=== PATIENT | female | born 1930 | race Caucasian/White ===

== ENCOUNTER 2017-04-27 08:14 | Emergency (ER) | payer MEDICARE, BC ==
[2017-04-27] MEDS ORDERED: Ondansetron INJ* 2 MG/ML VIAL IV ONE (08:36)
[2017-04-27] MEDS ORDERED: Morphine INJ* 2 MG/ML 1 ML SYRINGE IV ONE (08:36)
[2017-04-27 09:07] LABS: Hematocrit 37 % (35-47); Hemoglobin 12.3 g/dl (12.0-16.0); Mean Corpuscular HGB Conc 34 g/dl (31-36); Mean Corpuscular Hemoglobin 33 pg (27-31); Mean Corpuscular Volume 99 fL (80-97); Mean Platelet Volume 9 um3 (7.4-10.4); Red Blood Count 3.71 10^6/ul (4.0-5.4); Red Cell Distribution Width 13 % (10.5-15); White Blood Count 9.1 10^3/ul (3.5-10.8)
[2017-04-27 09:19] LABS: Albumin 3.9 g/dL (3.2-5.2); C Reactive Protein 30.64 mg/L (< 5.00); Calcium 8.6 mg/dL (8.6-10.3); EGFR African American 99.2 (>60); EGFR Non-African American 77.2 (>60); Globulin 2.6 g/dL (2-4); Total Bilirubin 0.9 mg/dL (0.2-1.0); Total Protein 6.5 g/dL (6.4-8.9)
[2017-04-27 14:45] LABS: Urine Bacteria Absent (Absent); Urine Bilirubin Negative (Negative); Urine Glucose Negative (Negative); Urine Nitrite Negative (Negative)
[2017-04-27 15:09] VITALS: BP 157/58
--- NOTE | 2017-04-27 17:19 | ED ---
Brandon Dickson Alfonso, scribed for Merry Lombardo MD on 04/27/17 at 0825 . Back Pain - HPI Summary HPI Summary: This patient is an 86 year old F BIBA to [facility] accompanied by daughter and son- in-law with a chief complaint of low back pain since 4 days ago. The CC is described as at the spinal stenosis area and my usual back pain. The patient rates the pain 10/10 in severity. Symptoms aggravated by standing and movement. Symptoms alleviated by nothing. Pain not alleviated by tramadol and ibuprofen while on an empty stomach at 0700. Patient reports nausea. Patient denies CP, SOB, abdominal pain, vomiting, fall, and urinary symptoms. She lives alone. PMHx includes HTN and osteoporosis. PSHx of bilateral knee replacement, hysterectomy, bladder repair, and appendectomy. - History of Current Complaint Stated Complaint: BACK PAIN Hx Obtained From: Patient Onset/Duration: Sudden Onset, Lasting Days - 4, Still Present Timing: Constant Back Pain Location: Is Discrete @ - low back Severity Initially: Severe Severity Currently: Severe Pain Intensity: 10 Pain Scale Used: 0-10 Numeric Aggravating Symptom(s): Movement - Standing Alleviating Symptom(s): Nothing Associated Signs And Symptoms: Positive: Other - nausea. Patient denies CP, SOB , abdominal pain, vomiting, fall, and urinary symptoms - Allergies/Home Medications Allergies/Adverse Reactions: Allergies Allergy/AdvReac Type Severity Reaction Status Date / Time Aspirin Allergy Bleeding Verified 08/19/16 08:12 Nitrofurantoin Allergy Rash Verified 08/19/16 08:13 [From Macrobid] Sulfa Antibiotics Allergy Rash Verified 08/19/16 08:12 PMH/Surg Hx/FS Hx/Imm Hx Cardiovascular History: Reports: Hx Hypertension Musculoskeletal History: Reports: Hx Osteoporosis Neurological History: Reports: Other Neuro Impairments/Disorders - OSTEOPOROSIS - Cancer History Hx Chemotherapy: No Hx Radiation Therapy: No - Surgical History Surgery Procedure, Year, and Place: BILATERAL KNEE REPLACEMENTS; HYSTERECTOMY; BLADDER REPAIR; APPENDECTOMY - Family History Known Family History: Positive: Hypertension, Other - Breast cancer. Family History: FHx of Breast CA and HTN - Social History Lives: Alone Alcohol Use: None Hx Substance Use: No Substance Use Type: Reports: None Hx Tobacco Use: No Smoking Status (MU): Never Smoked Tobacco Review of Systems Negative: Chest Pain Negative: Shortness Of Breath Positive: Nausea. Negative: Abdominal Pain, Vomiting Positive: no symptoms reported Positive: Other - low back pain; negative fall. All Other Systems Reviewed And Are Negative: Yes Physical Exam Triage Information Reviewed: Yes Vital Signs On Initial Exam: Initial Vitals Temp Pulse Resp BP Pulse Ox 98.0 F 67 20 192/68 97 04/27/17 08:15 04/27/17 08:15 04/27/17 08:15 04/27/17 08:15 04/27/17 08:15 Vital Signs Reviewed: Yes Appearance: Positive: Well-Appearing, Well-Nourished, Pain Distress Skin: Positive: Warm, Skin Color Reflects Adequate Perfusion Head/Face: Positive: Normal Head/Face Inspection Eyes: Positive: Conjunctiva Clear ENT: Positive: Normal ENT inspection Neck: Positive: Supple Respiratory/Lung Sounds: Positive: Clear to Auscultation, Breath Sounds Present , Other - no respiratory distress Cardiovascular: Positive: RRR, Pulses are Symmetrical in both Upper and Lower Extremities, Other - brisk capillary refill. Negative: Murmur Abdomen Description: Positive: Nontender, Soft Bowel Sounds: Positive: Present Musculoskeletal: Positive: Strength/ROM Intact, Other - Minimal spinal tenderness on palpation. Trace edema. No deformities. Neurological: Positive: Sensory/Motor Intact, Alert, Oriented to Person Place, Time, CN Intact II-III, Other - Sensations intact Psychiatric: Positive: Normal Diagnostics - Vital Signs Vital Signs Temp Pulse Resp BP Pulse Ox 04/27/17 15:08 98 F 67 17 157/58 04/27/17 14:30 65 175/70 95 04/27/17 14:00 64 166/58 04/27/17 13:30 60 163/60 04/27/17 13:00 66 173/60 97 04/27/17 12:30 63 159/63 04/27/17 12:03 81 82 04/27/17 12:02 172/63 04/27/17 11:50 69 04/27/17 11:30 64 165/64 04/27/17 11:00 62 157/57 97 04/27/17 10:30 61 150/61 96 04/27/17 10:00 60 154/59 96 04/27/17 09:30 60 151/58 04/27/17 09:13 63 18 143/58 04/27/17 09:04 62 143/58 97 04/27/17 09:00 59 96 04/27/17 08:59 18 04/27/17 08:30 59 177/50 97 04/27/17 08:26 62 96 04/27/17 08:25 178/57 04/27/17 08:18 98.0 F 67 20 180/79 97 04/27/17 08:15 98.0 F 67 20 192/68 97 - Laboratory Lab Results: Lab Results 04/27/17 04/27/17 04/27/17 Range/Units 08:50 08:50 08:50 WBC 9.1 (3.5-10.8) 10^3/ul RBC 3.71 L (4.0-5.4) 10^6/ul Hgb 12.3 (12.0-16.0) g/dl Hct 37 (35-47) % MCV 99 H (80-97) fL MCH 33 H (27-31) pg MCHC 34 (31-36) g/dl RDW 13 (10.5-15) % Plt Count 173 (150-450) 10^3/ul MPV 9 (7.4-10.4) um3 Neut % (Auto) 83.4 H (38-83) % Lymph % (Auto) 8.0 L (25-47) % Lipscomb % (Auto) 6.9 (1-9) % Eos % (Auto) 1.0 (0-6) % Baso % (Auto) 0.7 (0-2) % Absolute Neuts (auto) 7.6 (1.5-7.7) 10^3/ul Absolute Lymphs (auto) 0.7 L (1.0-4.8) 10^3/ul Absolute Monos (auto) 0.6 (0-0.8) 10^3/ul Absolute Eos (auto) 0.1 (0-0.6) 10^3/ul Absolute Basos (auto) 0.1 (0-0.2) 10^3/ul Absolute Nucleated RBC 0 10^3/ul Nucleated RBC % 0 INR (Anticoag Therapy) 0.92 (0.89-1.11) Sodium 136 (133-145) mmol/L Potassium 4.0 (3.5-5.0) mmol/L Chloride 103 (101-111) mmol/L Carbon Dioxide 24 (22-32) mmol/L Anion Gap 9 (2-11) mmol/L BUN 18 (6-24) mg/dL Creatinine 0.72 (0.51-0.95) mg/dL Est GFR ( Amer) 99.2 (>60) Est GFR (Non-Af Amer) 77.2 (>60) BUN/Creatinine Ratio 25.0 H (8-20) Glucose 120 H (70-100) mg/dL Lactic Acid (0.5-2.0) mmol/L Calcium 8.6 (8.6-10.3) mg/dL Total Bilirubin 0.90 (0.2-1.0) mg/dL AST 15 (13-39) U/L ALT 10 (7-52) U/L Alkaline Phosphatase 48 (34-104) U/L C-Reactive Protein 30.64 H (< 5.00) mg/L Total Protein 6.5 (6.4-8.9) g/dL Albumin 3.9 (3.2-5.2) g/dL Globulin 2.6 (2-4) g/dL Albumin/Globulin Ratio 1.5 (1-3) Urine Color Urine Appearance Urine pH (5-9) Ur Specific [place] (1.010-1.030) Urine Protein (Negative) Urine Ketones (Negative) Urine Blood (Negative) Urine Nitrate (Negative) Urine Bilirubin (Negative) Urine Urobilinogen (Negative) Ur Leukocyte Esterase (Negative) Urine WBC (Auto) (Absent) Urine RBC (Auto) (Absent) Ur Squamous Epith Cells (Absent) Urine Bacteria (Absent) Urine Glucose (Negative) 04/27/17 04/27/17 Range/Units 08:50 12:03 WBC (3.5-10.8) 10^3/ul RBC (4.0-5.4) 10^6/ul Hgb (12.0-16.0) g/dl Hct (35-47) % MCV (80-97) fL MCH (27-31) pg MCHC (31-36) g/dl RDW (10.5-15) % Plt Count (150-450) 10^3/ul MPV (7.4-10.4) um3 Neut % (Auto) (38-83) % Lymph % (Auto) (25-47) % Lipscomb % (Auto) (1-9) % Eos % (Auto) (0-6) % Baso % (Auto) (0-2) % Absolute Neuts (auto) (1.5-7.7) 10^3/ul Absolute Lymphs (auto) (1.0-4.8) 10^3/ul Absolute Monos (auto) (0-0.8) 10^3/ul Absolute Eos (auto) (0-0.6) 10^3/ul Absolute Basos (auto) (0-0.2) 10^3/ul Absolute Nucleated RBC 10^3/ul Nucleated RBC % INR (Anticoag Therapy) (0.89-1.11) Sodium (133-145) mmol/L Potassium (3.5-5.0) mmol/L Chloride (101-111) mmol/L Carbon Dioxide (22-32) mmol/L Anion Gap (2-11) mmol/L BUN (6-24) mg/dL Creatinine (0.51-0.95) mg/dL Est GFR ( Amer) (>60) Est GFR (Non-Af Amer) (>60) BUN/Creatinine Ratio (8-20) Glucose (70-100) mg/dL Lactic Acid 1.0 (0.5-2.0) mmol/L Calcium (8.6-10.3) mg/dL Total Bilirubin (0.2-1.0) mg/dL AST (13-39) U/L ALT (7-52) U/L Alkaline Phosphatase (34-104) U/L C-Reactive Protein (< 5.00) mg/L Total Protein (6.4-8.9) g/dL Albumin (3.2-5.2) g/dL Globulin (2-4) g/dL Albumin/Globulin Ratio (1-3) Urine Color Yellow Urine Appearance Clear Urine pH 6.0 (5-9) Ur Specific [place] 1.020 (1.010-1.030) Urine Protein 1+(30 mg/dl) H (Negative) Urine Ketones 2+ H (Negative) Urine Blood Negative (Negative) Urine Nitrate Negative (Negative) Urine Bilirubin Negative (Negative) Urine Urobilinogen Negative (Negative) Ur Leukocyte Esterase Negative (Negative) Urine WBC (Auto) Trace(0-5/hpf) (Absent) Urine RBC (Auto) 1+(3-5/hpf) H (Absent) Ur Squamous Epith Cells Present H (Absent) Urine Bacteria Absent (Absent) Urine Glucose Negative (Negative) Result Diagrams: 04/27/17 08:50 04/27/17 08:50 Lab Statement: Any lab studies that have been ordered have been reviewed, and results considered in the medical decision making process. - EKG 0907 Cardiac Rate: NL - BPM 61 EKG Rhythm: Sinus Rhythm EKG Interpretation: LBBB. Prolonged QTc 515. Increased IV CT. Negative axis -2. EKG Comparison: Other - No prior to compare Re-Evaluation - Re-Evaluation First Eval Re-Evaluation Time: 14:30 Change: Improved Comment: Pt states she has no pain, N/V. She is able to ambulate, but it does bring her pain up to a 5/10. She reports having taken hydrocodone before and that it controls her pain. She also agrees to follow up with a touch up painter hand. Back Pain Course/Dx - Course Assessment/Plan: This patient is an 86 year old F BIBA to [facility] accompanied by daughter and son-in-law with a chief complaint of low back pain since 4 days ago. The CC is described as at the spinal stenosis area and my usual back pain. The patient rates the pain 10/10 in severity. Symptoms aggravated by standing and movement. Symptoms alleviated by nothing. Pain not alleviated by tramadol and ibuprofen while on an empty stomach at 0700. Patient reports nausea. Patient denies CP, SOB, abdominal pain, vomiting, fall, and urinary symptoms. She lives alone. PMHx includes HTN and osteoporosis. PSHx of bilateral knee replacement, hysterectomy, bladder repair, and appendectomy. An EKG reveals NSR, LBBB. Prolonged QTc 515. Increased IV CT. Negative axis -2. No prior to compare. Patient will be discharged with follow up from PCP and Dr. Saldana (pain clinic). The patient is agreeable with this plan. Discharge - Discharge Plan Condition: Stable Disposition: HOME Prescriptions: HYDROcodone/ACETAMIN 5-325 MG* [Hensley 5-325 TAB*] 1 tab PO Q6H PRN #12 tab MDD 4 PRN Reason: Pain Patient Education Materials: Acute Low Back Pain (ED) Referrals: Ken Saldana MD [Primary Care Provider] - 2 Days Additional Instructions: Dr. Lombardo gave one dose of morphine 2mg IV with zofran 4mg IV and your pain decreased. Dr. Lombardo recommends that you get established with the pain clinic like Dr. Saldana recommended. Return to the ER if you have any new or worsening symptoms. The documentation as recorded by the Brandon kong Alfonso accurately reflects the service I personally performed and the decisions made by , Merry Lombardo MD.
== END 2017-04-27 15:10 | disposition home or self-care (01) ==
LOC: ED 08:14
DX: R11.0 Nausea (principal); M54.5 Low back pain
CPT/HCPCS: 36415; 80053; 81003; 81015; 83605; 85025; 85610; 86140; 93005; 99282; J2270; J2405

== ENCOUNTER 2017-05-27 09:05 | Emergency (ER) | payer MEDICARE, BC ==
[2017-05-27 09:17] VITALS: BP 116/54
--- NOTE | 2017-05-27 09:18 | UC ---
Abdominal Pain Female HPI - HPI Summary HPI Summary: 86 year old female presents with complains of nausea , coffee ground emesis, and abdominal pain. I will send her to the ER. - History of Current Complaint Chief Complaint: UCGI Stated Complaint: NAUSEA Time Seen by Provider: 05/27/17 09:18 Hx Obtained From: Patient Onset/Duration: Sudden Onset Severity Initially: Moderate Severity Currently: Moderate Location: Diffuse Radiates: Yes Character: Dull Allergies/Adverse Reactions: Allergies Allergy/AdvReac Type Severity Reaction Status Date / Time Aspirin Allergy Bleeding Verified 05/27/17 09:09 Nitrofurantoin Allergy Rash Verified 05/27/17 09:09 [From Macrobid] Sulfa Antibiotics Allergy Rash Verified 05/27/17 09:09 Home Medications: Home Medications Ondansetron ODT TAB* [Zofran 4 MG Odt TAB*] 05/27/17 [History] traMADol TAB* [Ultram*] 05/27/17 [History] PMH/Surg Hx/FS Hx/Imm Hx - Surgical History Surgical History: Yes Surgery Procedure, Year, and Place: BILATERAL KNEE REPLACEMENTS; HYSTERECTOMY; BLADDER REPAIR; APPENDECTOMY - Family History Known Family History: Positive: Hypertension, Other - Breast cancer. Family History: FHx of Breast CA and HTN - Social History Alcohol Use: None Substance Use Type: None Smoking Status (MU): Never Smoked Tobacco Review of Systems Constitutional: Negative Skin: Negative Eyes: Negative ENT: Negative Respiratory: Negative Cardiovascular: Negative Gastrointestinal: Abdominal Pain, Vomiting, Nausea Genitourinary: Negative Motor: Negative Neurovascular: Negative Musculoskeletal: Negative Neurological: Negative Psychological: Negative All Other Systems Reviewed And Are Negative: Yes Physical Exam Triage Information Reviewed: Yes Appearance: Ill-Appearing Vital Signs: Initial Vital Signs Temp 36.6 C 05/27/17 09:12 Pulse 97 05/27/17 09:12 Resp 16 05/27/17 09:12 BP 116/54 05/27/17 09:12 Pulse Ox 97 05/27/17 09:12 Vital Signs Reviewed: Yes Eye Exam: Normal ENT Exam: Normal Dental Exam: Normal Neck exam: Normal Neck: Positive: 1 Respiratory Exam: Normal Cardiovascular Exam: Normal Abdomen Description: Positive: Distended Musculoskeletal Exam: Normal Neurological Exam: Normal Psychological Exam: Normal Skin Exam: Normal Abd Pain Female Course/Dx - Differential Dx/Diagnosis Provider Diagnoses: abdominal pain. nausea. vomitting Discharge - Discharge Plan Condition: Guarded Disposition: AGAINST MEDICAL ADVICE Patient Education Materials: Acute Nausea and Vomiting (ED), Abdominal Pain (ED ) Referrals: Ken Saldana MD [Primary Care Provider] -
== END 2017-05-27 09:56 | disposition left against medical advice (07) ==
LOC: UCEAST 09:05
DX: R10.9 Unspecified abdominal pain (principal); R11.2 Nausea with vomiting, unspecified
CPT/HCPCS: 99213; G0463

== ENCOUNTER 2017-05-27 10:09 | Inpatient (IN) | payer MEDICARE, BC ==
[2017-05-27 12:31] LABS: Hematocrit 37 % (35-47); Hemoglobin 12.6 g/dl (12.0-16.0); Mean Corpuscular HGB Conc 34 g/dl (31-36); Mean Corpuscular Hemoglobin 33 pg (27-31); Mean Corpuscular Volume 96 fL (80-97); Mean Platelet Volume 9 um3 (7.4-10.4); Red Blood Count 3.81 10^6/ul (4.0-5.4); Red Cell Distribution Width 13 % (10.5-15)
[2017-05-27 12:52] LABS: Albumin 3.9 g/dL (3.2-5.2); BUN/Creatinine Ratio 14.6 (8-20); C Reactive Protein 1.71 mg/L (< 5.00); EGFR African American 27.5 (>60); EGFR Non-African American 21.4 (>60); Globulin 2.5 g/dL (2-4); Potassium 4.1 mmol/L (3.5-5.0); Total Bilirubin 0.5 mg/dL (0.2-1.0); Total Protein 6.4 g/dL (6.4-8.9)
[2017-05-27 13:09] LABS: Urine Bilirubin Negative (Negative); Urine Glucose Negative (Negative); Urine Nitrite Negative (Negative)
[2017-05-27] MEDS ORDERED: NS 0.9% 1000 ML* 1,000 ML IV ONE (13:17)
[2017-05-27 14:24] LABS: Troponin I 0.02 ng/mL (<0.04)
--- NOTE | 2017-05-27 15:58 | RAD ---
CLINICAL HISTORY: Recurrent vomiting COMPARISON: May 05, 2017 TECHNIQUE: Multiple contiguous axial CT scans were obtained of the abdomen and pelvis, without intravenous contrast enhancement. Coronal and sagittal multiplanar reformations are submitted for review. Oral contrast was administered. FINDINGS: The study is limited by the lack of intravenous contrast. This limits evaluation of the solid organs and vasculature. LUNG BASES: The lung bases are clear. LIVER: The liver is normal in shape, size, contour, and attenuation. BILE DUCTS: There is no intrahepatic or extrahepatic biliary dilatation. GALLBLADDER: The gallbladder is normal, without pericholecystic inflammatory change. PANCREAS: The pancreas is normal, without mass or ductal dilatation. SPLEEN: Normal in size and appearance. UPPER GI TRACT: Evaluation of the gastrointestinal tract is limited by incomplete gastric distention. There is a small sliding hiatal hernia. SMALL BOWEL AND MESENTERY: The small bowel is normal in contour, course, and caliber. There is no obstruction or dilatation. COLON: There are multiple diverticula of the sigmoid colon. There is no pericolonic inflammatory change. ADRENALS: Normal bilaterally. KIDNEYS: The kidneys are normal in shape, size, contour, and axis. There is no hydronephrosis or nephrolithiasis. BLADDER: The bladder is smooth in contour. PELVIC ORGANS: The pelvic organs are not visualized. AORTA: There is calcific atherosclerotic disease of the abdominal aorta and its branches, without aneurysmal dilatation IVC: Unremarkable LYMPH NODES: There is no lymphadenopathy by size criteria. ABDOMINAL WALL: There is no evidence for abdominal wall hernia. BONES AND SOFT TISSUES: There are persistent compression deformities of L1 and L2 and L4. These are similar to the May 05, 2017 examination. Degenerative changes are noted of the spine. OTHER: None IMPRESSION: 1. NO OBSTRUCTION. 2. DIVERTICULOSIS. 3. SMALL SLIDING HIATAL HERNIA
[2017-05-27 17:10] LABS: TSH (Thyroid Stimulating Horm) 1.45 mcIU/mL (0.34-5.60)
[2017-05-27] MEDS: NS 0.9% 1000 ML* 1,000 ML IV SCH (18:24)
[2017-05-27 19:00] LABS: Hematocrit 34 % (35-47); Hemoglobin 11.5 g/dl (12.0-16.0)
[2017-05-27] MEDS: traMADol TAB* 50 MG PO PRN (21:15)
--- NOTE | 2017-05-27 22:26 | HP ---
CC: Dr. Saldana * ADMISSION HISTORY AND PHYSICAL: DATE OF ADMISSION: PRIMARY CARE PROVIDER: Dr. Saldana. HEALTHCARE PROXY: Her daughter, Carrie. CODE STATUS: DNR. SOURCE OF INFORMATION: History obtained from interview with the patient, review of past medical records. RELIABILITY: Good. CHIEF COMPLAINT: Nausea and vomiting. HISTORY OF PRESENT ILLNESS: This is an 86-year-old female, who underwent a CAT scan on , illustrated multilevel osteoporotic compression fractures of her lumbar spine. She reports at that time, she has been on 25 mcg of fentanyl patch ; however, has experienced decreasing appetite concomitant with the administration of the fentanyl. She notes that she has been drinking water, but eating very little food. She denies any abdominal pain or pain otherwise except for that in her back. Approximately 3 or 4 days prior, she discontinued her fentanyl patch and after that started to experience nausea and vomiting. The vomiting peaked approximately 2 nights prior to presentation when she was vomiting every 2 hours. The night prior to presentation, she only vomited one time. However, this morning, the patient's daughter who was not present at the time of our interview, per the patient noted to be "not looking good." While the patient denies any blood or appearance of coffee- ground texture in her emesis, the patient's daughter had reported to the patient and the ED staff that she did think that the emesis had a coffee-ground appearance. She had no pain with vomiting. No diarrhea, no sick contacts. The day prior to presentation, she did take Motrin 3 times every 6 hours. This is the first time she is taking Motrin or any other NSAID in the last 3 weeks per her report. On the time of my evaluation, the patient had had an episode of nausea , but no emesis in the emergency room. She had no pain or other complaints. PAST MEDICAL HISTORY: Includes hypertension, arthritis, osteoporosis, hypothyroidism, multilevel osteoporotic fractures of the lumbar spine, macular degeneration, hysterectomy in 1977, bilateral knee replacement in 2000, bladder repair in , bilateral cataract removal. MEDICATIONS: From list the patient provided: 1. Levothyroxine 100 mcg daily. 2. Ibuprofen 600 mg every 6 hours as needed for pain. 3. Zofran ODT 4 mg every 6 hours as needed for nausea. 4. Tramadol 50 mg every 6 hours as needed. 5. Multivitamin 2 caps at bedtime. 6. Calcium carbonate 1000 mg twice daily. 7. Cholecalciferol 2000 units daily. 8. Docusate 100 mg twice daily. 9. Amlodipine 5 mg daily. 10. Lisinopril 40 mg daily. 11. Lasix 40 mg daily. ALLERGIES: To ASPIRIN, SULFA, ANTIBIOTICS, as well as NITROFURANTOIN. FAMILY HISTORY: Breast cancer and hypertension. SOCIAL HISTORY: No history of tobacco or alcohol. She has 3 daughters in the region. REVIEW OF SYSTEMS: As per HPI, otherwise all other systems negative. PHYSICAL EXAMINATION GENERAL: Elderly woman sitting up in bed, interactive, pleasant, in no apparent distress. VITAL SIGNS: In the emergency room, 125/65, heart rate 82, respiratory rate 14 , sat 97% on room air, T-max 97.7. HEENT: Oropharynx is clear. She has dry mucous membranes. Sclerae anicteric. NECK: She has non-elevated JVD. No cervical or supraclavicular lymphadenopathy. LUNGS: Clear to auscultation, except for scant rales half way up from her left lung base. HEART: She has regular rate and rhythm. No murmurs, rubs, or gallops. ABDOMEN: Soft, nontender, and nondistended. She has positive bowel sounds. EXTREMITIES: Warm and well perfused. She has 2+ lower extremity from her feet to above her knees. NEURO: She is alert and oriented x3. Cranial nerves intact. She has no apparent anxiety, agitation, or depression. DIAGNOSTIC STUDIES/LAB DATA: Laboratory data reviewed: White blood count is 8.0, hemoglobin 12.6 similar to April 2017, platelets 203. BUN 32, creatinine 2.19, glucose 114, lactic acid 1.2. LFTs are within normal limits. Troponin I is 0.02. CRP 1.7. BNP 17. Lipase 52. Urine: Trace ketones and ascorbic acid, otherwise unremarkable. EKG: Left bundle branch block is not new compared to old. ASSESSMENT AND PLAN: This is an 86-year-old female presenting with several days of uncontrolled nausea and vomiting with potentially some blood involved in the context of coffee-ground emesis, although the patient refused this. 1. Nausea and vomiting. The patient has been on 25 mcg of fentanyl for several weeks, discontinued this fentanyl and then developed nausea and vomiting. I think, the patient was withdrawing from the narcotics from the sudden discontinuation. Additional possibilities are the patient had been developing underlying renal failure from her decreased p.o. appetite with continued Lasix administration and developed medication side effects given her sudden decline in GFR. At this point, I am holding additional narcotics in the form of fentanyl. We will give it p.r.n. as needed. She received 1 L of normal saline and we will give her 150 cc/hour for next 12 hours to total to more additional liters prior to tomorrow's repeat BMP. Zofran IV as needed for nausea and vomiting. Repeat H and H this evening, to monitor for any acute blood loss, otherwise I suspect there was some irritation potentially Emma- Sykes, although nonpainful in the setting of numerous vomiting episodes. I doubt esophageal varices. We will treat with IV Protonix as well. 2. Acute kidney failure in the setting of dehydration with decreased appetite and then nausea and vomiting. Additional one day of Motrin may have been contributing. Hold lisinopril, hold Lasix. Fluid repletion as above. For pain , continue with tramadol. 3. Hypertension. Hold lisinopril, continue amlodipine. 4. Hypothyroidism. Continue home dose levothyroxine. Add TSH level to ED labs understanding that to treat in the setting of acute illness may not be of much value. 5. DVT prophylaxis. SCDs in the setting of potentially coffee-ground emesis. [id number]/[facility] #: [id number] [facility]
[2017-05-28] MEDS ORDERED: Ondansetron INJ* 2 MG/ML VIAL IV PRN (01:15)
[2017-05-28] MEDS ORDERED: oxyCODONE TAB* 5 MG TAB PO PRN ×2 (01:15→14:33)
[2017-05-28] MEDS: NS 0.9% 1000 ML* 1,000 ML IV SCH (01:42)
[2017-05-28] MEDS: Levothyroxine TAB* 100 MCG TAB PO SCH (05:57)
[2017-05-28] MEDS: traMADol TAB* 50 MG PO PRN (05:57)
[2017-05-28 06:20] LABS: Hematocrit 30 % (35-47); Hemoglobin 10.2 g/dl (12.0-16.0); Mean Corpuscular HGB Conc 35 g/dl (31-36); Mean Corpuscular Hemoglobin 33 pg (27-31); Mean Corpuscular Volume 97 fL (80-97); Mean Platelet Volume 9 um3 (7.4-10.4); Red Blood Count 3.05 10^6/ul (4.0-5.4); Red Cell Distribution Width 13 % (10.5-15)
[2017-05-28 06:29] LABS: BUN/Creatinine Ratio 21.5 (8-20); Calcium 8.1 mg/dL (8.6-10.3); EGFR African American 62.8 (>60); EGFR Non-African American 48.9 (>60); Potassium 3.5 mmol/L (3.5-5.0)
[2017-05-28] MEDS: amLODIPine TAB* 5 MG PO SCH (09:30)
[2017-05-28] MEDS: Docusate CAP* 100 MG PO SCH ×2 (09:30→21:39)
[2017-05-28] MEDS: Cholecalciferol TAB* 1000 UNITS PO SCH (09:30)
--- NOTE | 2017-05-28 14:40 | PN ---
Subjective Date of Service: 05/28/17 Interval History: Episode of nausea this AM and vomiting with attempting to eat broth Again had nausea and vomiting twice with attempting to eat soup at lunch She has not noted any blood or "coffee ground" appearance in her emesis No black tarry stools or blood She denies any abdominal pain, CP, SOB, LH She feels much improved since admission Objective Active Medications: Amlodipine Besylate (Norvasc Tab*) 5 mg PO DAILY [facility] Last Admin: 05/28/17 09:30 Dose: 5 mg Cholecalciferol (Vitamin D Tab*) 2,000 units PO DAILY [facility] Last Admin: 05/28/17 09:30 Dose: 2,000 units Docusate Sodium (Colace Cap*) 200 mg PO BID [facility] Last Admin: 05/28/17 09:30 Dose: 200 mg Sodium Chloride (Ns 0.9% 1000 Ml*) 1,000 mls @ 150 mls/hr IV PER RATE [facility] Stop: 05/28/17 22:54 Last Admin: 05/28/17 01:42 Dose: 150 mls/hr Levothyroxine Sodium (Synthroid Tab*) 100 mcg PO 0600 [facility] Last Admin: 05/28/17 05:57 Dose: 100 mcg Ondansetron HCl (Zofran Inj*) 4 mg IV Q6H PRN PRN Reason: NAUSEA Last Admin: 05/28/17 09:52 Dose: 4 mg Oxycodone HCl (Roxycodone Tab*) 5 mg PO Q4H PRN PRN Reason: PAIN Tramadol HCl (Ultram*) 50 mg PO Q6H PRN PRN Reason: PAIN Last Admin: 05/28/17 05:57 Dose: 50 mg Vital Signs 05/27/17 05/27/17 05/27/17 16:30 17:00 17:06 Temperature Pulse Rate 88 83 86 Respiratory 15 14 Rate Blood Pressure 91/57 (mmHg) O2 Sat by Pulse 96 93 95 Oximetry 05/27/17 05/27/17 05/27/17 17:12 17:30 19:28 Temperature 97.9 F 98.5 F Pulse Rate 94 84 Respiratory 16 18 Rate Blood Pressure 147/67 49/30 114/52 (mmHg) O2 Sat by Pulse 96 95 Oximetry 05/27/17 05/27/17 05/27/17 21:15 21:18 23:15 Temperature Pulse Rate Respiratory 18 18 18 Rate Blood Pressure (mmHg) O2 Sat by Pulse Oximetry 05/27/17 05/28/17 05/28/17 23:23 03:48 05:39 Temperature 98.1 F 97.3 F 97.3 F Pulse Rate 84 78 78 Respiratory 12 12 12 Rate Blood Pressure 107/43 102/33 102/33 (mmHg) O2 Sat by Pulse 94 94 94 Oximetry 05/28/17 05/28/17 05/28/17 05:57 07:57 08:00 Temperature Pulse Rate Respiratory 16 16 15 Rate Blood Pressure (mmHg) O2 Sat by Pulse Oximetry 05/28/17 05/28/17 05/28/17 08:17 09:29 11:29 Temperature 97.9 F Pulse Rate 75 Respiratory 20 15 16 Rate Blood Pressure 101/34 (mmHg) O2 Sat by Pulse 93 Oximetry Oxygen Devices in Use Now: None Appearance: sitting up in bed, interactive, NAD Eyes: No Scleral Icterus, PERRLA Ears/Nose/Mouth/Throat: Clear Oropharnyx, Mucous Membranes Moist Neck: NL Appearance and Movements; NL JVP, Trachea Midline Respiratory: Symmetrical Chest Expansion and Respiratory Effort, Clear to Auscultation Cardiovascular: RRR Abdominal: NL Sounds; No Tenderness; No Distention, No Hepatosplenomegaly Lymphatic: No Cervical Adenopathy Extremities: No Edema Neurological: Alert and Oriented x 3 Result Diagrams: 05/28/17 05:49 05/28/17 05:49 Additional Lab and Data: Lab Results 05/27/17 05/27/17 Range/Units 12:14 12:14 WBC 8.0 (3.5-10.8) 10^3/ul RBC 3.81 L (4.0-5.4) 10^6/ul Hgb 12.6 (12.0-16.0) g/dl Hct 37 (35-47) % MCV 96 (80-97) fL MCH 33 H (27-31) pg MCHC 34 (31-36) g/dl RDW 13 (10.5-15) % Plt Count 203 (150-450) 10^3/ul MPV 9 (7.4-10.4) um3 Neut % (Auto) 72.4 (38-83) % Lymph % (Auto) 18.8 L (25-47) % [place] % (Auto) 6.9 (1-9) % Eos % (Auto) 1.0 (0-6) % Baso % (Auto) 0.9 (0-2) % Absolute Neuts (auto) 5.8 (1.5-7.7) 10^3/ul Absolute Lymphs (auto) 1.5 (1.0-4.8) 10^3/ul Absolute Monos (auto) 0.6 (0-0.8) 10^3/ul Absolute Eos (auto) 0.1 (0-0.6) 10^3/ul Absolute Basos (auto) 0.1 (0-0.2) 10^3/ul Absolute Nucleated RBC 0 10^3/ul Nucleated RBC % 0 Blood Type O Positive Antibody Screen Pending Assess/Plan/Problems-Billing Assessment: 86 yo F h/o multilevel lumbar fractures, HTN, hypothyroidism p/w intractable nausea vomiting - Patient Problems (1) Nausea & vomiting Comment: Improved since onset but still unable to tolerate anything orally Needs continued inpatient management for intractable nausea/vomiting Suspect etiology is withdrawal from fentanyl patch as symptoms started after removal of continuous narcatics CT A/P wnl without etiology (2) Acute kidney failure Comment: pre renal resolved with IV fluids (3) Anemia Comment: Check stool for occult blood in setting of reported coffee ground emesis repeat H/H now and in viktor future with timing based on this afternoon's value (4) Hypothyroid Comment: synthroid (5) Hypertension Comment: amlodipine holding lisinopril AND lasix (6) DVT prophylaxis Comment: SCDs in setting of potential GIB
[2017-05-28 14:42] LABS: Hematocrit 29 % (35-47); Hemoglobin 9.8 g/dl (12.0-16.0)
[2017-05-29 06:53] LABS: Hematocrit 30 % (35-47); Hemoglobin 10.4 g/dl (12.0-16.0); Mean Corpuscular HGB Conc 34 g/dl (31-36); Mean Corpuscular Hemoglobin 33 pg (27-31); Mean Corpuscular Volume 96 fL (80-97); Mean Platelet Volume 9 um3 (7.4-10.4); Red Blood Count 3.16 10^6/ul (4.0-5.4); Red Cell Distribution Width 13 % (10.5-15); White Blood Count 6.6 10^3/ul (3.5-10.8)
[2017-05-29 06:57] LABS: BUN/Creatinine Ratio 21.6 (8-20); Calcium 7.9 mg/dL (8.6-10.3); EGFR African American 96.2 (>60); EGFR Non-African American 74.8 (>60); Potassium 3.4 mmol/L (3.5-5.0)
[2017-05-29] MEDS: Docusate CAP* 100 MG PO SCH (09:33)
[2017-05-29] MEDS: Levothyroxine TAB* 100 MCG TAB PO SCH (09:33)
[2017-05-29] MEDS: Cholecalciferol TAB* 1000 UNITS PO SCH (09:33)
[2017-05-29] MEDS: amLODIPine TAB* 5 MG PO SCH (09:33)
[2017-05-29 13:06] VITALS: BP 132/50
--- NOTE | 2017-05-30 05:19 | DS ---
CC: Dr. Saldana; Dr. Bill * DISCHARGE SUMMARY: DATE OF ADMISSION: 05/27/17 DATE OF DISCHARGE: 05/29/17 PRIMARY CARE PROVIDER: Dr. Saldana. NEUROSURGEON: Dr. Bill. DISCHARGING PROVIDER: CARLOS Hollis SUPERVISING PHYSICIAN: Dr. Berta Wong * (DICTATED BY CARLOS HOLLIS) PRIMARY DISCHARGE DIAGNOSES: 1. Nausea and vomiting likely secondary to opiate withdrawal. 2. Acute kidney injury secondary to hypovolemia - resolved. 3. Normocytic anemia with negative stool for heme. 4. Stage 1 decubitus ulcer over the right buttock present at admission. SECONDARY DISCHARGE DIAGNOSES: 1. Recent multilevel compression fractures of the lumbar spine - followed by Dr. Bill. 2. Hypothyroidism. 3. Hypertension. DISCHARGE MEDICATIONS: 1. Lisinopril 20 mg p.o. daily. 2. Calcium carbonate 1000 mg p.o. twice daily. 3. Vitamin D 2000 units p.o. daily. 4. Docusate 100 mg p.o. twice daily. 5. Lasix 40 mg p.o. daily. 6. Levothyroxine 100 mcg p.o. daily. 7. Lidocaine ointment apply topically to the back every 4 to 6 hours as needed for pain. 8. Multivitamin 2 tablets p.o. at bedtime. 9. Zofran 4 mg q.6 hours as needed for nausea. 10. Amlodipine 5 mg p.o. daily. 11. Tramadol 50 mg p.o. q.6 hours as needed for pain. Medication changes: 1. Oxycodone and fentanyl discontinued. 2. Start lidocaine ointment for additional pain control. 3. Decrease lisinopril. HOSPITAL IMAGING: CT of the abdomen and pelvis shows a small hiatal hernia, but otherwise no acute process. HOSPITAL COURSE: This is an 86-year-old female, who was recently diagnosed with multiple lumbar compression fractures, who had been treated at home with fentanyl patch and as needed oxycodone for pain relief. The patient reports that pain medications were making her nauseated, so she took the fentanyl patch off, did not take any additional doses of oxycodone approximately 3 to 4 days prior to her hospital admission. She subsequently became ill with frequent episodes of nausea and vomiting. No evidence of acute bleeding. She presented to the emergency room with these complaints. CTA of the abdomen and pelvis was completed, which was unremarkable. Initial labs demonstrated acute kidney injury with a BUN of 32 and a creatinine of 2.19 whereas her baseline creatinine is less than 1. No significant leukocytosis or other acute abnormalities. The patient was subsequently rehydrated with improvement and eventual resolution of her acute kidney injury. She received supportive care measures for what was likely opiate withdrawal inducing her nausea and vomiting given her recent abrupt discontinuation of her home opiate medications. On the day of discharge, the patient was able to tolerate a regular breakfast without nausea or vomiting. She reported that her pain in her back was controllable with as-needed tramadol. The patient did not wish to utilize any further opiate medications. She had developed a decubitus ulcer on her right buttocks that her daughter noticed. Her mobility since her recent lumbar fracture has been significantly limited and she has spent nearly her entire day in a recliner, positioned in an upright position. Upon exam, there were no open areas, but nonblanchable erythematous region overlying what looked like a recent deflated bulla. No evidence of associated infection. During her hospital stay, the patient's Lasix and lisinopril were held due to her acute kidney injury. Her Lasix will be resumed at her usual dose and lisinopril at half her usual doses. Recommendations for a repeat basic metabolic panel in approximately 1 week to ensure her renal function remains normal. DISPOSITION AND FOLLOWUP PLAN: The patient is being discharged to home where she lives alone, but her daughter is nearby. Referrals are made to [facility]. Due to the patient's limited mobility related to her recent vertebral fractures and development of stage 1 ulcer over her right buttock requiring frequent repositioning, the patient would benefit from the use of a hospital bed, which has been ordered at the time of discharge. As noted above, opiates have been discontinued and the patient feels like her pain is well controlled without additional medications. Recommend p.r.n. use of lidocaine ointment for additional pain relief as necessary. Recommend repeating basic metabolic panel in approximately 1 week after resuming Lasix and lisinopril. The patient requires close followup with her primary care provider as well as her neurosurgeon, Dr. Bill, following this hospital admission. CARLOS HOLLIS [id number]/[facility] #: [id number] [facility] HOSPITALThuy
== END 2017-05-29 13:00 | disposition home health service (06) | DRG 683 ==
LOC: ED 10:09 → MED 16:19 → OBSVTOIN 05-28 14:59
PROVIDERS: ADMIT Internal Medicine; ATTEND Internal Medicine
DX: N17.9 Acute kidney failure, unspecified (principal); F11.23 Opioid dependence with withdrawal; L89.311 Pressure ulcer of right buttock, stage 1; E86.0 Dehydration; M80.88XA Other osteoporosis with current pathological fracture, vertebra(e), initial encounter for fracture; D64.9 Anemia, unspecified; E86.1 Hypovolemia; I44.7 Left bundle-branch block, unspecified; I10 Essential (primary) hypertension; E03.9 Hypothyroidism, unspecified; Z96.653 Presence of artificial knee joint, bilateral; H35.30 Unspecified macular degeneration; R11.2 Nausea with vomiting, unspecified; M19.90 Unspecified osteoarthritis, unspecified site; K44.9 Diaphragmatic hernia without obstruction or gangrene; Z88.6 Allergy status to analgesic agent; Z88.1 Allergy status to other antibiotic agents; Z88.2 Allergy status to sulfonamides; Z88.8 Allergy status to other drugs, medicaments and biological substances; Z82.49 Family history of ischemic heart disease and other diseases of the circulatory system; Z90.710 Acquired absence of both cervix and uterus; Z98.42 Cataract extraction status, left eye; Z98.41 Cataract extraction status, right eye; Z80.3 Family history of malignant neoplasm of breast; Y92.009 Unspecified place in unspecified non-institutional (private) residence as the place of occurrence of the external cause
CPT/HCPCS: 36415; 74176; 80048; 80053; 81003; 82272; 83605; 83690; 83880; 84443; 84484; 85014; 85018; 85025; 86140; 86850; 86900; 86901; 93005; 99213; A9270-GY; G0378; G0463; J2405

== ENCOUNTER 2017-06-01 09:22 | Inpatient (IN) | payer MEDICARE, BC ==
[2017-06-01] MEDS ORDERED: NS 0.9% 1000 ML* 1,000 ML IV ONE (09:49)
[2017-06-01] MEDS ORDERED: Ondansetron INJ* 2 MG/ML VIAL IV ONE (09:49)
[2017-06-01 10:20] LABS: Hematocrit 36 % (35-47); Hemoglobin 12.3 g/dl (12.0-16.0); Mean Corpuscular HGB Conc 34 g/dl (31-36); Mean Corpuscular Hemoglobin 33 pg (27-31); Mean Corpuscular Volume 97 fL (80-97); Mean Platelet Volume 8 um3 (7.4-10.4); Red Blood Count 3.77 10^6/ul (4.0-5.4); Red Cell Distribution Width 13 % (10.5-15); White Blood Count 8.4 10^3/ul (3.5-10.8)
[2017-06-01 10:36] LABS: ALT 9 U/L (7-52); AST 14 U/L (13-39); Albumin 3.8 g/dL (3.2-5.2); Alkaline Phosphatase 63 U/L (34-104); Amylase 25 U/L (29-103); Anion Gap 10 mmol/L (2-11); BUN/Creatinine Ratio 9.3 (8-20); Blood Urea Nitrogen 7 mg/dL (6-24); C Reactive Protein 9.51 mg/L (< 5.00); CO2 Carbon Dioxide 26 mmol/L (22-32); Chloride 100 mmol/L (101-111); EGFR African American 94.7 (>60); EGFR Non-African American 73.6 (>60); Globulin 2.5 g/dL (2-4); Glucose 122 mg/dL (70-100); Lipase < 10 U/L (11.0-82.0); Magnesium 1.5 mg/dL (1.9-2.7); Potassium 3.4 mmol/L (3.5-5.0); Sodium 136 mmol/L (133-145); Total Protein 6.3 g/dL (6.4-8.9)
--- NOTE | 2017-06-01 10:43 | RAD ---
HISTORY: Nausea and vomiting COMPARISONS: CT dated May 27, 2017 VIEWS: Frontal supine and upright views of the abdomen. FINDINGS: BOWEL: There is a nonspecific bowel gas pattern, with nondilated small bowel gas noted. There is a moderate amount of stool within the colon. CALCULI: There are no abnormal calculi. BONES AND SOFT TISSUES: Degenerative changes are noted OTHER FINDINGS: The lung bases are clear. There is no subphrenic gas. IMPRESSION: NONSPECIFIC BOWEL GAS PATTERN. NO SUBPHRENIC GAS.
[2017-06-01 10:53] LABS: Troponin I 0.06 ng/mL (<0.04)
[2017-06-01] MEDS ORDERED: KCL 10 MEQ/50 ML IVPREMIX* 10 MEQ/50 ML BAG IV ONE (11:18)
[2017-06-01] MEDS ORDERED: Ondansetron INJ* 2 MG/ML VIAL IV PRN (13:13)
[2017-06-01] MEDS ORDERED: Acetaminophen TAB* 325 MG PO PRN (13:13)
[2017-06-01] MEDS ORDERED: NS 0.9% 1000 ML* 1,000 ML IV SCH (13:15)
[2017-06-01] MEDS ORDERED: Magnesium Sulfate 2 GM IV* 2 GM/50 ML BAG IVPB ONE (13:19)
[2017-06-01] MEDS ORDERED: Heparin VIAL(*) 5000 UNITS/ML VIAL (FIVE THOUSAND) SUBCUT SCH (14:00)
--- NOTE | 2017-06-01 14:36 | HP ---
HISTORY AND PHYSICAL: ADDENDUM: Ms. Rebollar is an 86-year-old female with history of recent evaluation for nausea and vomiting several days ago at [facility], which was thought at this point to be due to fentanyl withdrawal, who presented today with continuation of the problems with nausea and vomiting despite not being on fentanyl anymore for several days. The patient also has hypomagnesemia and hypokalemia. Her troponin is mildly positive likely due to demand ischemia due to vomiting. She is going to be admitted to the hospital and Gastroenterology will see the patient in consultation. For further details of the patient's presentation and plan, please see history and physical dictated by Kermit Batres NP, on 06/01/17, with which I agree. [id number]/[facility] #: [id number] MTDThuy
[2017-06-01] MEDS ORDERED: Perflutren Lipid Microsphere* 3 ML VIAL ONE (14:40)
--- NOTE | 2017-06-01 15:52 | ECHO ---
Patient: SONNY DIAMOND [facility] Rec#: [id number] : 1930 Date: 06/01/2017 Age: 86y Height: 152.4 cm / 60.0 in Weight: 72.6 kg / 160.0 lbs Sex: F BSA: 1.7 Room#: [facility] Admit Date#: 06/01/2017 Type: Inpatient Referring: Kermit Batres NP Reading: Becka Hand MD Message Broker Developer: Suyapa Whitfield RN RDCS CC: Ken Saldana MD Transthoracic Echocardiogram Indication: LBBB, elevated troponin levels BP: 134/71 HR: 92 Rhythm: NSR Findings History: HTN, hypothyroidism, multiple lumbar fractures, recent nausea and vomiting. Technical Comments: The study quality is fair. The study is technically limited due to patient body habitus. Left Ventricle: The left ventricular chamber size is normal. Septal wall hypertrophy is observed. There is increased basal septal hypertrophy noted without evidence of an increased gradient across the left ventricular outflow tract. There are multiple regional wall motion abnormalities. There is moderately decreased left ventricular systolic function. The estimated ejection fraction is 30-35%. There is anterior/septal/ apical severe hypokinesis. There is a left ventricular septal wall motion abnormality observed, possibly due to the presence of a left bundle branch block. There is an E to A reversal in the mitral valve flow pattern suggestive of diastolic dysfunction. Left Atrium: The left atrial chamber size is normal. Right Ventricle: The right ventricular chamber size and systolic function are within normal limits. Right Atrium: The right atrial cavity size is normal. Aortic Valve: The aortic valve is trileaflet. The aortic valve leaflets are mildly thickened. There is no evidence of aortic regurgitation. There is no evidence of aortic stenosis. Mitral Valve: The mitral valve leaflets are mildly thickened. There is mild to moderate mitral regurgitation. There is no evidence of mitral stenosis. Tricuspid Valve: The tricuspid valve leaflets are normal. There is mild tricuspid regurgitation. There is evidence of mild to moderate pulmonary hypertension. There is no tricuspid stenosis. Pulmonic Valve: The pulmonic valve structure is not well visualized. There is no evidence of pulmonic regurgitation. There is no pulmonic stenosis. Pericardium: There is no significant pericardial effusion. A pericardial fat pad is visualized. Aorta: The ascending aorta is not well visualized. There is no dilatation of the aortic arch. There is no dilation of the aortic root. Pulmonary Artery: The main pulmonary artery is not well visualized. Venous: The venous system is not well visualized. The inferior vena cava is not visualized. Contrast: Definity was used to optimize study. A total of 3 ml of diluted Definity was given IV. Summary: There was not any prior study for comparison. Conclusions The left ventricular chamber size is normal. There is increased basal septal hypertrophy noted without evidence of an increased gradient across the left ventricular outflow tract. There are multiple regional wall motion abnormalities. The estimated ejection fraction is 30-35%. There is anterior/septal/ apical severe hypokinesis. There is a left ventricular septal wall motion abnormality observed, possibly due to the presence of a left bundle branch block. There is an E to A reversal in the mitral valve flow pattern suggestive of diastolic dysfunction. There is mild to moderate mitral regurgitation. There is mild tricuspid regurgitation. There is evidence of mild to moderate pulmonary hypertension. Measurements Name Value Normal Range RVDdMajor (2D) 3.1 cm (2.2 - 4.4) RAd ISD 4CH 4.5 cm (3.4 - 4.9) RA (A4C)W 4 cm (2.9 - 4.6) IVSd (2D) 1.1 cm (0.6 - 1) LVPWd (2D) 0.9 cm (0.6 - 1) LVIDd (2D) 3.9 cm (3.6 - 5.4) LVIDs (2D) 3.1 cm - LV FS (2D) 20 % (25 - 45) Aortic Annulus 1.7 cm (1.4 - 2.6) Ao root diameter (2D) 2.8 cm (2.1 - 3.5) Aortic arch 2.9 cm (1.8 - 3.4) LA dimension (AP) 2D 2.9 cm (2.3 - 3.8) LAd ISD 4CH 4.8 cm (2.9 - 5.3) LA ISD 4CH W 4 cm (2.5 - 4.5) Name Value Normal Range LA ESV SP 4CH (A/L) 42.5 ml - LA ESV SP 2CH (A/L) 50 ml - LA ESV BP (A/L) 50 ml - LA ESV BP (A/L) index 29.4 ml/m2 - LA ESV SP 4CH (MOD) 40.2 ml - LA ESV SP 2CH (MOD) 49 ml - Name Value Normal Range MV E-wave Vmax 0.71 m/sec - MV deceleration time 155 msec - MV A-wave Vmax 1.2 m/sec - MV E:A ratio 0.57 ratio - LV septal e' Vmax 0.04 m/sec - LV lateral e' Vmax 0.14 m/sec - LV E:e' septal ratio 17.8 ratio - LV E:e' lateral ratio 5.1 ratio - Name Value Normal Range AV Vmax 1.3 m/sec - AV VTI 25.2 cm - AV peak gradient 7 mmHg - AV mean gradient 4.4 mmHg - LVOT Vmax 1.1 m/sec - LVOT VTI 19.8 cm - LVOT peak gradient 4.7 mmHg - LVOT mean gradient 2.7 mmHg - CORONA Vmax 0.43 m/sec - Name Value Normal Range MV Vmax 1.7 m/sec - MV VTI 25.4 cm - MV peak gradient 11 mmHg - MV mean gradient 4.3 mmHg - MV PHT 49.3 msec - MVA (PHT) 4.5 cm2 - Name Value Normal Range TR Vmax 3 m/sec - TR peak gradient 36 mmHg - RAP 8 mmHg - RVSP 44 mmHg - Name Value Normal Range PV Vmax 0.7 m/sec -
[2017-06-01] MEDS: Aspirin EC Low Dose* 81 MG TAB.EC PO SCH (16:18)
[2017-06-01] MEDS: Metoprolol Tartrate TAB* 25 MG PO SCH ×2 (16:18→21:21)
--- NOTE | 2017-06-01 16:32 | HP ---
ATTENDING PHYSICIAN ADDENDUM NOW INCLUDED ON THIS REPORT CC: Dr. Saldana; Dr. Peguero * HISTORY AND PHYSICAL: DATE OF ADMISSION: 06/01/17 PRIMARY CARE PROVIDER: Dr. Saldana. CONSULTING HUB BANDER: Dr. Peguero. ATTENDING PHYSICIAN WHILE IN THE HOSPITAL: Dr. Berta Wong * (report dictated by Kermit Batres NP). CHIEF COMPLAINT: 1. Nausea 2. Vomiting. HISTORY OF PRESENT ILLNESS: Ms. Rebollar is an 86-year-old female patient. She has a history of hypertension, arthritis, osteoporosis, hypothyroidism, macular degeneration, compression fractures of the lumbar spine, spinal stenosis , history of ischemic colitis and diverticulitis, who comes into the ER today stating that yesterday after eating about an hour thereafter, she started having some nausea and vomiting. She said she has been having intermittent episodes of nausea and vomiting since April. The daughter does state that really ever since that the patient had a lumbar fracture, she has been having progressive worsening downhill, she has been declining just generally. There have been no reports of fever, no abdominal pain. No chest pain or shortness of breath. She was concerned today because she vomited 3 times. She has also been having trouble with her bowel movements. Sometimes, they are loose; other times, she is constipated. Back and forth, they have been trying different bowel regimen with no avail. She states her last bowel movement was yesterday. There have been no reports of coffee-ground emesis. No reports of tarry stools or black stools or kristy blood in the stool. She denies again having any abdominal discomfort or any reports of fevers or chills. The patient was concerned because again she was having vomiting. The patient's daughter and the patient decided come into the ER today to be further evaluated. There has been again no dyspnea on exertion, there has been no orthopnea, and there has been no chest discomfort. There has been no lower extremity edema or weight changes that were reported. She recently was here just a couple of days ago with nausea and vomiting; it was thought secondary to be related to opioid withdrawal, but the family says that she started opioids after having the episodes of nausea and vomiting. I refer you to that H and P and discharge for details. Because of the recurrence, she came in, was evaluated in the ED and it was found that she had an elevated troponin and we were asked to evaluate for admission. PAST MEDICAL HISTORY: Significant for: 1. Hypertension. 2. Arthritis. 3. Osteoporosis. 4. Hypothyroidism. 5. Macular degeneration. 6. Compression fracture of the lumbar spine. She is following with Dr. Bill for this. 7. Spinal stenosis. 8. Ischemic colitis. 9. Diverticulitis. PAST SURGICAL HISTORY: The patient has had: 1. Hysterectomy. 2. Bilateral total knee replacement. 3. Cataract extraction. 4. Bladder repair. MEDICATIONS: Home meds according to the list that she provided include: 1. Tramadol 50 mg every 6 hours as needed. 2. Norvasc 5 mg a day. 3. Zofran ODT 4 mg every 6 hours as needed. 4. Multivitamin 2 tablets daily. 5. Lisinopril 20 mg daily. 6. Synthroid 100 mcg p.o. daily. 7. Lasix 40 mg daily. 8. Colace 100 mg p.o. b.i.d. 9. Vitamin D 2000 units p.o. daily. 10. Calcium 1000 mg p.o. b.i.d. 11. Tylenol 500 mg every 4 hours as needed. ALLERGIES TO MEDICATIONS: Include ASPIRIN, MACROBID, and also SULFA DRUGS. FAMILY HISTORY: Mother had a history of hypertension. Father had a history of diabetes. SOCIAL HISTORY: She does not smoke. She does not drink alcohol. She lives alone. Surrogate decision maker is her daughter. REVIEW OF SYSTEMS: There is no documented fever. She denied any weight change. She denied having any double vision. No ear discharge. No rhinorrhea. No sore throat. No thyroid enlargement. She denies having any chest pain. There was no orthopnea. There was no nocturnal dyspnea. There was no abdominal pain. There was nausea and vomiting. No dysuria, no frequency. No seizure. There has been no loss of consciousness. No pruritus and no skin ulcerations. Review of 14 systems completed, all others negative. PHYSICAL EXAMINATION GENERAL: At this time, Ms. Rebollar is an 86-year-old female patient. She is sitting in the ER stretcher, she does not appear to be in any acute distress. VITAL SIGNS: Reveal blood pressure 134/71, pulse 81, respirations 18, O2 sat 95 %, temperature 98.7. HEENT: Head is atraumatic. Eyes, EOMs intact. Sclerae anicteric and not pale. Throat, oral mucosa appears to be dry. No oropharyngeal erythema. NECK: Supple. LUNGS: Clear to auscultation bilaterally. No wheezes, rales, or rhonchi. HEART: Sounds S1, S2. Regular rate and rhythm. No murmurs, rubs, or gallops. ABDOMEN: Soft, flat, nontender. Bowel sounds were present. EXTREMITIES: Pulses were 2+ throughout. No peripheral edema. She had 5/5 strength. NEUROLOGICAL: The patient is awake, alert, and oriented x3. Mothers Helper were equal. No gross focal deficits. SKIN: Grossly intact. She does have stage I pressure ulcer to the sacrum. DIAGNOSTIC STUDIES/LAB DATA: Today revealed WBC of 8.4, RBC of 3.77, hemoglobin 12.3, hematocrit of 36, platelet count of 258. Sodium was 136, potassium 3.4, chloride 100, bicarb 26, BUN 7, creatinine 0.75, glucose 122, calcium 9, mag 1.5. Total bili 0.5, AST 14, ALT 9, alk phos 63. Troponin was 0.06. Albumin was 3.8. Lipase negative, amylase negative. She had an abdominal x-ray obtained today, showed nonspecific bowel gas patten. No subphrenic gas. She had a CT abdomen and pelvis done 5 days ago, which revealed no obstruction, diverticulosis, small sliding hiatal hernia. There was an EKG today, which showed a left bundle branch block, rate of 85, what she was noted to have previously on her EKGs. Old medical records were reviewed. ASSESSMENT AND PLAN: Ms. Rebollar is an 86-year-old female patient, who comes into the ER today with complaints of nausea and vomiting that has been going on intermittently since April. She said she had some vomiting after a meal yesterday and then throughout the night she vomited 3 times. We were asked to evaluate in admission. She will be admitted under observation status for: 1. Nausea and vomiting. Etiology is unclear. Thought initially according to the last notes to be secondary to opioid withdrawal that she had been on fentanyl for the lumbar fractures and then withdrew these medications abruptly. Unfortunately though, she says that prior to being on fentanyl, she had nausea and vomiting and now after she still having nausea and vomiting with no clear source. She denies any abdominal pain to me. She did not report any weight changes. My plan at this point again is to put her on clear liquids. I am going to touch base with GI to see if she needs any further workup. She just had a CAT scan 5 days ago, which was essentially benign. So, I do not think we need to repeat that per se and we will continue to follow, continue with supportive care. I will replace her electrolytes as her mag and potassium are low. I do have a call placed out to Dr. Peguero. He has not returned it yet, but again I will officially consult him. 2. Elevated troponin. Etiology is unclear. She is not having any chest pain, no abdominal pain, or epigastric pain. I am going to trend these and check an echo and we will follow. 3. Hypertension. Continue meds as prescribed. 4. History of osteoporosis with lumbar compression fractures. She could be out of bed with her brace, which the family is bringing in. The patient will be seen by PT as she may benefit from subacute rehab stay and we will continue to follow. 5. Hypothyroidism. Continue her Synthroid. 6. Macular degeneration. Continue meds as prescribed. 7. DVT prophylaxis. She is high risk. She will be placed on heparin subcu. 8. Code status. She is a DNR. There is a MOLST in the system. 9. Fluids, electrolytes, and nutrition. Clear liquid diet. TIME SPENT: On the admission 60 minutes, greater than half the time spent face- to- face with the patient obtaining my history and physical, other half time spent going over the plan of care with the patient and implementing plan of care. I did discuss plan of care with my attending, Dr. Wong; she is in agreement. KERMIT BATRES NP ADDENDUM: Ms. Rebollar is an 86-year-old female with history of recent evaluation for nausea and vomiting several days ago at [facility], which was thought at this point to be due to fentanyl withdrawal, who presented today with continuation of the problems with nausea and vomiting despite not being on fentanyl anymore for several days. The patient also has hypomagnesemia and hypokalemia. Her troponin is mildly positive likely due to demand ischemia due to vomiting. She is going to be admitted to the hospital and Gastroenterology will see the patient in consultation. For further details of the patient's presentation and plan, please see history and physical dictated by Kermit Batres NP, on 06/01/17 with which I agree. BERTA WONG MD [id number] #: [id number]/CPS #: [id number] STEVEN
[2017-06-01] MEDS: Heparin DRIP 25,000 UNITS(*) 25,000 UNITS/500 ML BAG IVPB SCH (16:42)
[2017-06-01] MEDS: Cholecalciferol TAB* 1000 UNITS PO SCH (17:03)
[2017-06-01] MEDS: Heparin VIAL(*) 5000 UNITS/ML VIAL (FIVE THOUSAND) IV SCH (17:06)
[2017-06-01 17:37] LABS: EGFR African American 115.8 (>60)
[2017-06-01 17:41] LABS: Troponin I 3.67 ng/mL (<0.04)
[2017-06-01 18:15] LABS: Urine Bacteria Absent (Absent); Urine Bilirubin Negative (Negative); Urine Glucose Negative (Negative); Urine Nitrite Negative (Negative)
--- NOTE | 2017-06-01 20:49 | CONS ---
CC: Dr. Saldana; Kermit Batres, PRODUCTION COOK, hospitalist service; Dr. Hand * CARDIOLOGY CONSULT: DATE OF CONSULT: 06/01/17 HISTORY OF PRESENT ILLNESS: I was asked by Kermit Batres from hospitalist services to see this 86-year-old female patient, who had multiple presentations to the hospital for nausea and vomiting. She was here several days ago and now she is back with the same symptoms. Today she was hospitalized. Troponin initially was ordered, that was 0.06 and did go up to 3.3 at about 2 o'clock today. Cardiology consult was further requested. The patient had no history of myocardial infarction or coronary artery disease in the past. She had no history of congestive heart failure or cardiomyopathy. She had history of hypertension, which she had been on medical treatment with amlodipine and lisinopril. She gives no history of diabetes mellitus, no hyperlipidemia, no alcoholism, no tobacco consumption, no history of endocarditis. She gives no symptoms of chest pain, no shortness of breath. She lives by herself. She is DNR as per her status. She had no swelling in the lower extremities, no hematochezia. No fever, no chills is appreciated. She does have a history of chronic left bundle-branch block. She is currently without any chest pain. PAST MEDICAL HISTORY: Includes history of systemic arterial hypertension, history of total abdominal hysterectomy and bladder surgery in the past. CURRENT MEDICATIONS: Include: 1. Vitamin D 2000 units daily. 2. Colace 100 mg twice a day. 3. Heparin adjusted to her PTT. 4. Synthroid 100 mcg daily. 5. Lisinopril 20 mg daily. 6. Lopressor 25 mg twice a day. 7. Tramadol 50 mg q.6 hours. ALLERGIES: There is allergy to NITROFURANTOIN, SULFA, and possible ASPIRIN giving her nasal bleed. FAMILY HISTORY: No family history of premature coronary artery disease. SOCIAL HISTORY: She gives no history of smoking, no drinking, no illicit drug use and she lives by herself. REVIEW OF SYSTEMS: Review of all other systems essentially is negative. PHYSICAL EXAM: She is awake, alert, and oriented. She is not in acute distress. Vitals: Blood pressure 120/70, pulse 70, she is sinus rhythm. Head and Neck Exam: Normocephalic, atraumatic head. Ears, Nose, and Throat: Essentially benign. Neck: Supple. JVP is not elevated. No carotid bruits. No masses in the neck are appreciated. Chest: Clear to auscultation. No rales , no wheeze, no added sounds are appreciated. Heart: Normal. S1 and S2. No added sounds, no gallops, no rubs. Abdomen: Benign. Positive bowel sounds. Extremities: No edema, no cyanosis, no clubbing. Skin exam is normal. Psych: Normal affect and mood. SCRIPT READER: No focal deficits are appreciated. DIAGNOSTIC STUDIES/LAB DATA: EKG: Normal sinus rhythm, heart rate 87 beats per minute. A left bundle-branch block is appreciated. Her labs showed the following: Sodium 136, potassium 3.4, chloride 100, total CO2 26, BUN 70, creatinine 0.75. Troponin 0.06 initially, second one 3.33. CRP 9.51. White blood cell 8.4, hemoglobin 12.3, hematocrit 36, and platelets 258,000. IMPRESSION: The patient is an 86-year-old patient with: 1. Presentation with recurrent nausea, vomiting; now she ruled in for myocardial infarction by positive troponin. 2. Chronic left bundle-branch block. 3. The patient is chest pain free. 4. Cardiomyopathy by an echo done today, EF 30% to 35%. 5. Moderate mitral insufficiency. 6. Systemic arterial hypertension. 7. Hypokalemia. 8. The patient is DNR. PLAN: I had a lengthy discussion with the patient and her daughter, who was available today at the bedside. The patient and the daughter wishes for continuing maximizing medical treatment without any further invasive or interventional treatment. I respect their wishes. I have discussed her subsequently with Kermit Batres from the hospitalist service. I agree with baby aspirin, heparin, beta kt treatment, BLANE inhibitor, statin, and followup troponins and accordingly any further recommendations would be pending her clinical outcome. This was discussed at length. Thank you very much for asking us to participate in the care of this patient. TIME SPENT: More than half of at least 60 plus minutes was in the education and counseling mode [id number], explaining all of the above management and decision making. [id number]/CPS #: [id number] MTDD
[2017-06-01] MEDS: Calcium Carbonate CHEW TAB* 500 MG (TUMS) PO SCH (21:21)
[2017-06-01] MEDS: Atorvastatin* 40 MG TAB PO SCH (21:21)
[2017-06-01] MEDS: Docusate CAP* 100 MG PO SCH (21:22)
[2017-06-02] MEDS: Levothyroxine TAB* 100 MCG TAB PO SCH (05:28)
[2017-06-02 06:01] LABS: Hematocrit 32 % (35-47); Hemoglobin 11.1 g/dl (12.0-16.0); Mean Corpuscular HGB Conc 35 g/dl (31-36); Mean Corpuscular Hemoglobin 34 pg (27-31); Mean Corpuscular Volume 98 fL (80-97); Mean Platelet Volume 10 um3 (7.4-10.4); Red Cell Distribution Width 13 % (10.5-15); White Blood Count 8.7 10^3/ul (3.5-10.8)
[2017-06-02 06:19] LABS: BUN/Creatinine Ratio 13.6 (8-20); Calcium 8.1 mg/dL (8.6-10.3); EGFR African American 109.7 (>60); EGFR Non-African American 85.3 (>60); HDL Cholesterol 44.8 mg/dL; Potassium 3.4 mmol/L (3.5-5.0)
[2017-06-02 07:54] LABS: Troponin I 2.24 ng/mL (<0.04)
[2017-06-02] MEDS: Docusate CAP* 100 MG PO SCH ×2 (08:03→21:17)
[2017-06-02] MEDS: Aspirin EC Low Dose* 81 MG TAB.EC PO SCH (08:03)
[2017-06-02] MEDS: Lisinopril TAB* 10 MG PO SCH (08:03)
[2017-06-02] MEDS: Metoprolol Tartrate TAB* 25 MG PO SCH ×2 (08:03→21:17)
[2017-06-02] MEDS: Potassium Chlor TAB* 20 MEQ TAB.ER PO SCH ×2 (08:03→21:18)
[2017-06-02] MEDS: Calcium Carbonate CHEW TAB* 500 MG (TUMS) PO SCH ×2 (08:03→21:18)
[2017-06-02] MEDS: traMADol TAB* 50 MG PO PRN (08:03)
--- NOTE | 2017-06-02 08:14 | ED ---
Brandon Dickson Alfonso, scribed for Fredo Laboy MD on 06/01/17 at 1038 . Complex/Multi-Sys Presentation - HPI Summary HPI Summary: This patient is an 86 year old F BIBA to [facility] accompanied by daughter with a chief complaint of nausea since 6 days ago, worse since this morning. Daughter reports the patient vomited what looks like feces this morning. The patient rates the pain 5/10 in severity. Symptoms alleviated by nothing. She is currently taking tramadol and Tylenol for the pain. Daughter reports loss of appetite, and loose stool. - History Of Current Complaint Chief Complaint: EDNauseaVomitDiarrh Time Seen by Provider: 06/01/17 09:41 Hx Obtained From: Patient Onset/Duration: Gradual Onset, Lasting Days - 6, Worse Since - morning Timing: Constant Severity Currently: Moderate Alleviating Factor(s): nothing Associated Signs And Symptoms: Positive: Other - loss of appetite, and loose stool. - Allergies/Home Medications Allergies/Adverse Reactions: Allergies Allergy/AdvReac Type Severity Reaction Status Date / Time Aspirin Allergy Bleeding Verified 05/27/17 09:09 Nitrofurantoin Allergy Rash Verified 05/27/17 09:09 [From Macrobid] Sulfa Antibiotics Allergy Rash Verified 05/27/17 09:09 Home Medications: Home Medications Acetaminophen TAB* [Tylenol TAB*] 500 mg PO Q4H PRN 06/01/17 [History Confirmed 06/01/17] Lisinopril TAB* [Prinivil TAB*] 20 mg PO QAM 06/01/17 [History Confirmed ] PMH/Surg Hx/FS Hx/Imm Hx Endocrine/Hematology History: Reports: Hx Thyroid Disease - Hypothyroidism Cardiovascular History: Reports: Hx Hypertension GI History: Reports: Hx Diverticulosis, Other GI Disorders - Ischemic colitis Musculoskeletal History: Reports: Hx Arthritis, Hx Back Problems - Spinal stenosis, Hx Osteoporosis Sensory History: Reports: Hx Macular Degeneration, Hx Hearing Problem - Hard of hearing Denies: Hx Contacts or Glasses, Hx Hearing Aid Opthamlomology History: Reports: Hx Macular Degeneration Denies: Hx Contacts or Glasses Neurological History: Reports: Other Neuro Impairments/Disorders - OSTEOPOROSIS - Cancer History Hx Chemotherapy: No Hx Radiation Therapy: No - Surgical History Surgery Procedure, Year, and Place: BILATERAL KNEE REPLACEMENTS; HYSTERECTOMY; BLADDER REPAIR; APPENDECTOMY Infectious Disease History: No Infectious Disease History: Denies: History Other Infectious Disease, Traveled Outside the [place] in Last 30 Days - Family History Known Family History: Positive: Hypertension, Other - Breast cancer. Family History: FHx of Breast CA and HTN - Social History Alcohol Use: None Hx Substance Use: No Substance Use Type: Reports: None Hx Tobacco Use: No Smoking Status (MU): Never Smoked Tobacco Review of Systems Negative: Fever Positive: Vomiting, Nausea, Other - loss of appetite, and loose stool All Other Systems Reviewed And Are Negative: Yes Physical Exam - Summary Physical Exam Summary: VITAL SIGNS: Reviewed. GENERAL: Patient is an elderly and nourished female who is lying comfortable in the stretcher. Patient is not in any acute respiratory distress. She is holding a bag for vomit and appears nauseous. HEAD AND FACE: No signs of trauma. No ecchymosis, hematomas or skull depressions. No sinus tenderness. EYES: PERRLA, EOMI x 2, No injected conjunctiva, no nystagmus. EARS: Hearing grossly intact. Ear canals and tympanic membranes are within normal limits. MOUTH: Oropharynx within normal limits. NECK: Supple, trachea is midline, no adenopathy, no JVD, no carotid bruit, no c- spine tenderness, neck with full ROM. CHEST: Symmetric, no tenderness at palpation LUNGS: Clear to auscultation bilaterally. No wheezing or crackles. CVS: Regular rate and rhythm, S1 and S2 present, no murmurs or gallops appreciated. ABDOMEN: Soft, non-tender. No signs of distention. No rebound no guarding, and no masses palpated. Bowel sounds are normal. EXTREMITIES: FROM in all major joints, no edema, no cyanosis or clubbing. NEURO: Alert and oriented x 3. No acute neurological deficits. Speech is normal and follows commands. SKIN: Dry and warm Triage Information Reviewed: Yes Vital Signs On Initial Exam: Initial Vitals Temp Pulse Resp BP Pulse Ox 98.7 F 82 16 148/71 98 06/01/17 09:55 06/01/17 09:55 06/01/17 09:55 06/01/17 09:55 06/01/17 09:55 Vital Signs Reviewed: Yes Diagnostics - Vital Signs Vital Signs Temp Pulse Resp BP Pulse Ox 06/01/17 09:55 98.7 F 82 16 148/71 98 - Laboratory Lab Results: Lab Results 06/01/17 06/01/17 Range/Units 10:11 10:11 WBC 8.4 (3.5-10.8) 10^3/ul RBC 3.77 L (4.0-5.4) 10^6/ul Hgb 12.3 (12.0-16.0) g/dl Hct 36 (35-47) % MCV 97 (80-97) fL MCH 33 H (27-31) pg MCHC 34 (31-36) g/dl RDW 13 (10.5-15) % Plt Count 258 (150-450) 10^3/ul MPV 8 (7.4-10.4) um3 Neut % (Auto) 71.1 (38-83) % Lymph % (Auto) 18.6 L (25-47) % Bowman % (Auto) 7.1 (1-9) % Eos % (Auto) 2.7 (0-6) % Baso % (Auto) 0.5 (0-2) % Absolute Neuts (auto) 6.0 (1.5-7.7) 10^3/ul Absolute Lymphs (auto) 1.6 (1.0-4.8) 10^3/ul Absolute Monos (auto) 0.6 (0-0.8) 10^3/ul Absolute Eos (auto) 0.2 (0-0.6) 10^3/ul Absolute Basos (auto) 0 (0-0.2) 10^3/ul Absolute Nucleated RBC 0.01 10^3/ul Nucleated RBC % 0.1 Sodium 136 (133-145) mmol/L Potassium 3.4 L (3.5-5.0) mmol/L Chloride 100 L (101-111) mmol/L Carbon Dioxide 26 (22-32) mmol/L Anion Gap 10 (2-11) mmol/L BUN 7 (6-24) mg/dL Creatinine 0.75 (0.51-0.95) mg/dL Est GFR ( Amer) 94.7 (>60) Est GFR (Non-Af Amer) 73.6 (>60) BUN/Creatinine Ratio 9.3 (8-20) Glucose 122 H (70-100) mg/dL Calcium 9.0 (8.6-10.3) mg/dL Magnesium 1.5 L (1.9-2.7) mg/dL Total Bilirubin 0.50 (0.2-1.0) mg/dL AST 14 (13-39) U/L ALT 9 (7-52) U/L Alkaline Phosphatase 63 (34-104) U/L Troponin I Pending C-Reactive Protein 9.51 H (< 5.00) mg/L Total Protein 6.3 L (6.4-8.9) g/dL Albumin 3.8 (3.2-5.2) g/dL Globulin 2.5 (2-4) g/dL Albumin/Globulin Ratio 1.5 (1-3) Amylase 25 L (29-103) U/L Lipase < 10 L (11.0-82.0) U/L Result Diagrams: 06/02/17 05:24 06/02/17 05:25 Lab Statement: Any lab studies that have been ordered have been reviewed, and results considered in the medical decision making process. - Radiology Abdomen X-Ray Radiology Interpretation Completed By: Radiologist - NONSPECIFIC BOWEL GAS PATTERN. NO SUBPHRENIC GAS. ED physician has reviewed this radiology report and agrees. - EKG 0957 Cardiac Rate: NL - BPM 85 EKG Rhythm: Sinus Rhythm EKG Interpretation: LBBB Complex Multi-Symp Course/Dx Assessment/Plan: This patient is an 86 year old F BIBA to [facility] accompanied by daughter with a chief complaint of nausea since 6 days ago, worse since this morning. Daughter reports the patient vomited what looks like feces this morning. The patient rates the pain 5/10 in severity. Symptoms alleviated by nothing. She is currently taking tramadol and Tylenol for the pain. Daughter reports loss of appetite, and loose stool. Test results with no significant abnormalities except for potassium of 3.4, glucose 122, troponin of 0.06. An EKG reveals NSR and LBBB. Abdomen X-Ray reveals NONSPECIFIC BOWEL GAS PATTERN. NO SUBPHRENIC GAS. ED physician has reviewed this radiology report and agrees. In the ED course the patient was given IV fluids and Zofran for the nausea and vomiting and IV potassium. Because of the epigastric pain and elevated troponin I consulted Dr. Wong (hospitalist) at 1140 who agrees to admit. The patient is agreeable with this plan. The patient is hemodynamically stable and alert and oriented x3. - Diagnoses Differential Diagnoses/HQI/PQRI: Urinary Tract Infection, Other - Nausea, vomiting, epigastric pain, ACS, constipation Provider Diagnoses: Nausea and vomiting, Epigastric pain, r/o ACS - Physician Notifications Discussed Care Of Patient With: Berta Wong Time Discussed With Above Provider: 11:40 Instructed by Provider To: Other - Consulted Dr. Wong (hospitalist) at 1140 who agrees to admit. Discharge - Discharge Plan Condition: Stable Disposition: ADMITTED TO [facility] documentation as recorded by the Brandon kong Alfonso accurately reflects the service I personally performed and the decisions made by , Fredo Laboy MD.
[2017-06-02] MEDS ORDERED: Influenza VAC *QUAD* 2017-18* 0.5 ML SYRINGE IM ONE (09:00)
[2017-06-02] MEDS ORDERED: amLODIPine TAB* 5 MG PO SCH (09:00)
--- NOTE | 2017-06-02 11:55 | PN ---
Subjective Date of Service: 06/02/17 Interval History: This is an 86 yo female without prior known h/o of CAD who presented with c/o n/ v. She was admitted last week with similar symptoms thought to be due to opiate withdrawal. She had a significant elevation of her troponin and has been treated for a NSTEMI and currently on a heparin drip. Patient had no CP prior to admission. This am, patient reports no episodes of CP or SOB. Her n/v have resolved. Her appetite is improving. Objective Active Medications: Acetaminophen (Tylenol Tab*) 650 mg PO Q4H PRN PRN Reason: FEVER/PAIN Amlodipine Besylate (Norvasc Tab*) 5 mg PO QAM [facility] Last Admin: 06/02/17 08:03 Dose: 5 mg Aspirin (Aspirin Ec Low Dose*) 81 mg PO DAILY [facility] Last Admin: 06/02/17 08:03 Dose: 81 mg Atorvastatin Calcium (Lipitor*) 40 mg PO 2100 [facility] Last Admin: 06/01/17 21:21 Dose: 40 mg Calcium Carbonate (Tums*) 1,000 mg PO BID [facility] Last Admin: 06/02/17 08:03 Dose: 1,000 mg Cholecalciferol (Vitamin D Tab*) 2,000 units PO QPM [facility] Last Admin: 06/01/17 17:03 Dose: 2,000 units Clopidogrel Bisulfate (Plavix Tab*) 75 mg PO DAILY [facility] Docusate Sodium (Colace Cap*) 100 mg PO BID [facility] Last Admin: 06/02/17 08:03 Dose: 100 mg Heparin Sodium (Porcine) (Heparin Vial(*)) 0 units IV .PER PROTOCOL [facility] PRN Reason: Protocol Last Admin: 06/01/17 17:06 Dose: 4,200 units Sodium Chloride (Ns 0.9% 1000 Ml*) 1,000 mls @ 100 mls/hr IV PER RATE [facility] Last Admin: 06/01/17 15:09 Dose: 100 mls/hr Heparin Sodium/Dextrose (Heparin Drip 25,000 Units(*)) 25,000 units in 500 mls @ 0 mls/hr IVPB .PER RATE [facility]; Per Protocol PRN Reason: Protocol Last Admin: 06/01/17 16:42 Dose: 18 mls/hr Levothyroxine Sodium (Synthroid Tab*) 100 mcg PO QAM@0600 [facility] Last Admin: 06/02/17 05:28 Dose: 100 mcg Lisinopril (Prinivil Tab*) 20 mg PO QAM [facility] Last Admin: 06/02/17 08:03 Dose: 20 mg Metoprolol Succinate (Toprol Xl Tab*) 50 mg PO DAILY [facility] Metoprolol Tartrate (Lopressor Tab*) 25 mg PO BID [facility] Stop: 06/02/17 22:00 Last Admin: 06/02/17 08:03 Dose: 25 mg Ondansetron HCl (Zofran Inj*) 4 mg IV Q6H PRN PRN Reason: NAUSEA Potassium Chloride (Klor Con Er Tab*) 20 meq PO BID [facility] Stop: 06/02/17 21:01 Last Admin: 06/02/17 08:03 Dose: 20 meq Tramadol HCl (Ultram*) 50 mg PO Q6H PRN PRN Reason: PAIN Last Admin: 06/02/17 08:03 Dose: 50 mg Vital Signs: Temp Pulse Resp BP Pulse Ox 97.2 F 76 16 115/53 96 06/02/17 07:28 06/02/17 07:28 06/02/17 10:03 06/02/17 07:28 06/02/17 07:28 Appearance: Well appearing elderly female accompanied by her daughters Respiratory: Symmetrical Chest Expansion and Respiratory Effort, Clear to Auscultation Cardiovascular: NL Sounds; No Murmurs; No JVD, RRR Extremities: No Edema Skin: No Rash or Ulcers Neurological: Alert and Oriented x 3 Result Diagrams: 06/02/17 05:24 06/02/17 05:25 Additional Lab and Data: Laboratory Tests 06/01/17 06/01/17 06/01/17 10:11 14:00 16:45 Troponin I 0.06 H* 3.33 H* 3.67 H* 06/01/17 06/02/17 20:31 05:25 Troponin I 3.16 H* 2.24 H* Diagnostic Imaging: Echo - EF 30-35% with multiple regional wall abnormalities, no sig valvular abnl Assess/Plan/Problems-Billing Assessment: This is an 86 yo female with HTN, hypothyroidism, and relatively recent lumbar compression fractures who presented with c/o n/v found to have elevated troponin and admitted with NSTEMI. - Patient Problems (1) NSTEMI (non-ST elevated myocardial infarction) Comment: No c/o CP, n/v has resolved Trop peaked EF 30-35% Appreciate cardiology input, no intervention planned, will cont to manage medically Cont heparin drip for total of 48 hrs Cont ASA, Plavix, BB, BLANE-I, statin (2) Hypothyroid Comment: synthroid (3) Hypertension Comment: Normotensive Amlodipine stopped Cont lisinopril Start metoprolol succ (4) DNR (do not resuscitate) (5) DVT prophylaxis Comment: Heparin drip Status and Disposition: Inpatient. Likely dc tomorrow to home if she remains asx.
[2017-06-02] MEDS: Heparin DRIP 25,000 UNITS(*) 25,000 UNITS/500 ML BAG IVPB SCH (17:33)
[2017-06-02] MEDS: Cholecalciferol TAB* 1000 UNITS PO SCH (17:33)
[2017-06-02] MEDS: Atorvastatin* 40 MG TAB PO SCH (21:17)
[2017-06-03] MEDS ORDERED: Furosemide IV* 10 MG/ML 2 ML VIAL (20 MG) IV ONE (05:03)
[2017-06-03 05:49] LABS: Hematocrit 35 % (35-47); Mean Corpuscular HGB Conc 34 g/dl (31-36); Mean Corpuscular Hemoglobin 34 pg (27-31); Mean Corpuscular Volume 97 fL (80-97); Mean Platelet Volume 10 um3 (7.4-10.4); Red Blood Count 3.59 10^6/ul (4.0-5.4); Red Cell Distribution Width 13 % (10.5-15); White Blood Count 10.7 10^3/ul (3.5-10.8)
[2017-06-03 06:04] LABS: BUN/Creatinine Ratio 13.7 (8-20); Blood Urea Nitrogen 10 mg/dL (6-24); CO2 Carbon Dioxide 25 mmol/L (22-32); Calcium 8.5 mg/dL (8.6-10.3); Chloride 102 mmol/L (101-111); EGFR African American 97.7 (>60); Glucose 133 mg/dL (70-100); Sodium 133 mmol/L (133-145)
[2017-06-03] MEDS: Levothyroxine TAB* 100 MCG TAB PO SCH (06:45)
[2017-06-03 07:00] LABS: Anion Gap 6 mmol/L (2-11)
[2017-06-03] MEDS: traMADol TAB* 50 MG PO PRN (09:43)
[2017-06-03] MEDS: Aspirin EC Low Dose* 81 MG TAB.EC PO SCH (09:43)
[2017-06-03] MEDS: Clopidogrel TAB* 75 MG PO SCH (09:44)
[2017-06-03] MEDS: Lisinopril TAB* 10 MG PO SCH (09:44)
[2017-06-03] MEDS: Metoprolol Succinate XL TAB* 50 MG PO SCH (09:44)
[2017-06-03] MEDS: Docusate CAP* 100 MG PO SCH ×2 (09:44→20:37)
[2017-06-03] MEDS: Calcium Carbonate CHEW TAB* 500 MG (TUMS) PO SCH ×2 (09:44→20:33)
[2017-06-03] MEDS: Furosemide TAB* 40 MG PO SCH (10:58)
--- NOTE | 2017-06-03 11:41 | PN ---
Subjective Date of Service: 06/03/17 Interval History: Patient seen and examined at bedside. Patient states that she had two episodes overnight of shortness of breath followed by hyperventilation. One was after returning from the bathroom. She received 10mg IV Lasix. Currently she denies any shortness of breath. She states her legs are not more swollen than normal. Denies N/V. Family History: Unchanged from Admission Social History: Unchanged from Admission Past Medical History: Unchanged from Admission Objective Active Medications: Acetaminophen (Tylenol Tab*) 650 mg PO Q4H PRN Aspirin (Aspirin Ec Low Dose*) 81 mg PO DAILY [facility] Atorvastatin Calcium (Lipitor*) 40 mg PO 2100 [facility] Calcium Carbonate (Tums*) 1,000 mg PO BID [facility] Cholecalciferol (Vitamin D Tab*) 2,000 units PO QPM [facility] Clopidogrel Bisulfate (Plavix Tab*) 75 mg PO DAILY [facility] Docusate Sodium (Colace Cap*) 100 mg PO BID [facility] Furosemide (Lasix Tab*) 40 mg PO QAM [facility] Heparin Sodium (Porcine) (Heparin Vial(*)) 0 units IV .PER PROTOCOL [facility] Heparin Sodium/Dextrose (Heparin Drip 25,000 Units(*)) 25,000 units in 500 mls @ 0 mls/hr IVPB .PER RATE [facility]; Per Protocol Levothyroxine Sodium (Synthroid Tab*) 100 mcg PO QAM@0600 [facility] Lisinopril (Prinivil Tab*) 20 mg PO QAM [facility] Metoprolol Succinate (Toprol Xl Tab*) 50 mg PO DAILY [facility] Ondansetron HCl (Zofran Inj*) 4 mg IV Q6H PRN Tramadol HCl (Ultram*) 50 mg PO Q6H PRN 06/03/17 06/03/17 06/03/17 03:31 07:22 08:00 Temperature 97.7 F 97.4 F Pulse Rate 78 84 Respiratory 20 20 20 Rate Blood Pressure 121/65 120/70 (mmHg) O2 Sat by Pulse 94 95 Oximetry Oxygen Devices in Use Now: None Appearance: sitting up in chair, NAD Eyes: No Scleral Icterus, PERRLA Ears/Nose/Mouth/Throat: NL Teeth, Lips, Gums Neck: NL Appearance and Movements; NL JVP Respiratory: Symmetrical Chest Expansion and Respiratory Effort, Clear to Auscultation Cardiovascular: NL Sounds; No Murmurs; No JVD, RRR Abdominal: NL Sounds; No Tenderness; No Distention Extremities: - - 2+ edema Neurological: Alert and Oriented x 3, NL Muscle Strength and Tone Lines/Tubes/Other Access: Clean, Dry and Intact Peripheral IV Nutrition: Taking PO's Result Diagrams: 06/03/17 05:03 06/03/17 07:02 Diagnostic Imaging: Echo - EF 30-35% with multiple regional wall abnormalities, no sig valvular abnl Assess/Plan/Problems-Billing Assessment: This is an 86 yo female with HTN, hypothyroidism, and relatively recent lumbar compression fractures who presented with c/o n/v found to have elevated troponin and admitted with NSTEMI. - Patient Problems (1) NSTEMI (non-ST elevated myocardial infarction) Comment: Appreciate cardiology input, no intervention planned, will cont to manage medically. EF 30-35% on echocardiogram. Plan to cont heparin drip for total of 48 hrs (stop this afternoon). Cont ASA, Plavix, BB, BLANE-I, statin (2) Chronic systolic CHF (congestive heart failure) Comment: EF 30-35% with no prior echo to compare. The could be new from this current cardiac event but it is impossible to know. Restart home Lasix. CXR pending to assess for worsening pulm edema. Will consider additional IV Lasix. Continue BLANE-I, statin, beta-kt, ASA, and Plavix. (3) Hypertension Comment: Continue Lisinopril and Toprol. (4) Hypothyroid Comment: Continue Synthroid (5) DVT prophylaxis Comment: Heparin drip (6) DNR (do not resuscitate) Status and Disposition: Inpatient. May need diuresis prior to discharge..
--- NOTE | 2017-06-03 12:08 | RAD ---
INDICATION: Dyspnea. COMPARISON: There are no prior studies available for comparison. TECHNIQUE: A portable view of the chest was obtained. FINDINGS: The heart appears mildly enlarged. The lungs are underinflated and clear. There appear to be loose bodies within both glenohumeral joints of the shoulders. IMPRESSION: NO EVIDENCE FOR ACUTE DISEASE.
[2017-06-03] MEDS: Heparin VIAL(*) 5000 UNITS/ML VIAL (FIVE THOUSAND) IV SCH (12:11)
[2017-06-03] MEDS: Cholecalciferol TAB* 1000 UNITS PO SCH ×2 (18:36→20:32)
[2017-06-03] MEDS: Atorvastatin* 40 MG TAB PO SCH (20:32)
[2017-06-04 05:01] LABS: Hematocrit 32 % (35-47); Hemoglobin 11.1 g/dl (12.0-16.0); Mean Corpuscular HGB Conc 34 g/dl (31-36); Mean Corpuscular Hemoglobin 33 pg (27-31); Mean Corpuscular Volume 97 fL (80-97); Mean Platelet Volume 9 um3 (7.4-10.4); Red Blood Count 3.35 10^6/ul (4.0-5.4); Red Cell Distribution Width 13 % (10.5-15); White Blood Count 9.2 10^3/ul (3.5-10.8)
[2017-06-04] MEDS: Levothyroxine TAB* 100 MCG TAB PO SCH (05:30)
[2017-06-04 08:35] VITALS: BP 122/72
[2017-06-04] MEDS: Furosemide TAB* 40 MG PO SCH (08:44)
[2017-06-04] MEDS: Clopidogrel TAB* 75 MG PO SCH (08:44)
[2017-06-04] MEDS: Metoprolol Succinate XL TAB* 50 MG PO SCH (08:44)
[2017-06-04] MEDS: Lisinopril TAB* 10 MG PO SCH (08:44)
[2017-06-04] MEDS: Docusate CAP* 100 MG PO SCH (08:44)
[2017-06-04] MEDS: Aspirin EC Low Dose* 81 MG TAB.EC PO SCH (08:44)
[2017-06-04] MEDS: Calcium Carbonate CHEW TAB* 500 MG (TUMS) PO SCH (08:44)
--- NOTE | 2017-06-04 10:38 | PN ---
Subjective Date of Service: 06/04/17 Interval History: Patient seen and examined at bedside. Patient had no episodes of dyspnea overnightl. She had some nausea with dinner last night. Ambulating without difficulty. Feels ready for discharge. Family History: Unchanged from Admission Social History: Unchanged from Admission Past Medical History: Unchanged from Admission Objective Active Medications: Acetaminophen (Tylenol Tab*) 650 mg PO Q4H PRN Aspirin (Aspirin Ec Low Dose*) 81 mg PO DAILY [facility] Atorvastatin Calcium (Lipitor*) 40 mg PO 2100 [facility] Calcium Carbonate (Tums*) 1,000 mg PO BID [facility] Cholecalciferol (Vitamin D Tab*) 2,000 units PO QPM [facility] Clopidogrel Bisulfate (Plavix Tab*) 75 mg PO DAILY [facility] Docusate Sodium (Colace Cap*) 100 mg PO BID [facility] Furosemide (Lasix Tab*) 40 mg PO QAM [facility] Levothyroxine Sodium (Synthroid Tab*) 100 mcg PO QAM@0600 [facility] Lisinopril (Prinivil Tab*) 20 mg PO QAM [facility] Metoprolol Succinate (Toprol Xl Tab*) 50 mg PO DAILY [facility] Ondansetron HCl (Zofran Inj*) 4 mg IV Q6H PRN Tramadol HCl (Ultram*) 50 mg PO Q6H PRN Vital Signs 06/03/17 06/03/17 06/03/17 11:34 11:43 15:35 Temperature 97.7 F 97.3 F Pulse Rate 77 70 Respiratory 24 18 16 Rate Blood Pressure 106/59 120/61 (mmHg) O2 Sat by Pulse 97 96 Oximetry 06/03/17 06/03/17 06/03/17 16:00 19:10 20:00 Temperature 97.5 F Pulse Rate 75 Respiratory 16 20 Rate Blood Pressure 112/62 (mmHg) O2 Sat by Pulse 95 98 Oximetry 06/04/17 06/04/17 06/04/17 00:01 03:23 07:09 Temperature 97.3 F 97.1 F 97.6 F Pulse Rate 79 77 78 Respiratory 20 22 16 Rate Blood Pressure 118/63 129/68 122/72 (mmHg) O2 Sat by Pulse 99 98 97 Oximetry 06/04/17 08:00 Temperature Pulse Rate Respiratory 24 Rate Blood Pressure (mmHg) O2 Sat by Pulse Oximetry Oxygen Devices in Use Now: None Appearance: sitting up in chair, NAD Eyes: No Scleral Icterus, PERRLA Ears/Nose/Mouth/Throat: NL Teeth, Lips, Gums Neck: NL Appearance and Movements; NL JVP Respiratory: Symmetrical Chest Expansion and Respiratory Effort, Clear to Auscultation Cardiovascular: NL Sounds; No Murmurs; No JVD, RRR Abdominal: NL Sounds; No Tenderness; No Distention Extremities: - - 2+ edema LE Neurological: Alert and Oriented x 3, NL Muscle Strength and Tone Lines/Tubes/Other Access: Clean, Dry and Intact Peripheral IV Result Diagrams: 06/04/17 04:50 06/03/17 07:02 Diagnostic Imaging: Echo - EF 30-35% with multiple regional wall abnormalities, no sig valvular abnl Assess/Plan/Problems-Billing Assessment: This is an 86 yo female with HTN, hypothyroidism, and relatively recent lumbar compression fractures who presented with c/o n/v found to have elevated troponin and admitted with NSTEMI. - Patient Problems (1) NSTEMI (non-ST elevated myocardial infarction) (2) Chronic systolic CHF (congestive heart failure) (3) Hypertension (4) Hypothyroid (5) DVT prophylaxis (6) DNR (do not resuscitate) Status and Disposition: Inpatient. Patient stable to be discharged home.
[2017-06-04] MEDS ORDERED: Ondansetron ODT TAB* 4 MG PO ONE (12:34)
--- NOTE | 2017-06-04 23:33 | DS ---
CC: Dr. Hand; Dr. Saldana * DISCHARGE SUMMARY: DATE OF ADMISSION: 06/01/17 DATE OF DISCHARGE: 06/04/17 PRIMARY CARE PROVIDER: Dr. Saldana. CONSULTATIONS WHILE IN THE HOSPITAL: Dr. Hand. ATTENDING PHYSICIAN: Deven Encarnacion MD * (report dictated by Anna Gordillo NP) . PRIMARY DIAGNOSES: 1. Non-ST elevation myocardial infarction. 2. New diagnosed chronic systolic heart failure, ejection fraction 30% to 35%. 3. Nausea with vomiting. SECONDARY DIAGNOSES: 1. Hypertension. 2. Hypothyroidism. 3. Osteoporosis. 4. Compression fracture of the lumbar spine. STUDIES WHILE IN THE HOSPITAL: 1. Abdomen x-ray, 06/01/17, nonspecific bowel gas pattern. No subphrenic gas. 2. Transthoracic echocardiogram, 06/01/17, the left ventricular chamber size is normal. There was increased septal hypertrophy noticed without evidence of an increased gradient across the left ventricular outflow tract. There are multiple regional wall motions abnormalities. The estimated ejection fraction is 30% to 35% . There was anterior septal apical severe hypokinesis. There was left ventricular septal wall motion abnormality observed possibly due to left bundle branch block. There was E to A reversal on the mitral valve flow pattern suggestive of diastolic dysfunction. There is [id number] mitral regurgitation. There is mild tricuspid regurgitation. There is evidence of mild- to-moderate pulmonary hypertension. 3. Chest x-ray portable, 06/03/17, no evidence for acute disease. MEDICATIONS AT THE TIME OF DISCHARGE: New medications: 1. Aspirin 81 mg oral daily. 2. Lipitor 40 mg oral at bedtime. 3. Plavix 75 mg oral daily. 4. Toprol XL 50 mg oral daily. The following medications are all medications the patient came in on: 1. Vitamin D 2000 units oral in the evening. 2. Multivitamin 2 capsules oral at bedtime. 3. Synthroid 100 mcg oral in the morning. 4. Lasix 40 mg oral daily. 5. Ultram 50 mg every 6 hours as needed. 6. Zofran 4 mg ODT every 6 hours as needed. 7. Colace 100 mg oral twice daily. 8. Calcium 1000 mg oral twice daily. 9. Tylenol 500 mg oral every 4 hours as needed. 10. Lisinopril 20 mg oral in the morning. The patient has been instructed to discontinue Norvasc. HISTORY OF PRESENT ILLNESS AND HOSPITAL COURSE: Ms. Rebollar is an 86-year-old female with a history of hypertension, arthritis, osteoporosis, hypothyroidism, who presented to the emergency room on 06/01/17 with a complaint of nausea and vomiting. She had been having intermittent episodes of nausea and vomiting since April and had been hospitalized at our institution from 05/27/17 to . Please refer to details of discharge summary from that hospitalization for full detail. It was felt during that hospitalization her nausea and vomiting was secondary to withdrawal from narcotics. In addition during that hospitalization, she had a creatinine up to 2.1. This improved with rehydration from the nausea and vomiting. Upon this presentation, a troponin was checked, which was found to be elevated. The initial troponin was elevated at 0.06 and 4 hours later, was up to 3. At this point, Cardiology consult was obtained. The patient was admitted to the telemetry floor and placed on IV heparin. She was also given aspirin and started on Plavix, statin and a beta- kt. She was seen in consultation by Dr. Hand, please refer to his consultation for details. The patient and the daughter wished for maximizing medical treatment without further invasive or interventional treatment. For this reason, the patient was continued on aspirin, heparin, beta-kt, BLANE inhibitor and statin. Troponins were monitored and peaked at 3.6. Subsequently , they began to trend down. Heparin drip was continued for 48 hours. The patient had an echocardiogram, which showed an ejection fraction from 30% to 35% . The patient did not have a prior echo to compare. Additionally, the patient took 40 of Lasix at home. She had an isolated episode of shortness of breath early in the morning on 06/03/17. During that episode, she was given a dose of 10 of IV Lasix and has not had any further episodes of dyspnea. She was restarted on her home Lasix of 40 mg. Her home Norvasc was discontinued. With all of these medications, the patient's blood pressure remained controlled around 122/70 and heart rate in the 70s. As the family did not wish for any further intervention, the plan was for the patient to continue on medical therapy and follow up early next week with her police justice. The patient's nausea and vomiting was self-limiting and it is possible that this may have been a symptom of her non-ST elevation OK. This resolved on its own. She did have 2 intermittent episodes of nausea, which were relieved by oral Zofran. She was continued on Percocet for her back pain. Synthroid was continued for hypothyroidism. PHYSICAL EXAMINATION: On 06/04/17, vitals were stable and she was able to ambulate without significant shortness of breath. Weight at discharge was 168 pounds. Vitals were as follows: Temperature 97.6, heart rate 70, respiratory rate 16, blood pressure 122/72, oxygen saturation 95% on room air. At this point, she was stable for discharge. DISCHARGE PLANNING: The patient is being discharged on a heart healthy, no sodium diet. The patient can ambulate independently. The patient has been instructed to take her weight daily. The patient should notify her physician if she has a fluctuation of greater than 3 pounds in her daily weight. The patient is instructed to check her blood pressure daily. The patient should return to the hospital if she experiences any worsening shortness of breath, significant weight gain or leg swelling. I reviewed all these instructions with the patient and her daughter and they are agreeable with the discharge today. The patient should follow up with her primary care provider with Dr. Saldana within 4 to 7 days. In addition, the patient should follow up with Dr. Cortes or Dr. Hand early next week. They have been provided with the phone number to call the police justice office to notify the patient with her appointment time. This is a summarized report of the complex medical history and physical stay. For more details, please see the entire medical record. TIME SPENT: Time for this discharge was 60 minutes and over 35 minutes were spent with the patient and her daughter discussing medications at discharge and followup instructions. CONDITION ON DISCHARGE: Stable. ANNA GORDILLO NP [id number]/[facility] #: [id number] STEVEN
== END 2017-06-04 14:15 | disposition home or self-care (01) | DRG 281 ==
LOC: ED 09:22 → MEDTELE 11:49 → OBSVTOIN 06-02 07:37
PROVIDERS: ADMIT Internal Medicine; ATTEND Internal Medicine
DX: I21.4 Non-ST elevation (NSTEMI) myocardial infarction (principal); K55.9 Vascular disorder of intestine, unspecified; I42.9 Cardiomyopathy, unspecified; I50.22 Chronic systolic (congestive) heart failure; I11.0 Hypertensive heart disease with heart failure; E83.42 Hypomagnesemia; I44.7 Left bundle-branch block, unspecified; E03.9 Hypothyroidism, unspecified; H35.30 Unspecified macular degeneration; M80.88XD Other osteoporosis with current pathological fracture, vertebra(e), subsequent encounter for fracture with routine healing; M48.00 Spinal stenosis, site unspecified; K57.90 Diverticulosis of intestine, part unspecified, without perforation or abscess without bleeding; E87.6 Hypokalemia; Z96.653 Presence of artificial knee joint, bilateral; I34.0 Nonrheumatic mitral (valve) insufficiency; Z79.1 Long term (current) use of non-steroidal anti-inflammatories (NSAID); Z87.310 Personal history of (healed) osteoporosis fracture; Z79.899 Other long term (current) drug therapy; Z88.6 Allergy status to analgesic agent; Z88.2 Allergy status to sulfonamides; Z88.8 Allergy status to other drugs, medicaments and biological substances; Z82.49 Family history of ischemic heart disease and other diseases of the circulatory system; Z83.3 Family history of diabetes mellitus; Z66 Do not resuscitate
CPT/HCPCS: 36415; 71010; 74020; 80048; 80053; 80061; 81003; 81015; 82150; 82565; 83690; 83735; 84484; 84520; 85025; 85610; 85730; 86140; 87077; 87086; 87186; 90686; 93005; 93306; A9270-GY; C8929; G0378; J1644; J1940; J2405; J3475; J3480

== ENCOUNTER 2019-01-13 10:34 | Emergency (ER) | payer MEDICARE, BC ==
[2019-01-13 11:18] VITALS: BP 151/69
[2019-01-13] MEDS ORDERED: Lidocaine 2% PF * 5 ML VIAL INJ ONE (12:48)
--- NOTE | 2019-01-13 13:00 | UC ---
Skin Complaint HPI - HPI Summary HPI Summary: 88 yo female presents accompanied by her daughter. Pt tells me that this morning she noticed a swollen draining area to her left neck. She has had a long time calcified cyst or lymph node in this area, but this is the first time she has ever had any drainage from the site. Mild pain if she touches it. States a few days ago she scratched the area. Denies fever or chills - History of Current Complaint Chief Complaint: UCSkin Stated Complaint: LT CHIN CYST Hx Obtained From: Patient Onset/Duration: Sudden Onset Onset Severity: Mild Current Severity: Mild Pain Intensity: 2 Pain Scale Used: 0-10 Numeric - Allergy/Home Medications Allergies/Adverse Reactions: Allergies Allergy/AdvReac Type Severity Reaction Status Date / Time aspirin Allergy Bleeding Verified 01/13/19 11:18 nitrofurantoin Allergy Rash Verified 01/13/19 11:18 [From Macrobid] spironolactone Allergy kidney Verified 01/13/19 11:19 [From Aldactone] failure Sulfa (Sulfonamide Allergy Rash Verified 01/13/19 11:18 Antibiotics) PMH/Surg Hx/FS Hx/Imm Hx Endocrine History: Hypothyroidism, Dyslipidemia Cardiovascular History: Hypertension, Congestive Heart Failure - Surgical History Surgical History: Yes Surgery Procedure, Year, and Place: BILATERAL KNEE REPLACEMENTS; HYSTERECTOMY; BLADDER REPAIR; APPENDECTOMY - Family History Known Family History: Positive: Hypertension, Other - Breast cancer. Family History: FHx of Breast CA and HTN - Social History Occupation: Retired Lives: With Family Alcohol Use: None Substance Use Type: None Smoking Status (MU): Never Smoked Tobacco - Immunization History Most Recent Influenza Vaccination: 2016 Most Recent Pneumonia Vaccination: 2016 Review of Systems All Other Systems Reviewed And Are Negative: Yes Constitutional: Positive: Negative Skin: Positive: Other - Left neck abscess Respiratory: Positive: Negative Cardiovascular: Positive: Negative Neurological: Positive: Negative Psychological: Positive: Negative Physical Exam - Summary Physical Exam Summary: GENERAL: NAD. WDWN. No pain distress. SKIN: LEFT NECK: 1.0cm firm nodule that pt states is chronic. At the inferior aspect of this there is a 5mm erythematous area of fluctuance and scant yellow crusting. Mild TTP. CHEST: No accessory muscle use. Breathing comfortably and in no distress. CV: Pulses intact. Cap refill <2seconds NEURO: Alert. PSYCH: Age appropriate behavior. Triage Information Reviewed: Yes Vital Signs: Initial Vital Signs Temp 97.7 F 01/13/19 11:15 Pulse 58 01/13/19 11:15 Resp 18 01/13/19 11:15 BP 151/69 01/13/19 11:15 Pulse Ox 97 01/13/19 11:15 Vital Signs Reviewed: Yes Procedures - Incision and Drainage Left Neck Anesthesia: Local, Lidocaine Instrument(s): Scalpel - #11 Packing: Other - None Course/Dx - Course Course Of Treatment: The procedure was explained to the pt and all questions were answered. A time out was performed, witnessed, and signed. The area was cleansed with an alcohol pad. 0.5mL of 2% lidocaine without epi was administered and good anesthetization was achieved. A #11 blade was used to mary the abcess and moderate purulent yellow material was able to be expressed. Hemostasis was achieved and pt tolerated well. Wound bandaged with a band-aid. Will place her on keflex for abscess. - Diagnoses Provider Diagnosis: Abscess of skin Discharge - Sign-Out/Discharge Documenting (check all that apply): Patient Departure All imaging exams completed and their final reports reviewed: No Studies - Discharge Plan Condition: Stable Disposition: HOME Prescriptions: Cephalexin CAP* [Keflex CAP*] 500 mg PO BID #10 cap Patient Education Materials: Abscess (ED) Referrals: Ken Saldana MD [Primary Care Provider] - Additional Instructions: If you develop a fever, shortness of breath, chest pain, new or worsening symptoms - please call your PCP or go to the ED immediately. Change the band-aid daily until well healed (likely 2-3 days) - Billing Disposition and Condition Condition: STABLE Disposition: Home - Attestation Statements Provider Attestation: I was available for consult. This patient was seen by the GABRIEL. The patient was not presented to, seen by, or examined by me. -Mauricio
== END 2019-01-13 13:04 | disposition home or self-care (01) ==
LOC: UCEAST 10:34
DX: L02.11 Cutaneous abscess of neck (principal); I11.0 Hypertensive heart disease with heart failure; I50.9 Heart failure, unspecified; Z88.8 Allergy status to other drugs, medicaments and biological substances; Z88.1 Allergy status to other antibiotic agents; Z88.2 Allergy status to sulfonamides
CPT/HCPCS: 10060; 99212; G0463

== ENCOUNTER 2019-09-25 16:02 | Emergency (ER) | payer MEDICARE, BC ==
[2019-09-25] MEDS ORDERED: traMADol TAB* 50 MG PO ONE (16:11)
[2019-09-25 17:05] LABS: ABS Eosinophils 0.1 10^3/ul (0-0.6); ABS Lymphocytes 1.3 10^3/ul (1.0-4.8); ABS Monocytes 0.6 10^3/ul (0-0.8); ABS Neutrophils 7.9 10^3/ul (1.5-7.7); Eosinophil % 0.9 %; Hematocrit 33 % (35-47); Hemoglobin 11.8 g/dL (12.0-16.0); Lymphocyte % 12.7 %; Mean Corpuscular HGB Conc 36 g/dL (31-36); Mean Corpuscular Hemoglobin 35 pg (27-31); Mean Corpuscular Volume 99 fL (80-97); Mean Platelet Volume 8.7 fL (7.4-10.4); Platelet Count 221 10^3/uL (150-450); Red Blood Count 3.36 10^6 /uL (3.70-4.87); Red Cell Distribution Width 13 % (10-15); White Blood Count 9.9 10^3/uL (3.5-10.8)
[2019-09-25] MEDS ORDERED: Morphine 4 MG/ML VIAL (1 ml) 4 MG/ML VIAL IV ONE ×2 (17:05→19:16)
[2019-09-25 17:12] LABS: INR 1.03 (0.82-1.09)
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
[2019-09-25 17:28] LABS: Albumin/Globulin Ratio 1.8 (1-3); BUN/Creatinine Ratio 25.7 (8-20); Calcium 9.1 mg/dL (8.6-10.3); EGFR African American 44.5 (>60); EGFR Non-African American 36.8 (>60); Globulin 2.2 g/dL (2-4); Potassium 4.1 mmol/L (3.5-5.0); Total Bilirubin 0.5 mg/dL (0.2-1.0); Total Protein 6.2 g/dL (6.4-8.9)
[2019-09-25 19:27] VITALS: BP 140/62
== END 2019-09-25 19:33 | disposition short-term general hospital (02) ==
LOC: ED 16:02
DX: M97.12XA Periprosthetic fracture around internal prosthetic left knee joint, initial encounter (principal); W01.0XXA Fall on same level from slipping, tripping and stumbling without subsequent striking against object, initial encounter; Y92.828 Other wilderness area as the place of occurrence of the external cause; I25.2 Old myocardial infarction; E03.9 Hypothyroidism, unspecified; I10 Essential (primary) hypertension; Z96.653 Presence of artificial knee joint, bilateral; Z90.710 Acquired absence of both cervix and uterus; Z90.89 Acquired absence of other organs; Z79.890 Hormone replacement therapy; Z79.899 Other long term (current) drug therapy; Z88.1 Allergy status to other antibiotic agents; Z88.2 Allergy status to sulfonamides; Z88.8 Allergy status to other drugs, medicaments and biological substances
CPT/HCPCS: 36415; 80053; 85025; 85610; 93005; 96374; 96376; 99285; A9270-GY; J2270

== ENCOUNTER 2019-10-18 19:16 | Inpatient (IN) | payer MEDICARE, BC ==
--- OUTSIDE RECORDS SUMMARY | 2019-10-18 19:24 | XMS REPORT | Summary of Care ---
:1930 Author Organization [facility] Address [address] [place] [address] Care Team Providers Name Role Phone Ken Saldana MD Primary Care Provider Reason for Referral Home Health Care (Routine) Status Reason Specialty Diagnoses / Referred By Referred To Procedures Contact Contact Open Specialty Home Health Diagnoses Impaired mobility Periprosthetic fracture of shaft of femur [facility] Services Marion Beal DO Required [address] [place] [address] Email: [email or web address] Home Health Care (Routine) Status Reason Specialty Diagnoses / Referred By Referred To Procedures Contact Contact Open Specialty Home Health Diagnoses Impaired mobility Periprosthetic fracture of shaft of femur [facility] Marion A, DO Required [address] [place] [address] Email: [email or web address] Reason for Visit Auth/Cert Status Reason Specialty Diagnoses / Procedures Referred By Contact Referred To Contact Diagnoses orthopedic condition Periprosthetic fracture of shaft of femur Encounter Details Date Type Department Care Team Description 10/02/2019 - [facility] Madhuri-David, Impaired mobility (Primary Dx); 10/17/2019 Encounter [id number] Juan A Daley MD Periprosthetic fracture of shaft of femur [place], [place] [address] [facility] [id number] [address]nd [place] [address] [phone] Allergies Active Allergy Reactions Severity Noted Date Comments Aspirin 09/25/2019 Nosebleed with high doses of aspirin Nitrofurantoin Macrocrystal Rash Low 09/25/2019 Spironolactone 09/26/2019 Kidney failure Sulfa Antibiotics Rash Low 09/25/2019 documented as of this encounter (statuses as of 10/17/2019) Medications Medication Sig Dispensed Refills Start End Date Status Date Aspirin 81 MG Chew 81 mg by 0 Active Oral Tablet Mouth daily Chewable Levothyroxine Take 100 mcg by 0 Active Sodium 100 MCG mouth Daily Oral Tablet (SYNTHROID, LEVOTHROID) Vitamin D 50 MCG Take 2,000 Units 0 Active (2000 UT) Oral by mouth daily Tablet Furosemide 40 MG Take 40 mg by 0 Active Oral Tablet mouth daily (LASIX) Calcium Carbonate Take 1,000 mg by 0 Active 600 MG Oral mouth Two times Tablet (OS-TOÑA) daily with meals Atorvastatin Take 40 mg by 0 Active Calcium 40 MG mouth every Oral Tablet evening (LIPITOR) Denosumab 60 Inject 60 mg 0 Active MG/ML into the skin Subcutaneous every 6 (six) Solution months Prefilled Syringe (PROLIA) ceFAZolin Sodium 6 GM IV 1 each 0 Active 1 GM Intravenous continuously 0 Solution over 24 hours Reconstituted through (ANCEF) 11/11/2019 Normal Saline 10 ml IV before 450 Syringe 0 Active Flush 0.9 % & after dose & 0 Intravenous PRN Solution Heparin Sodium 5 ml IV after 450 Syringe 0 Active Lock Flush 100 dose & PRN 0 UNIT/ML Intravenous Solution Lisinopril 20 MG Take 0.5 tablets 0 Active Oral Tablet by mouth daily 0 (PRINIVIL,ZESTRIL ) Metoprolol Take 1 tablet by 30 tablet 0 11/15/19 Active Succinate ER 50 mouth daily 0 20 MG Oral Tablet Extended Release 24 Hour (TOPROL-XL) traMADol HCl 50 Take 0.5-1 5 tablet 0 10/19/19 Active MG Oral Tablet tablets by mouth 0 20 (ULTRAM) every 6 (six) hours as needed for Pain for up to 3 days, Max Daily Dose: 200 mg Polyethylene Take 1 packet by 14 each 0 10/30/19 Active Glycol 3350 Oral mouth daily as 0 20 Packet (MIRALAX) needed (constipation)Pl ease substitute bottle for packets, if packets are unavailable. rifAMPin 300 MG Take 1 capsule 52 capsule 0 11/11/19 Active Oral Capsule by mouth every 0 20 (RIFADIN) 12 (twelve) hours Saccharomyces Take 1 capsule 60 capsule 0 11/15/19 Active boulardii 250 MG by mouth Two 0 20 Oral Capsule Times Daily (FLORASTOR) Senna 8.6 MG Oral Take 2 tablets 120 each 0 Active Tablet by mouth nightly 0 Hold for loose or frequent stools traMADol HCl 50 Take 50 mg by 0 10/16/19 Discontinued MG Oral Tablet mouth every 6 20 (Reorder) (ULTRAM) (six) hours as needed for Pain Acetaminophen 500 Take 500 mg by 0 10/16/19 Discontinued MG Oral Tablet mouth every 6 20 (Stop Taking at (TYLENOL) (six) hours as Discharge) needed for Pain Lisinopril 20 MG Take 20 mg by 0 10/16/19 Discontinued Oral Tablet mouth daily 20 (Reorder) (PRINIVIL,ZESTRIL ) Metoprolol Take 1 tablet by 30 tablet 11 10/16/19 Discontinued Succinate ER 50 mouth daily 0 20 (Reorder) MG Oral Tablet Extended Release 24 Hour (TOPROL-XL) Polyethylene Take 1 packet by 14 each 0 10/02/19 Discontinued Glycol 3350 Oral mouth daily as 0 20 (Formulary Packet (MIRALAX) needed (As change) needed for Constipation) for up to 3 daysPlease substitute bottle for packets, if packets are unavailable. Senna 8.6 MG Oral Take 2 tablets 120 each 0 10/02/19 Discontinued Tablet by mouth nightly 0 20 (Formulary change) ceFAZolin Inject 100 mLs 89560 mL 0 10/02/19 Discontinued Sodium-Dextrose into the vein 0 20 (Formulary 2-4 GM/100ML-% every 8 (eight) change) Intravenous hours Solution (ANCEF) sodium chloride Inject 300 mg 0 10/02/19 Discontinued 0.9 % SOLN 100 mL into the vein 0 20 (Formulary with rifAMPin 600 every 12 change) MG SOLR 300 mg (twelve) hours infusion documented as of this encounter (statuses as of 10/17/2019) Active Problems Problem Noted Date Hyponatremia 10/02/2019 Impaired mobility 10/02/2019 Periprosthetic fracture of shaft of femur 10/02/2019 Acute blood loss anemia 09/27/2019 Overview: Secondary to fracture Other fracture of left femur, initial encounter for closed fracture 09/26/2019 Macrocytic anemia 09/26/2019 Acquired hypothyroidism 09/26/2019 Compression fracture of L1 lumbar vertebra, with routine healing, 09/26/2019 subsequent encounter Essential hypertension 09/26/2019 CAD (coronary artery disease) 09/26/2019 Overview: Hisotry [place] 2017 Chronic systolic heart failure 09/26/2019 Preop cardiovascular exam 09/26/2019 Femur fracture, left 09/25/2019 documented as of this encounter (statuses as of 10/17/2019) Social History Tobacco Use Types Packs/Day Years Used Date Never Smoker Smokeless Tobacco: Never Used Alcohol Use Drinks/Week oz/Week Comments Not Currently Sex Assigned at Date Recorded Not on file Job Start Date Occupation Industry Not on file Not on file Not on file Travel History Travel Start Travel End No recent travel history available. documented as of this encounter Last Filed Vital Signs Vital Sign Reading Time Taken Comments Blood Pressure 134/76 10/17/2019 8:04 AM EST Pulse 76 10/17/2019 8:04 AM EST Temperature 36.6 10/17/2019 6:00 AM EST C (97.9 F) Respiratory Rate 16 10/17/2019 6:00 AM EST Oxygen Saturation 95% 10/17/2019 6:00 AM EST Inhaled Oxygen Concentration - - Weight 71.2 kg (157 lb) 10/17/2019 6:00 AM EST Height 154.9 cm (5' 1") 10/02/2019 1:57 PM EST Body Mass Index 29.66 10/02/2019 1:57 PM EST documented in this encounter Discharge Summaries Daniella Roberto NP - 10/17/2019 11:56 AM EST Department of Physical Medicine and Rehabilitation INPATIENT REHABILITATION DISCHARGE SUMMARY Patient Name: Yulisa Rebollar : 1930 Attending Provider: Steven Lyon MD Admission Date: 10/02/2019 Discharge Date: 10/17/2019 Hosptial Admission Diagnoses: orthopedic condition Periprosthetic fracture of shaft of femur Secondary Diagnoses/Conditions: Femur fracture, left Acquired hypothyroidism Compression fracture of L1 lumbar vertebra, with routine healing, subsequent encounter Essential hypertension CAD (coronary artery disease) Chronic systolic heart failure Acute blood loss anemia Hyponatremia Impaired mobility Periprosthetic fracture of shaft of femur History and Rehabilitation Course Indication for Admission to IRF: Impaired mobility and self-care secondary to Left periprosthetic distal femurfracture s/p Total Knee Revision with Left Distal Femoral Replacement HISTORY OF PRESENT ILLNESS: (Brief 1-3 elements, Extended 4-8 elements) Yulisa Rebollar is a 89 y.o. 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 Babb on 09/27/2019. Complications during her hospitalization consisted of KIMBERLY, ABL anemia requiring 1 unit PRBC, pain and impaired mobility and ADLs. Intraoperative cultures grew staph epi and ID was consulted recommending 6 weeks IVcefazolin & rocephin ( until 11/11/2019) followed by oral cephalosporin and rifampin for another 6 months and then po cephalosporin indefinitely. Admission From: 6 floor Sign out clarifications and individual spoken to: Caitlin Tan, Medicine PA Weight bearing restrictions: WBAT REVIEW OF SYSTEMS: (+ = positive, - = negative) (Problem Pertinent: 1 system, Extended: 2-9 systems,Complete: 10+ systems / others neg.) Review of Systems: 1. Constitutional: (-) fever, (-) chills, (-) insomnia, (-) weight loss, (-) fatigue/lethargy 2. Eye: (-) glasses, (-) diplopia, (-) blurred vision, (-) blindness 3. ENT: (-) dentures (-) hearing deficits, (-) dysphagia, (-) dizziness. 4. Respiratory: (-) shortness of breath, (-) wheeze, (-) cough, (-) dyspnea. 5. Cardiovascular: (-) chest pressure or pain, (-) palpitations, (+) edema, (-) orthopnea. 6. GI: (-) abdominal pain, (-) nausea, (-) vomiting, (-) diarrhea, (-) constipation, (-) appetite change. 7. Neurology: (-) pain, (-) headache, (-) dizziness, (+) weakness, (-) paralysis , (-) stiffness, (-)numbness, (-) paresthesias, (-) dysesthesia. 8. Musculoskeletal: (+) arthralgia, (-) myalgia, (-) spasm, (-) contracture, (- ) deformity. 9. Integument: (-) skin changes, (-) rash, (-) pressure sore. 10. Endocrine: (-) temperature intolerance, (-) polyuria, (-) polydipsia, (-) changes in weight. 11. : (-) dysuria, (-) frequency, (-) urgency, (+) incontinence, (-) hematuria , (-) use of catheter. 12. Hem/Onc: (-) easy bleeding, (-) ecchymosis, (-) swollen glands 13. Psychiatric: (-) mood disturbance, (-) depression, (-) anxiety, (-) sleep disturbance, (-) altered behavior delusions/hallucination. A complete review of system was performed and was negative except for those mentioned above. Speech/swallow status: no deficits: Current continence: Bowel: continent Bladder: indwelling aleman ALLERGIES/REACTIONS: Allergies Allergen Reactions Aspirin Nosebleed with high doses of aspirin Spironolactone Kidney failure Macrobid [Nitrofurantoin Macrocrystal] Rash Sulfa Antibiotics Rash PMH: Past Medical History: Diagnosis Date Arthritis Blood transfusion without reported diagnosis Hypertension Thyroid disease PSH: Past Surgical History: Procedure Laterality Date APPENDECTOMY HYSTERECTOMY JOINT REPLACEMENT AL OPEN TX FEMORAL FRACTURE DISTAL MED/LAT CONDYLE Left 09/27/2019 Procedure: LEFT TOTAL KNEE REVISION WITH LEFT DISTAL FEMORAL REPLACEMENT; Surgeon: Dexter Babb MD; Location: OR ; Service: Orthopedics; Laterality: Left; FAMILY HX: Both parents lived into their 90s, no significant hx SOCIAL HISTORY: She reports that she has never smoked. She has never used smokeless tobacco. She reports previous alcohol use. She reports previous drug use. Pre-hospital living setting: Home Pre-hospital living with: Alone First floor set-up available: yes Stairs to enter home: 6 with berry handrails Prior Functional history: Occupation: Retired Mobility: Independent Assistive devices: Walker in the morning ADL's: Independent Normal level of continence: Bowel: continent Bladder: incontinent Driving: no Support on discharge: family intermittently Full history confirmed Medical and Rehabilitation Course: # Impaired mobility and self-care:Acute inpatient comprehensive rehabilitation including PT, OT,RT, HOPPER FILLER, and supportive services to improve functional outcome of impaired mobility, ADL's, transfers, and self-care. #Left periprosthetic distal femur fracture now s/p Total Knee Revision with Left Distal Femoral Replacement WBAT Remaining incisional genesis removed 10/15, steri strips in place F/u Dr. Babb after d/c # Positive Intra-op Tissue Culture Grew Staph epi Per Dr. Howard: 6 weeks IV Cefazolin 2gm Q8H & Rifampin 300mg BID (po) (until 11/11/2019) followed by oralcephalosporin and rifampinfor another 6 months and thenpo cephalosporin indefinitely Continue Florastor with abx Outpt f/u with Dr. Howard # Pain management Used Tyl 650 mg 4x/day, Tramadol 50 mg prior to 1st AM therpay & Q4H PRN, and Frequent ice/elevation stable # Acute Blood Loss Anemia H/Hstable,8.01/12 S/p 1 unit PRBC postop Iron studies 10/03 consistent with anemia of chronic disease No signs of active bleeding # CAD Continue ASA,Statin, Metoprolol XL # Chronic Systolic Heart Failure/HTN Lasixadjusted to home regime of 40 mg daily starting 10/09 Metoprolol XL 50 mg daily ACEi outpt, taken off 2/2 KIMBERLY on admission, restarted & adjusted Lisinopril to 10 mg daily (home dose is 20 mg) Daily AM wts stable, VIGNESH diet KHT/ACEs BLE for edema control SBP 110s-140 # Influenza exposure Treated with tamiflu, 10 days total (last dose 10/17) # Hyponatremia Stable, Na+ 132 10/15 # Hypothyroidism Levothyroxine 100 mcg QAM # Bowel/Bladder Toilet schedule to help with incontinence (baseline) Senna QHS Last BM 10/17 stools hard 10/15, Miralax given 10/16 & recommended PRN # Obesity Contributes to complexity of care Nutrition followed # Other health maintenance Vit D hydroxy level 24, restarted Vit D 1000 units daily 10/03 Corrected Ca+ just WNL, takes Ca+ outpt, restarted 10/03 # DVT prophylaxis Lovenox 40mg daily Spoke with Cristela Roca, Ortho PA- Dr. Babb wants ASA 81 mg daily for outpatient DVT prophylaxis, plus pt is routinely ambulatory of distances >100 ' with full weight bearing # Code status: DNR The patient participated in an intensive rehabilitation program with a coordinated interdisciplinaryapproach and made measurable improvement to allow discharge from the Medical Rehabilitation Unit. Discharge Physical Exam: Visit Vitals BP 134/76 (BP Location: Left arm, Patient Position: Sitting) Pulse 76 Temp 36.6 C (Oral) Resp 16 Ht 1.549 m (5' 1") Wt 71.2 kg (157 lb) SpO2 95% BMI 29.66 kg/m General: No acute distress, alert, oriented x 3 Eyes: Eyelids without lesions HEENT: No oral thrush Cardiovascular: S1, S2, RRR Pulmonary: Clear to auscultation throughout, unlabored effort Abdominal: Soft, Non-distended, Non-tender, active BS Extremities: Calves soft, non tender, +1 BLE edema Musculoskeletal: no changes in strength. Psych: Mood and affect normal Skin: LLE knee incision KASH, CDI, steri strips in place Neuro: no new focal deficits noted Discharge Laboratory Studies: CBC: Lab Results Component Value Date WBC 5.3 10/15/2019 RBC 2.42 (L) 10/15/2019 HGB 8.5 (L) 10/15/2019 HCT 25.0 (L) 10/15/2019 PLT 460 (H) 10/15/2019 BMP: Lab Results Component Value Date NA 132 (L) 10/15/2019 K 4.0 10/15/2019 CL 99 10/15/2019 BICARBONATE 24 10/15/2019 GLUCOSE 95 10/15/2019 BUN 16 10/15/2019 CREATININE 0.68 10/15/2019 BCR 23 10/15/2019 GFRAA 10/15/2019 eGFR is not calculated in patients <18 or >80 years of age. GFRNONAA 10/15/2019 eGFR is not calculated in patients <18 or >80 years of age. Recent Imaging Studies: Ct Head Without Contrast Result Date: 09/26/2019 INDICATION: 89-year-old female fell down 10 feet. TECHNIQUE: Contiguous axial CT images of the head from the base of the skull to the vertex without IV contrast. Automated dose lowering techniques and/or adjustment according to patient size were utilized for this exam. COMPARISON: None. FINDINGS: There is no evidence of intracranial hemorrhage or acute territorial infarction. No evidence of edema, mass effect, or extra-axial collection. Ventricles, cisterns , and sulci are normal. Paranasal sinuses are clear. Mastoid air cells are clear bilaterally. No depressed calvarial fracture. There is slight swelling of the left frontal scalp. IMPRESSION: 1. No acute intracranial pathology. 2. Slight swelling of the left frontal scalp. Ct Cervical Spine Without Contrast Result Date: 09/26/2019 INDICATION: 89-year-old female status post fall down 10 feet. TECHNIQUE: Axial images of the cervical, thoracic, and lumbar spine were obtained by multidetector row CT without administration of intravenous contrast. Coronal and sagittal reformatted images were then obtained using the axial source data. Automated dose lowering techniques and/or adjustment according to patient size were utilized for this exam. COMPARISON: None. FINDINGS: CERVICAL: Bones are diffusely demineralized. No acute fracture or traumatic listhesis. Vertebral body heights are normal. There is moderate loss of intervertebral disc height at C5/6. Remaining intervertebral disc heights are normal. There is exaggerated cervical lordosis. There is chronic appearing grade 1 anterolisthesis at C6/7. There are multilevel degenerativechanges including osteophytosis and facet and uncovertebral arthrosis. A posterior osteophyte is present at C5/6. Visualized paraspinal soft tissues are unremarkable. THORACIC: Bones are diffusely demineralized. Age-indeterminate but likely chronic compression deformity of the anterior aspect of the T7 vertebral body with approximately 60% loss of height. The remaining vertebral body heights are normal. Intervertebral disc heights are normal. There is exaggerated thoracic kyphosis. There is no significant spondylolisthesis. There are multilevel degenerative changes including osteophytosis, facet arthrosis, and calcifications of the intervertebral discs. There is atelectasis within the dependent portions of the bilateral lungs, particularly near the apex. A moderate size hiatal hernia is present. Paraspinal soft tissues are otherwise grossly unremarkable. LUMBAR: Bones are diffusely demineralized. Severe chronic compression deformity of the L1 vertebral body (vertebra plana). Chronic compressiondeformity of the L2 vertebral body with approximately 40% loss of height. Age indeterminate but likely chronic compression deformity of the L4 vertebral body with approximately 40% loss of height. There is mild loss of intervertebral disc height at L2/3 and L4/5 with associated vacuum disc phenomenon.There is trace degenerative retrolisthesis of L4 over L5. There are multilevel degenerative changes including prominent osteophytosis and facet arthrosis. There are osteophytes along the anterior and posterior margins of the bilateral SI joints. Visualized paraspinal soft tissues are grossly unremarkable. IMPRESSION: 1. No definite evidence of acute osseous abnormality although the bones are diffusely demineralized and there are extensive degenerative changes which may decrease the sensitivity in detection of an acute injury. 2. Age indeterminate but likely chronic compression deformity of the anterior aspect of the T7 vertebral body. 3. Age indeterminate but likely chronic compression deformity ofthe L4 vertebral body. 4. Chronic compression deformities of the L1 and L2 vertebral bodies. 5. Advanced degenerative changes as described. Ct Thoracic Spine Without Contrast Result Date: 09/26/2019 INDICATION: 89-year-old female status post fall down 10 feet. TECHNIQUE: Axial images of the cervical, thoracic, and lumbar spine were obtained by multidetector row CT without administration of intravenous contrast. Coronal and sagittal reformatted images were then obtained using the axial source data. Automated dose lowering techniques and/or adjustment according to patient size were utilized for this exam. COMPARISON: None. FINDINGS: CERVICAL: Bones are diffusely demineralized. No acute fracture or traumatic listhesis. Vertebral body heights are normal. There is moderate loss of intervertebral disc height at C5/6. Remaining intervertebral disc heights are normal. There is exaggerated cervical lordosis. There is chronic appearing grade 1 anterolisthesis at C6/7. There are multilevel degenerativechanges including osteophytosis and facet and uncovertebral arthrosis. A posterior osteophyte is present at C5/6. Visualized paraspinal soft tissues are unremarkable. THORACIC: Bones are diffusely demineralized. Age-indeterminate but likely chronic compression deformity of the anterior aspect of the T7 vertebral body with approximately 60% loss of height. The remaining vertebral body heights are normal. Intervertebral disc heights are normal. There is exaggerated thoracic kyphosis. There is no significant spondylolisthesis. There are multilevel degenerative changes including osteophytosis, facet arthrosis, and calcifications of the intervertebral discs. There is atelectasis within the dependent portions of the bilateral lungs, particularly near the apex. A moderate size hiatal hernia is present. Paraspinal soft tissues are otherwise grossly unremarkable. LUMBAR: Bones are diffusely demineralized. Severe chronic compression deformity of the L1 vertebral body (vertebra plana). Chronic compressiondeformity of the L2 vertebral body with approximately 40% loss of height. Age indeterminate but likely chronic compression deformity of the L4 vertebral body with approximately 40% loss of height. There is mild loss of intervertebral disc height at L2/3 and L4/5 with associated vacuum disc phenomenon.There is trace degenerative retrolisthesis of L4 over L5. There are multilevel degenerative changes including prominent osteophytosis and facet arthrosis. There are osteophytes along the anterior and posterior margins of the bilateral SI joints. Visualized paraspinal soft tissues are grossly unremarkable. IMPRESSION: 1. No definite evidence of acute osseous abnormality although the bones are diffusely demineralized and there are extensive degenerative changes which may decrease the sensitivity in detection of an acute injury. 2. Age indeterminate but likely chronic compression deformity of the anterior aspect of the T7 vertebral body. 3. Age indeterminate but likely chronic compression deformity ofthe L4 vertebral body. 4. Chronic compression deformities of the L1 and L2 vertebral bodies. 5. Advanced degenerative changes as described. Ct Lumbar Spine Without Contrast Result Date: 09/26/2019 INDICATION: 89-year-old female status post fall down 10 feet. TECHNIQUE: Axial images of the cervical, thoracic, and lumbar spine were obtained by multidetector row CT without administration of intravenous contrast. Coronal and sagittal reformatted images were then obtained using the axial source data. Automated dose lowering techniques and/or adjustment according to patient size were utilized for this exam. COMPARISON: None. FINDINGS: CERVICAL: Bones are diffusely demineralized. No acute fracture or traumatic listhesis. Vertebral body heights are normal. There is moderate loss of intervertebral disc height at C5/6. Remaining intervertebral disc heights are normal. There is exaggerated cervical lordosis. There is chronic appearing grade 1 anterolisthesis at C6/7. There are multilevel degenerativechanges including osteophytosis and facet and uncovertebral arthrosis. A posterior osteophyte is present at C5/6. Visualized paraspinal soft tissues are unremarkable. THORACIC: Bones are diffusely demineralized. Age-indeterminate but likely chronic compression deformity of the anterior aspect of the T7 vertebral body with approximately 60% loss of height. The remaining vertebral body heights are normal. Intervertebral disc heights are normal. There is exaggerated thoracic kyphosis. There is no significant spondylolisthesis. There are multilevel degenerative changes including osteophytosis, facet arthrosis, and calcifications of the intervertebral discs. There is atelectasis within the dependent portions of the bilateral lungs, particularly near the apex. A moderate size hiatal hernia is present. Paraspinal soft tissues are otherwise grossly unremarkable. LUMBAR: Bones are diffusely demineralized. Severe chronic compression deformity of the L1 vertebral body (vertebra plana). Chronic compressiondeformity of the L2 vertebral body with approximately 40% loss of height. Age indeterminate but likely chronic compression deformity of the L4 vertebral body with approximately 40% loss of height. There is mild loss of intervertebral disc height at L2/3 and L4/5 with associated vacuum disc phenomenon.There is trace degenerative retrolisthesis of L4 over L5. There are multilevel degenerative changes including prominent osteophytosis and facet arthrosis. There are osteophytes along the anterior and posterior margins of the bilateral SI joints. Visualized paraspinal soft tissues are grossly unremarkable. IMPRESSION: 1. No definite evidence of acute osseous abnormality although the bones are diffusely demineralized and there are extensive degenerative changes which may decrease the sensitivity in detection of an acute injury. 2. Age indeterminate but likely chronic compression deformity of the anterior aspect of the T7 vertebral body. 3. Age indeterminate but likely chronic compression deformity ofthe L4 vertebral body. 4. Chronic compression deformities of the L1 and L2 vertebral bodies. 5. Advanced degenerative changes as described. Xr Chest Frontal Only Result Date: 09/25/2019 PROCEDURE INFORMATION: Exam: XR Chest, 1 View Exam date and time: 09/25/2019 10: 06 PM Age: 89 years old Clinical indication: Other: Pre-operative evaluation TECHNIQUE: Imaging protocol: XR of the chest Views: 1 view. COMPARISON: No relevant prior studies available. FINDINGS: Lungs: No evidence of focal air space disease/consolidation. Pleural space: Unremarkable. No pleural effusion. No pneumothorax. Heart/Mediastinum: Unremarkable. No cardiomegaly. Vasculature: Thoracic aorta is tortuous and calcified. Bones/joints: Chronic-degenerative changes involve the thoracic spine and bilateral shoulders. Rounded subcentimeter calcific structures adjacent to the right shoulder. Multilevel degenerative changes involve the thoracic spine. Other findings: Few overlying wires. IMPRESSION: 1. No evidence of focal air space disease/consolidation. 2. Rounded subcentimeter calcific structures adjacent to the rightshoulder. -- Possible extra-articular loose bodies versus synovial chondromatosis. THIS DOCUMENT HAS BEEN ELECTRONICALLY SIGNED BY RUBIN GARSIA MD Xr Knee 1-2 Views Left Result Date: 09/28/2019 INDICATION: Status post distal femoral replacement, evaluate prosthesis. TECHNIQUE: Multiple views the left femur and left knee were obtained. COMPARISON : Prior study dated 09/26/2019. FINDINGS/ IMPRESSION: There is interval resection of the distal femur with replacement of the previous knee hardware with a megaprosthesis. The alignment appears within normal limits. Postoperative soft tissue changes are seen about the distal left femur and knee. Us Doppler Lower Extremity Unilateral Venous Limited (cc) Result Date: 10/03/2019 Procedure: Left lower extremity real-time compression venous ultrasound with Duplex and Color Doppler imaging. History: Leg swelling post surgery. Utilizing real-time ultrasonic imaging multiple real time high-resolution ultrasonic images of the deep venous system were performed from the common femoral vein through the proximal calf veins. Compression real time ultrasonic imaging was performed in addition to color Doppler imaging and duplex Doppler ultrasound with velocity spectral profile analysisduring Valsalva and augmentation maneuvers . Currently there is normal compressibility of the deep venous system from the common femoral vein through the proximal calf veins. No definitive current evidence of acute thrombosis is identified. Normal vascular flow is currently identified. Examination limited by severe soft tissue edema. Impression: No definitive current evidence of acute thrombosis is identified. Examination limited bysevere soft tissue edema. Xr Pelvis 1-2 Views Result Date: 09/26/2019 PROCEDURE INFORMATION: Exam: XR Pelvis Exam date and time: 09/25/2019 11:49 PM Age : [age] years old Clinical indication: Unspecified fracture of left femur, initial encounter for closed fracture; Other: Trauma TECHNIQUE: Imaging protocol: XR pelvis. Views: 1 or 2 view. COMPARISON: No relevant prior studiesavailable. FINDINGS: Bones/joints: No evidence of acute fracture. Bilateral hips appear aligned and intact. Mild degenerative changes involving bilateral hips and lumbosacral spine. Soft tissues: Soft tissues appear normal. Gastrointestinal tract: Sacral arcuate lines appear maintained, limited evaluation due to overlying bowel gas. IMPRESSION: 1. No evidence of acute fracture. 2. Mild degenerative changes involving bilateral hips and lumbosacral spine. THIS DOCUMENT HAS BEEN ELECTRONICALLY SIGNED BY RUBIN GARSIA MD Xr Tibia Left Result Date: 09/26/2019 PROCEDURE INFORMATION: Exam: XR Left Tibia and Fibula Exam date and time: 2019 11:49 PM Age: 89 years old Clinical indication: Unspecified fracture of left femur, initial encounter for closed fracture; Other: Trauma TECHNIQUE: Imaging protocol: XR Left tibia and fibula. Views: 2 views. COMPARISON:DX KNE L2 KNEE LEFT 1-2 VWS 09/25/2019 4:13 PM FINDINGS: Bones/joints: No evidence of acute fracture. Soft tissues: Overlying artifact limits evaluation. Left total knee arthroplasty, anatomic alignment of the components. Mild-moderate soft tissue swelling. IMPRESSION: 1. Overlying artifact limits evaluation. Left total knee arthroplasty, anatomic alignment of the components. 2. No evidence of acute fracture. 3. Mild-moderate soft tissue swelling. THIS DOCUMENT HAS BEEN ELECTRONICALLY SIGNED BY RUBIN GARSIA MD Xr Femur, Minimum Of 2 Views Left Result Date: 09/28/2019 INDICATION: Status post distal femoral replacement, evaluate prosthesis. TECHNIQUE: Multiple views the left femur and left knee were obtained. COMPARISON : Prior study dated 09/26/2019. FINDINGS/ IMPRESSION: There is interval resection of the distal femur with replacement of the previous knee hardware with a megaprosthesis. The alignment appears within normal limits. Postoperative soft tissue changes are seen about the distal left femur and knee. Xr Femur, Minimum Of 2 Views Left Result Date: 09/26/2019 PROCEDURE INFORMATION: Exam: XR Left Femur Exam date and time: 09/25/2019 11:49 PM Age: 89 years old Clinical indication: Unspecified fracture of left femur, initial encounter for closed fracture; Other:Trauma TECHNIQUE: Imaging protocol : XR Left femur. Views: 2 views. COMPARISON: DX KNE L2 KNEE LEFT 1-2 VWS 2019 4:13 PM FINDINGS: Bones/joints: Total knee arthroplasty-limited images due to overlying artifacts. Limited evaluation, deformity and fracture through lateral femoral condyle, not seen well. Small fragment along medial aspect distal femur, possible acute fracture. Soft tissues: Mild-moderate soft tissue swelling. IMPRESSION: 1. 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 2. Limited evaluation, deformity and fracture through lateral femoral condyle, not seen well.3. Small fragment along medial aspect distal femur, possible acute fracture. 4. Mild-moderate soft tissue swelling. THIS DOCUMENT HAS BEEN ELECTRONICALLY SIGNED BY RUBIN GARSIA MD Consults During Rehabilitation Admission: Infection Control, Occupational Therapy, Orthopedics, Physical Therapy Disposition and Discharge Recommendations Disposition: The patient will be discharged to home. Activity Restrictions: Maintain precautions reviewed by rehabilitation staff Weight bearing precautions: Full weight bearing to left lower extremity Diet: cardiac diet, Consistency: no restrictions Anticoagulation Therapy: other (specify: ASA 81 mg daily) - Activity as tolerated with rolling walker - No driving - No alcohol - WB as tolerated - F/U with PCP, Orthopedics, Infectious Disease as scheduled - No Added Salt diet - Ice frequently (20 min intervals) for pain management - Elevate BLE frequently, avoid prolonged sitting with legs dependent - TEDs or MARLENY wraps BLE in AM, remove at bedtime - Routine toileting every 2 hours while awake for bladder control - CBCD, CMP, CRP, ESR weekly & PRN while on IV antibiotics - PICC line care per agency protocol PCP: Ken Saldana MD Primary Care Follow-Up Appointment: 10/29/2019 Instructions/Communication to PCP: Will need long-term antibiotics- IV Cefazolin 6 GM continuous/24H & Rifampin 300mg BID (po) (until 11/11/2019) followed by oralcephalosporin and rifampinfor another 6 months and then po cephalosporin indefinitely. Lisinopril dose decreased to 10 mg, monitor for titration. Other Follow-Up Appointments Made: Future Appointments Date Time Provider Department Center 10/22/2019 11:30 AM Dexter Babb MD [facility]TH [facility] None 10/25/2019 - Dr. Gennaro Howard, Infectious Disease Discharge Medications: Medication List START taking these medications ceFAZolin 1 g injection Commonly known as: ANCEF 6 GM IV continuously over 24 hours through 11/11/2019 heparin flush (porcine) 100 UNIT/ML injection 5 ml IV after dose & PRN Normal Saline Flush 0.9 % Soln 10 ml IV before & after dose & PRN polyethylene glycol packet Commonly known as: MIRALAX Take 1 packet by mouth daily as needed (constipation)Please substitute bottle for packets, if packets are unavailable. rifAMPin 300 MG capsule Commonly known as: RIFADIN Take 1 capsule by mouth every 12 (twelve) hours saccharomyces boulardii 250 MG capsule Commonly known as: FLORASTOR Take 1 capsule by mouth Two Times Daily senna 8.6 MG Tabs tablet Take 2 tablets by mouth nightly Hold for loose or frequent stools CHANGE how you take these medications lisinopril 20 MG tablet Commonly known as: PRINIVIL,ZESTRIL Take 0.5 tablets by mouth daily What changed: how much to take tramadol 50 MG tablet Commonly known as: ULTRAM Take 0.5-1 tablets by mouth every 6 (six) hours as needed for Pain for up to 3 days, Max Daily Dose: 200 mg What changed: how much to take CONTINUE taking these medications aspirin 81 MG chewable tablet atorvastatin 40 MG tablet Commonly known as: LIPITOR calcium carbonate 600 MG Tabs Commonly known as: OS-TOÑA denosumab 60 MG/ML subcutaneous injection Commonly known as: PROLIA furosemide 40 MG tablet Commonly known as: LASIX levothyroxine 100 MCG tablet Commonly known as: SYNTHROID, LEVOTHROID metoprolol 50 MG 24 hr tablet Commonly known as: TOPROL-XL Take 1 tablet by mouth daily Vitamin D 50 MCG (1999 [place]) tablet STOP taking these medications acetaminophen 500 MG tablet Commonly known as: TYLENOL Where to Get Your Medications These medications were sent to [facility] - [place], [place] - [address] [place] [address] [place] [id number] ceFAZolin 1 g injection heparin flush (porcine) 100 UNIT/ML injection Normal Saline Flush 0.9 % Soln These medications were sent to [id number] [place], [place] - [address] [facility] [address] [facility] [id number] metoprolol 50 MG 24 hr tablet polyethylene glycol packet rifAMPin 300 MG capsule saccharomyces boulardii 250 MG capsule senna 8.6 MG Tabs tablet tramadol 50 MG tablet Information about where to get these medications is not yet available Ask your nurse or doctor about these medications lisinopril 20 MG tablet ISTOP accessed prior to narcotic prescription dispensing- Reference #: [id number] Medication: Discharge Drug Regimen Review No Yes NA Was a complete drug review conducted on discharge? X Was the physician or physician designee contacted by a licensed provider about a potential or actualclinically significant medication issue throughout the patients stay? X If yes to above question: If the physician or physician designee was contacted by a licensed provider about a potential or actual clinically significant medication issue throughout the stay, was the issue communicated and addressed by midnight of the next day [place] [facility] X Medications, including any new medications and/or medication changes, were discussed with patient and/or family prior to discharge. Please see the After Visit Summary on file for further information.The above discharge summary and recommendations have been discussed and agreed on with my attending,Steven Lyon MD. Please see the attending addendum to this note for any further recommendations. Daniella Roberto NP October 17, 2019 11:59 AM Associated attestation - Steven Lyon DO - 10/17/2019 12:40 PM EST I saw and evaluated the patient. Discussed with the resident and agree with the residents findings, as documented in the resident's note, along with my additions. I have updated the patient/family regarding the current status and plans. Electronically Signed by Steven Lyon on October 17, 2019 at 12:40 PM Medication: Discharge Drug Regimen Review No Yes NA Was a complete drug review conducted on discharge? X Was the physician or physician designee contacted by a licensed provider about a potential or actualclinically significant medication issue throughout the patients stay? X If yes to above question: If the physician or physician designee was contacted by a licensed provider about a potential or actual clinically significant medication issue throughout the stay, was the issue communicated and addressed by midnight of the next day from [facility]? X documented in this encounter Discharge Instructions Discharge Instr - Other Daniella Rehman NP - 10/14/2019 1:09 PM EST- Activity as tolerated with rolling walker - No driving - No alcohol - WB as tolerated - F/U with PCP, Orthopedics, Infectious Disease as scheduled - No Added Salt diet - Ice frequently (20 min intervals) for pain management - Elevate BLE frequently, avoid prolonged sitting with legs dependent - TEDs or MARLENY wraps BLE in AM, remove at bedtime - Routine toileting every 2 hours while awake for bladder control - CBCD, CMP, CRP, ESR weekly & PRN while on IV antibiotics - PICC line care per agency protocol Rolling walker and 3-in-1 commode ordered through [facility], , for delivery to patient before discharge. JN documented in this encounter Progress Notes Salma Kapoor RN - 10/17/2019 12:43 PM ESTDischarge instructions reviewed and given to patient and family along with MOLST form, and medication from pharmacy. All questions answered. Patient reported pain 0/10 on number scale. All belongingspacked and sent with patient and family. Hospital staff transported patient via wheelchair to personal vehicle with family. No complaints at this time.Electronically signed by Salma Kapoor RN at 2019 12:48 PM Irais Orozco RN - 10/17/2019 11:17 AM ESTPt has been medically cleared for d/c today to home with PICC line for home infusion. Pt's grand dtrHeather (RN) confirmed she is confident to start the infusion at home - supplies were delivered to the hospital last evening. The S in home baby sitter Carla has been updated with [facility] response ( the [facility] will not be able to open the case until tomorrow am-d/t staff call in's ). [facility] confirmed they will be available by phone if Lexis has any questions. Pt and family aware and confirmed understanding and agreement with d/c plan. Family was also given information regarding life alert for the pt. Alanis Lake OT - 10/16/2019 3:30 PM ESTOccupational Therapy Inpatient Rehabilitation Encounter Form Admitting Diagnosis: s/p mechanical fall resulting in Left periprosthetic distal femur fracture s/p Total Knee Revision with Left Distal Femoral Replacement on 09/27/2019 Rehab Diagnosis: impaired mobility and self care Rehabilitation Precautions/Restrictions: OOB with assist. WBAT. Strict I & O. High Fall risk. Ice PRN. DNR. DVT precautions SUBJECTIVE Patient Report: "I hope I did a great job" Pain: Patient has no complaints of pain currently. OBJECTIVE No chair alarm noted at start of session. Skin Integrity: surgical incision on L knee covered with aquacell appears not visualized, pt fully dressed. PICC in R UE. Not visualized: mepliex on medial aspect of L thigh by the groin. Ecchymosis throughout medial left knee, berry lower LE's wrapped with marleny bandages for edema control. Outcome Measures: Recently assessed, not applicable at this time. Interventions: Patient/Family Education: Therapist facilitated patient through handwriting task this session to include education in preparation for discharge. Therapist used adaptive strategies of light/dark colored contrast to include borders to assist with signing name for documents. Patient educated on continuing independence in self cares with good pace and techniques to maintain independence while decreasing falls. Therapist educated patient on importance of using toilet/commode throughout day to decrease incontinence issue while maintaining skin integrity. Patient responded well to all cues and education this session. Equipment Provided: None issued this visit. Education: Mode of education provided: Explanation. Demonstration. Audience: Patient. Education Provided: Importance of activity. Mobility Techniques. Role of Occupational Therapy. Role of Physical Therapy. Safety. Treatment Plan. ADL's. Response: Indicates understanding. Verbalized understanding. ASSESSMENT Response to Visit: The session was tolerated well. Call lopez was in patient's reach at end of session. Intervention considerations/suggestions for future therapy sessions: FM coordination/strength; ADLs; IADLs; functional mobility; adaptive equipment/devices training; strengthening of bilateral UEs. ENDURANCE! Pain: Patient has no complaints of pain currently. Program: Orthopedics 3 Hour Rule Minutes: 30 minutes. Patient was seen for the full scheduled treatment time this session. Therapy Mode Minutes: Individual: 30 minutes. 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 WBAT. Strict I & O. High Fall risk. Ice PRN. DNR. DVT precautions SUBJECTIVE Patient Report: Pt just finishing in the bathroom Pain: Patient currently complains of pain. Location: L knee . Patient describes pain as Aching. Verbal Scale: Patient reports a pain level of 3 out of 10. OBJECTIVE Skin Integrity: surgical incision on L knee covered with aqua cell appears not visualized, pt fully dressed. PICC in R UE. Not visualized: mepliex on medial aspect of L thigh by the groin. Ecchymosis throughout medial left knee, berry lower LE's wrapped with marleny bandages for edema control. Outcome Measures: Recently assessed, not applicable at this time. Interventions: Gait Training: Facilitated ambulation with a rolling walker. Pt ambulated approximately 130 feet with supervision. No loss of balance noted. Therapeutic Exercise: Perfromed active assistive ROM to L knee. formal measurement taken of L knee flexion - 88 degrees. Pt instructed in seated lower extremity exercises to increase strength and ROM for improved mobility. Pt completed 3 x 10 reps with 3 lbs to the R LE and 0 lbs to the L LE for the following: knee ext hip flex ankle pumps/toe raises Pt transferred into the recliner at the end of the session with ice applied to L knee Education: Mode of education provided: Demonstration. Explanation. Audience: Patient. Education Provided: Functional transfers. Gait. Safety. Plan of care. theraputic exercise . Response: Applied knowledge. Needs practice/reinforcement. ASSESSMENT Response to Visit: The session was tolerated well. Patient reported fatigue Call lopez was in patient's reach at end of session. Intervention considerations/suggestions for future therapy sessions: s/p mechanical fall resulting in L joshua prosthetic fracture, s/p L revision TKA on 09/27/2019, WBAT, 7 stairs to enter with berry rails, lives alone bed mobility: min assist for R LE, has hospital bed at home transfers: CGA from w/c, min assist from lower surfaces ambulation: 80 to 100 feet with supervision and rolling walker, stairs: 4 stairs with berry rails, CGA *LE strengthening, knee ROM, standing balance, bed mobility, stairs Pain: Patient currently complains of pain. Location: L knee . Patient describes pain as Aching. Verbal Scale: Patient reports a pain level of 7 out of 10. Will provide modalities. Will inform nurse. Ice applied to L knee at the end of the session Program: Total Joint 3 Hour Rule Minutes: 30 minutes. Patient was seen for the full scheduled treatment time this session. Therapy Mode Minutes: Individual: 30 minutes. SESSION: Duration: 30 CHARGES: 99376 - CHARGE - PT GAIT TRNG - 15 MIN 1 Units 52600 - CHARGE - PT THER EX - 15 MIN 1 Units - TOTAL JOINT VISIT 1 Units Total treatment minutes: 30.00 Minutes Electronically Signed by: Marie Zacarias PTA, PTA 10/16/2019 3:22:40 PM Irais Orozco RN - 10/16/2019 1:19 PM [place] radio news writer spoke with pt's granddtr the teaching went well - for the home infusion. The plan is maria/c to home on 10/17/19 at 11 am . The [facility] home care will met pt and family at 1:30 pm to connect to the home infusion pump. Pt and family aware. CM will continue to follow. Lois Mittal MD - 10/16/2019 12:37 PM EST Physical Medicine and Rehabilitation IRF Progress Note Subjective: Yulisa Rebollar is a 89 y.o. female. Subjective Patient was seen and examined bedside this AM. No acute events overnight. Family trained on IV abx. Excited for d/c tomorrow. Stools noted to be hard/ constipated- Miralax to be given today. Denies BURLESON, dizziness, CP, SOB, Abd pain , nausea or vomiting. Scheduled Meds: aspirin 81 mg Oral Daily atorvastatin 40 mg Oral QPM calcium carb-cholecalciferol 1 tablet Oral Daily ceFAZolin sodium 2 g Intravenous Q8H enoxaparin 40 mg Subcutaneous Daily furosemide 40 mg Oral Daily sodium chloride (preservative free) 10 mL Intravenous Q12H And heparin lock flush 20 Units Intravenous Q12H levothyroxine 100 mcg Oral Daily lisinopril 10 mg Oral Daily metoprolol 50 mg Oral Daily sodium chloride 50 mL/hr Intravenous TID oseltamivir 30 mg Oral Daily polyethylene glycol 17 g Oral Once rifAMPin 300 mg Oral 2 times per day saccharomyces boulardii 250 mg Oral BID senna 2 tablet Oral Nightly tramadol 50 mg Oral Daily Vitamin D3 1,000 Units Oral Daily Continuous Infusions: PRN Meds:.sodium chloride (preservative free) AND heparin lock flush AND* * sodium chloride (preservative free) AND heparin lock flush, polyethylene glycol, promethazine, tramadol AND tramadol LINES: PICC RUE, no s/s infection Objective: VITAL SIGNS: Temp: [36.6 C] 36.6 C Pulse: [72-86] 86 Resp: [14-18] 14 BP: (119-157)/(60-72) 157/65 SpO2: [96 %-98 %] 98 % O2 Therapy: Room air PE: General: No acute distress, alert, oriented x 3 Eyes: Eyelids without lesions HEENT: No oral thrush Cardiovascular: S1, S2, RRR Pulmonary: Clear to auscultation throughout, unlabored effort Abdominal: Soft, Non-distended, Non-tender, active BS Extremities: Calves soft, non tender, +1 BLE edema Musculoskeletal: no changes in strength. 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 DIAGNOSTIC STUDIES: CBC: Lab Results Component Value Date WBC 5.3 10/15/2019 RBC 2.42 (L) 10/15/2019 HGB 8.5 (L) 10/15/2019 HCT 25.0 (L) 10/15/2019 PLT 460 (H) 10/15/2019 CMP: Lab Results Component Value Date NA 132 (L) 10/15/2019 K 4.0 10/15/2019 CL 99 10/15/2019 BICARBONATE 24 10/15/2019 CALCIUM 7.9 (L) 10/15/2019 GLUCOSE 95 10/15/2019 BUN 16 10/15/2019 BCR 23 10/15/2019 PROT 5.0 (L) 10/15/2019 ALBUMIN 2.9 (L) 10/15/2019 TBILI 0.2 10/15/2019 ALKPHOS 81 10/15/2019 AST 19 10/15/2019 ALT <5 10/15/2019 AGRATIO 1.0 10/15/2019 GFRAA 10/15/2019 eGFR is not calculated in patients <18 or >80 years of age. GFRNONAA 10/15/2019 eGFR is not calculated in patients <18 or >80 years of age. 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 Babb on09/27/2019. # Impaired mobility and self-care:Acute inpatient comprehensive rehabilitation including PT, OT,RT, HOPPER FILLER, and supportive services to improve functional outcome of impaired mobility, ADL's, transfers, and self-care. #Left periprosthetic distal femur fracture now s/p Total Knee Revision with Left Distal Femoral Replacement WBAT Remaining incisional genesis removed 10/15, steri strips in place F/u Dr. Babb after d/c # Positive Intra-op Tissue Culture Grew Staph epi Per Dr. Howard: 6 weeks IV Cefazolin 2gm Q8H & Rifampin 300mg BID (po) (until 11/11/2019) followed by oralcephalosporin and rifampinfor another 6 months and thenpo cephalosporin indefinitely Continue Florastor with abx Will arrange outpt f/u with Dr. Howard # Pain management Tyl 650 mg 4x/day, Tramadol 50 mg prior to 1st AM therpay & Q4H PRN available, and Frequentice/elevation stable # Acute Blood Loss Anemia H/H stable, 8.5/25 S/p 1 unit PRBC postop Iron studies 10/03 consistent with anemia of chronic disease No signs of active bleeding # CAD Continue ASA,Statin, Metoprolol XL # Chronic Systolic Heart Failure/HTN Lasixadjusted to home regime of 40 mg daily starting 10/09 Metoprolol XL 50 mg daily ACEi outpt, taken off 09/22 KIMBERLY on admission, restarted & adjusted Lisinopril to 10 mg daily (home dose is 20 mg) Daily AM wts stable, VIGNESH diet KHT/ACEs BLE for edema control SBP 110s-140 with isolated 157 this AM, recheck 111 # Influenza exposure Tamiflu ordered & tolerating, 10 days total (last dose 10/17) # Hyponatremia Stable # Hypothyroidism Levothyroxine 100 mcg QAM # Bowel/Bladder Toilet schedule to help with incontinence (baseline) continue Senna QHS Last BM 10/16 stools hard yesterday, ordered a dose of Miralax today # Obesity Contributes to complexity of care Nutrition will follow # Other health maintenance Vit D hydroxy level 24, restarted Vit D 1000 units daily 10/03 Corrected Ca+ just WNL, takes Ca+ outpt, restarted 10/03 # DVT prophylaxis Lovenox 40mg daily # Code status: DNR Progress in therapies:ambulated 160 feet with supervision and RW Patient is making progress towards the rehabilitation goals established; the patient's condition is sufficiently stable to allow the patient to actively participate in an intensive rehabilitation program. The patient requires and is able to tolerate 3 hours of therapy at least 5 days per week. The patient continues to benefit from the inpatient rehabilitation program with care provided by rehabilitation medicine team, rehabilitation nursing, occupational and physical therapies. I have updated the patient/family regarding the current status and above plans. Certain parts of this note may have been carried over from prior notes to maintain accuracy of patient's pertinent medical history and continuity of care. The details were verified and edited as appropriate. Discussed withDr. Woodward, Nursing ++++++++++++++++++++++++++++ Daniella Roberto, , STRAIGHT SLICING MACHINE OPERATOR-BS Physical Medicine & Rehabilitation [facility] I saw and examined the patient, discussed with the nurse practitioner, Daniella Roberto NP, and agree with the findings as documented in their note, with the exceptions/additions as noted below. The note has only been reviewed, not edited. Patient is doing well, seen and examined while in therapy. She denies any discomfort/pain. Our team has removed the remaining genesis today from her incision. Will continue with current medical management as per above. Madelaine Arias RN - 10/15/2019 10:50 PM ESTAssumed care of patient from [id number]. I agree with previous assessment technician at this time. Patient has no acute issues, all safety precautions maintained at this time. x1 assist to BR with walker. Takespills whole one at a time with water. Will continue to monitor. Irais Orozco RN - 10/15/2019 4:11 PM ESTPt discuss in team rounds on Monday10/14/19 - see therapy team meeting notes. No barriers noted to d/c on 10/17/19 as noted from the family meeting last week. This radio news writer spoke with the home infusion [facility] revenue liaison to update and she confirmed she would f/u with the pt's grand dtr Lex[employer] to confirmed the planned teaching date of 10/16/19- at 10 am. This radio news writer [facility]they confirmed a start of care date for the day of d/c at 1:30 pm. Pt and family will be updated. CM will continue to follow. Daniella Campos NP - 10/15/2019 3:41 PM ESTRemaining genesis removed from LLE surgical incision, edges well approximated, no s/s infection. Steri strips applied. Pt tolerated without complaints. ++++++++++++++++++++++++++++ Daniella Roberto, MS, STRAIGHT SLICING MACHINE OPERATOR-BS Physical Medicine & Rehabilitation [facility] Melissa Lawler, RD - 10/15/2019 3:13 PM EST Medical Nutrition Therapy Current Diet: Diet Age: Adult; Diet: Modified; Modifier: Mineral Modification ( Na, Iodine); Mineral Modification (Na, Iodine): No Added Salt Meds Include: Current Facility-Administered Medications Medication Dose Route Frequency Provider Last Rate Last Dose aspirin chewable tablet 81 mg 81 mg Oral Daily Daniella Roberto NP 81 mg at 10/15/19 0803 atorvastatin (LIPITOR) tablet 40 mg 40 mg Oral QPM Daniella Roberto NP 40 mg at 10/14/199 calcium carb-cholecalciferol 250-125 MG-UNIT per tablet 1 tablet 1 tablet Oral Daily Daniella Pyle NP 1 tablet at 10/15/19 1218 ceFAZolin (ANCEF) IVPB 2 g in dextrose (premix) 2 g Intravenous Q8H Daniella Roberto NP 200 mL/hr at 10/15/19 1358 2 g at 10/15/19 1358 enoxaparin sodium (LOVENOX) injection 40 mg 40 mg Subcutaneous Daily Daniella Roberto NP 40 mg at 10/15/19 0803 furosemide (LASIX) tablet 40 mg 40 mg Oral Daily Daniella Roberto NP 40 mg at 10/15/19 0803 sodium chloride (preservative free) 0.9 % flush 10 mL 10 mL Intravenous PRN Daniella Roberto MANUFACTURING ENGINEERING PROFESSOR 10 mL at 10/12/19 1436 And heparin lock flush 10 UNIT/ML injection 20 Units 20 Units Intravenous PRN Daniella Roberto MANUFACTURING ENGINEERING PROFESSOR 10 mL/hr at 10/10/19 1503 20 Units at 10/13/19 2306 And sodium chloride (preservative free) 0.9 % flush 10 mL 10 mL Intravenous Q12H Daniella Roberto MANUFACTURING ENGINEERING PROFESSOR 10 mL at 10/15/19 0634 And heparin lock flush 10 UNIT/ML injection 20 Units 20 Units Intravenous Q12H Daniella Roberto MANUFACTURING ENGINEERING PROFESSOR 20 Units at 10/15/19 0716 levothyroxine (SYNTHROID, LEVOTHROID) tablet 100 mcg 100 mcg Oral Daily Daniella Roberto NP 100 mcg at 10/15/19 0423 [START ON 10/16/2019] lisinopril (PRINIVIL,ZESTRIL) tablet 10 mg 10 mg Oral Daily Daniella Roberto NP metoprolol (TOPROL-XL) 24 hr tablet 50 mg 50 mg Oral Daily Daniella Roberto NP 50 mg at 10/15/19 0803 NaCl infusion 0.9 % 50 mL/hr Intravenous TID Daniella Roberto NP 50 mL/hr at 10/15/19 1357 50 mL/hr at 10/15/19 1357 oseltamivir (TAMIFLU) capsule 30 mg 30 mg Oral Daily Daniella Roberto NP 30 mg at 10/15/19 0803 polyethylene glycol (MIRALAX) packet 17 g 17 g Oral Daily PRN Daniella Roberto NP promethazine (PHENERGAN) tablet 25 mg 25 mg Oral Q6H PRN Miko Ibarra MD 25 mg at 10/15/19 0803 rifAMPin (RIFADIN) capsule 300 mg 300 mg Oral 2 times per day Lyly Diego MD 300 mg at 10/15/19 0803 saccharomyces boulardii (FLORASTOR) capsule 250 mg 250 mg Oral BID Daniella Roberto NP 250 mg at 10/15/19 0807 senna 8.6 MG 2 tablet 2 tablet Oral Nightly Daniella Roberto NP 2 tablet at 10/14/192038 [START ON 10/16/2019] tramadol (ULTRAM) tablet 50 mg 50 mg Oral Daily Daniella Roberto NP And tramadol (ULTRAM) tablet 50 mg 50 mg Oral Q4H PRN Daniella Roberto NP Vitamin D3 (CHOLECALCIFEROL) tablet 1,000 Units 1,000 Units Oral Daily Daniella Roberto NP 1,000 Units at 10/15/19 1218 Recent Labs Lab 10/15/19 0634 NA 132* CL 99 BUN 16 GLUCOSE 95 K 4.0 BICARBONATE 24 CREATININE 0.68 CALCIUM 7.9* ALBUMIN 2.9* Height: 154.9 cm Weight: 71.4 kg (157 lb 8 oz) Body Mass Index: Body mass index is 29.76 kg/m. Weight change: -0.091 kg (-3.2 oz) Lowest actual weight: 69.5 kg Energy/Protein Requirement based on: 63.6 (stated dry wt) Current Protein Needs: 1 - 1.2 g per kg body wt. = 64 - 76 g Current Energy Needs: 25 - 30 kcal per kg body wt. = 1590 - 1908 kcal Estimated Fluid Needs: 1500 mL or per MD Progress Since Last Visit: Ms. Rebollar presented s/p fall with left femoral fracture. She has PMH of CHF, CAD, IA. Patient had complained of too large food portions on last visit. She is now participating in menu selections and consuming average of ~93% at meal times. Meal profile shows she meeting above estimated daily calorie and protein needs. Patient is at nutritional risk. Current risk is Low. Recommend: Continue no added salt dietElectronically signed by Melissa Jones RD at 4:21 PM Marie Stone PTA - 10/15/2019 3:00 PM ESTPhysical Therapy Inpatient Rehabilitation Encounter Form Admitting Diagnosis: s/p mechanical fall resulting in Left periprosthetic distal femur fracture s/p Total Knee Revision with Left Distal Femoral Replacement on 09/27/2019 Rehab Diagnosis: impaired mobility and self care Rehabilitation Precautions/Restrictions: SOB with assist. WBAT. Strict I & O. High Fall risk. Ice PRN. DNR. DVT precautions SUBJECTIVE Patient Report: Pt in w/c and ready for therapy Pain: Patient currently complains of pain. Location: L knee . Patient describes pain as Aching. Verbal Scale: Patient reports a pain level of 3 out of 10. OBJECTIVE Skin Integrity: surgical incision on L knee covered with aquacell appears not visualized, pt fully dressed. PICC in R UE. Not visualized: mepliex on medial aspect of L thigh by the groin. Ecchymosis throughout medial left knee, berry lower LE's wrapped with marleny bandages for edema control. Outcome Measures: Recently assessed, not applicable at this time. Interventions: Gait Training: Pt working on standing to increase tolerance and endurance for functional activities. Pt stood to place different resistant clothes pins on a dowel. Pt stood for 5 mins and 2 mins with supervision. requires occasional cuing for visual deficits. Facilitated ambulation with a rolling walker. Pt ambulated 160 feet with supervision. No loss of balance noted. Gait is reciprocal with a kyphotic posture. Pt transferred in to recliner at the end of the session with rolling walker and supervision. Legs elevated and ice applied to L knee. Education: Mode of education provided: Demonstration. Explanation. Audience: Patient. Education Provided: Functional transfers. Gait. Safety. Plan of care. Rehabilitation techniques and procedures. Response: Applied knowledge. Needs practice/reinforcement. ASSESSMENT Response to Visit: The session was tolerated well. Patient reported fatigue Call lopez was in patient's reach at end of session. Intervention considerations/suggestions for future therapy sessions: s/p mechanical fall resulting in L periprosthetic fracture, s/p L revision TKA on 09/27/2019, WBAT, 7 stairs to enter with ebrry rails, lives alone bed mobility: min assist for R LE, has hospital bed at home transfers: CGA from w/c, min assist from lower surfaces ambulation: 80 to 100 feet with supervision and rolling walker, stairs: 4 stairs with berry rails, CGA *LE strengthening, knee ROM, standing balance, bed mobility, stairs Pain: Patient currently complains of pain. Location: L knee . Patient describes pain as Nonspecific. Verbal Scale: Patient reports a pain level of 4 out of 10. Ice applied to L knee at the end of the session Program: Total Joint 3 Hour Rule Minutes: 30 minutes. Patient was seen for the full scheduled treatment time this session. Therapy Mode Minutes: Individual: 30 minutes. SESSION: Duration: 30 CHARGES: 86656 - CHARGE - PT GAIT TRNG - 15 MIN 2 Units - TOTAL JOINT VISIT 1 Units Total treatment minutes: 30.00 Minutes Electronically Signed by: Marie Zacarias PTA, PTA 10/15/2019 3:15:57 PM Marie Stone PTA - 10/15/2019 12:00 PM ESTPhysical Therapy Inpatient Rehabilitation Progress Note Attending Physician: Dr. Parrish Admitting Diagnosis: s/p mechanical fall resulting in Left joshua prosthetic distal femur fracture s/p Total Knee Revision with Left Distal Femoral Replacement on 09/27/2019 Rehab Diagnosis: impaired mobility and self care Rehabilitation Precautions/Restrictions: SOB with assist. WBAT. Strict I & O. High Fall risk. Ice PRN. DNR. DVT precautions SUBJECTIVE Patient Report: Pt in recliner and agreeable to therapy Pain: Patient currently complains of pain. Location: L knee . Patient describes pain as Aching. Verbal Scale: Patient reports a pain level of 3 out of 10. OBJECTIVE Range of Motion: No change observed. Strength: No change observed. Skin Integrity: surgical incision on L knee covered with aquacell appears not visualized, pt fully dressed. PICC in R UE. Not visualized: mepliex on medial aspect of L thigh by the groin. Ecchymosis throughout medial left knee, berry lower LE's wrapped with marleny bandages for edema control. Quality Indicators Roll left and right, sit to lying, and lying to sitting on edge of bed not addressed at this time Sit to Stand Transfer: 04 - Supervision or touching assistance: Ravenna provides verbal cues and/or touching/steadying and/or contact guard assistance as patient completes activity. Assistance Provided: General supervision for safety Assistive Device(s): Arm rest(s), Walker, Gait belt Walk 150 feet: 04 - Supervision or touching assistance: Ravenna provides verbal cues and/or touching/steadying and/or contact guard assistance as patient completes activity. Assistance Provided: General supervision for safety Assistive Device(s): Rolling walker Stairs - Four steps: 04 - Supervision or touching assistance: Ravenna provides verbal cues and/or touching/steadying and/or contact guard assistance as patient completes activity. Assistance Provided: General supervision for safety Assistive Device(s): Handrail(s), climbed 8 stairs with supervision Wheelchair/scooter not addressed at this time. Outcome Measures: Recently assessed, not applicable at this time. Interventions: Therapeutic Activities: Pt transferred out of the recliner to rolling walker with supervision. Ambulated approximately 12 feet to the bathroom. Pt managing clothing and joshua care. Was able to change her pad today with set up. transferred on and off the toilet with supervision. progress to the sink demonstrating good balance while washing her hands and exiting the room. Gait Training: Facilitated ambulation with a rolling walker. Pt ambulated 130 feet with supervision. Instructed in climbing stairs with berry hand rails. Pt climbed 8 steps with supervision. Pt requires a brief rest break between sets to prevent fatigue. Ambulated an additional trial of 160 feet with rolling walker and supervision. no loss of balance noted. Therapeutic Exercise: Pt instructed in seated lower extremity exercises to increase strength and ROM for improved mobility. Completed 3 x 10 reps with 3 lbs to the R LE and 0 lbs to the R LE for the following: knee ext hip flex adduction with a small ball abduction with pink theraband hamstring curls with pink theraband, light resistance to the L LE ankle pumps Also perform sit to stands x 5, attempted 2 without arms but pt reported increased L knee pain. Equipment Provided: None issued this visit. Wheelchair Cushion Provided: Javier Basic Education: Mode of education provided: Demonstration. Explanation. Audience: Patient. Education Provided: Gait. Stair/Curb Training. Safety. Plan of care. theraputic exercises . Response: Applied knowledge. Needs practice/reinforcement. ASSESSMENT Response to Visit: The session was tolerated well. Patient reported fatigue Pt to the dining room for lunch at the end of the session. Pain: Patient currently complains of pain. Location: L knee . Patient describes pain as Aching. Verbal Scale: Patient reports a pain level of 6 out of 10. Will provide modalities. Goal Review: Pt progressing towards mobility goals as she is currently requiring supervision for all mobility tasks PLAN Treatment Frequency, Duration, and Intervention: Restorative Physical Therapy is recommended for 90 minutes per day, at least 5x per week for 4 weeks Treatment is to include: Gait Training. Neuromuscular Re-education. Therapeutic Activity. Therapeutic Exercise. Self Care/Home Management. Intervention considerations/suggestions for future therapy sessions: s/p mechanical fall resulting in L joshua prosthetic fracture, s/p L revision TKA on 09/27/2019, WBAT, 7 stairs to enter with berry rails, lives alone bed mobility: min assist for R LE, has hospital bed at home transfers: CGA from w/c, min assist from lower surfaces ambulation: 80 to 100 feet with supervision and rolling walker, stairs: 4 stairs with berry rails, CGA *LE strengthening, knee ROM, standing balance, bed mobility, stairs INTERDISCIPLINARY PATIENT CARE PLAN Identified Problems from Team Documentation: Impaired Self Care Mgmt/ADL/IADL Self Care: Primary Team Goal: Patient will be modified independent with self cares using adaptive equipment/devices as needed by discharge./ Problem: Impaired Bladder Mgmt Bladder Management: Primary Team Goal: Patient will be continent of urine this shift/ Problem: Impaired Bowel Mgmt Bowel Management: Primary Team Goal: Patient will be continent of stool/ Problem: Impaired Leisure Skills Problem: Impaired Mobility Mobility: Primary Team Goal : pt will ambulate 200 feet modified independent with rolling walker/ Add/Update Problems from this Treatment: No updates at this time. Program: Total Joint 3 Hour Rule Minutes: 60 minutes. Patient was seen for the full scheduled treatment time this session. Therapy Mode Minutes: Individual: 60 minutes. SESSION: Duration: 60 CHARGES: 00192 - CHARGE - PT GAIT TRNG - 15 MIN 1 Units 87913 - CHARGE - PT THER EX - 15 MIN 2 Units 11097 - CHARGE - PT THERAPEUTIC ACTIVITIES - 15 MIN 1 Units - TOTAL JOINT VISIT 1 Units Total treatment minutes: 60.00 Minutes Electronically Signed by: Marie Zacarias PTA, PTA 10/15/2019 12:43:08 PM Dianne Corona - 10/15/2019 11:49 AM ESTOn 10/14/19 I was notified by Marie Zacarias PT , that [facility]. I notified Tayler at [facility], , and she said she would have Jasonstop by to look at the walker and swap it out for another one if needed by 10/16/19. Daniella Campos NP - 10/15/2019 11:29 AM EST Physical Medicine and Rehabilitation IRF Progress Note Subjective: Yulisa Rebollar is a 89 y.o. female. Subjective Patient was seen and examined this AM with OT. No acute events overnight. Feeling well, no new complaints. Pain controlled Labs stable. Denies [place], dizziness, CP, SOB, Abd pain, nausea or vomiting. Scheduled Meds: aspirin 81 mg Oral Daily atorvastatin 40 mg Oral QPM calcium carb-cholecalciferol 1 tablet Oral Daily ceFAZolin sodium 2 g Intravenous Q8H enoxaparin 40 mg Subcutaneous Daily furosemide 40 mg Oral Daily sodium chloride (preservative free) 10 mL Intravenous Q12H And heparin lock flush 20 Units Intravenous Q12H levothyroxine 100 mcg Oral Daily [START ON 10/16/2019] lisinopril 10 mg Oral Daily metoprolol 50 mg Oral Daily sodium chloride 50 mL/hr Intravenous TID oseltamivir 30 mg Oral Daily rifAMPin 300 mg Oral 2 times per day saccharomyces boulardii 250 mg Oral BID senna 2 tablet Oral Nightly [START ON 10/16/2019] tramadol 50 mg Oral Daily Vitamin D3 1,000 Units Oral Daily Continuous Infusions: PRN Meds:.sodium chloride (preservative free) AND heparin lock flush AND* * sodium chloride (preservative free) AND heparin lock flush, polyethylene glycol, promethazine, [START ON 10/16/2019] tramadol AND tramadol LINES: PICC RUE, no s/s infection Objective: VITAL SIGNS: Temp: [36.5 C-36.8 C] 36.8 C Pulse: [69-80] 70 Resp: [16] 16 BP: (135-141)/(69-80) 138/80 SpO2: [95 %-99 %] 99 % O2 Therapy: Room air PE: General: No acute distress, alert, oriented x 3 Eyes: Eyelids without lesions HEENT: No oral thrush Cardiovascular: S1, S2, RRR Pulmonary: Clear to auscultation throughout, unlabored effort Abdominal: Soft, Non-distended, Non-tender, active BS Extremities: Calves soft, non tender, +1 BLE edema- improved Musculoskeletal: no changes in strength. Psych: Mood and affect normal Skin: LLE knee incision w/genesis, dressing CDI. Neuro: no new focal deficits noted. DIAGNOSTIC STUDIES: CBC: Lab Results Component Value Date WBC 5.3 10/15/2019 RBC 2.42 (L) 10/15/2019 HGB 8.5 (L) 10/15/2019 HCT 25.0 (L) 10/15/2019 PLT 460 (H) 10/15/2019 CMP: Lab Results Component Value Date NA 132 (L) 10/15/2019 K 4.0 10/15/2019 CL 99 10/15/2019 BICARBONATE 24 10/15/2019 CALCIUM 7.9 (L) 10/15/2019 GLUCOSE 95 10/15/2019 BUN 16 10/15/2019 BCR 23 10/15/2019 PROT 5.0 (L) 10/15/2019 ALBUMIN 2.9 (L) 10/15/2019 TBILI 0.2 10/15/2019 ALKPHOS 81 10/15/2019 AST 19 10/15/2019 ALT <5 10/15/2019 AGRATIO 1.0 10/15/2019 GFRAA 10/15/2019 eGFR is not calculated in patients <18 or >80 years of age. GFRNONAA 10/15/2019 eGFR is not calculated in patients <18 or >80 years of age. 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 Babb on09/27/2019. # Impaired mobility and self-care:Acute inpatient comprehensive rehabilitation including PT, OT,RT, HOPPER FILLER, and supportive services to improve functional outcome of impaired mobility, ADL's, transfers, and self-care. #Left periprosthetic distal femur fracture now s/p Total Knee Revision with Left Distal Femoral Replacement WBAT Monitor incision, Mepilex Evaluate for remaining staple removal today or tomorrow F/u Dr. Babb after d/c # Positive Intra-op Tissue Culture Grew Staph epi Per Dr. Howard: 6 weeks IV Cefazolin 2gm Q8H & Rifampin 300mg BID (po) (until 11/11/2019) followed by oralcephalosporin and rifampinfor another 6 months and thenpo cephalosporin indefinitely Continue Florastor with abx Will arrange outpt f/u with Dr. Lee Howard recommends continue Cefazolin vs another abx for discharge as is best option, familycan assist with infusion as determined in family meeting Labs on 10/15 # Pain management Tyl 650 mg 4x/day, Tramadol 50 mg prior to 1st AM therpay & Q4H PRN available, and Frequentice/elevation stable # Acute Blood Loss Anemia H/H stable, 8.5 S/p 1 unit PRBC postop Iron studies 10/03 consistent with anemia of chronic disease No signs of active bleeding # CAD Continue ASA,Statin, Metoprolol XL # Chronic Systolic Heart Failure/HTN Lasixadjusted to home regime of 40 mg daily starting 10/09 Metoprolol XL 50 mg daily ACEi outpt, taken off 09/22 KIMBERLY on admission, restarted Lisinopril at 5 mg daily on 10/03, will increase to 10 mg for better BP control (home dose is 20 mg) Daily AM wts, VIGNESH diet KHT/ACEs BLE for edema control SBP 130s-140s # Influenza exposure Tamiflu ordered & tolerating, 10 days total # Hyponatremia Stable # Hypothyroidism Levothyroxine 100 mcg QAM # Bowel/Bladder Toilet schedule to help with incontinence (baseline) continue Senna QHS Last BM 10/14, monitor. # Obesity Contributes to complexity of care Nutrition will follow # Other health maintenance Vit D hydroxy level 24, restarted Vit D 1000 units daily 10/03 Corrected Ca+ just WNL, takes Ca+ outpt, restarted 10/03 # DVT prophylaxis Lovenox 40mg daily # Code status: DNR Progress in therapies:Contact guard for standing ADLs Patient is making progress towards the rehabilitation goals established; the patient's condition is sufficiently stable to allow the patient to actively participate in an intensive rehabilitation program. The patient requires and is able to tolerate 3 hours of therapy at least 5 days per week. The patient continues to benefit from the inpatient rehabilitation program with care provided by rehabilitation medicine team, rehabilitation nursing, occupational and physical therapies. I have updated the patient/family regarding the current status and above plans. Certain parts of this note may have been carried over from prior notes to maintain accuracy of patient's pertinent medical history and continuity of care. The details were verified and edited as appropriate. Discussed withDr. Woodward, Nursing, OT ++++++++++++++++++++++++++++ Daniella Roberto, MS, STRAIGHT SLICING MACHINE OPERATOR-BS Physical Medicine & Rehabilitation [facility] @ [facility] Alanis Lake OT - 10/15/2019 11:00 AM [facility] Inpatient Rehabilitation Encounter Form Admitting Diagnosis: s/p mechanical fall resulting in Left periprosthetic distal femur fracture s/p Total Knee Revision with Left Distal Femoral Replacement on 09/27/2019 Rehab Diagnosis: impaired mobility and self care Rehabilitation Precautions/Restrictions: OOB with assist. WBAT. Strict I & O. High Fall risk. Ice PRN. DNR. DVT precautions SUBJECTIVE Patient Report: "Hello again" Pain: Patient has no complaints of pain currently. OBJECTIVE No chair alarm noted at start of session. Skin Integrity: surgical incision on L knee covered with aquacell appears not visualized, pt fully dressed. PICC in R UE. Not visualized: mepliex on medial aspect of L thigh by the groin. Ecchymosis throughout medial left knee, berry lower LE's wrapped with marleny bandages for edema control. Outcome Measures: Recently assessed, not applicable at this time. Interventions: Self Care/Home Management: Therapist facilitated patient through IADL tasks this session to increase safety and independence in preparation for future ADLs, IADLs, and functional mobility. Therapist encouraged patient to perform kitchen task this session to increase safety and independence upon discharge home. Therapist arranged kitchen to simulate patient's home in preparation for task. Therapist provided verbal and visual cues on placement of rolling walker and transportation of items from surface to surface. Patient educated on energy conservation and importance of pacing throughout. Patient responded well to all cues and education this session. Equipment Provided: None issued this visit. Education: Mode of education provided: Explanation. Demonstration. Audience: Patient. Education Provided: Importance of activity. Mobility Techniques. Role of Occupational Therapy. Role of Physical Therapy. Safety. Treatment Plan. Response: Indicates understanding. Verbalized understanding. Applied knowledge. Demonstrated skill independently. ASSESSMENT Response to Visit: The session was tolerated well. Call lopez was in patient's reach at end of session. Intervention considerations/suggestions for future therapy sessions: FM coordination/strength; ADLs; IADLs; functional mobility; adaptive equipment/devices training; strengthening of bilateral UEs. ENDURANCE! Pain: Patient has no complaints of pain currently. Program: Orthopedics 3 Hour Rule Minutes: 30 minutes. Patient was seen for the full scheduled treatment time this session. Therapy Mode Minutes: Individual: 30 minutes. SESSION: Duration: 30 CHARGES: 40402 - CHARGE - OT SELF CARE ADL TRAIN-15 MIN 2 Units - ORTHOPEDIC VISIT 1 Units Total treatment minutes: 30.00 Minutes Electronically Signed by: KENDALL Smalls/Cristofer, 10/15/2019 12:18:00 PM Alanis Lake OT - 10/15/2019 9:30 AM ESTOccupational Therapy Inpatient Rehabilitation Progress Note Attending Physician: Dr. Diego Admitting Diagnosis: s/p mechanical fall resulting in Left periprosthetic distal femur fracture s/p Total Knee Revision with Left Distal Femoral Replacement on 09/27/2019 Rehab Diagnosis: impaired mobility and self care Rehabilitation Precautions/Restrictions: OOB with assist. WBAT. Strict I & O. High Fall risk. Ice PRN. DNR. DVT precautions SUBJECTIVE Patient Report: "I'll take a shower tomorrow. Can I wash up at the sink?" Pain: Patient has no complaints of pain currently. OBJECTIVE No chair alarm noted at start of session. Skin Integrity: surgical incision on L knee covered with aquacell appears not visualized, pt fully dressed. PICC in R UE. Not visualized: mepliex on medial aspect of L thigh by the groin. Ecchymosis throughout medial left knee, berry lower LE's wrapped with marleny bandages for edema control. Cognition: Patient's cognition functionally intact this session. Quality Indicators Eatin - Independent: Patient completed the activities by him/herself with no assistance from a helper and without use of assistive devices. Oral Hygiene: 06 - Independent: Patient completed the activities by him/herself with no assistance from a helper and without use of assistive devices. Shower/Bathe Self: 04 - Supervision or touching assistance: Ravenna provides verbal cues and/or touching/steadying and/or contact guard assistance as patient completes activity. Location: Sponge bath at sink Assistance Provided: General supervision for safety Assistive Device(s): Grab bar/arm rest to maintain balance Upper Body Dressin - Independent: Patient completed the activities by him/herself with no assistance from a helper and without use of assistive devices. Lower Body Dressin - Supervision or touching assistance: Ravenna provides verbal cues and/or touching/steadying and/or contact guard assistance as patient completes activity. Assistance Provided: Stand by assistance, Verbal cueing, prompting, or instructing Assistive Device(s): None Putting On/Off Footwear: 05 - Setup or clean-up assistance: Ravenna sets up or cleans up; patient completes activity. Ravenna assists only prior to or following the activity. Assistance Provided: Setup assistance Assistive Device(s): None Roll left and right, sit to lying, and lying to sitting on edge of bed not addressed at this time Sit to Stand Transfer: 04 - Supervision or touching assistance: Ravenna provides verbal cues and/or touching/steadying and/or contact guard assistance as patient completes activity. Assistance Provided: Stand by assistance Assistive Device(s): Arm rest(s), Walker Outcome Measures: Recently assessed, not applicable at this time. Interventions: Self Care/Home Management: Therapist facilitated patient through ADL tasks this session to increase safety and independence in preparation for future ADLs, IADLs, and functional mobility. Patient performed rest breaks throughout session and therapist educated on important to pace throughout self cares to increase/maintain safety and endurance. Therpist encouraged patient to perform most self cares this session in standing to improve endurance and weight bear into left LE to maintain/increase integrity of musculature. Therapist and patient discussed home setup and modifications to maintain/increase endurance while performing self cares within the home. Patient responded well to all cues and education this session. Equipment Provided: None issued this visit. Education: Mode of education provided: Explanation. Demonstration. Audience: Patient. Education Provided: Importance of activity. Mobility Techniques. Role of Occupational Therapy. Role of Physical Therapy. Safety. Treatment Plan. ADL's. Response: Indicates understanding. Verbalized understanding. Applied knowledge. Demonstrated skill independently. ASSESSMENT Response to Visit: The session was tolerated well. Chair alarm was on at end of session. Call lopez was in patient's reach at end of session. Pain: Patient has no complaints of pain currently. Goal review: Patient retrieved ADL clothing items with supervision this session. PLAN Treatment Frequency, Duration, and Intervention: Restorative Occupational Therapy recommended for 90 mins a day 1x a day for 5x a week Treatment is to include: Self Care/Home Management. Neuromuscular Re-education. Self Care/Home Management. Therapeutic Activity. Therapeutic Exercise. Intervention considerations/suggestions for future therapy sessions: FM coordination/strength; ADLs; IADLs; functional mobility; adaptive equipment/devices training; strengthening of bilateral UEs. ENDURANCE! INTERDISCIPLINARY PATIENT CARE PLAN Identified Problems from Team Documentation: Impaired Self Care Mgmt/ADL/IADL Self Care: Primary Team Goal: Pt will be independent with toileting tasks/Active Self Care: Additional Team Goal : Pt will be independent with dressing/ Problem: Impaired Pain Mgmt Pain Management: Primary Team Goal : Patient will utilize pharmacologic and nonpharmacologic means to control pain, as evidenced by patient's stated goal and ability to participate in therapy./ Problem: Impaired Bladder Mgmt Bladder Management: Primary Team Goal: Pt will manage brief independently/Active Bladder Management: Additional Team Goal: Pt will perform toileting tasks independently/Active Problem: Impaired Bowel Mgmt Bowel Management: Primary Team Goal: Pt will perform toileting tasks independently/Active Problem: Impaired Leisure Skills Problem: Impaired Mobility Mobility: Primary Team Goal : pt will ambulate 200 feet modified independent with rolling walker/ Problem: Impaired Skin Wound Management Skin Wound Management: Primary Team Goal: Pt will demonstrate wound healing/Active Problem: Risk of Infection Problem: Safety Risk and Restraint Safety Risk: Primary Team Goal : Pt will not fall during hospitalization/ Add/Update Problems from this Treatment: No updates at this time. Program: Orthopedics 3 Hour Rule Minutes: 60 minutes. Patient was seen for the full scheduled treatment time this session. Therapy Mode Minutes: Individual: 60 minutes. SESSION: Duration: 60 CHARGES: 52711 - CHARGE - OT SELF CARE ADL TRAIN-15 MIN 4 Units - ORTHOPEDIC VISIT 1 Units Total treatment minutes: 60.00 Minutes Electronically Signed by: KENDALL Smalls/Cristofer, 10/15/2019 10:30:03 AM Lois Mittal MD - 10/14/2019 3:05 PM EST Physical Medicine and Rehabilitation IRF Progress Note Subjective: Yulisa Rebollar is a 89 y.o. female. Subjective Patient was seen and examined at bedside, Denies overnight issues. Denies F/C/N/ V, SOB, CP, abdominal pain, C/D. LBM 10/14. Scheduled Meds: aspirin 81 mg Oral Daily atorvastatin 40 mg Oral QPM calcium carb-cholecalciferol 1 tablet Oral Daily ceFAZolin sodium 2 g Intravenous Q8H enoxaparin 40 mg Subcutaneous Daily furosemide 40 mg Oral Daily sodium chloride (preservative free) 10 mL Intravenous Q12H And heparin lock flush 20 Units Intravenous Q12H levothyroxine 100 mcg Oral Daily lisinopril 5 mg Oral Daily metoprolol 50 mg Oral Daily sodium chloride 50 mL/hr Intravenous TID oseltamivir 30 mg Oral Daily rifAMPin 300 mg Oral 2 times per day saccharomyces boulardii 250 mg Oral BID senna 2 tablet Oral Nightly tramadol 50 mg Oral Daily Vitamin D3 1,000 Units Oral Daily Continuous Infusions: PRN Meds:.sodium chloride (preservative free) AND heparin lock flush AND* * sodium chloride (preservative free) AND heparin lock flush, polyethylene glycol, promethazine, tramadol AND tramadol LINES: PICC RUE, no s/s infection Objective: VITAL SIGNS: Temp: [36.3 C (97.3 F)] 36.3 C (97.3 F) Pulse: [67-72] 72 Resp: [17] 17 BP: (121-128)/(68-71) 128/68 SpO2: [97 %] 97 % O2 Therapy: Room air PE: General: No acute distress, alert, oriented x 3 Eyes: Eyelids without lesions HEENT: No oral thrush Cardiovascular: S1, S2, RRR Pulmonary: Clear to auscultation B/L Abdominal: Soft, Non-distended, Non-tender Extremities: Calves soft, non tender Musculoskeletal: no changes in strength. Psych: Mood and affect normal Skin: LLE knee incision w/genesis DIAGNOSTIC STUDIES: CBC: Lab Results Component Value Date WBC 7.3 10/11/2019 RBC 2.62 (L) 10/11/2019 HGB 8.8 (L) 10/11/2019 HCT 26.6 (L) 10/11/2019 PLT 645 (H) 10/11/2019 CMP: Lab Results Component Value Date NA 134 (L) 10/11/2019 K 4.2 10/11/2019 CL 100 10/11/2019 BICARBONATE 22 10/11/2019 CALCIUM 8.1 (L) 10/11/2019 GLUCOSE 106 10/11/2019 BUN 13 10/11/2019 BCR 16 10/11/2019 PROT 4.6 (L) 10/07/2019 ALBUMIN 2.5 (L) 10/07/2019 TBILI 0.8 10/07/2019 ALKPHOS 71 10/07/2019 AST 27 10/07/2019 ALT <5 10/07/2019 AGRATIO 1.0 10/07/2019 GFRAA 10/11/2019 eGFR is not calculated in patients <18 or >80 years of age. GFRNONAA 10/11/2019 eGFR is not calculated in patients <18 or >80 years of age. 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 Babb on09/27/2019. # Impaired mobility and self-care:Acute inpatient comprehensive rehabilitation including PT, OT,RT, HOPPER FILLER, and supportive services to improve functional outcome of impaired mobility, ADL's, transfers, and self-care. #Left periprosthetic distal femur fracture now s/p Total Knee Revision with Left Distal Femoral Replacement WBAT Monitor incision, Mepilex Evaluate for remaining staple removal 10/15/2019 F/u Dr. Babb after d/c # Positive Intra-op Tissue Culture Grew Staph epi Per Dr. Howard: 6 weeks IV Cefazolin 2gm Q8H & Rifampin 300mg BID (po) (until 11/11/2019) followed by oralcephalosporin and rifampinfor another 6 months and thenpo cephalosporin indefinitely Continue Florastor with abx Will arrange outpt f/u with Dr. Howard # Pain management - controlled Tyl 650 mg 4x/day, Tramadol 50 mg prior to 1st AM therpay & Q4H PRN available, and Frequentice/elevation stable # Acute Blood Loss Anemia H/H stable, 8.8/26.6 on 10/11 S/p 1 unit PRBC postop Iron studies 10/03 consistent with anemia of chronic disease No signs of active bleeding # CAD Continue ASA,Statin, Metoprolol XL # Chronic Systolic Heart Failure/HTN Lasixadjusted to home regime of 40 mg daily starting 10/09 Metoprolol XL 50 mg daily ACEi outpt, taken off 09/22 KIMBERLY on admission, restarted Lisinopril at 5 mg daily on 10/03 (home dose is 20 mg) Daily AM wts, VIGNESH diet KHT/ACEs BLE for edema control SBP improved and running from 120-134- can adjust Lisinopril if warranted # Influenza exposure Tamiflu ordered & tolerating, 10 days total # Hyponatremia Stable # Hypothyroidism Levothyroxine 100 mcg QAM # Bowel/Bladder Toilet schedule to help with incontinence (baseline) continue Senna QHS Last BM 10/14, monitor. # Obesity Contributes to complexity of care Nutrition will follow # Other health maintenance Vit D hydroxy level , restarted Vit D 1000 units daily 10/03 Corrected Ca+ just WNL, takes Ca+ outpt, restarted 10/03 # DVT prophylaxis Lovenox 40mg daily # Code status: DNR Progress in therapies: team meeting today - patient requires IV antibiotic teaching, needs min Awith bathing and toileting. Tentative d/c date of . Marie Stone, [employer]ULTING [employer]ER - 10/14/2019 3:00 PM ESTPhysical Therapy Inpatient Rehabilitation Encounter Form Admitting Diagnosis: s/p mechanical fall resulting in Left joshua prosthetic distal femur fracture s/p Total Knee Revision with Left Distal Femoral Replacement on 09/27/2019 Rehab Diagnosis: impaired mobility and self care Rehabilitation Precautions/Restrictions: SOB with assist. WBAT. Strict I & O. High Fall risk. Ice PRN. DNR. DVT precautions SUBJECTIVE Patient Report: Pt in w/c and ready for therapy Pain: Patient currently complains of pain. Location: L knee . Patient describes pain as Aching. Verbal Scale: Patient reports a pain level of 4 out of 10. Will perform therapy only as tolerated. OBJECTIVE Skin Integrity: surgical incision on L knee covered with aqua cell appears not visualized, pt fully dressed. PICC in R UE. Not visualized: mepliex on medial aspect of L thigh by the groin. Ecchymosis throughout medial left knee, berry lower LE's wrapped with marleny bandages for edema control. Outcome Measures: Recently assessed, not applicable at this time. Interventions: Therapeutic Exercise: Pt instructed in seated lower extremity exercises to increase strength and ROM for improved mobility. Completed 3 x 10 reps with 3 lbs to the R LE and 0 lbs to the L LE for the following: knee ext hip flex adduction with a small ball hamstring curls with orange theraband ankle pumps glut sets Cuing provided for form and progression throughout Gait Training: Facilitated ambulation with a rolling walker. Pt ambulated 160 feet with supervision. No loss of balance noted. Therapeutic Activities: Pt ambulated approximately 10 feet to the toilet and transferred on and off the toilet with supervision. Required some assist to manage pad inside brief to prevent incontinence. Pt managing clothing and joshua care independently. Ambulated another 15 feet to the recliner. Legs elevated and ice applied to L knee. Education: Mode of education provided: Demonstration. Explanation. Audience: Patient. Education Provided: Functional transfers. Gait. Safety. Plan of care. theraputic exercise . Response: Applied knowledge. Needs practice/reinforcement. ASSESSMENT Response to Visit: The session was tolerated well. Patient reported fatigue Call lopez was in patient's reach at end of session. Intervention considerations/suggestions for future therapy sessions: s/p mechanical fall resulting in L joshua prosthetic fracture, s/p L revision TKA on 09/27/2019, WBAT, 7 stairs to enter with berry rails, lives alone bed mobility: min assist for R LE, has hospital bed at home transfers: CGA from w/c, min assist from lower surfaces ambulation: 80 to 100 feet with supervision and rolling walker, stairs: 4 stairs with berry rails, CGA *LE strengthening, knee ROM, standing balance, bed mobility, stairs Pain: Patient currently complains of pain. Location: L knee . Patient describes pain as Aching. Verbal Scale: Patient reports a pain level of 7 out of 10. Will provide modalities. Program: Total Joint 3 Hour Rule Minutes: 60 minutes. Patient was seen for the full scheduled treatment time this session. Therapy Mode Minutes: Individual: 60 minutes. SESSION: Duration: 60 CHARGES: 18837 - CHARGE - PT GAIT TRNG - 15 MIN 1 Units 90111 - CHARGE - PT THER EX - 15 MIN 2 Units 56648 - CHARGE - PT THERAPEUTIC ACTIVITIES - 15 MIN 1 Units - TOTAL JOINT VISIT 1 Units Total treatment minutes: 60.00 Minutes Electronically Signed by: Marie Zacarias PTA, PTA 10/14/2019 3:44:21 PM Daniella Campos NP - 10/14/2019 12:29 PM EST Physical Medicine and Rehabilitation IRF Progress Note Subjective: Yulisa Rebollar is a 89 y.o. female. Subjective Patient was seen and examined this AM with Rec Therapy. No acute events overnight. Denies any new complaints. Pain controlled. Denies [place], dizziness, CP , SOB, Abd pain, nausea or vomiting. Scheduled Meds: aspirin 81 mg Oral Daily atorvastatin 40 mg Oral QPM calcium carb-cholecalciferol 1 tablet Oral Daily ceFAZolin sodium 2 g Intravenous Q8H enoxaparin 40 mg Subcutaneous Daily furosemide 40 mg Oral Daily sodium chloride (preservative free) 10 mL Intravenous Q12H And heparin lock flush 20 Units Intravenous Q12H levothyroxine 100 mcg Oral Daily lisinopril 5 mg Oral Daily metoprolol 50 mg Oral Daily sodium chloride 50 mL/hr Intravenous TID oseltamivir 30 mg Oral Daily rifAMPin 300 mg Oral 2 times per day saccharomyces boulardii 250 mg Oral BID senna 2 tablet Oral Nightly tramadol 50 mg Oral Daily Vitamin D3 1,000 Units Oral Daily Continuous Infusions: PRN Meds:.sodium chloride (preservative free) AND heparin lock flush AND* * sodium chloride (preservative free) AND heparin lock flush, polyethylene glycol, promethazine, tramadol AND tramadol LINES: PICC RUE, no s/s infection Objective: VITAL SIGNS: Temp: [36.3 C-36.5 C] 36.3 C Pulse: [67-72] 72 Resp: [16-17] 17 BP: (120-128)/(65-71) 128/68 SpO2: [95 %-97 %] 97 % O2 Therapy: Room air PE: General: No acute distress, alert, oriented x 3 Eyes: Eyelids without lesions HEENT: No oral thrush Cardiovascular: S1, S2, RRR Pulmonary: Clear to auscultation throughout, unlabored effort Abdominal: Soft, Non-distended, Non-tender, active BS Extremities: Calves soft, non tender, +1 BLE edema- improved Musculoskeletal: no changes in strength. Psych: Mood and affect normal Skin: LLE knee incision w/genesis, dressing CDI. Neuro: no new focal deficits noted. DIAGNOSTIC STUDIES: CBC: Lab Results Component Value Date WBC 7.3 10/11/2019 RBC 2.62 (L) 10/11/2019 HGB 8.8 (L) 10/11/2019 HCT 26.6 (L) 10/11/2019 PLT 645 (H) 10/11/2019 CMP: Lab Results Component Value Date NA 134 (L) 10/11/2019 K 4.2 10/11/2019 CL 100 10/11/2019 BICARBONATE 22 10/11/2019 CALCIUM 8.1 (L) 10/11/2019 GLUCOSE 106 10/11/2019 BUN 13 10/11/2019 BCR 16 10/11/2019 PROT 4.6 (L) 10/07/2019 ALBUMIN 2.5 (L) 10/07/2019 TBILI 0.8 10/07/2019 ALKPHOS 71 10/07/2019 AST 27 10/07/2019 ALT <5 10/07/2019 AGRATIO 1.0 10/07/2019 GFRAA 10/11/2019 eGFR is not calculated in patients <18 or >80 years of age. GFRNONAA 10/11/2019 eGFR is not calculated in patients <18 or >80 years of age. 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 Babb on09/27/2019. # Impaired mobility and self-care:Acute inpatient comprehensive rehabilitation including PT, OT,RT, HOPPER FILLER, and supportive services to improve functional outcome of impaired mobility, ADL's, transfers, and self-care. #Left periprosthetic distal femur fracture now s/p Total Knee Revision with Left Distal Femoral Replacement WBAT Monitor incision, Mepilex Evaluate for remaining staple removal 10/15/2019 F/u Dr. Babb after d/c # Positive Intra-op Tissue Culture Grew Staph epi Per Dr. Howard: 6 weeks IV Cefazolin 2gm Q8H & Rifampin 300mg BID (po) (until 11/11/2019) followed by oralcephalosporin and rifampinfor another 6 months and thenpo cephalosporin indefinitely Continue Florastor with abx Will arrange outpt f/u with Dr. Lee Howard recommends continue Cefazolin vs another abx for discharge as is best option, familycan assist with infusion as determined in family meeting Labs on 10/15 # Pain management Tyl 650 mg 4x/day, Tramadol 50 mg prior to 1st AM therpay & Q4H PRN available, and Frequentice/elevation stable # Acute Blood Loss Anemia H/H stable, 8.8/26.6 on 10/11 S/p 1 unit PRBC postop Iron studies 10/03 consistent with anemia of chronic disease No signs of active bleeding # CAD Continue ASA,Statin, Metoprolol XL # Chronic Systolic Heart Failure/HTN Lasixadjusted to home regime of 40 mg daily starting 10/09 Metoprolol XL 50 mg daily ACEi outpt, taken off 09/22 KIMBERLY on admission, restarted Lisinopril at 5 mg daily on 10/03 (home dose is 20 mg) Daily AM wts, VIGNESH diet KHT/ACEs BLE for edema control SBP improved and running from 120-134- can adjust Lisinopril if warranted # Influenza exposure Tamiflu ordered & tolerating, 10 days total # Hyponatremia Stable # Hypothyroidism Levothyroxine 100 mcg QAM # Bowel/Bladder Toilet schedule to help with incontinence (baseline) continue Senna QHS Last BM 10/14, monitor. # Obesity Contributes to complexity of care Nutrition will follow # Other health maintenance Vit D hydroxy level 24, restarted Vit D 1000 units daily 10/03 Corrected Ca+ just WNL, takes Ca+ outpt, restarted 10/03 # DVT prophylaxis Lovenox 40mg daily # Code status: DNR Progress in therapies:Contact guard for standing ADLs Patient is making progress towards the rehabilitation goals established; the patient's condition is sufficiently stable to allow the patient to actively participate in an intensive rehabilitation program. The patient requires and is able to tolerate 3 hours of therapy at least 5 days per week. The patient continues to benefit from the inpatient rehabilitation program with care provided by rehabilitation medicine team, rehabilitation nursing, occupational and physical therapies. I have updated the patient/family regarding the current status and above plans. Certain parts of this note may have been carried over from prior notes to maintain accuracy of patient's pertinent medical history and continuity of care. The details were verified and edited as appropriate. Discussed withDr. Liang, Nursing ++++++++++++++++++++++++++++ Daniella Roberto, MS, STRAIGHT SLICING MACHINE OPERATOR-BS Physical Medicine & Rehabilitation [facility] @ [facility] Marie Stone PTA - 10/14/2019 12:00 PM ESTPhysical Therapy Inpatient Rehabilitation Progress Note Attending Physician: Dr. Parrish Admitting Diagnosis: s/p mechanical fall resulting in Left joshua prosthetic distal femur fracture s/p Total Knee Revision with Left Distal Femoral Replacement on 09/27/2019 Rehab Diagnosis: impaired mobility and self care Rehabilitation Precautions/Restrictions: SOB with assist. WBAT. Strict I & O. High Fall risk. Ice PRN. DNR. DVT precautions SUBJECTIVE Patient Report: Pt in w/c and ready for therapy Pain: Patient currently complains of pain. Location: L knee . Patient describes pain as Aching. Verbal Scale: Patient reports a pain level of 3 out of 10. OBJECTIVE Range of Motion: No change observed. Strength: No change observed. Skin Integrity: surgical incision on L knee covered with aqua cell appears not visualized, pt fully dressed. PICC in R UE. Not visualized: mepliex on medial aspect of L thigh by the groin. Ecchymosis throughout medial left knee, berry lower LE's wrapped with marleny bandages for edema control. Quality Indicators Roll left and right, sit to lying, and lying to sitting on edge of bed not addressed at this time Sit to Stand Transfer: 04 - Supervision or touching assistance: Ravenna provides verbal cues and/or touching/steadying and/or contact guard assistance as patient completes activity. Assistance Provided: General supervision for safety Assistive Device(s): Arm rest(s), Walker, Gait belt Walk 150 feet: 04 - Supervision or touching assistance: Ravenna provides verbal cues and/or touching/steadying and/or contact guard assistance as patient completes activity. Assistance Provided: General supervision for safety Assistive Device(s): Rolling walker Stairs - Four steps: 04 - Supervision or touching assistance: Ravenna provides verbal cues and/or touching/steadying and/or contact guard assistance as patient completes activity. Assistance Provided: General supervision for safety Assistive Device(s): Handrail(s), climbed 8 stairs with supervision Wheelchair/scooter not addressed at this time. Outcome Measures: Recently assessed, not applicable at this time. Interventions: Therapeutic Exercise: Pt transferred on and off the mat with supervision/modified independence. Instructed in supine lower extremity exercises to increase strength and ROM for improved mobility. Performed 3 x 10 reps with 3 lbs to the R LE and 0 lbs to the L LE for the following: short arc quads modified bridges heel slides ankle pumps quad sets Cuing provided throughout for form and progression Gait Training: Facilitated ambulation with a rolling walker. Ambulated 30 feet to stairs and back with supervision. Pt climbed 8 stairs with berry handrails and supervision. Requires a rest break between sets. Pt ambulated 2 additional trials of 150 feet and 125 feet with rolling walker and supervision. Therapeutic Activities: Pt transferred on and off the toilet with supervision. Managing pants up and down as well as joshua care. Pt does require assist to remove wet brief and don a new one. Demonstrating good balance to wash her hands at the sink and to back out of the room with supervision. Equipment Provided: None issued this visit. Wheelchair Cushion Provided: Javier Basic Education: Mode of education provided: Demonstration. Explanation. Audience: Patient. Education Provided: Gait. Stair/Curb Training. Safety. Plan of care. theraputic exercises . Response: Applied knowledge. Needs practice/reinforcement. ASSESSMENT Response to Visit: The session was tolerated well. Patient reported fatigue Pt to the dining room for lunch at the end of the session. Ice applied to L Knee at the end of the session. Pain: Patient currently complains of pain. Location: L knee . Patient describes pain as Aching. Verbal Scale: Patient reports a pain level of 6 out of 10. Will provide modalities. Goal Review: Pt climbing 8 stairs with berry handrails and supervision. PLAN Treatment Frequency, Duration, and Intervention: Restorative Physical Therapy is recommended for 90 minutes per day, at least 5x per week for 4 weeks Treatment is to include: Gait Training. Neuromuscular Re-education. Therapeutic Activity. Therapeutic Exercise. Self Care/Home Management. Intervention considerations/suggestions for future therapy sessions: s/p mechanical fall resulting in L joshua prosthetic fracture, s/p L revision TKA on 09/27/2019, WBAT, 7 stairs to enter with berry rails, lives alone bed mobility: min assist for R LE, has hospital bed at home transfers: CGA from w/c, min assist from lower surfaces ambulation: 80 to 100 feet with supervision and rolling walker, stairs: 4 stairs with berry rails, CGA *LE strengthening, knee ROM, standing balance, bed mobility, stairs INTERDISCIPLINARY PATIENT CARE PLAN Identified Problems from Team Documentation: Impaired Self Care Mgmt/ADL/IADL Self Care: Primary Team Goal: Patient will be modified independent with self cares using adaptive equipment/devices as needed by discharge./ Problem: Impaired Bladder Mgmt Bladder Management: Primary Team Goal: Patient will be continent of urine this shift/ Problem: Impaired Bowel Mgmt Bowel Management: Primary Team Goal: Patient will be continent of stool/ Problem: Impaired Leisure Skills Problem: Impaired Mobility Mobility: Primary Team Goal : pt will ambulate 200 feet modified independent with rolling walker/ Add/Update Problems from this Treatment: No updates at this time. Program: Total Joint 3 Hour Rule Minutes: 60 minutes. Patient was seen for the full scheduled treatment time this session. Therapy Mode Minutes: Individual: 60 minutes. SESSION: Duration: 60 CHARGES: 03255 - CHARGE - PT GAIT TRNG - 15 MIN 1 Units 93437 - CHARGE - PT THER EX - 15 MIN 2 Units 99128 - CHARGE - PT THERAPEUTIC ACTIVITIES - 15 MIN 1 Units - TOTAL JOINT VISIT 1 Units Total treatment minutes: 60.00 Minutes Electronically Signed by: Marie Zacarias PTA, PTA 10/14/2019 4:11:11 PM Beatris Nogueira, OT - 10/14/2019 9:30 AM ESTOccupational Therapy Inpatient Rehabilitation Progress Note Attending Physician: Dr. Diego Admitting Diagnosis: s/p mechanical fall resulting in Left periprosthetic distal femur fracture s/p Total Knee Revision with Left Distal Femoral Replacement on 09/27/2019 Rehab Diagnosis: impaired mobility and self care Rehabilitation Precautions/Restrictions: OOB with assist. WBAT. Strict I & O. High Fall risk. Ice PRN. DNR. DVT precautions SUBJECTIVE Patient Report: I'm still hungry Pain: Patient has no complaints of pain currently. OBJECTIVE Chair alarm was on at start of session. Skin Integrity: surgical incision on L knee covered with meplex c/d/i; PICC in R UE. Ecchymosis throughout medial left knee, berry lower LE's wrapped with marleny bandages for edema control. Cognition: Patient's cognition functionally intact this session. Quality Indicators Eatin - Independent: Patient completed the activities by him/herself with no assistance from a helper and without use of assistive devices. Shower/Bathe Self: 04 - Supervision or touching assistance: Ravenna provides verbal cues and/or touching/steadying and/or contact guard assistance as patient completes activity. Location: Sponge bath at sink Assistance Provided: Stand by assistance, Verbal cueing, prompting, or instructing Assistive Device(s): Not applicable - assessment completed without introduction of an assistive device Upper Body Dressin - Setup or clean-up assistance: Ravenna sets up or cleans up; patient completes activity. Ravenna assists only prior to or following the activity. Assistance Provided: Setup assistance, Clean-up assistance Assistive Device(s): Not applicable - assessment completed without introduction of an assistive device Lower Body Dressin - Supervision or touching assistance: Ravenna provides verbal cues and/or touching/steadying and/or contact guard assistance as patient completes activity. Assistance Provided: Stand by assistance, Verbal cueing, prompting, or instructing Assistive Device(s): Not applicable - assessment completed without introduction of an assistive device Putting On/Off Footwear: 05 - Setup or clean-up assistance: Ravenna sets up or cleans up; patient completes activity. Ravenna assists only prior to or following the activity. Assistance Provided: Setup assistance, Clean-up assistance Assistive Device(s): Not applicable - assessment completed without introduction of an assistive device Roll left and right, sit to lying, and lying to sitting on edge of bed not addressed at this time Sit to Stand Transfer: 04 - Supervision or touching assistance: Ravenna provides verbal cues and/or touching/steadying and/or contact guard assistance as patient completes activity. Assistance Provided: Stand by assistance, Verbal cueing, prompting, or instructing Assistive Device(s): Walker Chair/Bed to Chair Transfer: 04 - Supervision or touching assistance: Ravenna provides verbal cues and/or touching/steadying and/or contact guard assistance as patient completes activity. Assistance Provided: Stand by assistance Assistive Device(s): Walker Outcome Measures: Recently assessed, not applicable at this time. Interventions: Self Care/Home Management: Pt received in the dining room following breakfast and agreeable to therapy. Pt participated in sponge bathing tasks while seated in front of the sink. Pt performed bathing and dressing tasks with supervision. Pt performed lower body tasks with no AE. Pt performed kitchen tasks of reaching into the cupboards, drawers, and the fridgerator to grasp objects and transport them using the basket on her rolling walker with supervision. Provided cues for safety while reaching for objects such as placement of the walker. Suggested moving objects and food to heights that is more accessible for her to reach which pt agreed. Suggested resting during kitchen tasks secondary to poor activity tolerance. Pt stated she has chairs in her kitchen that she can use to rest. Pt transferred to the recliner chair with rolling walker and supervision. Pt left with needs met. Equipment Provided: None issued this visit. Education: Mode of education provided: Demonstration. Explanation. Audience: Patient. Education Provided: safety and sequencing during ADL and kitchen tasks, discharge planning, plan of care . Response: Needs practice/reinforcement. Requires cues (auditory/physical). ASSESSMENT Response to Visit: The session was tolerated well. Call lopez was in patient's reach at end of session. Pain: Patient currently complains of pain. Location: L knee . Patient describes pain as Nonspecific. Verbal Scale: Patient reports a pain level of 1 out of 10. Goal review: Pt performed ADLs and simple kitchen tasks with standby supervision. Pt demonstrated ability to perform lower body ADLs with no AE. Pt to continue to work towards independence PLAN Treatment Frequency, Duration, and Intervention: Restorative Occupational Therapy recommended for 90 mins a day 1x a day for 5x a week Treatment is to include: Self Care/Home Management. Therapeutic Activity. Therapeutic Exercise. Intervention considerations/suggestions for future therapy sessions: FM coordination/strength; ADLs; IADLs; functional mobility; adaptive equipment/devices training; strengthening of bilateral UEs. ENDURANCE! INTERDISCIPLINARY PATIENT CARE PLAN Identified Problems from Team Documentation: Impaired Self Care Mgmt/ADL/IADL Self Care: Primary Team Goal: Pt will be independent with toileting tasks/Active Self Care: Additional Team Goal : Pt will be independent with dressing/ Problem: Impaired Pain Mgmt Pain Management: Primary Team Goal : Patient will utilize pharmacologic and nonpharmacologic means to control pain, as evidenced by patient's stated goal and ability to participate in therapy./ Problem: Impaired Bladder Mgmt Bladder Management: Primary Team Goal: Pt will manage brief independently/Active Bladder Management: Additional Team Goal: Pt will perform toileting tasks independently/Active Problem: Impaired Bowel Mgmt Bowel Management: Primary Team Goal: Pt will perform toileting tasks independently/Active Problem: Impaired Leisure Skills Problem: Impaired Mobility Mobility: Primary Team Goal : pt will ambulate 200 feet modified independent with rolling walker/ Problem: Impaired Skin Wound Management Skin Wound Management: Primary Team Goal: Pt will demonstrate wound healing/Active Problem: Risk of Infection Problem: Safety Risk and Restraint Safety Risk: Primary Team Goal : Pt will not fall during hospitalization/ Add/Update Problems from this Treatment: No updates at this time. Program: Orthopedics 3 Hour Rule Minutes: 60 minutes. Patient was seen for the full scheduled treatment time this session. Therapy Mode Minutes: Individual: 60 minutes. SESSION: Duration: 60 CHARGES: 48496 - CHARGE - OT SELF CARE ADL TRAIN-15 MIN 4 Units - ORTHOPEDIC VISIT 1 Units Total treatment minutes: 60.00 Minutes Electronically Signed by: KENDALL Mathew/Cristofer, 10/14/2019 3:45:54 PM Temo Gonzales MD - 10/13/2019 10:25 AM EST Physical Medicine and Rehabilitation IRF Progress Note Subjective: Yulisa Rebollar is a 89 y.o. female. Subjective Patient was seen and examined bedside this morning. No overnight events. Patient reports doing good.Moving her bowels and denies any new complaints. Patient denies any BURL[place], dizziness, vision issues, CP, SOB, Abd pain, nausea or vomiting. Pain controlled. Scheduled Meds: acetaminophen (TYLENOL) tablet 650 mg Oral 4x Daily aspirin 81 mg Oral Daily atorvastatin 40 mg Oral QPM calcium carb-cholecalciferol 1 tablet Oral Daily ceFAZolin sodium 2 g Intravenous Q8H enoxaparin 40 mg Subcutaneous Daily furosemide 40 mg Oral Daily sodium chloride (preservative free) 10 mL Intravenous Q12H And heparin lock flush 20 Units Intravenous Q12H levothyroxine 100 mcg Oral Daily lisinopril 5 mg Oral Daily metoprolol 50 mg Oral Daily sodium chloride 50 mL/hr Intravenous TID oseltamivir 30 mg Oral Daily rifAMPin 300 mg Oral 2 times per day saccharomyces boulardii 250 mg Oral BID senna 2 tablet Oral Nightly tramadol 50 mg Oral Daily Vitamin D3 1,000 Units Oral Daily Continuous Infusions: PRN Meds:.sodium chloride (preservative free) AND heparin lock flush AND* * sodium chloride (preservative free) AND heparin lock flush, polyethylene glycol, promethazine, tramadol AND tramadol LINES: PICC RUE, no s/s infection Objective: VITAL SIGNS: Temp: [36.2 C (97.2 F)-36.5 C (97.7 F)] 36.5 C (97.7 F) Pulse: [72-86] 86 Resp: [16-17] 16 BP: (117-134)/(69-74) 133/74 SpO2: [94 %-95 %] 95 % O2 Therapy: Room air PE: General: No acute distress, alert, oriented x 3 Eyes: Eyelids without lesions HEENT: No oral thrush Cardiovascular: S1, S2, RRR Pulmonary: Clear to auscultation throughout, Abdominal: Soft, Non-distended, Non-tender, active BS Extremities: Calves soft, non tender Musculoskeletal: no changes in strength. Psych: Mood and affect normal Skin: LLE knee incision w/genesis, dressing CDI. Neuro: no new focal deficits noted. DIAGNOSTIC STUDIES: CBC: Lab Results Component Value Date WBC 7.3 10/11/2019 RBC 2.62 (L) 10/11/2019 HGB 8.8 (L) 10/11/2019 HCT 26.6 (L) 10/11/2019 PLT 645 (H) 10/11/2019 CMP: Lab Results Component Value Date NA 134 (L) 10/11/2019 K 4.2 10/11/2019 CL 100 10/11/2019 BICARBONATE 22 10/11/2019 CALCIUM 8.1 (L) 10/11/2019 GLUCOSE 106 10/11/2019 BUN 13 10/11/2019 BCR 16 10/11/2019 PROT 4.6 (L) 10/07/2019 ALBUMIN 2.5 (L) 10/07/2019 TBILI 0.8 10/07/2019 ALKPHOS 71 10/07/2019 AST 27 10/07/2019 ALT <5 10/07/2019 AGRATIO 1.0 10/07/2019 GFRAA 10/11/2019 eGFR is not calculated in patients <18 or >80 years of age. GFRNONAA 10/11/2019 eGFR is not calculated in patients <18 or >80 years of age. 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 Babb on09/27/2019. # Impaired mobility and self-care:Acute inpatient comprehensive rehabilitation including PT, OT,RT, HOPPER FILLER, and supportive services to improve functional outcome of impaired mobility, ADL's, transfers, and self-care. #Left periprosthetic distal femur fracture now s/p Total Knee Revision with Left Distal Femoral Replacement WBAT Monitor incision, Mepilex Evaluate for remaining staple removal 10/15/2019 F/u Dr. Babb after d/c # Positive Intra-op Tissue Culture Grew Staph epi Per Dr. Howard: 6 weeks IV Cefazolin 2gm Q8H & Rifampin 300mg BID (po) (until 11/11/2019) followed by oralcephalosporin and rifampinfor another 6 months and thenpo cephalosporin indefinitely Continue Florastor with abx Will arrange outpt f/u with Dr. Lee Howard recommends continue Cefazolin vs another abx for discharge as is best option, familycan assist with infusion as determined in family meeting Labs on 10/15 # Pain management Tyl 650 mg 4x/day, Tramadol 50 mg prior to 1st AM therpay & Q4H PRN available, and Frequentice/elevation stable # Acute Blood Loss Anemia H/H stable, 8.8/26.6 on 10/11 S/p 1 unit PRBC postop Iron studies 10/03 consistent with anemia of chronic disease No signs of active bleeding # CAD Continue ASA,Statin, Metoprolol XL # Chronic Systolic Heart Failure/HTN Lasixadjusted to home regime of 40 mg daily starting 10/09 Metoprolol XL 50 mg daily ACEi outpt, taken off 09/22 KIMBERLY on admission, restarted Lisinopril at 5 mg daily on 10/03 (home dose is 20 mg) Daily AM wts, VIGNESH diet KHT/ACEs BLE for edema control SBP improved and running from 117 -145 # Influenza exposure Tamiflu ordered & tolerating, 10 days total # Hyponatremia Stable # Hypothyroidism Levothyroxine 100 mcg QAM # Bowel/Bladder Toilet schedule to help with incontinence (baseline) continue Senna QHS Last BM 10/13, monitor. # Obesity Contributes to complexity of care Nutrition will follow # Other health maintenance Vit D hydroxy level 24, restarted Vit D 1000 units daily 10/03 Corrected Ca+ just WNL, takes Ca+ outpt, restarted 10/03 # DVT prophylaxis Lovenox 40mg daily # Code status: DNR Progress in therapies: Patient is making progress towards the rehabilitation goals established; the patient's condition is sufficiently stable to allow the patient to actively participate in an intensive rehabilitation program. The patient requires and is able to tolerate 3 hours of therapy at least 5 days per week. The patient continues to benefit from the inpatient rehabilitation program with care provided by rehabilitation medicine team, rehabilitation nursing, occupational and physical therapies. I have updated the patient/family regarding the current status and above plans. Certain parts of this note may have been carried over from prior notes to maintain accuracy of patient's pertinent medical history and continuity of care. The details were verified and edited as appropriate. Discussed with.MumtazElectronically signed by Andrew Pandya MD at 7:24 PM EST Associated attestation - Andrew Pandya MD - 10/13/2019 7:24 PM BART saw and evaluated the patient. Discussed with the resident and agree with the residents findings, as documented in the resident's note, along with my additions/corrections. I have updated the patient/family regarding the current status and plans. Patient was seen and examined. No acute events overnight. No new complaints. We will continue to monitor the patient's blood pressure. Electronically Signed by Andrew Pandya on October 13, 2019 at 7:23 PM Martha Daniels PT - 10/13/2019 9:00 AM ESTPhysical Therapy Inpatient Rehabilitation Encounter Form Admitting Diagnosis: s/p mechanical fall resulting in Left periprosthetic distal femur fracture s/p Total Knee Revision with Left Distal Femoral Replacement on 09/27/2019 Rehab Diagnosis: impaired mobility and self care Rehabilitation Precautions/Restrictions: OOB with assist. WBAT. Strict I & O. High Fall risk. Ice PRN. DNR. DVT precautions SUBJECTIVE Patient Report: "All this before breakfast?" Pain: Patient has no complaints of pain currently. OBJECTIVE Skin Integrity: surgical incision on L knee covered with aquacell appears not visualized, pt fully dressed. PICC in R UE. Not visualized: mepliex on medial aspect of L thigh by the groin. Ecchymosis throughout medial left knee, berry lower LE's wrapped with marleny bandages for edema control. Outcome Measures: Gait Speed Test: Comfortable Pace Time: 5.3 seconds to complete 4 meters at comfortable pace. Fast Pace Time: 4.47 seconds to complete 4 meters at fast pace. Comfortable Gait Speed: 0.75 meters/second. Usual adult community walking at comfortable speed is 1.2 meters per second. Fast Gait Speed: 0.89 meters/second. Quality Indicators Mobility Performance Discharge: Roll Left and Right: Patient completed the activities by him/herself with no assistance from a helper. Sit to Lying: Patient completed the activities by him/herself with no assistance from a helper. Lying to Sitting on Side of Bed: Patient completed the activities by him/herself with no assistance from a helper. Sit to Stand: Patient completed the activities by him/herself with no assistance from a helper. Chair/Bed to Chair Transfer: Patient completed the activities by him/herself with no assistance from a helper. Car Transfer: Not attempted due to environmental limitations. Walk 10 Feet: Patient completed the activities by him/herself with no assistance from a helper. Walk 50 Feet With 2 Turns: Patient completed the activities by him/herself with no assistance from a helper. Walk 150 Feet: Ravenna provides verbal cues and/or touching/steadying and/or contact guard assistance as patient completes activity. Assistance may be provided throughout the activity or intermittently. Walking 10 Feet on Uneven Surfaces: Ravenna provides verbal cues and/or touching/steadying and/or contact guard assistance as patient completes activity. Assistance may be provided throughout the activity or intermittently. 1 Step Over Curb or Up/Down Stair: Ravenna provides verbal cues and/or touching/steadying and/or contact guard assistance as patient completes activity. Assistance may be provided throughout the activity or intermittently. 4 Steps Up and Down, With/Without Rail: Ravenna provides verbal cues and/or touching/steadying and/or contact guard assistance as patient completes activity. Assistance may be provided throughout the activity or intermittently. 12 Steps Up and Down, With/Without Rail: Ravenna provides verbal cues and/or touching/steadying and/or contact guard assistance as patient completes activity. Assistance may be provided throughout the activity or intermittently. Picking up an Object: Picking up an Object: Ravenna provides verbal cues and/or touching/steadying and/or contact guard assistance as patient completes activity. Assistance may be provided throughout the activity or intermittently. Uses Wheelchair/Scooter: No Interventions: Therapeutic Activities: Completed chair to/from bed transfer with rolling walker and modified independence with proper hand placement noted without cues required. Pt completed sitting to/from supine transition with modified independence without hospital bed features. Pt completed multiple reps sit to stand with modified independence and proper hand placement. Gait Training: Facilitated ambulation for community and household level distances. Pt utilized rolling walker with forward flexed trunk and excessive knee flexion in terminal stance bilaterally. Assessed gait speed and educated pt on results, as well as interpretation of results related to fall risk. Pt completed 8 stairs up and down with berry handrails to simulate her stairs at home using step-to pattern and supervision. She demonstrated proper sequencing for maximal safety and minimal discomfort, ascending leading with RLE and descending leading with LLE, without verbal cues. Education: Mode of education provided: Explanation. Audience: Patient. Education Provided: Safe mobility. Response: Verbalized understanding. ASSESSMENT Response to Visit: The session was tolerated well. Pt completed mobility training without acute adverse response, no instability or loss of balance noted, no verbal cues for safety required. Ended session with pt seated in wheelchair in dining area with nursing staff present, all needs met. Intervention considerations/suggestions for future therapy sessions: s/p mechanical fall resulting in L periprosthetic fracture, s/p L revision TKA on 09/27/2019, WBAT, 7 stairs to enter with berry rails, lives alone bed mobility: min assist for R LE, has hospital bed at home transfers: CGA from w/c, min assist from lower surfaces ambulation: 80 to 100 feet with supervision and rolling walker, stairs: 4 stairs with berry rails, CGA *LE strengthening, knee ROM, standing balance, bed mobility, stairs Pain: Patient has no complaints of pain currently. Program: Orthopedics 3 Hour Rule Minutes: 30 minutes. Patient was seen for the full scheduled treatment time this session. Therapy Mode Minutes: Individual: 30 minutes. SESSION: Duration: 30 CHARGES: 71535 - CHARGE - PT GAIT TRNG - 15 MIN 1 Units 10508 - CHARGE - PT THERAPEUTIC ACTIVITIES - 15 MIN 1 Units - ORTHOPEDIC VISIT 1 Units Total treatment minutes: 30.00 Minutes Electronically Signed by: Martha Daniels DPT PT 10/13/2019 9:00:47 AM Malissa Lynn OTA - 10/13/2019 7:55 AM ESTOccupational Therapy Inpatient Rehabilitation Encounter Form Admitting Diagnosis: s/p mechanical fall resulting in Left periprosthetic distal femur fracture s/p Total Knee Revision with Left Distal Femoral Replacement on 09/27/2019 Rehab Diagnosis: impaired mobility and self care Rehabilitation Precautions/Restrictions: OOB with assist. WBAT. Strict I & O. High Fall risk. Ice PRN. DNR. DVT precautions SUBJECTIVE Patient Report: Patient states I want to wash up at sink Pain: Patient has no complaints of pain currently. OBJECTIVE No chair alarm noted at start of session. Skin Integrity: surgical incision on L knee covered with aquacell appears c/d/i, slight bloody areas under adhesive on lateral aspect but not on dressing, moderate pitting edema noted throughout L LE increased from previous session, bruising noted L posterior-lateral thigh to ankle, PICC in R UE, mepliex on medial aspect of L thigh by the groin Outcome Measures: Recently assessed, not applicable at this time. Interventions: Self Care/Home Management: Patient was seen today for occupational therapy with focus on self care tasks to improve with over all function. Patient instructed to perform functional ambulation to sink to wash up with close supervision for safety. Patient sat in chair at sink to wash up with all items needed at side. Patient able to wash all of body sitting down independently however when standing requied close supervision for safety to wash joshua/bottom areas. Patient educated to hold onto grab bar with one hand while other hand washed for safety. Patient able to don pants over feet independently and over hips with close supervision for safety. Patient educated to use sock aid for safety to reduce risk of falling by bending over to don socks. Patient able to don socks onto sock aid with cuing only. Equipment Provided: None issued this visit. Education: Mode of education provided: Demonstration. Explanation. Audience: Patient. Education Provided: Safety. Response: Indicates understanding. ASSESSMENT Response to Visit: The session was tolerated well. Decreased guarding during movement. Call lopez was in patient's reach at end of session. Intervention considerations/suggestions for future therapy sessions: FM coordination/strength; ADLs; IADLs; functional mobility; adaptive equipment/devices training; strengthening of bilateral UEs. ENDURANCE! Pain: Patient has no complaints of pain currently. Program: Orthopedics 3 Hour Rule Minutes: 30 minutes. Patient was seen for the full scheduled treatment time this session. Therapy Mode Minutes: Individual: 30 minutes. SESSION: Duration: 30 CHARGES: 37645 - CHARGE - OT SELF CARE ADL TRAIN-15 MIN 2 Units - ORTHOPEDIC VISIT 1 Units Total treatment minutes: 30.00 Minutes Electronically Signed by: ASH Hoffmann 10/13/2019 3:28:53 PM Temo Gonzales MD - 10/12/2019 12:20 PM EST Physical Medicine and Rehabilitation IRF Progress Note Subjective: Yulisa Rebollar is a 89 y.o. female. Subjective Patient was seen and examined bedside this morning. No overnight events. Patient reports doing good.No new complaints. Patient denies any BURLESON, dizziness, vision issues, CP, SOB, Abd pain, nausea or vomiting. Pain controlled. Scheduled Meds: acetaminophen (TYLENOL) tablet 650 mg Oral 4x Daily aspirin 81 mg Oral Daily atorvastatin 40 mg Oral QPM calcium carb-cholecalciferol 1 tablet Oral Daily ceFAZolin sodium 2 g Intravenous Q8H enoxaparin 40 mg Subcutaneous Daily furosemide 40 mg Oral Daily sodium chloride (preservative free) 10 mL Intravenous Q12H And heparin lock flush 20 Units Intravenous Q12H levothyroxine 100 mcg Oral Daily lisinopril 5 mg Oral Daily metoprolol 50 mg Oral Daily sodium chloride 50 mL/hr Intravenous TID oseltamivir 30 mg Oral Daily rifAMPin 300 mg Oral 2 times per day saccharomyces boulardii 250 mg Oral BID senna 2 tablet Oral Nightly tramadol 50 mg Oral Daily Vitamin D3 1,000 Units Oral Daily Continuous Infusions: PRN Meds:.sodium chloride (preservative free) AND heparin lock flush AND* * sodium chloride (preservative free) AND heparin lock flush, polyethylene glycol, promethazine, tramadol AND tramadol LINES: PICC RUE, no s/s infection Objective: VITAL SIGNS: Temp: [36.5 C (97.7 F)-36.6 C (97.9 F)] 36.5 C (97.7 F) Pulse: [70-73] 70 Resp: [16-17] 16 BP: (144-151)/(73-76) 145/75 SpO2: [93 %-98 %] 93 % O2 Therapy: Room air PE: General: No acute distress, alert, oriented x 3 Eyes: Eyelids without lesions HEENT: No oral thrush Cardiovascular: S1, S2, RRR Pulmonary: Clear to auscultation throughout, unlabored effort Abdominal: Soft, Non-distended, Non-tender Extremities: Calves soft, NT Musculoskeletal: no changes in strength. Psych: Mood and affect normal Skin: LLE knee incision with genesis, DSD CDI. Neuro: no new neurological deficits noted. DIAGNOSTIC STUDIES: CBC: Lab Results Component Value Date WBC 7.3 10/11/2019 RBC 2.62 (L) 10/11/2019 HGB 8.8 (L) 10/11/2019 HCT 26.6 (L) 10/11/2019 PLT 645 (H) 10/11/2019 CMP: Lab Results Component Value Date NA 134 (L) 10/11/2019 K 4.2 10/11/2019 CL 100 10/11/2019 BICARBONATE 22 10/11/2019 CALCIUM 8.1 (L) 10/11/2019 GLUCOSE 106 10/11/2019 BUN 13 10/11/2019 BCR 16 10/11/2019 PROT 4.6 (L) 10/07/2019 ALBUMIN 2.5 (L) 10/07/2019 TBILI 0.8 10/07/2019 ALKPHOS 71 10/07/2019 AST 27 10/07/2019 ALT <5 10/07/2019 AGRATIO 1.0 10/07/2019 GFRAA 10/11/2019 eGFR is not calculated in patients <18 or >80 years of age. GFRNONAA 10/11/2019 eGFR is not calculated in patients <18 or >80 years of age. 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 Babb on09/27/2019. # Impaired mobility and self-care:Acute inpatient comprehensive rehabilitation including PT, OT,RT, HOPPER FILLER, and supportive services to improve functional outcome of impaired mobility, ADL's, transfers, and self-care. #Left periprosthetic distal femur fracture now s/p Total Knee Revision with Left Distal Femoral Replacement WBAT Monitor incision, Mepilex Evaluate for remaining staple removal 10/15/2019 F/u Dr. Babb after d/c # Positive Intra-op Tissue Culture Grew Staph epi Per Dr. Howard: 6 weeks IV Cefazolin 2gm Q8H & Rifampin 300mg BID (po) (until 11/11/2019) followed by oralcephalosporin and rifampinfor another 6 months and thenpo cephalosporin indefinitely Continue Florastor with abx Will arrange outpt f/u with Dr. Howard Labs on 10/15 Dr. Howard recommends continue Cefazolin vs another abx for discharge as is best option, familycan assist with infusion as determined in family meeting # Pain management Tyl 650 mg 4x/day, Tramadol 50 mg prior to 1st AM therpay & Q4H PRN available, and Frequentice/elevation # Acute Blood Loss Anemia H/H stable, 8.8/26.6 on 10/11 Did require 1 unit PRBC postop No signs of active bleeding Iron studies 10/03 consistent with anemia of chronic disease montior # CAD Continue ASA,Statin, Metoprolol XL # Chronic Systolic Heart Failure/HTN Lasixadjusted to home regime of 40 mg daily starting 10/09 Metoprolol XL 50 mg daily ACEi outpt, taken off 09/22 KIMBERLY on admission, restarted Lisinopril at 5 mg daily on 10/03 (home dose is 20 mg) Daily AM wts, VIGNESH diet KHT/ACEs BLE for edema control SBP running up to 150s, improved from 170s # Influenza exposure Tamiflu ordered & tolerating, 10 days total # Hyponatremia Stable # Hypothyroidism Levothyroxine 100 mcg QAM # Bowel/Bladder Toilet schedule to help with incontinence (baseline) continue Senna QHS Last BM 10/11, monitor. # DVT prophylaxis Lovenox 40mg daily # Obesity Contributes to complexity of care Nutrition will follow # Other health maintenance Vit D hydroxy level 24, restarted Vit D 1000 units daily 10/03 Corrected Ca+ just WNL, takes Ca+ outpt, restarted 10/03 # Code status: DNR Progress in therapies: Patient is making progress towards the rehabilitation goals established; the patient's condition is sufficiently stable to allow the patient to actively participate in an intensive rehabilitation program. The patient requires and is able to tolerate 3 hours of therapy at least 5 days per week. The patient continues to benefit from the inpatient rehabilitation program with care provided by rehabilitation medicine team, rehabilitation nursing, occupational and physical therapies. I have updated the patient/family regarding the current status and above plans. Certain parts of this note may have been carried over from prior notes to maintain accuracy of patient's pertinent medical history and continuity of care. The details were verified and edited as appropriate. Discussed with.MumtazElectronically signed by Andrew Pandya MD at 6:43 PM EST Associated attestation - Andrew Pandya MD - 10/12/2019 6:43 PM BART saw and evaluated the patient. Discussed with the resident and agree with the residents findings, as documented in the resident's note, along with my additions/corrections. I have updated the patient/family regarding the current status and plans. Electronically Signed by Andrew Panday on October 12, 2019 at 6:43 PM Mary Edmonds OT - 10/12/2019 10:00 AM ESTOccupational Therapy Inpatient Rehabilitation Progress Note Attending Physician: Dr. Diego Admitting Diagnosis: s/p mechanical fall resulting in Left periprosthetic distal femur fracture s/p Total Knee Revision with Left Distal Femoral Replacement on 09/27/2019 Rehab Diagnosis: impaired mobility and self care Rehabilitation Precautions/Restrictions: OOB with assist. WBAT. Strict I & O. High Fall risk. Ice PRN. DNR. DVT precautions SUBJECTIVE Patient Report: "I am doing okay" Pain: Patient has no complaints of pain currently. OBJECTIVE No chair alarm noted at start of session. Skin Integrity: surgical incision on L knee covered with aquacell appears c/d/i, slight bloody areas under adhesive on lateral aspect but not on dressing, moderate pitting edema noted throughout L LE increased from previous session, bruising noted L posterio-lateral thigh to ankle, PICC in R UE, mepliex on medial aspect of L thigh by the groin Cognition: Patient's cognition functionally intact this session. Quality Indicators Eatin - Setup or clean-up assistance: Ravenna sets up or cleans up; patient completes activity. Ravenna assists only prior to or following the activity. Assistance Provided: Opening containers, Opening cartons Assistive Device(s): None Oral Hygiene: 06 - Independent: Patient completed the activities by him/herself with no assistance from a helper and without use of assistive devices. Toileting Hygiene: 03 - Partial(minimal)/moderate assistance: Ravenna does less than half the effort. Ravenna lifts, holds or supports trunk or limbs but provides less than half the effort. Assistance Provided: Buttocks hygiene for thoroughness Assistive Device(s): None Shower/Bathe Self: 03 - Partial(minimal)/moderate assistance: Ravenna does less than half the effort. Ravenna lifts, holds or supports trunk or limbs but provides less than half the effort. Assistance Provided: Buttocks Assistive Device(s): None Upper Body Dressin - Independent: Patient completed the activities by him/herself with no assistance from a helper and without use of assistive devices. Lower Body Dressin - Supervision or touching assistance: Ravenna provides verbal cues and/or touching/steadying and/or contact guard assistance as patient completes activity. Assistance Provided: Stand by assistance, General supervision for safety Assistive Device(s): None Patient educated with using remediation consultant; however, did not need it today. Putting On/Off Footwear: 04 - Supervision or touching assistance: Ravenna provides verbal cues and/or touching/steadying and/or contact guard assistance as patient completes activity. Assistance Provided: Stand by assistance, General supervision for safety Assistive Device(s): None Roll left and right, sit to lying, and lying to sitting on edge of bed not addressed at this time Sit to Stand Transfer: 04 - Supervision or touching assistance: Ravenna provides verbal cues and/or touching/steadying and/or contact guard assistance as patient completes activity. Assistance Provided: Stand by assistance, General supervision for safety Assistive Device(s): Arm rest(s) Outcome Measures: Recently assessed, not applicable at this time. Interventions: Self Care/Home Management: Facilitated pt through morning ADL's to assess as well as improve overall independence with self care tasks. Pt was recived finishing eating breakfast and after has encouraged to retrieve clothing out of closet using rolling walker to improve independence with ADL's. Pt was able to retrieve clothing out of closet with contact guard assistance progressing towards set goals. Pt completed functional mobility to bathroom using gait belt and rolling walker with stand by supervision. Pt completed toileting task with minimal assistance for thoroughness for hygiene. Pt was able to manage all other aspects of toileting continuing to improve overall independence. Pt completed sponge bathing task sitting/standing in front of sink challenging overall standing tolerance and balance. Pt required frequent rest breaks and educated on energy conservation techniques during morning ADL's to educate pt on futher improving independence with set tasks. Pt was able to doff solid mesh underwear with verbal cues for use of remediation consultant to decrease need to complete trunk flexion as pt was noted to hold breath during lower body self care tasks. Educated pt on use of deep breathing techniques throughout tasks. Pt was noted to be able to don pants without use of remediation consultant improving independence. Pt educated on us eof compensatory strategies including threading L LE into pant leg first. Pt was able to complete all upper body ADL's including grooming tasks with modified independence sitting in wheelchair. Pt noted to be able to don/doff berry socks with supervision with continued verbal cues for deep breathing techniques and requiring no adaptive equipment. Equipment Provided: None issued this visit. Education: Mode of education provided: Demonstration. Explanation. Audience: Patient. Education Provided: plan of care, set goals, role of OT, ADL's, use of adaptive equipment, compensatory strategies and energy conservation techniques . Response: Applied knowledge. Indicates understanding. Needs practice/reinforcement. Requires cues (auditory/physical). Verbalized understanding. ASSESSMENT Response to Visit: The session was tolerated well. Call lopez was in patient's reach at end of session. Pain: Patient currently complains of pain. Location: L knee . Patient describes pain as Nonspecific. Verbal Scale: Patient reports a pain level of 2 out of 10. Goal review: Pt participated in morning ADL's to progress towards set goals requiring less assistance PLAN Treatment Frequency, Duration, and Intervention: Restorative Occupational Therapy recommended for 90 mins a day 1x a day for 5x a week Treatment is to include: Development of Cognitive Skills. Neuromuscular Re-education. Self Care/Home Management. Therapeutic Activity. Therapeutic Exercise. Intervention considerations/suggestions for future therapy sessions: FM coordination/strength; ADLs; IADLs; functional mobility; adaptive equipment/devices training; strengthening of bilateral UEs. ENDURANCE! INTERDISCIPLINARY PATIENT CARE PLAN Identified Problems from Team Documentation: Impaired Self Care Mgmt/ADL/IADL Self Care: Primary Team Goal: Patient will be modified independent with self cares using adaptive equipment/devices as needed by discharge./ Problem: Impaired Pain Mgmt Pain Management: Primary Team Goal : Patient will utilize pharmacologic and nonpharmacologic means to control pain, as evidenced by patient's stated goal and ability to participate in therapy./ Problem: Impaired Bladder Mgmt Bladder Management: Primary Team Goal: Patient will manage incontinence with minimal assistance./Active Bladder Management: Additional Team Goal: Patient will perform toileting transfers/tasks with minimal assistance./Active Problem: Impaired Bowel Mgmt Bowel Management: Primary Team Goal: Patient will perform toileting transfers and tasks with minimal assistance./Active Problem: Impaired Leisure Skills Problem: Impaired Mobility Mobility: Primary Team Goal : pt will ambulate 200 feet modified independent with rolling walker/ Problem: Impaired Skin Wound Management Skin Wound Management: Primary Team Goal: Patient will demonstrate signs of wound healing./Active Problem: Safety Risk and Restraint Safety Risk: Primary Team Goal : Patient will not fall during hospitalization./ Add/Update Problems from this Treatment: No updates at this time. Program: Orthopedics 3 Hour Rule Minutes: 60 minutes. Patient was seen for the full scheduled treatment time this session. Therapy Mode Minutes: Individual: 60 minutes. SESSION: Duration: 60 CHARGES: 78930 - CHARGE - OT SELF CARE ADL TRAIN-15 MIN 4 Units - ORTHOPEDIC VISIT 1 Units Total treatment minutes: 60.00 Minutes Electronically Signed by: Mary Edmonds OTR, 10/12/2019 10:00:36 AM Katie Bansal, PT - 10/11/2019 3:05 PM ESTPhysical Therapy Inpatient Rehabilitation Encounter Form Admitting Diagnosis: s/p mechanical fall resulting in Left periprosthetic distal femur fracture s/p Total Knee Revision with Left Distal Femoral Replacement on 09/27/2019 Rehab Diagnosis: impaired mobility and self care Rehabilitation Precautions/Restrictions: OOB with assist. WBAT. Strict I & O. High Fall risk. Ice PRN. DNR. DVT precautions SUBJECTIVE Patient Report: "Doing pretty good" Pain: Patient currently complains of pain. Location: L knee . Patient describes pain as Nonspecific. Verbal Scale: Patient reports a pain level of 2 out of 10. OBJECTIVE Chair alarm was on at start of session. Skin Integrity: surgical incision on L knee covered with aquacell appears c/d/i, slight bloody areas under adhesive on lateral aspect but not on dressing, moderate pitting edema noted throughout L LE increased from previous session, bruising noted L posterio-lateral thigh to ankle, PICC in R UE, mepliex on medial aspect of L thigh by the groin Outcome Measures: Recently assessed, not applicable at this time. Interventions: Therapeutic Exercise: Pt received instruction in therex in sitting including left heel slides alternating with long arc quads x 10. Pt received instruction in therex in standing in parallel bars including left hip abduction x15, left hip extension x15 Gait Training: Pt received instruction in gait (80 feet on one trial, 120 feet on second trial with rolling walker) with cues for postural correction to tolerance, heel toe gait pattern on left. Pt educated in elevating LEs for edema control Education: Mode of education provided: Demonstration. Explanation. Audience: Patient. Education Provided: Importance of activity. Mobility Techniques. Role of Physical Therapy. Safety. Treatment Plan. Response: Applied knowledge. Indicates understanding. Needs practice/reinforcement. ASSESSMENT Response to Visit: The session was tolerated fair, as evidenced by: Patient reported fatigue Call lopez was in patient's reach at end of session. Chair alarm was on at end of session. Intervention considerations/suggestions for future therapy sessions: s/p mechanical fall resulting in L periprosthetic fracture, s/p L revision TKA on 09/27/2019, WBAT, 7 stairs to enter with berry rails, lives alone bed mobility: min assist for R LE, has hospital bed at home transfers: CGA from w/c, min assist from lower surfaces ambulation: 80 to 100 feet with supervision and rolling walker, stairs: 4 stairs with berry rails, CGA *LE strengthening, knee ROM, standing balance, bed mobility, stairs Pain: Patient has no complaints of pain currently. Program: Orthopedics 3 Hour Rule Minutes: 30 minutes. Patient was seen for the full scheduled treatment time this session. Therapy Mode Minutes: Individual: 30 minutes. SESSION: Duration: 30 CHARGES: 11943 - CHARGE - PT GAIT TRNG - 15 MIN 1 Units 66988 - CHARGE - PT THER EX - 15 MIN 1 Units - ORTHOPEDIC VISIT 1 Units Total treatment minutes: 30.00 Minutes Electronically Signed by: Katie Lucas PT, PT 10/11/2019 4:13:27 PM Lyly Oliveira MD - 10/11/2019 1:12 PM EST Physical Medicine and Rehabilitation IRF Progress Note Subjective: Yulisa Rebollar is a 89 y.o. female. Subjective Pt seen & examined with OT this AM. No acute events overnight. Partial staple removal today. Discussed routine toileting for continence management. Denies nausea, BURLESON, dizziness, CP, SOB. Afebrile Scheduled Meds: acetaminophen (TYLENOL) tablet 650 mg Oral 4x Daily aspirin 81 mg Oral Daily atorvastatin 40 mg Oral QPM calcium carb-cholecalciferol 1 tablet Oral Daily ceFAZolin sodium 2 g Intravenous Q8H enoxaparin 40 mg Subcutaneous Daily furosemide 40 mg Oral Daily sodium chloride (preservative free) 10 mL Intravenous Q12H And heparin lock flush 20 Units Intravenous Q12H levothyroxine 100 mcg Oral Daily lisinopril 5 mg Oral Daily metoprolol 50 mg Oral Daily sodium chloride 50 mL/hr Intravenous TID oseltamivir 30 mg Oral Daily rifAMPin 300 mg Oral 2 times per day saccharomyces boulardii 250 mg Oral BID senna 2 tablet Oral Nightly tramadol 50 mg Oral Daily Vitamin D3 1,000 Units Oral Daily Continuous Infusions: PRN Meds:.sodium chloride (preservative free) AND heparin lock flush AND* * sodium chloride (preservative free) AND heparin lock flush, polyethylene glycol, promethazine, tramadol AND tramadol LINES: PICC RUE, no s/s infection Objective: VITAL SIGNS: Temp: [36.4 C-36.7 C] 36.4 C Pulse: [67-77] 77 Resp: [17-18] 18 BP: (125-150)/(64-81) 150/81 SpO2: [96 %-97 %] 97 % O2 Therapy: Room air PE: General: No acute distress, alert, oriented x 3 Eyes: Eyelids without lesions HEENT: No oral thrush Cardiovascular: S1, S2, RRR Pulmonary: Clear to auscultation throughout, unlabored effort Abdominal: Soft, Non-distended, Non-tender Extremities: Calves supple, NT, +1 edema LLE, trace RLE Musculoskeletal: normal bulk and tone of all 4 limbs, no limited ROM Psych: Mood and affect normal Skin: LLE knee incision with genesis- partial removal today. No erythema or drainage Neuro: no focal changes. DIAGNOSTIC STUDIES: CBC: Lab Results Component Value Date WBC 7.3 10/11/2019 RBC 2.62 (L) 10/11/2019 HGB 8.8 (L) 10/11/2019 HCT 26.6 (L) 10/11/2019 PLT 645 (H) 10/11/2019 CMP: Lab Results Component Value Date NA 134 (L) 10/11/2019 K 4.2 10/11/2019 CL 100 10/11/2019 BICARBONATE 22 10/11/2019 CALCIUM 8.1 (L) 10/11/2019 GLUCOSE 106 10/11/2019 BUN 13 10/11/2019 BCR 16 10/11/2019 PROT 4.6 (L) 10/07/2019 ALBUMIN 2.5 (L) 10/07/2019 TBILI 0.8 10/07/2019 ALKPHOS 71 10/07/2019 AST 27 10/07/2019 ALT <5 10/07/2019 AGRATIO 1.0 10/07/2019 GFRAA 10/11/2019 eGFR is not calculated in patients <18 or >80 years of age. GFRNONAA 10/11/2019 eGFR is not calculated in patients <18 or >80 years of age. DATA REVIEWED: allergy list , medication list and old records Assessment and Plan: Assessment & Plan Yulisa Rebollar is a 89 y.o. 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 Babb on 09/27/2019. # Impaired mobility and self-care: Acute inpatient comprehensive rehabilitation including PT, OT, RT, HOPPER FILLER, and supportive services to improve functional outcome of impaired mobility, ADL's, transfers, and self-care. # Left periprosthetic distal femur fracture now s/p Total Knee Revision with Left Distal Femoral Replacement WBAT Monitor incision, Mepilex Evaluate for remaining staple removal 10/15/2019 F/u Dr. Babb after d/c # Positive Intra-op Tissue Culture Grew Staph epi Per Dr. Howard: 6 weeks IV Cefazolin 2gm Q8H & Rifampin 300mg BID (po) (until 11/11/2019) followed by oral cephalosporin and rifampin for another 6 months and then po cephalosporin indefinitely Continue Florastor with abx Will arrange outpt f/u with Dr. Howard Mild leukocytosis resolved Monitor routine labs wkly & PRN- check next on 10/15 Dr. Howard recommends continue Cefazolin vs another abx for discharge as is best option, familycan assist with infusion as determined in family meeting # Pain management Tyl 650 mg 4x/day Tramadol 50 mg prior to 1st AM therpay & Q4H PRN available Frequent ice/elevation # Acute Blood Loss Anemia H/H stable, 8.8/26.6 on 10/11 Did require 1 unit PRBC postop No signs of active bleeding Iron studies 10/03 consistent with anemia of chronic disease # CAD ASA, Statin, Metoprolol XL # Chronic Systolic Heart Failure/HTN Lasixadjusted to home regime of 40 mg daily starting 10/09 Metoprolol XL 50 mg daily Is on ACEi outpt, taken off 09/22 KIMBERLY on admission, restarted Lisinopril at 5 mg daily on 10/03 (home dose is 20 mg), continue and monitor Daily AM wts, VIGNESH diet KHT/ACEs BLE for edema control # Influenza exposure Tamiflu ordered & tolerating # Hyponatremia Stable at 134, ranging 128-137 # Hypothyroidism Levothyroxine 100 mcg QAM # Bowel/Bladder Toilet schedule to help with incontinence (baseline) continue Senna QHS Last BM 10/11 # DVT prophylaxis Lovenox 40mg daily # Obesity Contributes to complexity of care Nutrition will follow # Other health maintenance Vit D hydroxy level 24, restarted Vit D 1000 units daily 10/03 Corrected Ca+ just WNL, takes Ca+ outpt, restarted 10/03 # Code status: DNR Progress in therapies: transfers supervision/min assist Patient is making progress towards the rehabilitation goals established; the patient's condition is sufficiently stable to allow the patient to actively participate in an intensive rehabilitation program. The patient requires and is able to tolerate 3 hours of therapy at least 5 days per week. The patient continues to benefit from the inpatient rehabilitation program with care provided by rehabilitation medicine team, rehabilitation nursing, occupational and physical therapies. I have updated the patient/family regarding the current status and above plans. Certain parts of this note may have been carried over from prior notes to maintain accuracy of patient's pertinent medical history and continuity of care. The details were verified and edited as appropriate. Discussed with Dr. Diego, Nursing, OT ++++++++++++++++++++++++++++ Daniella Roberto, MS, STRAIGHT SLICING MACHINE OPERATOR-BS Physical Medicine & Rehabilitation [facility] @ [facility] I saw and evaluated the patient. Discussed with the Nurse Practitioner, and agree with the Nurse Practitioner's findings as documented in the the note, with the exceptions/additions as noted below. The Nurse Practitioner's note has only been reviewed, not edited. Doing well. Partial staple removal today. Did not sleep too good- heard some noises. Requires min/modA for LB. Marie Stone, CONSULTING UTILITY FORESTER - 10/11/2019 12:00 PM ESTPhysical Therapy Inpatient Rehabilitation Progress Note Attending Physician: Dr. Parrish Admitting Diagnosis: s/p mechanical fall resulting in Left joshua prosthetic distal femur fracture s/p Total Knee Revision with Left Distal Femoral Replacement on 09/27/2019 Rehab Diagnosis: impaired mobility and self care Rehabilitation Precautions/Restrictions: SOB with assist. WBAT. Strict I & O. High Fall risk. Ice PRN. DNR. DVT precautions SUBJECTIVE Patient Report: Pt in w/c and ready for therapy Pain: Patient currently complains of pain. Location: L knee . Patient describes pain as Aching. Verbal Scale: Patient reports a pain level of 2 out of 10. OBJECTIVE Range of Motion: No change observed. Strength: No change observed. Skin Integrity: surgical incision on L knee covered with aqua cell appears c/d/i, slight bloody areas under adhesive on lateral aspect but not on dressing, moderate pitting edema noted throughout L LE increased from previous session, bruising noted L posterior-lateral thigh to ankle, PICC in R UE, mepliex on medial aspect of L thigh by the groin Quality Indicators Roll left and right, sit to lying, and lying to sitting on edge of bed not addressed at this time Sit to Stand Transfer: 04 - Supervision or touching assistance: Ravenna provides verbal cues and/or touching/steadying and/or contact guard assistance as patient completes activity. Assistance Provided: General supervision for safety Assistive Device(s): Arm rest(s), Walker, Gait belt Walk 50 feet with Two Turns: 04 - Supervision or touching assistance: Ravenna provides verbal cues and/or touching/steadying and/or contact guard assistance as patient completes activity. Assistance Provided: General supervision for safety Assistive Device(s): Rolling walker Pt ambulated 130 feet x 2 with rolling walker Stairs - Four steps: 04 - Supervision or touching assistance: Ravenna provides verbal cues and/or touching/steadying and/or contact guard assistance as patient completes activity. Assistance Provided: General supervision for safety Assistive Device(s): Handrail(s) Wheelchair/scooter not addressed at this time. Outcome Measures: Recently assessed, not applicable at this time. Interventions: Therapeutic Exercise: Pt instructed in seated lower extremity exercises to increase strength and ROM for improved mobility. Completed 3 x 10 reps with 3 lbs to the R LE and 0 lbs to the L LE for the following: ankle pumps with legs elevated quad set with legs elevated knee ext hip flex adduction with a small ball ankle pumps Cuing provided for form and progression throughout Gait Training: Facilitated ambulation with a rolling walker. Pt ambulated 2 trials of 130 feet with supervision. No loss of balance noted. Pt also instructed in climbing stairs with berry hand rails. Pt climbed 4 steps with supervision. Standing rest break provided before descending. Therapeutic Activities: Pt transferred on and off the toilet with supervision. Managing pants up and down as well as joshua care. Pt does require assist to remove wet brief and don a new one. Demonstrating good balance to wash her hands at the sink and to back out of the room with supervision. Pt also working on a puzzle in sitting. Pt requires frequent cuing for placement of the pieces (10 piece puzzle) due to visual deficits. Pt with noted perceptual difficulty as she was unable to tell if pieces were in the right position. Equipment Provided: None issued this visit. Wheelchair Cushion Provided: Javier Basic Education: Mode of education provided: Demonstration. Explanation. Audience: Patient. Education Provided: Gait. Stair/Curb Training. Safety. Plan of care. theraputic exercises . Response: Applied knowledge. Needs practice/reinforcement. ASSESSMENT Response to Visit: The session was tolerated well. Patient reported fatigue Pt to the dining room for lunch at the end of the session. Ice applied to L Knee at the end of the session. Pain: Patient currently complains of pain. Location: L knee . Patient describes pain as Aching. Verbal Scale: Patient reports a pain level of 6 out of 10. Will provide modalities. Goal Review: Pt progressing well currently requires supervision for mobility PLAN Treatment Frequency, Duration, and Intervention: Restorative Physical Therapy is recommended for 90 minutes per day, at least 5x per week for 4 weeks Treatment is to include: Gait Training. Neuromuscular Re-education. Therapeutic Activity. Therapeutic Exercise. Self Care/Home Management. Intervention considerations/suggestions for future therapy sessions: s/p mechanical fall resulting in L joshua prosthetic fracture, s/p L revision TKA on 09/27/2019, WBAT, 7 stairs to enter with berry rails, lives alone bed mobility: min assist for R LE, has hospital bed at home transfers: CGA from w/c, min assist from lower surfaces ambulation: 80 to 100 feet with supervision and rolling walker, stairs: 4 stairs with berry rails, CGA *LE strengthening, knee ROM, standing balance, bed mobility, stairs INTERDISCIPLINARY PATIENT CARE PLAN Identified Problems from Team Documentation: Impaired Self Care Mgmt/ADL/IADL Self Care: Primary Team Goal: Patient will be modified independent with self cares using adaptive equipment/devices as needed by discharge./ Problem: Impaired Bladder Mgmt Bladder Management: Primary Team Goal: Patient will be continent of urine this shift/ Problem: Impaired Bowel Mgmt Bowel Management: Primary Team Goal: Patient will be continent of stool/ Problem: Impaired Leisure Skills Problem: Impaired Mobility Mobility: Primary Team Goal : pt will ambulate 200 feet modified independent with rolling walker/ Add/Update Problems from this Treatment: No updates at this time. Program: Total Joint 3 Hour Rule Minutes: 60 minutes. Patient was seen for the full scheduled treatment time this session. Therapy Mode Minutes: Individual: 60 minutes. SESSION: Duration: 60 CHARGES: 90652 - CHARGE - PT GAIT TRNG - 15 MIN 1 Units 21184 - CHARGE - PT THER EX - 15 MIN 2 Units 34444 - CHARGE - PT THERAPEUTIC ACTIVITIES - 15 MIN 1 Units - TOTAL JOINT VISIT 1 Units Total treatment minutes: 60.00 Minutes Electronically Signed by: Marie Zacarias PTA, PTA 10/11/2019 12:55:48 PM Aleksandra Alanis HEATH Beal - 10/11/2019 11:00 AM ESTOccupational Therapy Inpatient Rehabilitation Encounter Form Admitting Diagnosis: s/p mechanical fall resulting in Left periprosthetic distal femur fracture s/p Total Knee Revision with Left Distal Femoral Replacement on 09/27/2019 Rehab Diagnosis: impaired mobility and self care Rehabilitation Precautions/Restrictions: OOB with assist. WBAT. Strict I & O. High Fall risk. Ice PRN. DNR. DVT precautions SUBJECTIVE Patient Report: "Hi there" Pain: Patient currently complains of pain. Location: L knee . Patient describes pain as Nonspecific. Verbal Scale: Patient reports a pain level of 2 out of 10. OBJECTIVE No chair alarm noted at start of session. Skin Integrity: surgical incision on L knee covered with aquacell appears c/d/i, slight bloody areas under adhesive on lateral aspect but not on dressing, moderate pitting edema noted throughout L LE increased from previous session, bruising noted L posterio-lateral thigh to ankle, PICC in R UE, mepliex on medial aspect of L thigh by the groin Outcome Measures: Recently assessed, not applicable at this time. Interventions: Therapeutic Activities: Therapist facilitated patient through functional activity this session to increase safety and independence in preparation for future ADLs, IADLs, and functional mobility. Patient encouraged to perform functional activity using remediation consultant to challenge balance, fine/gross motor/coodination of dominant left UE, and endurance throughout task. Patient able to medicinal plant picker 10 montez bags on various surface heights using remediation consultant and placement of basket. Therapist provided verbal and visual cues on energy conservation and breathing technique. Patient performed range of motion arc in seated position using dominant left hand. Therapist educated on importance of maintaining strength, endurance, and strength. Patient responded well to all cues and education this session. Equipment Provided: None issued this visit. Education: Mode of education provided: Explanation. Demonstration. Audience: Patient. Education Provided: Importance of activity. Mobility Techniques. Role of Occupational Therapy. Role of Physical Therapy. Safety. Treatment Plan. Response: Indicates understanding. Verbalized understanding. Needs practice/reinforcement. ASSESSMENT Response to Visit: The session was tolerated well. Call lopez was in patient's reach at end of session. Intervention considerations/suggestions for future therapy sessions: FM coordination/strength; ADLs; IADLs; functional mobility; adaptive equipment/devices training; strengthening of bilateral UEs. ENDURANCE! Pain: Yes, pain is unchanged from start of today's treatment. Program: Orthopedics 3 Hour Rule Minutes: 30 minutes. Patient was seen for the full scheduled treatment time this session. Therapy Mode Minutes: Individual: 30 minutes. SESSION: Duration: 30 CHARGES: 79280 - CHARGE - OT THEREAPEUTIC ACT 15 MIN 2 Units - ORTHOPEDIC VISIT 1 Units Total treatment minutes: 30.00 Minutes Electronically Signed by: KENDALL Smalls/Cristofer, 10/11/2019 11:41:54 AM Erica Quach - 10/11/2019 10:30 AM ESTTherapeutic Recreation Inpatient Rehabilitation Patient Contact Note Attending Physician: Dr. Diego Admitting Diagnosis: s/p mechanical fall resulting in Left periprosthetic distal femur fracture s/p Total Knee Revision with Left Distal Femoral Replacement on 09/27/2019 Rehab Diagnosis: impaired mobility and self care Rehabilitation Precautions/Restrictions: OOB with assist. WBAT. Strict I & O. High Fall risk. Ice PRN. DNR. DVT precautions SUBJECTIVE Patient Report: "Thank you for showing me that." OBJECTIVE Patient visited the hospital gift shop and discussed individuals she enjoys shopping for. Patient used a wheelchair for participation Program: Therapeutic Recreation SESSION: Duration: 10 CHARGES: - THERAPEUTIC REC VISIT 1 Units Total treatment minutes: 0.00 Minutes Electronically Signed by: Jeff Rios TR, 10/11/2019 4:05:46 PM - CoSigned By: Zainab DENNIS, [facility], 10/11/2019 4:08:30 PM Alanis Lake OT - 10/11/2019 9:30 AM ESTOccupational Therapy Inpatient Rehabilitation Progress Note Attending Physician: Dr. Diego Admitting Diagnosis: s/p mechanical fall resulting in Left periprosthetic distal femur fracture s/p Total Knee Revision with Left Distal Femoral Replacement on 09/27/2019 Rehab Diagnosis: impaired mobility and self care Rehabilitation Precautions/Restrictions: OOB with assist. WBAT. Strict I & O. High Fall risk. Ice PRN. DNR. DVT precautions SUBJECTIVE Patient Report: "My breakfast was alright" "The pain is much better today" Pain: Patient has no complaints of pain currently. OBJECTIVE Chair alarm was on at start of session. Skin Integrity: surgical incision on L knee covered with aquacell appears c/d/i, slight bloody areas under adhesive on lateral aspect but not on dressing, moderate pitting edema noted throughout L LE increased from previous session, bruising noted L posterio-lateral thigh to ankle, PICC in R UE, mepliex on medial aspect of L thigh by the groin Cognition: Patient's cognition functionally intact this session. Quality Indicators Eatin - Setup or clean-up assistance: Ravenna sets up or cleans up; patient completes activity. Ravenna assists only prior to or following the activity. Assistance Provided: Opening containers, Opening cartons Assistive Device(s): None Toileting Hygiene: 03 - Partial(minimal)/moderate assistance: Ravenna does less than half the effort. Ravenna lifts, holds or supports trunk or limbs but provides less than half the effort. Assistance Provided: Buttocks hygiene for thoroughness Assistive Device(s): None Shower/Bathe Self: 03 - Partial(minimal)/moderate assistance: Ravenna does less than half the effort. Ravenna lifts, holds or supports trunk or limbs but provides less than half the effort. Assistance Provided: Buttocks Assistive Device(s): None Upper Body Dressin - Independent: Patient completed the activities by him/herself with no assistance from a helper and without use of assistive devices. Lower Body Dressin - Supervision or touching assistance: Ravenna provides verbal cues and/or touching/steadying and/or contact guard assistance as patient completes activity. Assistance Provided: Stand by assistance, General supervision for safety Assistive Device(s): None Patient educated with using remediation consultant; however, did not need it today. Putting On/Off Footwear: 04 - Supervision or touching assistance: Ravenna provides verbal cues and/or touching/steadying and/or contact guard assistance as patient completes activity. Assistance Provided: Stand by assistance, General supervision for safety Assistive Device(s): None Roll left and right, sit to lying, and lying to sitting on edge of bed not addressed at this time Sit to Stand Transfer: 04 - Supervision or touching assistance: Ravenna provides verbal cues and/or touching/steadying and/or contact guard assistance as patient completes activity. Assistance Provided: Stand by assistance, General supervision for safety Assistive Device(s): Arm rest(s) Outcome Measures: Recently assessed, not applicable at this time. Interventions: Self Care/Home Management: Therapist facilitated patient through ADL tasks this session to increase safety and independence in preparation for future ADLs, IADLs, and functional mobility. Therapist provided verbal, visual, and tactile cues for sponge bathing tasks to increase safety and independence to include thoroughness. Therapist prompted patient to perform rest breaks throughout session as patient was noted to be holding breath when bending over to perform LB dressing/bathing tasks this session. Patient educated on thoroughly cleaning/drying skin to maintain skin integrity. Therapist educated patient on energy conservation techniques and risk of not pacing oneself. Patient educated on slow changes in position to decrease chances of orthostatic pressure and decrease fall risk. Patient responded well to all cues and education this session. Equipment Provided: None issued this visit. Education: Mode of education provided: Class. Explanation. Demonstration. Audience: Patient. Education Provided: Importance of activity. Mobility Techniques. Role of Occupational Therapy. Role of Physical Therapy. Safety. Treatment Plan. ADL's. Response: Indicates understanding. Verbalized understanding. Needs practice/reinforcement. ASSESSMENT Response to Visit: The session was tolerated well. Call lopez was in patient's reach at end of session. Pain: Patient currently complains of pain. Location: L knee . Patient describes pain as Nonspecific. Verbal Scale: Patient reports a pain level of 2 out of 10. Goal review: Short Term Goals: 1. Patient will dress LE supervision including item retrieval in 2 weeks Status: GOAL MET 2. Patient will toilet self with supervision in 2 weeks Status: Ongoing 3. Patient will transfer to toilet supervision in 2 weeks Status: GOAL MET 4. Patient will shower self supervision in 2 weeks Status: Ongoing. Patient is min assist 10/11/19 PLAN Treatment Frequency, Duration, and Intervention: Restorative Occupational Therapy recommended for 90 mins a day 1x a day for 5x a week Treatment is to include: Development of Cognitive Skills. Neuromuscular Re-education. Self Care/Home Management. Therapeutic Activity. Therapeutic Exercise. Intervention considerations/suggestions for future therapy sessions: FM coordination/strength; ADLs; IADLs; functional mobility; adaptive equipment/devices training; strengthening of bilateral UEs. ENDURANCE! INTERDISCIPLINARY PATIENT CARE PLAN Identified Problems from Team Documentation: Impaired Self Care Mgmt/ADL/IADL Self Care: Primary Team Goal: Patient will be modified independent with self cares using adaptive equipment/devices as needed by discharge./ Problem: Impaired Pain Mgmt Pain Management: Primary Team Goal : Patient will utilize pharmacologic and nonpharmacologic means to control pain, as evidenced by patient's stated goal and ability to participate in therapy./ Problem: Impaired Bladder Mgmt Bladder Management: Primary Team Goal: Patient will manage incontinence with minimal assistance./Active Bladder Management: Additional Team Goal: Patient will perform toileting transfers/tasks with minimal assistance./Active Problem: Impaired Bowel Mgmt Bowel Management: Primary Team Goal: Patient will perform toileting transfers and tasks with minimal assistance./Active Problem: Impaired Leisure Skills Problem: Impaired Mobility Mobility: Primary Team Goal : pt will ambulate 200 feet modified independent with rolling walker/ Problem: Impaired Skin Wound Management Skin Wound Management: Primary Team Goal: Patient will demonstrate signs of wound healing./Active Problem: Safety Risk and Restraint Safety Risk: Primary Team Goal : Patient will not fall during hospitalization./ Add/Update Problems from this Treatment: No updates at this time. Program: Orthopedics 3 Hour Rule Minutes: 60 minutes. Patient was seen for the full scheduled treatment time this session. Therapy Mode Minutes: Individual: 60 minutes. SESSION: Duration: 60 CHARGES: 87443 - CHARGE - OT SELF CARE ADL TRAIN-15 MIN 4 Units - ORTHOPEDIC VISIT 1 Units Total treatment minutes: 60.00 Minutes Electronically Signed by: KENDALL Smalls/Cristofer, 10/11/2019 9:39:26 AM Irais Orozco RN - 10/10/2019 3:39 PM ESTPt's grand dtr contacted this radio news writer today to explore the possibility of the option of utilizing thepump / continuous infusion at home vs IV push method. Family also asked if it would be possible for pt to f/u with ID dr in [place] ( Dr. Pierre) - MANUFACTURING ENGINEERING PROFESSOR notified of this request. This radio news writer discuss withthe Infusion vendor liaison and she confirmed that feasible. PT confirmed they will work with pt to simulate the 5 lb pump wt , a basket will be given to attach to pt's RW for home. A teaching session with the vendor will be set up for the day before d/c at Grand dtr's request. Pt's target date for d/erinn been moved to 10/17/19. This radio news writer also updated the [facility] home care agency -spoke with Carla who will f/u to coordinate services. Marie Stone CONSULTING UTILITY FORESTER - 10/10/2019 3:00 PM ESTPhysical Therapy Inpatient Rehabilitation Encounter Form Admitting Diagnosis: s/p mechanical fall resulting in Left periprosthetic distal femur fracture s/p Total Knee Revision with Left Distal Femoral Replacement on 09/27/2019 Rehab Diagnosis: impaired mobility and self care Rehabilitation Precautions/Restrictions: SOB with assist. WBAT. Strict I & O. High Fall risk. Ice PRN. DNR. DVT precautions SUBJECTIVE Patient Report: Pt in recliner and agreeable to therapy Pain: Patient currently complains of pain. Location: L knee . Patient describes pain as Aching. Verbal Scale: Patient reports a pain level of 3 out of 10. OBJECTIVE Skin Integrity: surgical incision on L knee covered with aqua cell appears c/d/i, slight bloody areas under adhesive on lateral aspect but not on dressing, moderate pitting edema noted throughout L LE increased from previous session, bruising noted L posterior-lateral thigh to ankle, PICC in R UE, mepliex on medial aspect of L thigh by the groin Outcome Measures: Recently assessed, not applicable at this time. Interventions: Therapeutic Activities: Pt transferred out of the recliner and ambulated approximately 20 feet to the bathroom. Pt transferred on and off the toilet with supervision. Managing pants up and down as well as joshua care. Pt does require assist to remove wet brief and don a new one. S\\Demonstrating good balance to wash her hands at the sink and to back out of the room with supervision. Gait Training: Facilitated ambulation with a rolling walker. Pt ambulated 3 trials of 50 feet x 2 and 140 feet with supervision. Pt requires a rest break between trials. Gait is reciprocal with a slightly forward flexed and kyphotic posture. Pt instructed in climbing the stairs with berry hand rails. Climbed 4 steps with supervision. Education: Mode of education provided: Demonstration. Explanation. Audience: Patient. Education Provided: Functional transfers. Gait. Safety. Plan of care. Stair/Curb Training. Response: Applied knowledge. Needs practice/reinforcement. ASSESSMENT Response to Visit: The session was tolerated well. Patient reported fatigue Call lopez was in patient's reach at end of session. Intervention considerations/suggestions for future therapy sessions: s/p mechanical fall resulting in L periprosthetic fracture, s/p L revision TKA on 09/27/2019, WBAT, 7 stairs to enter with berry rails, lives alone bed mobility: min assist for R LE, has hospital bed at home transfers: CGA from w/c, min assist from lower surfaces ambulation: 80 to 100 feet with supervision and rolling walker, stairs: 4 stairs with berry rails, CGA *LE strengthening, knee ROM, standing balance, bed mobility, stairs Pain: Yes, pain is unchanged from start of today's treatment. Ice applied to L knee with legs elevated at the end of the session. Program: Total Joint 3 Hour Rule Minutes: 30 minutes. Patient was seen for the full scheduled treatment time this session. Therapy Mode Minutes: Individual: 30 minutes. SESSION: Duration: 30 CHARGES: 50147 - CHARGE - PT GAIT TRNG - 15 MIN 1 Units 00481 - CHARGE - PT THERAPEUTIC ACTIVITIES - 15 MIN 1 Units - TOTAL JOINT VISIT 1 Units Total treatment minutes: 30.00 Minutes Electronically Signed by: Marie Zacarias PTA, PTA 10/10/2019 3:16:27 PM Lyly Oliveira MD - 10/10/2019 1:45 PM EST Physical Medicine and Rehabilitation IRF Progress Note Subjective: Yulisa Rebollar is a 89 y.o. female. Subjective Pt seen & examined this AM with OT. No acute events overnight. Feeling well. Denies nausea, [place], dizziness, CP, SOB. Afebrile Scheduled Meds: acetaminophen (TYLENOL) tablet 650 mg Oral 4x Daily aspirin 81 mg Oral Daily atorvastatin 40 mg Oral QPM calcium carb-cholecalciferol 1 tablet Oral Daily ceFAZolin sodium 2 g Intravenous Q8H enoxaparin 40 mg Subcutaneous Daily furosemide 40 mg Oral Daily sodium chloride (preservative free) 10 mL Intravenous Q12H And heparin lock flush 20 Units Intravenous Q12H levothyroxine 100 mcg Oral Daily lisinopril 5 mg Oral Daily metoprolol 50 mg Oral Daily sodium chloride 50 mL/hr Intravenous TID oseltamivir 30 mg Oral Daily rifAMPin 300 mg Oral 2 times per day saccharomyces boulardii 250 mg Oral BID senna 2 tablet Oral Nightly tramadol 50 mg Oral Daily Vitamin D3 1,000 Units Oral Daily Continuous Infusions: PRN Meds:.sodium chloride (preservative free) AND heparin lock flush AND* * sodium chloride (preservative free) AND heparin lock flush, polyethylene glycol, promethazine, tramadol AND tramadol LINES: PICC RUE, no s/s infection Objective: VITAL SIGNS: Temp: [36.5 C-36.6 C] 36.6 C Pulse: [66-72] 66 Resp: [18] 18 BP: (104-138)/(52-75) 136/75 SpO2: [97 %-98 %] 97 % O2 Therapy: Room air PE: General: No acute distress, alert, oriented x 3 Eyes: Eyelids without lesions HEENT: No oral thrush Cardiovascular: S1, S2, RRR Pulmonary: Clear to auscultation throughout, unlabored effort Abdominal: Soft, Non-distended, Non-tender Extremities: Calves supple, NT, +1 edema LLE, trace RLE Musculoskeletal: normal bulk and tone of all 4 limbs, no limited ROM Psych: Mood and affect normal Skin: LLE knee incision with genesis, DSD CDI. Neuro: no focal changes. DIAGNOSTIC STUDIES: CBC: Lab Results Component Value Date WBC 10.7 (H) 10/04/2019 RBC 2.49 (L) 10/04/2019 HGB 8.4 (L) 10/04/2019 HCT 24.4 (L) 10/04/2019 PLT 514 (H) 10/04/2019 CMP: Lab Results Component Value Date NA 133 (L) 10/07/2019 K 4.1 10/07/2019 CL 101 10/07/2019 BICARBONATE 21 (L) 10/07/2019 CALCIUM 7.5 (L) 10/07/2019 GLUCOSE 115 10/07/2019 BUN 13 10/07/2019 BCR 20 10/07/2019 PROT 4.6 (L) 10/07/2019 ALBUMIN 2.5 (L) 10/07/2019 TBILI 0.8 10/07/2019 ALKPHOS 71 10/07/2019 AST 27 10/07/2019 ALT <5 10/07/2019 AGRATIO 1.0 10/07/2019 GFRAA 10/07/2019 eGFR is not calculated in patients <18 or >80 years of age. GFRNONAA 10/07/2019 eGFR is not calculated in patients <18 or >80 years of age. DATA REVIEWED: allergy list , medication list and old records Assessment and Plan: Assessment & Plan Yulisa Rebollar is a 89 y.o. 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 Babb on 09/27/2019. # Impaired mobility and self-care: Acute inpatient comprehensive rehabilitation including PT, OT, RT, HOPPER FILLER, and supportive services to improve functional outcome of impaired mobility, ADL's, transfers, and self-care. # Left periprosthetic distal femur fracture now s/p Total Knee Revision with Left Distal Femoral Replacement WBAT Monitor incision, Mepilex Evaluate for staple removal 10/11/2019 F/u Dr. Babb after d/c # Positive Intra-op Tissue Culture Grew Staph epi Per Dr. Howard: 6 weeks IV Cefazolin 2gm Q8H & Rifampin 300mg BID (po) (until 11/11/2019) followed by oral cephalosporin and rifampin for another 6 months and then po cephalosporin indefinitely Continue Florastor with abx Will arrange outpt f/u with Dr. Howard Mild leukocytosis, stable at 10.7 on 10/04 Monitor routine labs wkly & PRN- check tomorrow Dr. Howard to evaluate if alternative abx could be used outpatient for ease of administration # Pain management Tyl 650 mg 4x/day Tramadol 50 mg prior to 1st AM therpay & Q4H PRN available Frequent ice/elevation # Acute Blood Loss Anemia H/Himproved to 8.4/24.4 on 10/04 Did require 1 unit PRBC postop No signs of active bleeding Iron studies 10/03 consistent with anemia of chronic disease # CAD ASA, Statin, Metoprolol XL # Chronic Systolic Heart Failure/HTN Lasixadjusted to home regime of 40 mg daily starting 10/09 Metoprolol XL 50 mg daily Is on ACEi outpt, taken off 09/22 KIMBERLY on admission, restarted Lisinopril at 5 mg daily on 10/03 (home dose is 20 mg), continue and monitor Daily AM wts, VIGNESH diet KHT/ACEs BLE for edema control # Influenza exposure Was offered Tamiflu, initially declined as is afraid will make nausea return but wants to try it- ordered & tolerating # Hyponatremia Stable at 133, ranging 128-137 # Hypothyroidism Levothyroxine 100 mcg QAM # Bowel/Bladder Aleman d/c'd, voiding, monitor PVRs until <100 x 3 consecutively Toilet schedule to help with incontinence (baseline) continue Senna QHS Last BM 10/10 # DVT prophylaxis Lovenox 40mg daily # Obesity Contributes to complexity of care Nutrition will follow # Other health maintenance Vit D hydroxy level 24, restarted Vit D 1000 units daily 10/03 Corrected Ca+ just WNL, takes Ca+ outpt, restarted 10/03 # Code status: DNR Progress in therapies: transfers supervision/min assist Patient is making progress towards the rehabilitation goals established; the patient's condition is sufficiently stable to allow the patient to actively participate in an intensive rehabilitation program. The patient requires and is able to tolerate 3 hours of therapy at least 5 days per week. The patient continues to benefit from the inpatient rehabilitation program with care provided by rehabilitation medicine team, rehabilitation nursing, occupational and physical therapies. I have updated the patient/family regarding the current status and above plans. Certain parts of this note may have been carried over from prior notes to maintain accuracy of patient's pertinent medical history and continuity of care. The details were verified and edited as appropriate. Discussed with Dr. Diego, Nursing, OT ++++++++++++++++++++++++++++ Daniella Roberto, MS, STRAIGHT SLICING MACHINE OPERATOR-BS Physical Medicine & Rehabilitation [facility] I saw and evaluated the patient. Discussed with the Nurse Practitioner, and agree with the Nurse Practitioner's findings as documented in the the note, with the exceptions/additions as noted below. The Nurse Practitioner's note has only been reviewed, not edited. Doing well. Seen in OT. Family meeting went very good yesterday-plan for home next week. Requiresclose supervision-will need to be independent. Routine labs tomorrow. Marie Stone PTA - 10/10/2019 12:00 PM ESTPhysical Therapy Inpatient Rehabilitation Progress Note Attending Physician: Dr. Parrish Admitting Diagnosis: s/p mechanical fall resulting in Left joshua prosthetic distal femur fracture s/p Total Knee Revision with Left Distal Femoral Replacement on 09/27/2019 Rehab Diagnosis: impaired mobility and self care Rehabilitation Precautions/Restrictions: SOB with assist. WBAT. Strict I & O. High Fall risk. Ice PRN. DNR. DVT precautions SUBJECTIVE Patient Report: Pt in w/c and ready for therapy Pain: Patient currently complains of pain. Location: L knee . Patient describes pain as Aching. Verbal Scale: Patient reports a pain level of 2 out of 10. OBJECTIVE Range of Motion: No change observed. Strength: No change observed. Skin Integrity: surgical incision on L knee covered with aquacell appears c/d/i, slight bloody areas under adhesive on lateral aspect but not on dressing, moderate pitting edema noted throughout L LE increased from previous session, bruising noted L posterior-lateral thigh to ankle, PICC in R UE, mepliex on medial aspect of L thigh by the groin Quality Indicators Roll left and right, sit to lying, and lying to sitting on edge of bed not addressed at this time Sit to Stand Transfer: 04 - Supervision or touching assistance: Ravenna provides verbal cues and/or touching/steadying and/or contact guard assistance as patient completes activity. Assistance Provided: General supervision for safety Assistive Device(s): Arm rest(s), Walker, Gait belt Walk 150 feet: 04 - Supervision or touching assistance: Ravenna provides verbal cues and/or touching/steadying and/or contact guard assistance as patient completes activity. Assistance Provided: General supervision for safety Assistive Device(s): Rolling walker, Gait belt Stairs not addressed at this time. Wheelchair/scooter not addressed at this time. Outcome Measures: Recently assessed, not applicable at this time. Interventions: Therapeutic Exercise: Pt instructed in seated lower extremity exercises to increase strength and ROM for improved mobility. Completed 3 x 10 reps with 3 lbs to the R LE and 0 lbs to the L LE for the following: ankle pumps with legs elevated quad set with legs elevated knee ext hip flex adduction with a small ball ankle pumps R hamstring curls with pink theraband L heel slides Cuing provided for form and progression throughout Gait Training: Facilitated ambulation with a rolling walker. Pt ambulated 150 feet with rolling walker and supervision. No loss of balance noted. Pt with increased rand. Transferred on and off the toilet with rolling walker and supervision. Pt able to manage clothing and joshua care independently/supervision. Required assist to remove brief and don the new one. Ice applied to L knee at the end of the session. Equipment Provided: None issued this visit. Wheelchair Cushion Provided: Javier Basic Education: Mode of education provided: Demonstration. Explanation. Audience: Patient. Education Provided: Gait. Stair/Curb Training. Safety. Plan of care. theraputic exercises . Response: Applied knowledge. Needs practice/reinforcement. ASSESSMENT Response to Visit: The session was tolerated well. Patient reported fatigue Pt to the dining room for lunch at the end of the session. Pain: Patient currently complains of pain. Location: L knee . Patient describes pain as Aching. Verbal Scale: Patient reports a pain level of 6 out of 10. Will provide modalities. Goal Review: increased ambulation of 157 feet with rolling walker and supervision PLAN Treatment Frequency, Duration, and Intervention: Restorative Physical Therapy is recommended for 90 minutes per day, at least 5x per week for 4 weeks Treatment is to include: Gait Training. Neuromuscular Re-education. Therapeutic Activity. Therapeutic Exercise. Self Care/Home Management. Intervention considerations/suggestions for future therapy sessions: s/p mechanical fall resulting in L joshua prosthetic fracture, s/p L revision TKA on 09/27/2019, WBAT, 7 stairs to enter with berry rails, lives alone bed mobility: min assist for R LE, has hospital bed at home transfers: CGA from w/c, min assist from lower surfaces ambulation: 80 to 100 feet with supervision and rolling walker, stairs: 4 stairs with berry rails, CGA *LE strengthening, knee ROM, standing balance, bed mobility, stairs INTERDISCIPLINARY PATIENT CARE PLAN Identified Problems from Team Documentation: Impaired Self Care Mgmt/ADL/IADL Self Care: Primary Team Goal: Patient will be modified independent with self cares using adaptive equipment/devices as needed by discharge./ Problem: Impaired Bladder Mgmt Bladder Management: Primary Team Goal: Patient will be continent of urine this shift/ Problem: Impaired Bowel Mgmt Bowel Management: Primary Team Goal: Patient will be continent of stool/ Problem: Impaired Leisure Skills Problem: Impaired Mobility Mobility: Primary Team Goal : pt will ambulate 200 feet modified independent with rolling walker/ Add/Update Problems from this Treatment: No updates at this time. Program: Total Joint 3 Hour Rule Minutes: 60 minutes. Patient was seen for the full scheduled treatment time this session. Therapy Mode Minutes: Individual: 60 minutes. SESSION: Duration: 60 CHARGES: 49332 - CHARGE - PT GAIT TRNG - 15 MIN 2 Units 65342 - CHARGE - PT THER EX - 15 MIN 2 Units - TOTAL JOINT VISIT 1 Units Total treatment minutes: 60.00 Minutes Electronically Signed by: Marie Zacarias PTA, PTA 10/10/2019 4:26:45 PM Alanis Lake OT - 10/10/2019 11:00 AM ESTOccupational Therapy Inpatient Rehabilitation Encounter Form Admitting Diagnosis: s/p mechanical fall resulting in Left periprosthetic distal femur fracture s/p Total Knee Revision with Left Distal Femoral Replacement on 09/27/2019 Rehab Diagnosis: impaired mobility and self care Rehabilitation Precautions/Restrictions: OOB with assist. WBAT. Strict I & O. High Fall risk. Ice PRN. DNR. DVT precautions SUBJECTIVE Patient Report: "I used the restroom right before I came" Pain: Patient has no complaints of pain currently. OBJECTIVE Chair alarm was on at start of session. Skin Integrity: surgical incision on L knee covered with aquacell appears c/d/i, slight bloody areas under adhesive on lateral aspect but not on dressing, moderate pitting edema noted throughout L LE increased from previous session, bruising noted L posterio-lateral thigh to ankle, PICC in R UE, mepliex on medial aspect of L thigh by the groin Outcome Measures: Recently assessed, not applicable at this time. Interventions: Therapeutic Activities: Therapist facilitated patient through bilateral UE tasks this session to increase safety and independence in preparation for future ADLs, IADLs, and functional mobility. Patient performed bilateral hand and UE strengthening to include fine/gross motor coordination tasks this session and therapist edcuated on importance prior to discharge. Therapist challenged patient's pronation/supination, bilaterality, and fine motor coordination. Patient had difficulty performing card task due to vision deficits. Therpist challenged vision with senory stimulating sterognosis task. Patient able to identifty 4 out of 6 small objects. Therapist educated patient on importance of task prior to discharge to increase safety. Patient responded well to all cues and education this session. Equipment Provided: None issued this visit. Education: Mode of education provided: Explanation. Demonstration. Audience: Patient. Education Provided: Importance of activity. Mobility Techniques. Role of Occupational Therapy. Role of Physical Therapy. Safety. Treatment Plan. ADL's. Response: Indicates understanding. Verbalized understanding. Applied knowledge. Needs practice/reinforcement. Requires cues (auditory/physical). ASSESSMENT Response to Visit: The session was tolerated well. Chair alarm was on at end of session. Call lopez was in patient's reach at end of session. Intervention considerations/suggestions for future therapy sessions: FM coordination/strength; ADLs; IADLs; functional mobility; adaptive equipment/devices training; strengthening of bilateral UEs. ENDURANCE! Pain: Patient currently complains of pain. Location: L knee . Patient describes pain as Nonspecific. Verbal Scale: Patient reports a pain level of 2 out of 10. Program: Orthopedics 3 Hour Rule Minutes: 30 minutes. Patient was seen for the full scheduled treatment time this session. Therapy Mode Minutes: Individual: 30 minutes. SESSION: Duration: 30 CHARGES: 20819 - CHARGE - OT THEREAPEUTIC ACT 15 MIN 2 Units - ORTHOPEDIC VISIT 1 Units Total treatment minutes: 30.00 Minutes Electronically Signed by: KENDALL Smalls/Cristofer, 10/10/2019 11:34:55 AM Erica Quach - 10/10/2019 10:30 AM ESTTherapeutic Recreation Inpatient Rehabilitation Patient Contact Note Attending Physician: Dr. Diego Admitting Diagnosis: s/p mechanical fall resulting in Left periprosthetic distal femur fracture s/p Total Knee Revision with Left Distal Femoral Replacement on 09/27/2019 Rehab Diagnosis: impaired mobility and self care Rehabilitation Precautions/Restrictions: OOB with assist. WBAT. Strict I & O. High Fall risk. Ice PRN. DNR. DVT precautions SUBJECTIVE Patient Report: "It helps my back pain." OBJECTIVE Patient participated in an upper body endurance activity and was able to complete each exercise Program: Therapeutic Recreation SESSION: Duration: 15 CHARGES: - THERAPEUTIC REC VISIT 1 Units Total treatment minutes: 0.00 Minutes Electronically Signed by: Erica Mcintosh Student TR, 10/10/2019 4:19:52 PM - CoSigned By: Zainab COTAS, [facility], 10/10/2019 4:27:34 PM Alanis Lake OT - 10/10/2019 9:30 AM ESTOccupational Therapy Inpatient Rehabilitation Progress Note Attending Physician: Dr. Diego Admitting Diagnosis: s/p mechanical fall resulting in Left periprosthetic distal femur fracture s/p Total Knee Revision with Left Distal Femoral Replacement on 09/27/2019 Rehab Diagnosis: impaired mobility and self care Rehabilitation Precautions/Restrictions: OOB with assist. WBAT. Strict I & O. High Fall risk. Ice PRN. DNR. DVT precautions SUBJECTIVE Patient Report: "I'd like to get dressed" Pain: Patient has no complaints of pain currently. OBJECTIVE Chair alarm was on at start of session. Skin Integrity: surgical incision on L knee covered with aquacell appears c/d/i, slight bloody areas under adhesive on lateral aspect but not on dressing, moderate pitting edema noted throughout L LE increased from previous session, bruising noted L posterio-lateral thigh to ankle, PICC in R UE, mepliex on medial aspect of L thigh by the groin Cognition: Executive Function: Problem Solving. Quality Indicators Oral Hygiene: 06 - Independent: Patient completed the activities by him/herself with no assistance from a helper and without use of assistive devices. Toileting hygiene and showering/bathing not addressed at this time. Upper Body Dressin - Independent: Patient completed the activities by him/herself with no assistance from a helper and without use of assistive devices. Lower Body Dressin - Independent: Patient completed the activities by him/herself with no assistance from a helper and without use of assistive devices. Roll left and right, sit to lying, and lying to sitting on edge of bed not addressed at this time Sit to Stand Transfer: 04 - Supervision or touching assistance: Ravenna provides verbal cues and/or touching/steadying and/or contact guard assistance as patient completes activity. Assistance Provided: Stand by assistance, General supervision for safety Assistive Device(s): Arm rest(s), Walker Outcome Measures: Recently assessed, not applicable at this time. Interventions: Self Care/Home Management: Therapist facilitated patient through ADL tasks this session to increase safety and independence in preparation for future ADLs, IADLs, and functional mobility. Patient able to demonstrate carry over skills of dressing affected side first. Therapist encouraged patient to obtain ADL items and perform grooming task in standing to challenge balance, stability, and endurance. Therapist provided verbal and visual cues on placement of rolling walker when obtaining items from closet to include placement of items to increase safety. Patient able to perform grooming task unsupported sinkside for 2 minutes and 20 seconds. Therapist and patient discussed energy conservation techniques upon returning home in the kitchen to maintain/improve endurance. Patient responded well to all cues and education this session. Equipment Provided: None issued this visit. Education: Mode of education provided: Explanation. Demonstration. Audience: Patient. Education Provided: Importance of activity. Mobility Techniques. Role of Occupational Therapy. Role of Physical Therapy. Safety. Treatment Plan. ADL's. Response: Indicates understanding. Verbalized understanding. Needs practice/reinforcement. Requires cues (auditory/physical). ASSESSMENT Response to Visit: The session was tolerated fair, as evidenced by: decreased endurance Chair alarm was on at end of session. Call lopez was in patient's reach at end of session. Pain: Patient currently complains of pain. Location: L knee . Patient describes pain as Nonspecific. Verbal Scale: Patient reports a pain level of 1 out of 10. Goal review: Short Term Goals: 1. Patient will dress LE supervision including item retrieval in 2 weeks Status: GOAL MET 2. Patient will toilet self with supervision in 2 weeks Status: Ongoing 3. Patient will transfer to toilet supervision in 2 weeks Status: GOAL MET 4. Patient will shower self supervision in 2 weeks Status: Ongoing. Patient is min/moderate assist 10/07/19 PLAN Treatment Frequency, Duration, and Intervention: Restorative Occupational Therapy recommended for 90 mins a day 1x a day for 5x a week Treatment is to include: Development of Cognitive Skills. Neuromuscular Re-education. Self Care/Home Management. Therapeutic Activity. Therapeutic Exercise. Intervention considerations/suggestions for future therapy sessions: FM coordination/strength; ADLs; IADLs; functional mobility; adaptive equipment/devices training; strengthening of bilateral UEs. ENDURANCE! INTERDISCIPLINARY PATIENT CARE PLAN Identified Problems from Team Documentation: Impaired Self Care Mgmt/ADL/IADL Self Care: Primary Team Goal: Patient will be modified independent with self cares using adaptive equipment/devices as needed by discharge./ Problem: Impaired Pain Mgmt Pain Management: Primary Team Goal : Patient will utilize pharmacologic and nonpharmacologic means to control pain, as evidenced by patient's stated goal and ability to participate in therapy./ Problem: Impaired Bladder Mgmt Bladder Management: Primary Team Goal: Patient will manage incontinence with minimal assistance./Active Bladder Management: Additional Team Goal: Patient will perform toileting transfers/tasks with minimal assistance./Active Problem: Impaired Bowel Mgmt Bowel Management: Primary Team Goal: Patient will perform toileting transfers and tasks with minimal assistance./Active Problem: Impaired Leisure Skills Problem: Impaired Mobility Mobility: Primary Team Goal : pt will ambulate 200 feet modified independent with rolling walker/ Problem: Impaired Skin Wound Management Skin Wound Management: Primary Team Goal: Patient will demonstrate signs of wound healing./Active Problem: Safety Risk and Restraint Safety Risk: Primary Team Goal : Patient will not fall during hospitalization./ Add/Update Problems from this Treatment: No updates at this time. Program: Orthopedics 3 Hour Rule Minutes: 60 minutes. Patient was seen for the full scheduled treatment time this session. Therapy Mode Minutes: Individual: 60 minutes. SESSION: Duration: 60 CHARGES: 93970 - CHARGE - OT SELF CARE ADL TRAIN-15 MIN 4 Units - ORTHOPEDIC VISIT 1 Units Total treatment minutes: 60.00 Minutes Electronically Signed by: KENDALL Smalls/Cristofer, 10/10/2019 11:35:45 AM Irais Orozco RN - 10/09/2019 5:28 PM ESTA family meeting was held this afternoon with the following in attendance; pt, pt's 3 dtrs, 1 son-in-law, 1 grand dtr; PT / OT , MANUFACTURING ENGINEERING PROFESSOR, CM. The therapies presented pt's status and progress with recommendation -Home therapies following discharge next week. Jag Roberto NP presented the benefits of home IV infusion ( pt will need IV ABX until 10/13/19 ) vs the risks staying in the inpatient setting to receive the ABX. Pt's granddtr is an RN and 2 of the dtrs are retired nurses. Pt stated her preference would be for home ( pt is unable to manage the infusion d/t poor eyesight). After family discuss the optionsthey agreed to assist pt at home with the home infusion. This radio news writer updated the [place] infusion liaison and [facility]. Pt's target date for d/c has been moved to in order to maximize pt's mobility and self care for home d/c. CM will continue to follow to assist withfacilitating a safe d/c plan. Marie Stone PTA - 10/09/2019 3:00 PM ESTPhysical Therapy Inpatient Rehabilitation Encounter Form Admitting Diagnosis: s/p mechanical fall resulting in Left periprosthetic distal femur fracture s/p Total Knee Revision with Left Distal Femoral Replacement on 09/27/2019 Rehab Diagnosis: impaired mobility and self care Rehabilitation Precautions/Restrictions: SOB with assist. WBAT. Strict I & O. High Fall risk. Ice PRN. DNR. DVT precautions SUBJECTIVE Patient Report: Pt in w/c and ready for therapy Family members present for the session. Pain: Patient currently complains of pain. Location: L knee . Patient describes pain as Aching. Verbal Scale: Patient reports a pain level of 6 out of 10. Will perform therapy only as tolerated. nursing just provided pt with pain meds OBJECTIVE Skin Integrity: surgical incision on L knee covered with aqua cell appears c/d/i, slight bloody areas under adhesive on lateral aspect but not on dressing, moderate pitting edema noted throughout L LE increased from previous session, bruising noted L posterior-lateral thigh to ankle, PICC in R UE, mepliex on medial aspect of L thigh by the groin Outcome Measures: Recently assessed, not applicable at this time. Interventions: Gait Training: Pt ambulated approximately 20 feet x 2, to and from the stairs. Pt instructed in climbing the stairs with berry handrails. Pt climbed 8 steps with supervision. Brief rest break after each set of 4. Therapeutic Activities: Pt transferred on and off eh toilet with supervision. Ambulated to the sink to wash hands demonstrating good balance. Ambulated approximately 12 feet to her bed and transferred into bed with leg flag maker and supervision with cuing provided for technique. Transferred OO with supervision and transferred into the recliner with rolling walker and supervision. Legs elevated and ice applied to the L knee. Family informed that gait belt and ice packet will go home with her. Also discussed getting a life line and wearing a dress or shift at home for eace of toileting. Education: Mode of education provided: Demonstration. Explanation. Audience: Patient/family. Education Provided: Functional transfers. Gait. Safety. Plan of care. Response: Applied knowledge. Needs practice/reinforcement. ASSESSMENT Response to Visit: The session was tolerated well. Patient reported fatigue Call lopez was in patient's reach at end of session. Intervention considerations/suggestions for future therapy sessions: s/p mechanical fall resulting in L periprosthetic fracture, s/p L revision TKA on 09/27/2019, WBAT, 7 stairs to enter with berry rails, lives alone bed mobility: min assist for R LE, has hospital bed at home transfers: CGA from w/c, min assist from lower surfaces ambulation: 80 to 100 feet with supervision and rolling walker, stairs: 4 stairs with berry rails, CGA *LE strengthening, knee ROM, standing balance, bed mobility, stairs Pain: Yes, pain is unchanged from start of today's treatment. Program: Total Joint 3 Hour Rule Minutes: 30 minutes. Patient was seen for the full scheduled treatment time this session. Therapy Mode Minutes: Individual: 30 minutes. SESSION: Duration: 30 CHARGES: 52833 - CHARGE - PT GAIT TRNG - 15 MIN 1 Units 83363 - CHARGE - PT THERAPEUTIC ACTIVITIES - 15 MIN 1 Units - TOTAL JOINT VISIT 1 Units Total treatment minutes: 30.00 Minutes Electronically Signed by: Marie Zacarias PTA, PTA 10/09/2019 4:31:49 PM Alanis Lake OT - 10/09/2019 3:00 PM ESTPatient Communication/Contact Note Patient's family approached me in the hallway in between patient's and inquired about IADL (home management) tasks ie. cooking, cleaning, cleaning dishes, etc. Therapist provided verbal and visual techniques on modifications for home environment. Patient's family educated on energy conservation techniques and safety precautions to include adaptions to environment to increase safety. SESSION: Duration: 0 CHARGES: - STAT ONLY VISIT 1 Units Total treatment minutes: 0.00 Minutes Electronically Signed by: GINO Smalls, 10/09/2019 3:13:17 PM Alanis Lake OT - 10/09/2019 1:30 PM ESTOccupational Therapy Inpatient Rehabilitation Encounter Form Admitting Diagnosis: s/p mechanical fall resulting in Left periprosthetic distal femur fracture s/p Total Knee Revision with Left Distal Femoral Replacement on 09/27/2019 Rehab Diagnosis: impaired mobility and self care Rehabilitation Precautions/Restrictions: OOB with assist. WBAT. Strict I & O. High Fall risk. Ice PRN. DNR. DVT precautions SUBJECTIVE Patient Report: "I'm good" Pain: Patient has no complaints of pain currently. OBJECTIVE No chair alarm noted at start of session. Skin Integrity: surgical incision on L knee covered with aquacell appears c/d/i, slight bloody areas under adhesive on lateral aspect but not on dressing, moderate pitting edema noted throughout L LE increased from previous session, bruising noted L posterio-lateral thigh to ankle, PICC in R UE, mepliex on medial aspect of L thigh by the groin Outcome Measures: Recently assessed, not applicable at this time. Interventions: Conference: Attended multidisciplinary family meeting with binder caser, PT, MANUFACTURING ENGINEERING PROFESSOR (Kenzie), patient, her 3 daughters, granddaughter, and son-in law. Discussed plan of care, discharge planning recommendations and self care/mobility barriers. Discussed assist levels to include in home assist to ensure safety for patient. Equipment Provided: None issued this visit. Education: Mode of education provided: Explanation. Audience: Patient. Family. Education Provided: Please see interventions above . Response: Verbalized understanding. ASSESSMENT Response to Visit: The session was tolerated well. Call lopez was in patient's reach at end of session. Intervention considerations/suggestions for future therapy sessions: FM coordination/strength; ADLs; IADLs; functional mobility; adaptive equipment/devices training; strengthening of bilateral UEs. ENDURANCE! Pain: Patient has no complaints of pain currently. Program: Orthopedics 3 Hour Rule Minutes: 0 minutes. Patient was seen for the full scheduled treatment time this session. Therapy Mode Minutes: Individual: 0 minutes. SESSION: Duration: 30 CHARGES: 18629 - CHARGE - OT PAT/SANTANA CONF - 15 MIN 2 Units - ORTHOPEDIC VISIT 1 Units Total treatment minutes: 30.00 Minutes Electronically Signed by: GINO Smalls, 10/09/2019 1:22:59 PM Marie Stone, CONSULTING UTILITY FORESTER - 10/09/2019 1:15 PM ESTPhysical Therapy Inpatient Rehabilitation Encounter Form Admitting Diagnosis: s/p mechanical fall resulting in Left periprosthetic distal femur fracture s/p Total Knee Revision with Left Distal Femoral Replacement on 09/27/2019 Rehab Diagnosis: impaired mobility and self care Rehabilitation Precautions/Restrictions: SOB with assist. WBAT. Strict I & O. High Fall risk. Ice PRN. DNR. DVT precautions SUBJECTIVE Patient Report: Pt present for family meeting with several daughters, grand daughter and son in law. Pain: Patient has no complaints of pain currently. OBJECTIVE Skin Integrity: surgical incision on L knee covered with aqua cell appears c/d/i, slight bloody areas under adhesive on lateral aspect but not on dressing, moderate pitting edema noted throughout L LE increased from previous session, bruising noted L posterior-lateral thigh to ankle, PICC in R UE, mepliex on medial aspect of L thigh by the groin Outcome Measures: Recently assessed, not applicable at this time. Interventions: Conference: Pt and above mentioned family with tool planner, OT and myself for PT present for family meeting. Discussed pt current level of function and progress made. Pt would benefit with a rolling walker and it will be ordered at d/c if going home. Education: Mode of education provided: Explanation. Audience: Patient/family. Education Provided: Functional transfers. Gait. Safety. Plan of care. Response: Verbalized understanding. ASSESSMENT Response to Visit: The session was tolerated well. family aware of pt's current level of function and progress made. To discuss with MANUFACTURING ENGINEERING PROFESSOR and tool planner appropriate placement at the time of discharge. Intervention considerations/suggestions for future therapy sessions: s/p mechanical fall resulting in L periprosthetic fracture, s/p L revision TKA on 09/27/2019, WBAT, 7 stairs to enter with berry rails, lives alone bed mobility: min assist for R LE, has hospital bed at home transfers: CGA from w/c, min assist from lower surfaces ambulation: 80 to 100 feet with supervision and rolling walker, stairs: 4 stairs with berry rails, CGA *LE strengthening, knee ROM, standing balance, bed mobility, stairs Pain: Patient has no complaints of pain currently. Program: Total Joint 3 Hour Rule Minutes: 0 minutes. Patient was seen for the full scheduled treatment time this session. Therapy Mode Minutes: Individual: 0 minutes. SESSION: Duration: 15 CHARGES: [id number] - CHARGE - PT ED and TRAIN 1PT EA 30 MIN 1 Units - TOTAL JOINT VISIT 1 Units Total treatment minutes: 15.00 Minutes Electronically Signed by: Marie Zacarias PTA, PTA 10/10/2019 4:52:13 PM Lyly Oliveira MD - 10/09/2019 12:26 PM EST Physical Medicine and Rehabilitation IRF Progress Note Subjective: Yulisa Rebollar is a 89 y.o. female. Subjective Pt seen & examined this AM bedside. No acute events overnight. Denies nausea , B[place], dizziness, CP,SOB. Afebrile Scheduled Meds: acetaminophen (TYLENOL) tablet 650 mg Oral 4x Daily aspirin 81 mg Oral Daily atorvastatin 40 mg Oral QPM calcium carb-cholecalciferol 1 tablet Oral Daily ceFAZolin sodium 2 g Intravenous Q8H enoxaparin 40 mg Subcutaneous Daily furosemide 40 mg Oral Daily sodium chloride (preservative free) 10 mL Intravenous Q12H And heparin lock flush 20 Units Intravenous Q12H levothyroxine 100 mcg Oral Daily lisinopril 5 mg Oral Daily metoprolol 50 mg Oral Daily sodium chloride 50 mL/hr Intravenous TID oseltamivir 30 mg Oral Daily rifAMPin 300 mg Oral 2 times per day saccharomyces boulardii 250 mg Oral BID senna 2 tablet Oral Nightly tramadol 50 mg Oral Daily Vitamin D3 1,000 Units Oral Daily Continuous Infusions: PRN Meds:.sodium chloride (preservative free) AND heparin lock flush AND* * sodium chloride (preservative free) AND heparin lock flush, polyethylene glycol, promethazine, tramadol AND tramadol LINES: PICC RUE, no s/s infection Objective: VITAL SIGNS: Temp: [36.3 C-36.5 C] 36.4 C Pulse: [59-90] 90 Resp: [16-18] 18 BP: (111-143)/(60-76) 120/60 SpO2: [95 %-99 %] 96 % O2 Therapy: Room air PE: General: No acute distress, alert, oriented x 3 Eyes: Eyelids without lesions HEENT: No oral thrush Cardiovascular: S1, S2, RRR Pulmonary: Clear to auscultation throughout, unlabored effort Abdominal: Soft, Non-distended, Non-tender Extremities: Calves supple, NT, +1 edema LLE, trace RLE Musculoskeletal: normal bulk and tone of all 4 limbs, no limited ROM Psych: Mood and affect normal Skin: LLE knee incision with genesis, DSD CDI. Neuro: no focal changes. DIAGNOSTIC STUDIES: CBC: Lab Results Component Value Date WBC 10.7 (H) 10/04/2019 RBC 2.49 (L) 10/04/2019 HGB 8.4 (L) 10/04/2019 HCT 24.4 (L) 10/04/2019 PLT 514 (H) 10/04/2019 CMP: Lab Results Component Value Date NA 133 (L) 10/07/2019 K 4.1 10/07/2019 CL 101 10/07/2019 BICARBONATE 21 (L) 10/07/2019 CALCIUM 7.5 (L) 10/07/2019 GLUCOSE 115 10/07/2019 BUN 13 10/07/2019 BCR 20 10/07/2019 PROT 4.6 (L) 10/07/2019 ALBUMIN 2.5 (L) 10/07/2019 TBILI 0.8 10/07/2019 ALKPHOS 71 10/07/2019 AST 27 10/07/2019 ALT <5 10/07/2019 AGRATIO 1.0 10/07/2019 GFRAA 10/07/2019 eGFR is not calculated in patients <18 or >80 years of age. GFRNONAA 10/07/2019 eGFR is not calculated in patients <18 or >80 years of age. DATA REVIEWED: allergy list , medication list and old records Assessment and Plan: Assessment & Plan Yulisa Rebollar is a 89 y.o. 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 Babb on 09/27/2019. # Impaired mobility and self-care: Acute inpatient comprehensive rehabilitation including PT, OT, RT, HOPPER FILLER, and supportive services to improve functional outcome of impaired mobility, ADL's, transfers, and self-care. # Left periprosthetic distal femur fracture now s/p Total Knee Revision with Left Distal Femoral Replacement WBAT Monitor incision, Mepilex Evaluate for staple removal 10/11/2019 F/u Dr. Babb after d/c # Positive Intra-op Tissue Culture Grew Staph epi Per Dr. Howard: 6 weeks IV Cefazolin 2gm Q8H & Rifampin 300mg BID (po) (until 11/11/2019) followed by oral cephalosporin and rifampin for another 6 months and then po cephalosporin indefinitely Continue Florastor with abx Will arrange outpt f/u with Dr. Howard Mild leukocytosis, stable at 10.7 on 10/04 Monitor routine labs wkly & PRN Dr. Howard to evaluate if alternative abx could be used outpatient for ease of administration # Pain management Tyl 650 mg 4x/day Tramadol 50 mg prior to 1st AM therpay & Q4H PRN available Frequent ice/elevation # Acute Blood Loss Anemia H/Himproved to 8.4/24.4 on 10/04 Did require 1 unit PRBC postop No signs of active bleeding Iron studies 10/03 consistent with anemia of chronic disease # CAD ASA, Statin, Metoprolol XL # Chronic Systolic Heart Failure/HTN Lasixadjusted to home regime of 40 mg daily starting 10/09 Metoprolol XL 50 mg daily Is on ACEi outpt, taken off 09/22 KIMBERLY on admission, restarted Lisinopril at 5 mg daily on 10/03 (home dose is 20 mg), continue and monitor Daily AM wts, VIGNESH diet KHT/ACEs BLE for edema control # Influenza exposure Was offered Tamiflu, initially declined as is afraid will make nausea return but wants to try it- ordered # Hyponatremia Stable at 133, ranging 128-137 # Hypothyroidism Levothyroxine 100 mcg QAM # Bowel/Bladder Aleman d/c'd, voiding, monitor PVRs until <100 x 3 consecutively Toilet schedule to help with incontinence (baseline) continue Senna QHS Last BM 10/09 # DVT prophylaxis Lovenox 40mg daily # Obesity Contributes to complexity of care Nutrition will follow # Other health maintenance Vit D hydroxy level 24, restarted Vit D 1000 units daily 10/03 Corrected Ca+ just WNL, takes Ca+ outpt, restarted 10/03 # Code status: DNR Progress in therapies: transfers supervision/min assist Patient is making progress towards the rehabilitation goals established; the patient's condition is sufficiently stable to allow the patient to actively participate in an intensive rehabilitation program. The patient requires and is able to tolerate 3 hours of therapy at least 5 days per week. The patient continues to benefit from the inpatient rehabilitation program with care provided by rehabilitation medicine team, rehabilitation nursing, occupational and physical therapies. I have updated the patient/family regarding the current status and above plans. Certain parts of this note may have been carried over from prior notes to maintain accuracy of patient's pertinent medical history and continuity of care. The details were verified and edited as appropriate. Discussed with Dr. Diego, Dr. Howard, Nursing, OT, CM ++++++++++++++++++++++++++++ Daniella Roberto MS, STRAIGHT SLICING MACHINE OPERATOR-BS Physical Medicine & Rehabilitation [facility] I saw and evaluated the patient. Discussed with the Nurse Practitioner, and agree with the Nurse Practitioner's findings as documented in the the note, with the exceptions/additions as noted below. The Nurse Practitioner's note has only been reviewed, not edited. Doing well. Family meeting today. Requires Drew for LB management. Dr Howard to look into an antibiotic alternative. Chase Marie Cristofer, CONSULTING UTILITY FORESTER - 10/09/2019 12:00 PM ESTPhysical Therapy Inpatient Rehabilitation Progress Note Attending Physician: Dr. Parirsh Admitting Diagnosis: s/p mechanical fall resulting in Left joshua prosthetic distal femur fracture s/p Total Knee Revision with Left Distal Femoral Replacement on 09/27/2019 Rehab Diagnosis: impaired mobility and self care Rehabilitation Precautions/Restrictions: SOB with assist. WBAT. Strict I & O. High Fall risk. Ice PRN. DNR. DVT precautions SUBJECTIVE Patient Report: Pt resting in recliner and agreeable to therapy Pain: Patient currently complains of pain. Location: L knee . Patient describes pain as Aching. Verbal Scale: Patient reports a pain level of 4 out of 10. Will perform therapy only as tolerated. OBJECTIVE Range of Motion: No change observed. Strength: No change observed. Skin Integrity: surgical incision on L knee covered with aqua cell appears c/d/i, slight bloody areas under adhesive on lateral aspect but not on dressing, moderate pitting edema noted throughout L LE increased from previous session, bruising noted L posterior-lateral thigh to ankle, PICC in R UE, mepliex on medial aspect of L thigh by the groin Quality Indicators Roll left and right, sit to lying, and lying to sitting on edge of bed not addressed at this time Sit to Stand Transfer: 04 - Supervision or touching assistance: Ravenna provides verbal cues and/or touching/steadying and/or contact guard assistance as patient completes activity. Assistance Provided: General supervision for safety Assistive Device(s): Arm rest(s), Walker, Gait belt Walk 150 feet: 04 - Supervision or touching assistance: Ravenna provides verbal cues and/or touching/steadying and/or contact guard assistance as patient completes activity. Assistance Provided: General supervision for safety Assistive Device(s): Rolling walker, Gait belt Stairs - Four steps: 04 - Supervision or touching assistance: Ravenna provides verbal cues and/or touching/steadying and/or contact guard assistance as patient completes activity. Assistance Provided: Verbal cueing, prompting, or instructing, General supervision for safety Assistive Device(s): Handrail(s) Pt was able to climb 8 stairs with berry handrails and close supervision Wheelchair/scooter not addressed at this time. Outcome Measures: Recently assessed, not applicable at this time. Interventions: Gait Training: Pt transferred out of the recliner to rolling walker with supervision. Ambulated 157 feet with supervision. Instructed in climbing stairs with berry handrails. Climbed 8 steps with supervision. Ambulated a second trial 140 feet with rolling walker and supervision. Therapeutic Exercise: Pt transferred on and off the mat with supervision. Instructed in supine lower extremity exercises to increase strength and ROM for improved mobility. Performed 3 x 10 reps with 3 lbs to the R LE and 0 lbs to the L LE for the following: short arc quads modified bridges heel slides with assist on the L Cuing provided throughout for form and progression Therapeutic Activities: Pt transferred on and off the toilet with rolling walker and supervision. Pt able to manage clothing and joshua care independently/supervision. Required assist to remove brief and don the new one. Ice applied to L knee at the end of the session. Equipment Provided: None issued this visit. Wheelchair Cushion Provided: Javier Basic Education: Mode of education provided: Demonstration. Explanation. Audience: Patient. Education Provided: Gait. Stair/Curb Training. Safety. Plan of care. theraputic exercises . Response: Applied knowledge. Needs practice/reinforcement. ASSESSMENT Response to Visit: The session was tolerated well. Patient reported fatigue Pt to the dining room for lunch at the end of the session. Pain: Patient currently complains of pain. Location: L knee . Patient describes pain as Aching. Verbal Scale: Patient reports a pain level of 8 out of 10. Will inform nurse. Will provide modalities. Goal Review: increased ambulation of 157 feet with rolling walker and supervision PLAN Treatment Frequency, Duration, and Intervention: Restorative Physical Therapy is recommended for 90 minutes per day, at least 5x per week for 4 weeks Treatment is to include: Gait Training. Neuromuscular Re-education. Therapeutic Activity. Therapeutic Exercise. Self Care/Home Management. Intervention considerations/suggestions for future therapy sessions: s/p mechanical fall resulting in L joshua prosthetic fracture, s/p L revision TKA on 09/27/2019, WBAT, 7 stairs to enter with berry rails, lives alone bed mobility: min assist for R LE, has hospital bed at home transfers: CGA from w/c, min assist from lower surfaces ambulation: 80 to 100 feet with supervision and rolling walker, stairs: 4 stairs with berry rails, CGA *LE strengthening, knee ROM, standing balance, bed mobility, stairs INTERDISCIPLINARY PATIENT CARE PLAN Identified Problems from Team Documentation: Impaired Self Care Mgmt/ADL/IADL Self Care: Primary Team Goal: Patient will be modified independent with self cares using adaptive equipment/devices as needed by discharge./ Problem: Impaired Bladder Mgmt Bladder Management: Primary Team Goal: Patient will be continent of urine this shift/ Problem: Impaired Bowel Mgmt Bowel Management: Primary Team Goal: Patient will be continent of stool/ Problem: Impaired Leisure Skills Problem: Impaired Mobility Mobility: Primary Team Goal : pt will ambulate 200 feet modified independent with rolling walker/ Add/Update Problems from this Treatment: No updates at this time. Program: Total Joint 3 Hour Rule Minutes: 60 minutes. Patient was seen for the full scheduled treatment time this session. Therapy Mode Minutes: Individual: 60 minutes. SESSION: Duration: 60 CHARGES: 42753 - CHARGE - PT GAIT TRNG - 15 MIN 1 Units 84674 - CHARGE - PT THER EX - 15 MIN 2 Units [id number] - CHARGE - PT THERAPEUTIC ACTIVITIES - 15 MIN 1 Units - TOTAL JOINT VISIT 1 Units Total treatment minutes: 60.00 Minutes Electronically Signed by: Marie Zacarias PTA, PTA 10/09/2019 4:19:29 PM Alanis Lake OT - 10/09/2019 11:00 AM ESTOccupational Therapy Inpatient Rehabilitation Encounter Form Admitting Diagnosis: s/p mechanical fall resulting in Left periprosthetic distal femur fracture s/p Total Knee Revision with Left Distal Femoral Replacement on 09/27/2019 Rehab Diagnosis: impaired mobility and self care Rehabilitation Precautions/Restrictions: OOB with assist. WBAT. Strict I & O. High Fall risk. Ice PRN. DNR. DVT precautions SUBJECTIVE Patient Report: "Hello again" Pain: Patient has no complaints of pain currently. OBJECTIVE No chair alarm noted at start of session. Skin Integrity: surgical incision on L knee covered with aquacell appears c/d/i, slight bloody areas under adhesive on lateral aspect but not on dressing, moderate pitting edema noted throughout L LE increased from previous session, bruising noted L posterio-lateral thigh to ankle, PICC in R UE, mepliex on medial aspect of L thigh by the groin Outcome Measures: Recently assessed, not applicable at this time. Interventions: Self Care/Home Management: Therapist facilitated patient through ADL tasks this session to increase safety and indepednence in preparation for future ADLs, IADLs, and functional mobility. Therapist encouraged patient to perform toilet transfer, toileting, and grooming this session with use of rolling walker. Therapist encouraged patient to perform tasks using rolling walker and educated patent on challenging balance, endurance, and functional mobility. Therapist performed grooming task in standing with supervision at sinkside unsupported. Therapist provided verbal cues on technique of posture and positioning of rolling walker during session. Patient responded well to all cues and education this session. Equipment Provided: None issued this visit. Education: Mode of education provided: Explanation. Demonstration. Audience: Patient. Education Provided: Importance of activity. Mobility Techniques. Role of Occupational Therapy. Role of Physical Therapy. Safety. Treatment Plan. ADL's. Response: Indicates understanding. Verbalized understanding. Needs practice/reinforcement. Requires cues (auditory/physical). ASSESSMENT Response to Visit: The session was tolerated fair, as evidenced by: decreased endurance. Call lopez was in patient's reach at end of session. Intervention considerations/suggestions for future therapy sessions: FM coordination/strength; ADLs; IADLs; functional mobility; adaptive equipment/devices training; strengthening of bilateral UEs. ENDURANCE! Pain: Patient has no complaints of pain currently. Program: Orthopedics 3 Hour Rule Minutes: 30 minutes. Patient was seen for the full scheduled treatment time this session. Therapy Mode Minutes: Individual: 30 minutes. SESSION: Duration: 30 CHARGES: 99482 - CHARGE - OT SELF CARE ADL TRAIN-15 MIN 2 Units - ORTHOPEDIC VISIT 1 Units Total treatment minutes: 30.00 Minutes Electronically Signed by: KENDALL Smalls/Cristofer, 10/09/2019 12:41:09 PM Erica Quach 10/09/2019 10:30 AM ESTTherapeutic Recreation Inpatient Rehabilitation Progress Note Attending Physician: Dr. Diego Admitting Diagnosis: s/p mechanical fall resulting in Left periprosthetic distal femur fracture s/p Total Knee Revision with Left Distal Femoral Replacement on 09/27/2019 Rehab Diagnosis: impaired mobility and self care Rehabilitation Precautions/Restrictions: OOB with assist. WBAT. Strict I & O. High Fall risk. Ice PRN. DNR. DVT precautions SUBJECTIVE Patient Reports: "Yeah those were good." Pain: Patient has no complaints of pain currently. OBJECTIVE Social Interaction: Social Interaction Score = 7, Complete [place]. Patient is completely independent for social interaction. Patient does not require medications. Interventions: Individual Therapeutic Recreation: Patient participated in an upper body endurance exercise group. Patient was able to complete each move. . Education: Mode of education provided: Explanation. Audience: Patient. Education Provided: Treatment plan. Response: Verbalized understanding. ASSESSMENT Response to Visit: The session was tolerated well. Pain: Patient has no complaints of pain currently. Progress Towards Goals: SHORT TERM GOAL REVIEW: 2. Patient will complete 8/10 of each endurance exercise for 2 sessions - Not Met: progress made Timeframe to achieve short term goal(s): 1 week PLAN Treatment Frequency, Duration, and Intervention: Continued Therapeutic Recreation services are recommended to achieve identified goals. INTERDISCIPLINARY PATIENT CARE PLAN Identified Problems from Team Documentation: Impaired Self Care Mgmt/ADL/IADL Self Care: Primary Team Goal: Patient will be modified independent with self cares using adaptive equipment/devices as needed by discharge./ Problem: Impaired Pain Mgmt Pain Management: Primary Team Goal : Patient will utilize pharmacologic and nonpharmacologic means to control pain, as evidenced by patient's stated goal and ability to participate in therapy./ Problem: Impaired Bladder Mgmt Bladder Management: Primary Team Goal: Patient will manage incontinence with minimal assistance./Active Bladder Management: Additional Team Goal: Patient will perform toileting transfers/tasks with minimal assistance./Active Problem: Impaired Bowel Mgmt Bowel Management: Primary Team Goal: Patient will perform toileting transfers and tasks with minimal assistance./Active Problem: Impaired Leisure Skills Problem: Impaired Mobility Mobility: Primary Team Goal : pt will ambulate 200 feet modified independent with rolling walker/ Problem: Impaired Skin Wound Management Skin Wound Management: Primary Team Goal: Patient will demonstrate signs of wound healing./Active Problem: Safety Risk and Restraint Safety Risk: Primary Team Goal : Patient will not fall during hospitalization./ Add/Update Problems from this Treatment: No updates at this time. Program: Therapeutic Recreation SESSION: Duration: 25 CHARGES: - THERAPEUTIC REC VISIT 1 Units Total treatment minutes: 0.00 Minutes Electronically Signed by: Jeff Rios TR, 10/09/2019 4:22:36 PM - CoSigned By: ANIRUDH Pena, 10/09/2019 4:27:27 PM Alanis Lake OT - 10/09/2019 9:30 AM ESTOccupational Therapy Inpatient Rehabilitation Progress Note Attending Physician: Dr. Diego Admitting Diagnosis: s/p mechanical fall resulting in Left periprosthetic distal femur fracture s/p Total Knee Revision with Left Distal Femoral Replacement on 09/27/2019 Rehab Diagnosis: impaired mobility and self care Rehabilitation Precautions/Restrictions: OOB with assist. WBAT. Strict I & O. High Fall risk. Ice PRN. DNR. DVT precautions SUBJECTIVE Patient Report: "I'm doing great" Pain: Patient has no complaints of pain currently. OBJECTIVE No chair alarm noted at start of session. Skin Integrity: surgical incision on L knee covered with aquacell appears c/d/i, slight bloody areas under adhesive on lateral aspect but not on dressing, moderate pitting edema noted throughout L LE increased from previous session, bruising noted L posterio-lateral thigh to ankle, PICC in R UE, mepliex on medial aspect of L thigh by the groin Cognition: Executive Function: Problem Solving. Initiation. Quality Indicators Eating and oral hygiene not addressed at this time. Shower/Bathe Self: 03 - Partial(minimal)/moderate assistance: Ravenna does less than half the effort. Ravenna lifts, holds or supports trunk or limbs but provides less than half the effort. Assistance Provided: Buttocks, Right lower leg, Left lower leg, Face Assistive Device(s): None Needs AE long handled sponge training Upper Body Dressin - Independent: Patient completed the activities by him/herself with no assistance from a helper and without use of assistive devices. Lower Body Dressin - Partial(minimal)/moderate assistance: Ravenna does less than half the effort. Ravenna lifts, holds or supports trunk or limbs but provides less than half the effort. Assistance Provided: Threading left leg through undergarment, Donning and doffing pants/skirt threading left leg Assistive Device(s): Barrel And Receiver Aligner Putting On/Off Footwear: 03 - Partial(minimal)/moderate assistance: Ravenna does less than half the effort. Ravenna lifts, holds or supports trunk or limbs but provides less than half the effort. Assistance Provided: Donning and doffing sock, right foot Assistive Device(s): Sock aid Roll left and right, sit to lying, and lying to sitting on edge of bed not addressed at this time Sit to Stand Transfer: 04 - Supervision or touching assistance: Ravenna provides verbal cues and/or touching/steadying and/or contact guard assistance as patient completes activity. Assistance Provided: General supervision for safety, Touching Assistive Device(s): Arm rest(s), Walker, Gait belt Outcome Measures: Recently assessed, not applicable at this time. Interventions: Self Care/Home Management: Therapist facilitated patient through ADL tasks this session to increase safety and independence in preparation for future ADLs, IADLs, and functional mobility. Therapist provided verbal, visual, and tactile cues for sponge bathing tasks to increase safety and independence to include thoroughness. Therapist and patient discussed discharge plans to include projected ADLs once home. Patient facilitated through sponge bathing task at bedside. Therapist encouraged patient to perform wringing motion with washcloths and educated on importance of strengthening bilateral hands for future functional tasks. Therapist provided verbal, visual, and tactile cues on technique of using AE (remediation consultant and sock aid) for LB ADLs this session. Patient responded well to all cues and education this session. Equipment Provided: None issued this visit. Education: Mode of education provided: Explanation. Demonstration. Audience: Patient. Education Provided: Importance of activity. Mobility Techniques. Role of Occupational Therapy. Role of Physical Therapy. Safety. Treatment Plan. ADL's. Response: Indicates understanding. Verbalized understanding. Needs practice/reinforcement. Requires cues (auditory/physical). ASSESSMENT Response to Visit: The session was tolerated well. Call lopez was in patient's reach at end of session. Pain: Patient has no complaints of pain currently. Goal review: Patient able to initiate use of AE (sock aid) and demonstrate good problem solving skills. PLAN Treatment Frequency, Duration, and Intervention: Restorative Occupational Therapy recommended for 90 mins a day 1x a day for 5x a week Treatment is to include: Development of Cognitive Skills. Neuromuscular Re-education. Self Care/Home Management. Therapeutic Activity. Therapeutic Exercise. Intervention considerations/suggestions for future therapy sessions: FM coordination/strength; ADLs; IADLs; functional mobility; adaptive equipment/devices training; strengthening of bilateral UEs. ENDURANCE! INTERDISCIPLINARY PATIENT CARE PLAN Identified Problems from Team Documentation: Impaired Self Care Mgmt/ADL/IADL Self Care: Primary Team Goal: Patient will be modified independent with self cares using adaptive equipment/devices as needed by discharge./ Problem: Impaired Pain Mgmt Pain Management: Primary Team Goal : Patient will utilize pharmacologic and nonpharmacologic means to control pain, as evidenced by patient's stated goal and ability to participate in therapy./ Problem: Impaired Bladder Mgmt Bladder Management: Primary Team Goal: Patient will manage incontinence with minimal assistance./Active Bladder Management: Additional Team Goal: Patient will perform toileting transfers/tasks with minimal assistance./Active Problem: Impaired Bowel Mgmt Bowel Management: Primary Team Goal: Patient will perform toileting transfers and tasks with minimal assistance./Active Problem: Impaired Leisure Skills Problem: Impaired Mobility Mobility: Primary Team Goal : pt will ambulate 200 feet modified independent with rolling walker/ Problem: Impaired Skin Wound Management Skin Wound Management: Primary Team Goal: Patient will demonstrate signs of wound healing./Active Problem: Safety Risk and Restraint Safety Risk: Primary Team Goal : Patient will not fall during hospitalization./ Add/Update Problems from this Treatment: No updates at this time. Program: Orthopedics 3 Hour Rule Minutes: 60 minutes. Patient was seen for the full scheduled treatment time this session. Therapy Mode Minutes: Individual: 60 minutes. SESSION: Duration: 60 CHARGES: 57068 - CHARGE - OT SELF CARE ADL TRAIN-15 MIN 4 Units - ORTHOPEDIC VISIT 1 Units Total treatment minutes: 60.00 Minutes Electronically Signed by: Alanis Ta OTR/Cristofer, 10/09/2019 12:32:59 PM Marie Stone, CONSULTING UTILITY FORESTER - 10/08/2019 3:00 PM ESTPhysical Therapy Inpatient Rehabilitation Encounter Form Admitting Diagnosis: s/p mechanical fall resulting in Left joshua prosthetic distal femur fracture s/p Total Knee Revision with Left Distal Femoral Replacement on 09/27/2019 Rehab Diagnosis: impaired mobility and self care Rehabilitation Precautions/Restrictions: OOB with assist. WBAT. Strict I & O. High Fall risk. Ice PRN. DNR. DVT precautions SUBJECTIVE Patient Report: Pt in recliner and agreeable to therapy Pain: Patient currently complains of pain. Location: L knee . Patient describes pain as Aching. Verbal Scale: Patient reports a pain level of 2 out of 10. OBJECTIVE Skin Integrity: surgical incision on L knee covered with aqua cell appears c/d/i, slight bloody areas under adhesive on lateral aspect but not on dressing, moderate pitting edema noted throughout L LE increased from previous session, bruising noted L posterior-lateral thigh to ankle, PICC in R UE, mepliex on medial aspect of L thigh by the groin Outcome Measures: Recently assessed, not applicable at this time. Interventions: Gait Training: Pt instructed in warm up exercises in the recliner with legs elevated. Completed 2 x 10 reps for ankle pumps and quad sets. verbal and tactile cuing provided to improve ROM. Pt transferred out of the recliner to rolling walker and ambulated to the bathroom. Demonstrated safety and the ability to manage clothing, joshua care and wahing her hands at the sink. Ambulated another 80 feet with rolling walker and supervision. transferred back to the recliner with legs elevated and ice to the L knee. Education: Mode of education provided: Demonstration. Explanation. Audience: Patient. Education Provided: Functional transfers. Gait. Safety. Plan of care. Response: Applied knowledge. Needs practice/reinforcement. ASSESSMENT Response to Visit: The session was tolerated well. Patient reported fatigue Demonstrated safety on stairs with rail with assist. Intervention considerations/suggestions for future therapy sessions: s/p mechanical fall resulting in L joshua prosthetic fracture, s/p L revision TKA on 09/27/2019, WBAT, 7 stairs to enter with berry rails, lives alone bed mobility: min assist for R LE, has hospital bed at home transfers: CGA from w/c, min assist from lower surfaces ambulation: 80 to 100 feet with supervision and rolling walker, stairs: 4 stairs with berry rails, CGA *LE strengthening, knee ROM, standing balance, bed mobility, stairs Pain: Yes, pain is unchanged from start of today's treatment. Ice reapplied to L knee at the end of the session Program: Total Joint 3 Hour Rule Minutes: 15 minutes. Patient was seen for the full scheduled treatment time this session. Therapy Mode Minutes: Individual: 15 minutes. SESSION: Duration: 15 CHARGES: 53642 - CHARGE - PT GAIT TRNG - 15 MIN 1 Units - TOTAL JOINT VISIT 1 Units Total treatment minutes: 15.00 Minutes Electronically Signed by: Marie Zacarias PTA, PTA 10/08/2019 4:02:04 PM Daniella Campos NP - 10/08/2019 1:58 PM EST Physical Medicine and Rehabilitation IRF Progress Note Subjective: Yulisa Rebollar is a 89 y.o. female. Subjective Pt seen & examined this AM bedside. No acute events overnight. No further episodes of nausea. Discussed prophylaxis Tamiflu- wants to receive. Denies [place], dizziness, CP, SOB, N/V currently. Afebrile Scheduled Meds: acetaminophen (TYLENOL) tablet 650 mg Oral 4x Daily aspirin 81 mg Oral Daily atorvastatin 40 mg Oral QPM calcium carb-cholecalciferol 1 tablet Oral Daily ceFAZolin sodium 2 g Intravenous Q8H enoxaparin 40 mg Subcutaneous Daily furosemide 20 mg Oral BID [START ON 10/09/2019] furosemide 40 mg Oral Daily sodium chloride (preservative free) 10 mL Intravenous Q12H And heparin lock flush 20 Units Intravenous Q12H levothyroxine 100 mcg Oral Daily lisinopril 5 mg Oral Daily metoprolol 50 mg Oral Daily sodium chloride 50 mL/hr Intravenous TID oseltamivir 30 mg Oral Daily rifAMPin 300 mg Oral 2 times per day saccharomyces boulardii 250 mg Oral BID senna 2 tablet Oral Nightly tramadol 50 mg Oral Daily Vitamin D3 1,000 Units Oral Daily Continuous Infusions: PRN Meds:.sodium chloride (preservative free) AND heparin lock flush AND* * sodium chloride (preservative free) AND heparin lock flush, polyethylene glycol, promethazine, tramadol AND tramadol LINES: PICC RUE, no s/s infection Objective: VITAL SIGNS: Temp: [36.4 C-36.7 C] 36.7 C Pulse: [65-78] 70 Resp: [18] 18 BP: (122-129)/(68-70) 122/68 SpO2: [95 %-97 %] 95 % O2 Therapy: Room air PE: General: No acute distress, alert, oriented x 3 Eyes: Eyelids without lesions HEENT: No oral thrush Cardiovascular: S1, S2, RRR Pulmonary: Clear to auscultation throughout, unlabored effort Abdominal: Soft, Non-distended, Non-tender Extremities: Calves supple, NT, +1 edema LLE, trace RLE Musculoskeletal: normal bulk and tone of all 4 limbs, no limited ROM Psych: Mood and affect normal Skin: LLE knee incision with genesis, DSD CDI. Neuro: no focal changes, pain left leg. DIAGNOSTIC STUDIES: CBC: Lab Results Component Value Date WBC 10.7 (H) 10/04/2019 RBC 2.49 (L) 10/04/2019 HGB 8.4 (L) 10/04/2019 HCT 24.4 (L) 10/04/2019 PLT 514 (H) 10/04/2019 CMP: Lab Results Component Value Date NA 133 (L) 10/07/2019 K 4.1 10/07/2019 CL 101 10/07/2019 BICARBONATE 21 (L) 10/07/2019 CALCIUM 7.5 (L) 10/07/2019 GLUCOSE 115 10/07/2019 BUN 13 10/07/2019 BCR 20 10/07/2019 PROT 4.6 (L) 10/07/2019 ALBUMIN 2.5 (L) 10/07/2019 TBILI 0.8 10/07/2019 ALKPHOS 71 10/07/2019 AST 27 10/07/2019 ALT <5 10/07/2019 AGRATIO 1.0 10/07/2019 GFRAA 10/07/2019 eGFR is not calculated in patients <18 or >80 years of age. GFRNONAA 10/07/2019 eGFR is not calculated in patients <18 or >80 years of age. DATA REVIEWED: allergy list , medication list and old records Assessment and Plan: Assessment & Plan Yulisa Rebollar is a 89 y.o. 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 Babb on 09/27/2019. # Impaired mobility and self-care: Acute inpatient comprehensive rehabilitation including PT, OT, RT, HOPPER FILLER, and supportive services to improve functional outcome of impaired mobility, ADL's, transfers, and self-care. # Left periprosthetic distal femur fracture now s/p Total Knee Revision with Left Distal Femoral Replacement WBAT Monitor incision, Mepilex Evaluate for staple removal 10/11/2019 F/u Dr. Babb after d/c # Positive Intra-op Tissue Culture Grew Staph epi Per Dr. Howard: 6 weeks IV Cefazolin 2gm Q8H & Rifampin 300mg BID (po) (until 11/11/2019) followed by oral cephalosporin and rifampin for another 6 months and then po cephalosporin indefinitely Continue Florastor with abx Will arrange outpt f/u with Dr. Howard Mild leukocytosis, stable at 10.7 on 10/04 Monitor routine labs wkly & PRN # Pain management Tyl 650 mg 4x/day Tramadol 50 mg prior to 1st AM therpay & Q4H PRN available Frequent ice/elevation # Acute Blood Loss Anemia H/Himproved to 8.4/24.4 on 10/04 Did require 1 unit PRBC postop No signs of active bleeding Iron studies 10/03 consistent with anemia of chronic disease # CAD ASA, Statin, Metoprolol XL # Chronic Systolic Heart Failure/HTN Lasix20 mg BID- will change to home regime of 40 mg daily starting Metoprolol XL 50 mg daily Is on ACEi outpt, taken off 09/22 KIMBERLY on admission, restarted Lisinopril at 5 mg daily on 10/03 (home dose is 20 mg) as BPs rising, continue and monitor Daily AM wts, VIGNESH diet KHT/ACEs BLE for edema control # Influenza exposure Was offered Tamiflu, initially declined as is afraid will make nausea return but wants to try it- ordered # Hyponatremia Stable at 133, ranging 128-137 # Hypothyroidism Levothyroxine 100 mcg QAM # Bowel/Bladder Aleman d/c'd, voiding, monitor PVRs until <100 x 3 consecutively Toilet schedule to help with incontinence (baseline) continue Senna QHS Last BM 10/08 # DVT prophylaxis Lovenox 40mg daily # Obesity Contributes to complexity of care Nutrition will follow # Other health maintenance Vit D hydroxy level 24, restarted Vit D 1000 units daily 10/03 Corrected Ca+ just WNL, takes Ca+ outpt, restarted 10/03 # Code status: DNR Progress in therapies: transfers min assist Patient is making progress towards the rehabilitation goals established; the patient's condition is sufficiently stable to allow the patient to actively participate in an intensive rehabilitation program. The patient requires and is able to tolerate 3 hours of therapy at least 5 days per week. The patient continues to benefit from the inpatient rehabilitation program with care provided by rehabilitation medicine team, rehabilitation nursing, occupational and physical therapies. I have updated the patient/family regarding the current status and above plans. Certain parts of this note may have been carried over from prior notes to maintain accuracy of patient's pertinent medical history and continuity of care. The details were verified and edited as appropriate. Discussed with Dr. Diego, Nursing, OT ++++++++++++++++++++++++++++ Daniella Roberto, MS, STRAIGHT SLICING MACHINE OPERATOR-BS Physical Medicine & Rehabilitation [facility] MerryMarie mora Cristofer CONSULTING UTILITY FORESTER - 10/08/2019 12:15 PM ESTPhysical Therapy Inpatient Rehabilitation Progress Note Attending Physician: Dr. Parrish Admitting Diagnosis: s/p mechanical fall resulting in Left joshua prosthetic distal femur fracture s/p Total Knee Revision with Left Distal Femoral Replacement on 09/27/2019 Rehab Diagnosis: impaired mobility and self care Rehabilitation Precautions/Restrictions: OOB with assist. WBAT. Strict I & O. High Fall risk. Ice PRN. DNR. DVT precautions SUBJECTIVE Patient Report: Pt resting in recliner and agreeable to therapy Pain: Patient currently complains of pain. Location: L knee . Patient describes pain as Aching. Verbal Scale: Patient reports a pain level of 2 out of 10. OBJECTIVE Range of Motion: No change observed. Strength: No change observed. Skin Integrity: surgical incision on L knee covered with aqua cell appears c/d/i, slight bloody areas under adhesive on lateral aspect but not on dressing, moderate pitting edema noted throughout L LE increased from previous session, bruising noted L posterior-lateral thigh to ankle, PICC in R UE, mepliex on medial aspect of L thigh by the groin Quality Indicators Roll left and right, sit to lying, and lying to sitting on edge of bed not addressed at this time Sit to Stand Transfer: 04 - Supervision or touching assistance: Ravenna provides verbal cues and/or touching/steadying and/or contact guard assistance as patient completes activity. Assistance Provided: General supervision for safety Assistive Device(s): Arm rest(s), Walker, Gait belt Walk 50 feet with Two Turns: 04 - Supervision or touching assistance: Ravenna provides verbal cues and/or touching/steadying and/or contact guard assistance as patient completes activity. Assistance Provided: General supervision for safety Assistive Device(s): Rolling walker, Gait belt Stairs - Four steps: 04 - Supervision or touching assistance: Ravenna provides verbal cues and/or touching/steadying and/or contact guard assistance as patient completes activity. Assistance Provided: Verbal cueing, prompting, or instructing, General supervision for safety Assistive Device(s): Handrail(s) Pt was able to climb 8 stairs with berry handrails and close supervision Wheelchair/scooter not addressed at this time. Outcome Measures: Recently assessed, not applicable at this time. Interventions: Gait Training: Pt transferred out of the recliner with supervision to rolling walker. Ambulated approximately 10 feet with supervision. Facilitated ambulation with the rolling walker and pt ambulated 85 feet x 2 with supervision. Posture remains kyphotic. No loss of balance noted. Required a rest break between trials. Pt instructed in climbing stairs with berry handrails. Pt climbed 8 steps with close supervision. Therapeutic Exercise: Pt instructed in seated lower extremity exercises to increase strength and ROM for improved mobility. Completed 3 x 10 reps with 2 lbs to the R LE and 0 lbs to the L LE for the following: knee ext hip flex adduction with a small ball ankle pumps/toe raises R hamstring curls with pink theraband L heel slides Cuing provided for form and progression throughout Therapeutic Activities: Pt transferred on and off the toilet with supervision. Was incontinent of urine and needed assist with changing clothes. Pt is able to manage joshua care and pants up and pants down. Pt able to demonstrate good balance and she washed her hands and backed out of the bathroom and ambulated approximately to 7 feet with supervision to the w/c. Ice applied to R knee and pt taken to the dining room for lunch. Equipment Provided: None issued this visit. Wheelchair Cushion Provided: Javier Basic Education: Mode of education provided: Demonstration. Explanation. Audience: Patient. Education Provided: Gait. Stair/Curb Training. Safety. Plan of care. theraputic exercises . Response: Applied knowledge. Needs practice/reinforcement. ASSESSMENT Response to Visit: The session was tolerated well. Patient reported fatigue Pain: Patient currently complains of pain. Location: L knee . Patient describes pain as Aching. Verbal Scale: Patient reports a pain level of 8 out of 10. Will provide modalities. Will inform nurse. Goal Review: Pt currently climbing 8 stairs with berry hand rails and close supervision PLAN Treatment Frequency, Duration, and Intervention: Restorative Physical Therapy is recommended for 90 minutes per day, at least 5x per week for 4 weeks Treatment is to include: Gait Training. Neuromuscular Re-education. Therapeutic Activity. Therapeutic Exercise. Self Care/Home Management. Intervention considerations/suggestions for future therapy sessions: s/p mechanical fall resulting in L joshua prosthetic fracture, s/p L revision TKA on 09/27/2019, WBAT, 7 stairs to enter with berry rails, lives alone bed mobility: min assist for R LE, has hospital bed at home transfers: CGA from w/c, min assist from lower surfaces ambulation: 80 to 100 feet with supervision and rolling walker, stairs: 4 stairs with berry rails, CGA *LE strengthening, knee ROM, standing balance, bed mobility, stairs INTERDISCIPLINARY PATIENT CARE PLAN Identified Problems from Team Documentation: Impaired Self Care Mgmt/ADL/IADL Self Care: Primary Team Goal: Patient will be modified independent with self cares using adaptive equipment/devices as needed by discharge./ Problem: Impaired Bladder Mgmt Bladder Management: Primary Team Goal: Patient will be continent of urine this shift/ Problem: Impaired Bowel Mgmt Bowel Management: Primary Team Goal: Patient will be continent of stool/ Problem: Impaired Leisure Skills Problem: Impaired Mobility Mobility: Primary Team Goal : pt will ambulate 200 feet modified independent with rolling walker/ Add/Update Problems from this Treatment: No updates at this time. Program: Total Joint 3 Hour Rule Minutes: 75 minutes. Patient was seen for the full scheduled treatment time this session. Therapy Mode Minutes: Individual: 75 minutes. SESSION: Duration: 75 CHARGES: 61482 - CHARGE - PT GAIT TRNG - 15 MIN 2 Units 24608 - CHARGE - PT THER EX - 15 MIN 2 Units 78331 - CHARGE - PT THERAPEUTIC ACTIVITIES - 15 MIN 1 Units - TOTAL JOINT VISIT 1 Units Total treatment minutes: 75.00 Minutes Electronically Signed by: Marie Zacarias PTA, PTA 10/08/2019 3:46:[address] - 10/08/2019 11:38 AM EST Department of Food and Nutrition Nutritional Evaluation and Care Plan Length of Stay Basic Evaluation Patient is a 89 y.o. female, admitted on with a diagnosis of Femur fracture, left. Past Medical History: Past Medical History: Diagnosis Date Arthritis Blood transfusion without reported diagnosis Hypertension Thyroid disease Past Surgical History: Past Surgical History: Procedure Laterality Date APPENDECTOMY HYSTERECTOMY JOINT REPLACEMENT AL OPEN TX FEMORAL FRACTURE DISTAL MED/LAT CONDYLE Left 09/27/2019 Procedure: LEFT TOTAL KNEE REVISION WITH LEFT DISTAL FEMORAL REPLACEMENT; Surgeon: Dexter Babb MD;Location: [facility]; Service: Orthopedics; Laterality: Left ; Home Medications: Prior to Admission medications Medication Sig Start Date End Date Taking? Authorizing Provider Acetaminophen 500 MG Oral Tablet (TYLENOL) Take 500 mg by mouth every 6 (six) hours as needed for Pain Yes Historical Provider, Aspirin 81 MG Oral Tablet Chewable Chew 81 mg by Mouth daily Yes Historical Provider, Atorvastatin Calcium 40 MG Oral Tablet (LIPITOR) Take 40 mg by mouth every evening Yes Historical Provider, Calcium Carbonate 600 MG Oral Tablet (OS-TOÑA) Take 1,000 mg by mouth Two times daily with meals Yes Historical Provider, Denosumab 60 MG/ML Subcutaneous Solution Prefilled Syringe (PROLIA) Inject 60 mg into the skin every6 (six) months Yes Historical Provider, Furosemide 40 MG Oral Tablet (LASIX) Take 40 mg by mouth daily Yes Historical Provider, Levothyroxine Sodium 100 MCG Oral Tablet (SYNTHROID, LEVOTHROID) Take 100 mcg by mouth Daily Yes Historical Provider, Metoprolol Succinate ER 50 MG Oral Tablet Extended Release 24 Hour (TOPROL-XL) Take 1 tablet by mouth daily 10/03/19 10/01/20 Yes CARLOS Moralez Lisinopril 20 MG Oral Tablet (PRINIVIL,ZESTRIL) Take 20 mg by mouth daily Historical Provider, traMADol HCl 50 MG Oral Tablet (ULTRAM) Take 50 mg by mouth every 6 (six) hours as needed for Pain Historical Provider, Vitamin D 50 MCG (2000 UT) Oral Tablet Take 2,000 Units by mouth daily Historical Provider, Multidisciplinary Problems: Principal Problem: Femur fracture, left Active Problems: Acquired hypothyroidism Compression fracture of L1 lumbar vertebra, with routine healing, subsequent encounter Essential hypertension CAD (coronary artery disease) Chronic systolic heart failure Acute blood loss anemia Hyponatremia Impaired mobility Periprosthetic fracture of shaft of femur Current Diet/Tube Feed/TPN Order: Diet Age: Adult; Diet: Modified; Modifier: Mineral Modification (Na, Iodine); Mineral Modification (Na, Iodine): No Added Salt Active, Scheduled Medications: Current Facility-Administered Medications Medication Dose Route Frequency Provider Last Rate Last Dose acetaminophen (TYLENOL) tablet 650 mg 650 mg Oral 4x Daily Daniella Roberto MANUFACTURING ENGINEERING PROFESSOR 650 mg at 10/08/19 0547 aspirin chewable tablet 81 mg 81 mg Oral Daily Daniella Roberto MANUFACTURING ENGINEERING PROFESSOR 81 mg at 10/08/19 0756 atorvastatin (LIPITOR) tablet 40 mg 40 mg Oral QPM Daniella Roberto MANUFACTURING ENGINEERING PROFESSOR 40 mg at 10/07/192036 calcium carb-cholecalciferol 250-125 MG-UNIT per tablet 1 tablet 1 tablet Oral Daily Daniella Pyle MANUFACTURING ENGINEERING PROFESSOR 1 tablet at 10/07/19 1208 ceFAZolin (ANCEF) IVPB 2 g in dextrose (premix) 2 g Intravenous Q8H Lyly Diego MD Stopped at 10/08/19 0625 enoxaparin sodium (LOVENOX) injection 40 mg 40 mg Subcutaneous Daily Daniella Roberto NP 40 mg at 10/08/19 0758 furosemide (LASIX) tablet 20 mg 20 mg Oral BID Daniella Roberto MANUFACTURING ENGINEERING PROFESSOR 20 mg at 10/08/19 0757 sodium chloride (preservative free) 0.9 % flush 10 mL 10 mL Intravenous PRN Daniella Roberto MANUFACTURING ENGINEERING PROFESSOR 10 mL at 10/06/19 0823 And heparin lock flush 10 UNIT/ML injection 20 Units 20 Units Intravenous PRN Daniella Roberto MANUFACTURING ENGINEERING PROFESSOR 20 Units at 10/06/19 0252 And sodium chloride (preservative free) 0.9 % flush 10 mL 10 mL Intravenous Q12H Daniella Roberto MANUFACTURING ENGINEERING PROFESSOR 10 mL at 10/08/19 0547 And heparin lock flush 10 UNIT/ML injection 20 Units 20 Units Intravenous Q12H Daniella Roberto MANUFACTURING ENGINEERING PROFESSOR 20 Units at 10/08/19 0548 levothyroxine (SYNTHROID, LEVOTHROID) tablet 100 mcg 100 mcg Oral Daily Daniella Roberto NP 100 mcg at 10/08/19 0547 lisinopril (PRINIVIL,ZESTRIL) tablet 5 mg 5 mg Oral Daily Daniella Roberto NP 5 mg at 10/08/19 0756 metoprolol (TOPROL-XL) 24 hr tablet 50 mg 50 mg Oral Daily Daniella Roberto NP 50 mg at 10/08/19 0757 NaCl infusion 0.9 % 50 mL/hr Intravenous TID Lyly Diego MD Stopped at 10/08/19 0651 oseltamivir (TAMIFLU) capsule 30 mg 30 mg Oral Daily Daniella Roberto NP polyethylene glycol (MIRALAX) packet 17 g 17 g Oral Daily PRN Daniella Roberto NP promethazine (PHENERGAN) tablet 25 mg 25 mg Oral Q6H PRN Miko Ibarra MD 25 mg at 10/04/19 0332 rifAMPin (RIFADIN) capsule 300 mg 300 mg Oral 2 times per day Lyly Diego MD 300 mg at 10/08/19 0757 saccharomyces boulardii (FLORASTOR) capsule 250 mg 250 mg Oral BID Daniella D Pardeep, MANUFACTURING ENGINEERING PROFESSOR 250 mg at 10/08/19 075 senna 8.6 MG 2 tablet 2 tablet Oral Nightly Daniella D Pardeep MANUFACTURING ENGINEERING PROFESSOR 2 tablet at 10/07/192036 tramadol (ULTRAM) tablet 50 mg 50 mg Oral Daily Daniella Roberto, MANUFACTURING ENGINEERING PROFESSOR 50 mg at 10/08/19 0757 And tramadol (ULTRAM) tablet 50 mg 50 mg Oral Q4H PRN Daniella Roberto, MANUFACTURING ENGINEERING PROFESSOR 50 mg at 10/07/19 1544 Vitamin D3 (CHOLECALCIFEROL) tablet 1,000 Units 1,000 Units Oral Daily Daniella D Pardeep MANUFACTURING ENGINEERING PROFESSOR 1,000 Units at 10/07/19 1208 Allergies: Aspirin; Spironolactone; Macrobid [nitrofurantoin macrocrystal]; and Sulfa antibiotics Cultural/Holiness/Ethnic food preferences: None. Recent Labs Lab 10/07/19 0618 NA 133* CL 101 BUN 13 GLUCOSE 115 K 4.1 BICARBONATE 21* CREATININE 0.65 CALCIUM 7.5* ALBUMIN 2.5* Interview: Ms. Rebollar presented s/p fall with left femoral fracture. She has PMH of CHF, CAD, IA. +7.4L since admit. She is on 40 mg Lasix at home and on 20 mg BID inpatient. Cr has been WNL. Patient's daily meal orders contain <2.2 g sodium with average of 2 gm. Average meal intake is ~57% so actual sodium intake is likely significantly lower than 2 gm per day. Ms. Rebollar states her usual weight is 140 lbs. She weighs herself once a week. Weight gain inpatient is likely related to orthopedic injury. Patient states her baseline appetite is poor and the portions she is receiving are far too large. She feels she is eating her usual amount of food that she does at home. Pt also stated she is receivingmeals without input on what to provide. RD retrieved her meal order for tonight and three meals tomorrow as the menu print is too small for her to read. Learning or discharge needs identified: None identified. Height: 154.9 cm Weight: 69.9 kg (154 lb) Weight Method: Actual: Bed scale Body Mass Index: Body mass index is 29.1 kg/m. IBW Range (kg): 47.7 kg +/- 10% Weight change: -0.907 kg (-2 lb) Significant gain Vitals - 1 value per visit Weight (kg) 09/25/2019 64.864 kg 10/08/2019 69.854 kg Obesity or underweight? No Malnutrition Identified: No Malnutrition Criteria: N/A Skin: Surgical Wound: s/p R knee replacement with distal femoral replacement Nutrition Obstacles: Inadequate PO Intake Energy/Protein Requirement based on: 63.6 (stated dry wt) Current Protein Needs: 1 - 1.2 g per kg body wt. = 64 - 76 g Current Energy Needs: 25 - 30 kcal per kg body wt. = 1590 - 1908 kcal Estimated Fluid Needs: 1500 mL or per MD I/O last 3 completed shifts: In: 1541.6 [P.O.:1020; I.V.:121.4; IV Piggyback:400.2] Out: - I/O this shift: In: 180 [P.O.:180] Out: - Nutrition Diagnostic Statement(s): Patient is at nutritional risk. Current risk is Moderate. Patient is found to have inadequate protein-energy intake related to poor/ decreased appetite as evidenced by consumption of meals percent less than or equal to 26-50%. Nutrition Intervention(s): Nutrition Prescription/Diet Order: No added salt Nutrition Goal(s)/Outcome(s): Patient will consume at least 50% q meal for the remainder of her stay. Patient will be free from fluid overload for the remainder of her stay. Refer to Patient Education for current learning assessment and patient education needs. Refer to Care Plan for Interdisciplinary Care Plan documentation. Recommendations: Continue no added salt diet Encourage PO intake Monitoring/Evaluation: Labs, Weight and I&O Alanis Lake OT - 10/08/2019 11: 00 AM ESTOccupational Therapy Inpatient Rehabilitation Encounter Form Admitting Diagnosis: s/p mechanical fall resulting in Left periprosthetic distal femur fracture s/p Total Knee Revision with Left Distal Femoral Replacement on 09/27/2019 Rehab Diagnosis: impaired mobility and self care Rehabilitation Precautions/Restrictions: OOB with assist. WBAT. Strict I & O. High Fall risk. Ice PRN. DNR. DVT precautions SUBJECTIVE Patient Report: "I'm doing alright" Pain: Patient currently complains of pain. Location: L knee . Patient describes pain as Nonspecific. Verbal Scale: Patient reports a pain level of 2 out of 10. OBJECTIVE Chair alarm was on at start of session. Skin Integrity: surgical incision on L knee covered with aquacell appears c/d/i, slight bloody areas under adhesive on lateral aspect but not on dressing, moderate pitting edema noted throughout L LE increased from previous session, bruising noted L posterio-lateral thigh to ankle, PICC in R UE, mepliex on medial aspect of L thigh by the groin Outcome Measures: Recently assessed, not applicable at this time. Interventions: Patient/Family Education: Therapist and patient discussed discharge plans and home set up this session to direct future therapy session prior to going home. Therapist educated patient on pre-planning tasks and energy conservation techniques prior to going home. Therapist provided and added basket to rolling walker to increase safety and independent in future functional tasks. Therapist provided verbal and visual cues on transporting items via walker/basket from place to place to ensure 100% accuracy while decreasing fall risk. Patient educated on importance of performing tasks in seated position to include modifications within the home to increase/maintain endurance. Therapist donned marleny wraps on bilateral LEs to decrease edema and patient educated on decreasing edema techniques. Patient responded well to all cues and education this session. Equipment Provided: None issued this visit. Education: Mode of education provided: Explanation. Demonstration. Audience: Patient. Education Provided: Importance of activity. Mobility Techniques. Role of Occupational Therapy. Role of Physical Therapy. Safety. Treatment Plan. ADL's. Response: Indicates understanding. Verbalized understanding. Needs practice/reinforcement. Requires cues (auditory/physical). ASSESSMENT Response to Visit: The session was tolerated well. Call lopez was in patient's reach at end of session. Intervention considerations/suggestions for future therapy sessions: FM coordination/strength; ADLs; IADLs; functional mobility; adaptive equipment/devices training; strengthening of bilateral UEs. ENDURANCE! Pain: Yes, pain is unchanged from start of today's treatment. Program: Orthopedics 3 Hour Rule Minutes: 30 minutes. Patient was seen for the full scheduled treatment time this session. Therapy Mode Minutes: Individual: 30 minutes. SESSION: Duration: 30 CHARGES: 51439 - CHARGE - OT SELF CARE ADL TRAIN-15 MIN 2 Units - ORTHOPEDIC VISIT 1 Units Total treatment minutes: 30.00 Minutes Electronically Signed by: KENDALL Smalls/Cristofer, 10/08/2019 11:13:23 AM Irais Orozco RN - 10/08/2019 9:53 AM ESTPt discuss in team rounds -see therapy team meeting notes. Pt and family have been updated with the target (tentative) date of 10/14/19 currently set for d/c. This radio news writer met with pt's dtr Nadine and confirmed family would be receptive to a family meeting set up for Weds. ; to discuss options for d/c planning. Nadine confirmed she updated her siblings and they will attend. Pt has been updated. Alanis Lake OT - 10/08/2019 9:30 AM ESTOccupational Therapy Inpatient Rehabilitation Progress Note Attending Physician: Dr. Diego Admitting Diagnosis: s/p mechanical fall resulting in Left periprosthetic distal femur fracture s/p Total Knee Revision with Left Distal Femoral Replacement on 09/27/2019 Rehab Diagnosis: impaired mobility and self care Rehabilitation Precautions/Restrictions: OOB with assist. WBAT. Strict I & O. High Fall risk. Ice PRN. DNR. DVT precautions SUBJECTIVE Patient Report: "My breakfast is good" Pain: Patient currently complains of pain. Location: L knee . Patient describes pain as Nonspecific. Verbal Scale: Patient reports a pain level of 2 out of 10. OBJECTIVE No chair alarm noted at start of session. Skin Integrity: surgical incision on L knee covered with aquacell appears c/d/i, slight bloody areas under adhesive on lateral aspect but not on dressing, moderate pitting edema noted throughout L LE increased from previous session, bruising noted L posterio-lateral thigh to ankle, PICC in R UE, mepliex on medial aspect of L thigh by the groin Cognition: Executive Function: Initiation. Problem Solving. Quality Indicators Eatin - Setup or clean-up assistance: Ravenna sets up or cleans up; patient completes activity. Ravenna assists only prior to or following the activity. Assistance Provided: Opening containers, Opening cartons Assistive Device(s): None Oral Hygiene: 05 - Setup or clean-up assistance: Ravenna sets up or cleans up; patient completes activity. Ravenna assists only prior to or following the activity. Assistance Provided: Setup assistance Assistive Device(s): None Toileting hygiene and showering/bathing not addressed at this time. Upper Body Dressin - Supervision or touching assistance: Ravenna provides verbal cues and/or touching/steadying and/or contact guard assistance as patient completes activity. Assistance Provided: Stand by assistance Assistive Device(s): None Lower Body Dressin - Supervision or touching assistance: Ravenna provides verbal cues and/or touching/steadying and/or contact guard assistance as patient completes activity. Assistance Provided: Verbal cueing, prompting, or instructing, General supervision for safety, Touching Assistive Device(s): Barrel And Receiver Aligner Putting On/Off Footwear: 04 - Supervision or touching assistance: Ravenna provides verbal cues and/or touching/steadying and/or contact guard assistance as patient completes activity. Assistance Provided: Verbal cueing, prompting, or instructing, General supervision for safety, Touching Assistive Device(s): Barrel And Receiver Aligner, Sock aid Roll left and right, sit to lying, and lying to sitting on edge of bed not addressed at this time Sit to Stand Transfer: 04 - Supervision or touching assistance: Ravenna provides verbal cues and/or touching/steadying and/or contact guard assistance as patient completes activity. Assistance Provided: Verbal cueing, prompting, or instructing, General supervision for safety, Contact guard Assistive Device(s): Arm rest(s), Gait belt Outcome Measures: Recently assessed, not applicable at this time. Interventions: Self Care/Home Management: Therapist facilitated patient through ADL tasks this session to increase safety and independence in preparation for future ADLs, IADLs, and functional mobility. Therapist educated patient on functional mobility and provided verbal and visual cues on technique to include posture and positioning of rolling walker to obtain ADL items. Therapist provided verbal and visual cues on placement of items on walker to increase safety and indepdnence. Patient educated on importance of performing grooming task in standing to increase strength and endurance. Therapist provided verbal and visual cues on AE (remediation consultant and sock aide) to perform LB ADL tasks this session. Patient responded well to all cues and education this session. Equipment Provided: None issued this visit. Education: Mode of education provided: Explanation. Demonstration. Audience: Patient. Education Provided: Importance of activity. Mobility Techniques. Role of Occupational Therapy. Role of Physical Therapy. Safety. Treatment Plan. ADL's. Response: Indicates understanding. Verbalized understanding. Needs practice/reinforcement. Requires cues (auditory/physical). ASSESSMENT Response to Visit: The session was tolerated fair, as evidenced by: decreased endurance and increased discomfort with functional mobility Chair alarm was on at end of session. Call lopez was in patient's reach at end of session. Pain: Patient currently complains of pain. Location: L knee . Patient describes pain as Nonspecific. Verbal Scale: Patient reports a pain level of 5 out of 10. Goal review: Patient performed grooming in seated with supervision. PLAN Treatment Frequency, Duration, and Intervention: Restorative Occupational Therapy recommended for 90 mins a day 1x a day for 5x a week Treatment is to include: Development of Cognitive Skills. Neuromuscular Re-education. Self Care/Home Management. Therapeutic Activity. Therapeutic Exercise. Intervention considerations/suggestions for future therapy sessions: FM coordination/strength; ADLs; IADLs; functional mobility; adaptive equipment/devices training; strengthening of bilateral UEs. ENDURANCE! INTERDISCIPLINARY PATIENT CARE PLAN Identified Problems from Team Documentation: Impaired Self Care Mgmt/ADL/IADL Self Care: Primary Team Goal: Patient will be modified independent with self cares using adaptive equipment/devices as needed by discharge./ Problem: Impaired Pain Mgmt Pain Management: Primary Team Goal : Patient will utilize pharmacologic and nonpharmacologic means to control pain, as evidenced by patient's stated goal and ability to participate in therapy./ Problem: Impaired Bladder Mgmt Bladder Management: Primary Team Goal: Patient will manage incontinence with minimal assistance./Active Bladder Management: Additional Team Goal: Patient will perform toileting transfers/tasks with minimal assistance./Active Problem: Impaired Bowel Mgmt Bowel Management: Primary Team Goal: Patient will perform toileting transfers and tasks with minimal assistance./Active Problem: Impaired Leisure Skills Problem: Impaired Mobility Mobility: Primary Team Goal : pt will ambulate 200 feet modified independent with rolling walker/ Problem: Impaired Skin Wound Management Skin Wound Management: Primary Team Goal: Patient will demonstrate signs of wound healing./Active Problem: Safety Risk and Restraint Safety Risk: Primary Team Goal : Patient will not fall during hospitalization./ Add/Update Problems from this Treatment: No updates at this time. Program: Orthopedics 3 Hour Rule Minutes: 60 minutes. Patient was seen for the full scheduled treatment time this session. Therapy Mode Minutes: Individual: 60 minutes. SESSION: Duration: 60 CHARGES: 17554 - CHARGE - OT SELF CARE ADL TRAIN-15 MIN 4 Units - ORTHOPEDIC VISIT 1 Units Total treatment minutes: 60.00 Minutes Electronically Signed by: KENDALL Smalls/Cristofer, 10/08/2019 9:36:03 AM Marion Zarco DO - 10/07/2019 4:34 PM ESTOffered patient Tamiflu for influenza prophylaxis given potential exposure due to nurse who recentlyworked on unit being diagnosed with the flu. Patient stated that she does not know if she wants to take an additional pill at this time. I explained to patient the symptoms to look out for and asked her to let nursing know if she decides she would like to take Tamiflu for prophylaxis so that provider can be contact to order this medication. Patient understood and was agreeable to this plan. Marion Vargas DO PGY4 Resident Physical Medicine & Rehabilitation Pager #[phone] signed by Marion Vargas DO at 2019 4:38 PM Solange Sauer RN - 10/07/2019 3:54 PM BART have reviewed and agree with previous assessment technician. Safety precautions maintained. Marie Stone PTA - 10/07/2019 3:20 PM ESTPhysical Therapy Inpatient Rehabilitation Encounter Form Admitting Diagnosis: s/p mechanical fall resulting in Left joshua prosthetic distal femur fracture s/p Total Knee Revision with Left Distal Femoral Replacement on 09/27/2019 Rehab Diagnosis: impaired mobility and self care Rehabilitation Precautions/Restrictions: SOB with assist. WBAT. Strict I & O. High Fall risk. Ice PRN. DNR. DVT precautions SUBJECTIVE Patient Report: Pt in recliner and agreeable to therapy Pain: Patient currently complains of pain. Location: L knee . Patient describes pain as Aching. Verbal Scale: Patient reports a pain level of 3 out of 10. OBJECTIVE Skin Integrity: surgical incision on L knee covered with aqua cell appears c/d/i, slight bloody areas under adhesive on lateral aspect but not on dressing, moderate pitting edema noted throughout L LE increased from previous session, bruising noted L posterior-lateral thigh to ankle, PICC in R UE, mepliex on medial aspect of L thigh by the groin Outcome Measures: Recently assessed, not applicable at this time. Interventions: Therapeutic Activities: Pt transferred out of the recliner with rolling walker and supervision. Working on transfers on and of the mat with assist of the leg flag maker and min assist for sit to/from supine. Pt instructed in supine lower extremity exercises to increase strength and ROM for improved mobility. Performed 3 x 10 reps with 2 lbs to the R LE and 0 lbs to the L LE. Completed short arc quads and ankle pumps. Pt transferred on and off the toilet with supervision. Pt able to manage joshua care and clothing , however needed assist with changing her brief. Pt reports she usually wears pads at home. Ambulated approximately 20 feet to the bed and transferred into bed with assist of the leg flag maker and min/contact assist to get 1 leg in. Gait Training: Facilitated ambulation with a rolling walker. Pt ambulated 140 feet with close supervision. Initial cuing for upright posture and forward gaze with little change. Pt denied feeling SOB at the end of the session. Education: m Mode of education provided: Demonstration. Explanation. Audience: Patient. Education Provided: Functional transfers. Gait. Safety. Plan of care. theraputic exercise . Response: Applied knowledge. Needs practice/reinforcement. ASSESSMENT Response to Visit: The session was tolerated well. Patient reported fatigue Call lopez was in patient's reach at end of session. Intervention considerations/suggestions for future therapy sessions: s/p mechanical fall resulting in L joshua prosthetic fracture, s/p L revision TKA on 09/27/2019, WBAT, 7 stairs to enter with berry rails, lives alone bed mobility: min assist for R LE, has hospital bed at home transfers: CGA from w/c, min assist from lower surfaces ambulation: 28' with CGA rolling walker, w/c follow for safety stairs: 4 stairs with berry rails, CGA *LE strengthening, knee ROM, standing balance, bed mobility, stairs Pain: Patient currently complains of pain. Location: L knee . Patient describes pain as Aching. Verbal Scale: Patient reports a pain level of 6 out of 10. Will provide modalities. Ice applied at the end of the session Program: Orthopedics 3 Hour Rule Minutes: 40 minutes. Patient was seen for the full scheduled treatment time this session. Therapy Mode Minutes: Individual: 40 minutes. SESSION: Duration: 40 CHARGES: 01290 - CHARGE - PT GAIT TRNG - 15 MIN 1 Units 00187 - CHARGE - PT THERAPEUTIC ACTIVITIES - 15 MIN 2 Units - ORTHOPEDIC VISIT 1 Units Total treatment minutes: 40.00 Minutes Electronically Signed by: Marie Zacarias PTA, PTA 10/07/2019 4:27:56 PM Marie Stone PTA - 10/07/2019 12:00 PM ESTPhysical Therapy Inpatient Rehabilitation Progress Note Attending Physician: Dr. Diego Admitting Diagnosis: s/p mechanical fall resulting in Left joshua prosthetic distal femur fracture s/p Total Knee Revision with Left Distal Femoral Replacement on 09/27/2019 Rehab Diagnosis: impaired mobility and self care Rehabilitation Precautions/Restrictions: SOB with assist. WBAT. Strict I & O. High Fall risk. Ice PRN. DNR. DVT precautions SUBJECTIVE Patient Report: pt in w/c and ready for therapy Pain: Patient currently complains of pain. Location: L anterior knee . Patient describes pain as Aching. Verbal Scale: Patient reports a pain level of 3 out of 10. OBJECTIVE Chair alarm was on at start of session. Range of Motion: No change observed. Strength: No change observed. Skin Integrity: surgical incision on L knee covered with aqua cell appears c/d/i, slight bloody areas under adhesive on lateral aspect but not on dressing, moderate pitting edema noted throughout L LE increased from previous session, bruising noted L posterior-lateral thigh to ankle, PICC in R UE, mepliex on medial aspect of L thigh by the groin Quality Indicators Roll left and right, sit to lying, and lying to sitting on edge of bed not addressed at this time Sit to Stand Transfer: 04 - Supervision or touching assistance: Ravenna provides verbal cues and/or touching/steadying and/or contact guard assistance as patient completes activity. Assistance Provided: General supervision for safety Assistive Device(s): Arm rest(s), Walker, Gait belt Walk 50 feet with Two Turns: 04 - Supervision or touching assistance: Ravenna provides verbal cues and/or touching/steadying and/or contact guard assistance as patient completes activity. Assistance Provided: General supervision for safety Assistive Device(s): Rolling walker, Gait belt Pt ambulated 100 feet with w/c pulled along by therapist Stairs - Four steps: 04 - Supervision or touching assistance: Ravenna provides verbal cues and/or touching/steadying and/or contact guard assistance as patient completes activity. Assistance Provided: Contact guard Assistive Device(s): Handrail(s), Gait belt Stairs - Four steps: 06 - Independent: Patient completed the activities by him/herself with no assistance from a helper and without use of assistive devices. Wheelchair/scooter not addressed at this time. Outcome Measures: Recently assessed, not applicable at this time. Interventions: Therapeutic Exercise: Pt instructed in seated lower extremity exercises to increase strength and ROM for improved mobility. Completed 3 x 10 reps with 2 lbs to the R LE and 0 lbs to the L LE for the following: knee ext hip flex ankle pumps Cuing provided for form and progression throughout Gait Training: Facilitated ambulation with a rolling walker. Pt transitioned sit to stand with supervision. Ambulated 90 feet with close supervision. Initial cuing for upright posture and forward gaze. Ambulated a second trial of 100 feet with rolling walker and the same level of assist. Instructed in climbing a 6 " step within the parallel bars. Pt climbed the step x 4 with contact assist. Following a rest break, climbed the practice stairs with berry hand rails. Pt climbed 4 steps with contact assist. Equipment Provided: None issued this visit. Wheelchair Cushion Provided: Javier Basic Education: Mode of education provided: Demonstration. Explanation. Audience: Patient. Education Provided: Gait. Stair/Curb Training. Safety. Plan of care. theraputic exercises . Response: Applied knowledge. Needs practice/reinforcement. ASSESSMENT Response to Visit: The session was tolerated well. Patient reported fatigue Pain: Patient currently complains of pain. Location: L knee . Patient describes pain as Aching. Verbal Scale: Patient reports a pain level of 6 out of 10. Will provide modalities. Goal Review: Pt with increased ambulation with rolling walker of 100 feet and close supervision. Climbs 4 steps with berry hand rails and contact assist PLAN Treatment Frequency, Duration, and Intervention: Restorative Physical Therapy is recommended for 90 minutes per day, at least 5x per week for 4 weeks Treatment is to include: Gait Training. Neuromuscular Re-education. Therapeutic Activity. Therapeutic Exercise. Self Care/Home Management. Intervention considerations/suggestions for future therapy sessions: s/p mechanical fall resulting in L joshua prosthetic fracture, s/p L revision TKA on 09/27/2019, WBAT, 7 stairs to enter with berry rails, lives alone bed mobility: min assist for R LE, has hospital bed at home transfers: CGA from w/c, min assist from lower surfaces ambulation: 28' with CGA rolling walker, w/c follow for safety stairs: 4 stairs with berry rails, CGA *LE strengthening, knee ROM, standing balance, bed mobility, stairs INTERDISCIPLINARY PATIENT CARE PLAN Identified Problems from Team Documentation: Impaired Self Care Mgmt/ADL/IADL Self Care: Primary Team Goal: Patient will be modified independent with self cares using adaptive equipment/devices as needed by discharge./ Problem: Impaired Bladder Mgmt Bladder Management: Primary Team Goal: Patient will be continent of urine this shift/ Problem: Impaired Bowel Mgmt Bowel Management: Primary Team Goal: Patient will be continent of stool/ Problem: Impaired Leisure Skills Problem: Impaired Mobility Mobility: Primary Team Goal : pt will ambulate 200 feet modified independent with rolling walker/ Add/Update Problems from this Treatment: No updates at this time. Program: Orthopedics 3 Hour Rule Minutes: 60 minutes. Patient was seen for the full scheduled treatment time this session. Therapy Mode Minutes: Individual: 60 minutes. SESSION: Duration: 60 CHARGES: 92071 - CHARGE - PT GAIT TRNG - 15 MIN 2 Units [id number] - CHARGE - PT THER EX - 15 MIN 2 Units - ORTHOPEDIC VISIT 1 Units Total treatment minutes: 60.00 Minutes Electronically Signed by: Marie Zacarias PTA, PTA 10/07/2019 3:59:25 PM Lyly Oliveira MD - 10/07/2019 11:10 AM EST Physical Medicine and Rehabilitation IRF Progress Note Subjective: Yulisa Rebollar is a 89 y.o. female. Subjective Pt seen & examined this AM bedside. No acute events overnight, no new c/o. Using ice L knee. Changed Rifampin to po. Denies B[place], dizziness, CP, SOB, N/V currently. Afebrile Scheduled Meds: acetaminophen (TYLENOL) tablet 650 mg Oral 4x Daily aspirin 81 mg Oral Daily atorvastatin 40 mg Oral QPM calcium carb-cholecalciferol 1 tablet Oral Daily ceFAZolin sodium 2 g Intravenous Q8H enoxaparin 40 mg Subcutaneous Daily furosemide 20 mg Oral BID sodium chloride (preservative free) 10 mL Intravenous Q12H And heparin lock flush 20 Units Intravenous Q12H levothyroxine 100 mcg Oral Daily lisinopril 5 mg Oral Daily metoprolol 50 mg Oral Daily sodium chloride 50 mL/hr Intravenous 4 Times Daily rifAMPin 300 mg Oral 2 times per day saccharomyces boulardii 250 mg Oral BID senna 2 tablet Oral Nightly tramadol 50 mg Oral Daily Vitamin D3 1,000 Units Oral Daily Continuous Infusions: PRN Meds:.sodium chloride (preservative free) AND heparin lock flush AND* * sodium chloride (preservative free) AND heparin lock flush, polyethylene glycol, promethazine, tramadol AND tramadol LINES: PICC RUE, no s/s infection Objective: VITAL SIGNS: Temp: [36.5 C-36.6 C] 36.5 C Pulse: [70-84] 84 Resp: [16-18] 18 BP: (124-154)/(68-75) 132/68 SpO2: [98 %-99 %] 99 % O2 Therapy: Room air PE: General: No acute distress, alert, oriented x 3 Eyes: Eyelids without lesions HEENT: No oral thrush Cardiovascular: S1, S2, RRR Pulmonary: Clear to auscultation throughout, unlabored effort Abdominal: Soft, Non-distended, Non-tender Extremities: Calves supple, NT, +1 edema LLE Musculoskeletal: normal bulk and tone of all 4 limbs, no limited ROM Psych: Mood and affect normal Skin: LLE knee incision with genesis, DSD CDI. Neuro: no focal changes, pain left leg. DIAGNOSTIC STUDIES: CBC: Lab Results Component Value Date WBC 10.7 (H) 10/04/2019 RBC 2.49 (L) 10/04/2019 HGB 8.4 (L) 10/04/2019 HCT 24.4 (L) 10/04/2019 PLT 514 (H) 10/04/2019 CMP: Lab Results Component Value Date NA 133 (L) 10/07/2019 K 4.1 10/07/2019 CL 101 10/07/2019 BICARBONATE 21 (L) 10/07/2019 CALCIUM 7.5 (L) 10/07/2019 GLUCOSE 115 10/07/2019 BUN 13 10/07/2019 BCR 20 10/07/2019 PROT 4.6 (L) 10/07/2019 ALBUMIN 2.5 (L) 10/07/2019 TBILI 0.8 10/07/2019 ALKPHOS 71 10/07/2019 AST 27 10/07/2019 ALT <5 10/07/2019 AGRATIO 1.0 10/07/2019 GFRAA 10/07/2019 eGFR is not calculated in patients <18 or >80 years of age. GFRNONAA 10/07/2019 eGFR is not calculated in patients <18 or >80 years of age. DATA REVIEWED: allergy list , medication list and old records Assessment and Plan: Assessment & Plan Yulisa Rebollar is a 89 y.o. 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 Babb on 09/27/2019. # Impaired mobility and self-care: Acute inpatient comprehensive rehabilitation including PT, OT, RT, HOPPER FILLER, and supportive services to improve functional outcome of impaired mobility, ADL's, transfers, and self-care. # Left periprosthetic distal femur fracture now s/p Total Knee Revision with Left Distal Femoral Replacement WBAT Monitor incision, Mepilex Evaluate for staple removal 10/11/2019 F/u Dr. Babb after d/c # Positive Intra-op Tissue Culture Grew Staph epi Per Dr. Howard: 6 weeks IV Cefazolin 2gm Q8H & Rifampin 300mg BID ( until 11/11/2019) followed by oral cephalosporin and rifampin for another 6 months and then po cephalosporin indefinitely Continue Florastor with abx Will arrange outpt f/u with Dr. Howard Mild leukocytosis, stable at 10.7 on 10/04 Monitor routine labs wkly & PRN # Pain management Tyl 650 mg 4x/day Tramadol 50 mg prior to 1st AM therpay & Q4H PRN available Frequent ice/elevation # Acute Blood Loss Anemia H/Himproved to 8.4/24.4 on 10/04 Did require 1 unit PRBC postop No signs of active bleeding Iron studies 10/03 consistent with anemia of chronic disease # CAD ASA, Statin, Metoprolol XL # Chronic Systolic Heart Failure/HTN Lasix20 mg BID Metoprolol XL 50 mg daily Is on ACEi outpt, taken off 09/22 KIMBERLY on admission, restarted Lisinopril at 5 mg daily on 10/03 (home dose is 20 mg) as BPs rising, continue and monitor Daily AM wts, VIGNESH diet # Hyponatremia Stable at 133, ranging 128-137 # Hypothyroidism Levothyroxine 100 mcg QAM # Bowel/Bladder Aleman d/c'd, voiding, monitor PVRs until <100 x 3 consecutively Toilet schedule to help with incontinence (baseline) continue Senna QHS Last BM 10/07, large # DVT prophylaxis Lovenox 40mg daily # Obesity Contributes to complexity of care Nutrition will follow # Other health maintenance Vit D hydroxy level 24, restarted Vit D 1000 units daily 10/03 Corrected Ca+ just WNL, takes Ca+ outpt, restarted 10/03 # Code status: DNR Progress in therapies: transfers min assist Patient is making progress towards the rehabilitation goals established; the patient's condition is sufficiently stable to allow the patient to actively participate in an intensive rehabilitation program. The patient requires and is able to tolerate 3 hours of therapy at least 5 days per week. The patient continues to benefit from the inpatient rehabilitation program with care provided by rehabilitation medicine team, rehabilitation nursing, occupational and physical therapies. I have updated the patient/family regarding the current status and above plans. Certain parts of this note may have been carried over from prior notes to maintain accuracy of patient's pertinent medical history and continuity of care. The details were verified and edited as appropriate. Discussed with Dr. Diego, Nursing ++++++++++++++++++++++++++++ Daniella Roberto, MS, STRAIGHT SLICING MACHINE OPERATOR-BS Physical Medicine & Rehabilitation [facility] I saw and evaluated the patient. Discussed with the Nurse Practitioner, and agree with the Nurse Practitioner's findings as documented in the the note, with the exceptions/additions as noted below. The Nurse Practitioner's note has only been reviewed, not edited. Doing well. Pain improving. Discussed in team. Family meeting to be arranged. Requires min-modA for LBD. Yenni Sears, PharmD - 10/07/2019 11:08 AM [facility] Antibiotic Stewardship Program (ASP) has reviewed this patient's case in compliance witha [facility] directive to execute antimicrobial stewardship within hospitals. Based on pharmacy and infectious disease service review, and based on the best available data and evidence, the ASP recommends to change Rifampin 300mg IV q12 to Rifampin 300mg PO BID, as bioavailability is the same. Plan is to continue IV cefazolin and PO rifampin x 6 weeks with transition to full POtherapy after that time. Patient tolerating PO. Rifampin therapy has been changed to PO therapy at this time after discussionwith the Rehab provider. The ASP recommendation is based on a chart review and is not a substitute for decision-making made by the providers caring for the patient. Submitted by: Yenni Núñez PharmD Gisella Aguilar RN - 10/07/2019 11:00 AM [facility] assumed care of patient from [id number] and no changes from previous assessment technician. Patient is in chair with call lopez and personal belongings within reach. Alanis Lake OT - 10/07/2019 11:00 AM ESTOccupational Therapy Inpatient Rehabilitation Encounter Form Admitting Diagnosis: s/p mechanical fall resulting in Left periprosthetic distal femur fracture s/p Total Knee Revision with Left Distal Femoral Replacement on 09/27/2019 Rehab Diagnosis: impaired mobility and self care Rehabilitation Precautions/Restrictions: OOB with assist. WBAT. Strict I & O. High Fall risk. Ice PRN. DNR. DVT precautions SUBJECTIVE Patient Report: "Yes, I'm ready to go" Pain: Patient currently complains of pain. Location: L calf . Patient describes pain as Nonspecific. Verbal Scale: Patient reports a pain level of 3 out of 10. OBJECTIVE No chair alarm noted at start of session. Skin Integrity: surgical incision on L knee covered with aquacell appears c/d/i, slight bloody areas under adhesive on lateral aspect but not on dressing, moderate pitting edema noted throughout L LE increased from previous session, bruising noted L posterio-lateral thigh to ankle, PICC in R UE, mepliex on medial aspect of L thigh by the groin Outcome Measures: Recently assessed, not applicable at this time. Interventions: Therapeutic Exercise: Facilitated upper body strengthening exercises to increase muscle strength required for functional transfers. Provided 2# thera bar for completion of 2 sets of 10x of shoulder flexion, chest presses, bicep curls, and rowing motions. Provided cues for proper body mechanics and rest breaks as needed. Therapist then instructed pt on seated tasks using his bilateral UE to complete a graded clothespin activity. Patient educated on importance of graded activity to increase strength for future functional ADL and IADL tasks to ensure 100% accuracy and safety in transportation items or performing self cares. Patient responded well to all cues and education this session. Equipment Provided: None issued this visit. Education: Mode of education provided: Explanation. Demonstration. Audience: Patient. Education Provided: Importance of activity. Mobility Techniques. Role of Occupational Therapy. Role of Physical Therapy. Safety. Treatment Plan. ADL's. Response: Indicates understanding. Verbalized understanding. Needs practice/reinforcement. Requires cues (auditory/physical). ASSESSMENT Response to Visit: The session was tolerated fair, as evidenced by: decreased endurance and increased pain in left lower extremity during functional activity and/or mobility. Call lpoez was in patient's reach at end of session. Intervention considerations/suggestions for future therapy sessions: FM coordination/strength; ADLs; IADLs; functional mobility; adaptive equipment/devices training; strengthening of bilateral UEs. ENDURANCE! Pain: Yes, pain is unchanged from start of today's treatment. Program: Orthopedics 3 Hour Rule Minutes: 30 minutes. Patient was seen for the full scheduled treatment time this session. Therapy Mode Minutes: Individual: 30 minutes. SESSION: Duration: 30 CHARGES: 14657 - CHARGE - OT THER PRO - 15 MIN 2 Units - ORTHOPEDIC VISIT 1 Units Total treatment minutes: 30.00 Minutes Electronically Signed by: GINO Smalls, 10/07/2019 11:57:02 AM Zainab Gifford I - 10/07/2019 10:30 AM ESTTherapeutic Recreation Inpatient Rehabilitation Group Note SUBJECTIVE Patient Report: My name is Yulisa Pain: Patient has no complaints of pain currently. OBJECTIVE Group: Therapeutic Exercise/Fitness/Yoga: Patient participated in the unit endurance group Social Interaction: Social Interaction Score = 7, Complete [place]. Patient is completely independent for social interaction. Patient does not require medications. Pain: Patient has no complaints of pain currently. Program: Therapeutic Recreation SESSION: Duration: 25 CHARGES: - THERAPEUTIC REC VISIT 1 Units Total treatment minutes: 0.00 Minutes Electronically Signed by: Zainab DENNIS, [facility], 10/07/2019 3:57:01 PM Alanis Lake OT - 10/07/2019 9:30 AM ESTOccupational Therapy Inpatient Rehabilitation Progress Note Attending Physician: Dr. Diego Admitting Diagnosis: s/p mechanical fall resulting in Left periprosthetic distal femur fracture s/p Total Knee Revision with Left Distal Femoral Replacement on 09/27/2019 Rehab Diagnosis: impaired mobility and self care Rehabilitation Precautions/Restrictions: OOB with assist. WBAT. Strict I & O. High Fall risk. Ice PRN. DNR. DVT precautions SUBJECTIVE Patient Report: "Good Morning" Pain: Patient currently complains of pain. Location: L calf . Patient describes pain as Nonspecific. Verbal Scale: Patient reports a pain level of 3 out of 10. OBJECTIVE No chair alarm noted at start of session. Skin Integrity: surgical incision on L knee covered with aquacell appears c/d/i, slight bloody areas under adhesive on lateral aspect but not on dressing, moderate pitting edema noted throughout L LE increased from previous session, bruising noted L posterio-lateral thigh to ankle, PICC in R UE, mepliex on medial aspect of L thigh by the groin Cognition: Patient's cognition functionally intact this session. Quality Indicators Eatin - Setup or clean-up assistance: Ravenna sets up or cleans up; patient completes activity. Ravenna assists only prior to or following the activity. Assistance Provided: Opening containers, Opening cartons Assistive Device(s): None Shower/Bathe Self: 03 - Partial(minimal)/moderate assistance: Ravenna does less than half the effort. Ravenna lifts, holds or supports trunk or limbs but provides less than half the effort. Assistance Provided: Right lower leg, Left lower leg, Feet Assistive Device(s): Grab bar/arm rest to maintain balance, Hand held shower Grab bars for assistance in standing Upper Body Dressin - Setup or clean-up assistance: Ravenna sets up or cleans up; patient completes activity. Ravenna assists only prior to or following the activity. Assistance Provided: Setup assistance, Clean-up assistance Assistive Device(s): None Lower Body Dressin - Partial(minimal)/moderate assistance: Ravenna does less than half the effort. Ravenna lifts, holds or supports trunk or limbs but provides less than half the effort. Assistance Provided: Threading right leg through undergarment, Threading left leg through undergarment, Donning and doffing undergarment over hips and adjusting fasteners Assistive Device(s): None Roll left and right, sit to lying, and lying to sitting on edge of bed not addressed at this time Tub Transfer: Minimal assistance. Observed patient during task. Outcome Measures: Recently assessed, not applicable at this time. Interventions: Self Care/Home Management: Therapist facilitated through ADL tasks this session to increase safety and independence in preparation for future ADLs, IADLs, and functional mobility. Therapist provided increased verbal, visual, and tactile cues for functional transfers to include use of grab bars. Patient requires increased time to perform all tasks this session. Therapist provided verbal, visual, and tactile cues for technique during bathing tasks to increase safety and independence. Patient educated on importance of performing LB ADLs in seated position to increase safety. Patient responded well to all cues and education this session. Equipment Provided: None issued this visit. Education: Mode of education provided: Explanation. Demonstration. Audience: Patient. Education Provided: Importance of activity. Mobility Techniques. Role of Occupational Therapy. Role of Physical Therapy. Safety. Treatment Plan. ADL's. Response: Indicates understanding. Verbalized understanding. Needs practice/reinforcement. Requires cues (auditory/physical). ASSESSMENT Response to Visit: The session was tolerated fair, as evidenced by: decreased endurance Call lopez was in patient's reach at end of session. Pain: Yes, pain is unchanged from start of today's treatment. Goal review: Short Term Goals: 1. Patient will dress LE supervision including item retrieval in 2 weeks Status: Ongoing 2. Patient will toilet self with supervision in 2 weeks Status: Ongoing 3. Patient will transfer to toilet supervision in 2 weeks Status: Ongoing 4. Patient will shower self supervision in 2 weeks Status: Ongoing. Patient is min/moderate assist 10/07/19 PLAN Treatment Frequency, Duration, and Intervention: Restorative Occupational Therapy recommended for 90 mins a day 1x a day for 5x a week Treatment is to include: Development of Cognitive Skills. Neuromuscular Re-education. Self Care/Home Management. Therapeutic Activity. Therapeutic Exercise. Intervention considerations/suggestions for future therapy sessions: FM coordination/strength; ADLs; IADLs; functional mobility; adaptive equipment/devices training; strengthening of bilateral UEs. ENDURANCE! INTERDISCIPLINARY PATIENT CARE PLAN Identified Problems from Team Documentation: Impaired Self Care Mgmt/ADL/IADL Self Care: Primary Team Goal: Patient will be modified independent with self cares using adaptive equipment/devices as needed by discharge./ Problem: Impaired Bladder Mgmt Bladder Management: Primary Team Goal: Patient will be continent of urine this shift/ Problem: Impaired Bowel Mgmt Bowel Management: Primary Team Goal: Patient will be continent of stool/ Problem: Impaired Leisure Skills Problem: Impaired Mobility Mobility: Primary Team Goal : pt will ambulate 200 feet modified independent with rolling walker/ Add/Update Problems from this Treatment: No updates at this time. Program: Orthopedics 3 Hour Rule Minutes: 60 minutes. Patient was seen for the full scheduled treatment time this session. Therapy Mode Minutes: Individual: 60 minutes. SESSION: Duration: 60 CHARGES: 87061 - CHARGE - OT SELF CARE ADL TRAIN-15 MIN 4 Units - ORTHOPEDIC VISIT 1 Units Total treatment minutes: 60.00 Minutes Electronically Signed by: KENDALL Smalls/L, 10/07/2019 10:08:06 AM John Romo, BRISA - 10/06/2019 3:00 PM ESTPhysical Therapy Inpatient Rehabilitation Encounter Form Admitting Diagnosis: s/p mechanical fall resulting in Left periprosthetic distal femur fracture s/p Total Knee Revision with Left Distal Femoral Replacement on 09/27/2019 Rehab Diagnosis: impaired mobility and self care Rehabilitation Precautions/Restrictions: OOB with assist. WBAT. Strict I & O. High Fall risk. Ice PRN. DNR. DVT precautions SUBJECTIVE Patient Report: Pt agreeable to therapy. Pain: Patient currently complains of pain. Location: L calf . Patient describes pain as Nonspecific. Verbal Scale: Patient reports a pain level of 3 out of 10. OBJECTIVE Skin Integrity: surgical incision on L knee covered with aquacell appears c/d/i, slight bloody areas under adhesive on lateral aspect but not on dressing, moderate pitting edema noted throughout L LE increased from previous session, bruising noted L posterio-lateral thigh to ankle, PICC in R UE, mepliex on medial aspect of L thigh by the groin Outcome Measures: Recently assessed, not applicable at this time. Interventions: Therapeutic Exercise: Pt performed the following exercises to increase strength and tolerance to activity. Pt transferred from sit to stand with supervision and ambulated 46 feet and 62 feet with rolling walker and supervision with chair follow to maximize distance. Tolerated Berry full arc quads, seated hip flexion, ankle pumps, glut sets and hip adduction with ball. Also tolerated orange tband rows, 3 pound curls, reverse curls, chest press and ovehead press. All exercises performed in 3 sets x 10 reps with verbal cues for exercise technique. Education: Mode of education provided: Explanation. Demonstration. Audience: Patient. Education Provided: Treatment plan. exercise technique . Response: Applied knowledge. Verbalized understanding. ASSESSMENT Response to Visit: The session was tolerated well. Call lopez was in patient's reach at end of session. Intervention considerations/suggestions for future therapy sessions: s/p mechanical fall resulting in L periprosthetic fracture, s/p L revision TKA on 09/27/2019, WBAT, 7 stairs to enter with berry rails, lives alone bed mobility: min assist for R LE, has hospital bed at home transfers: CGA from w/c, min assist from lower surfaces ambulation: 28' with CGA rolling walker, w/c follow for safety stairs: 4 stairs with berry rails, CGA *LE strengthening, knee ROM, standing balance, bed mobility, stairs Pain: Yes, pain is unchanged from start of today's treatment. Program: Total Joint 3 Hour Rule Minutes: 60 minutes. Patient was seen for the full scheduled treatment time this session. Therapy Mode Minutes: Individual: 60 minutes. SESSION: Duration: 60 CHARGES: 27291 - CHARGE - PT THER EX - 15 MIN 4 Units - TOTAL JOINT VISIT 1 Units Total treatment minutes: 60.00 Minutes Electronically Signed by: [place] PTA, 10/06/2019 3:27:49 PM Lyly Oliveira MD - 10/06/2019 9:33 AM EST Physical Medicine and Rehabilitation IRF Progress Note Subjective: Yulisa Rebollar is a 89 y.o. female. Subjective Pt doing well, no complaints, no sx of vomiting at this time. Denies sob, cp, f , ch Scheduled Meds: acetaminophen (TYLENOL) tablet 650 mg Oral 4x Daily aspirin 81 mg Oral Daily atorvastatin 40 mg Oral QPM calcium carb-cholecalciferol 1 tablet Oral Daily ceFAZolin sodium 2 g Intravenous Q12H enoxaparin 40 mg Subcutaneous Daily furosemide 20 mg Oral BID sodium chloride (preservative free) 10 mL Intravenous Q12H And heparin lock flush 20 Units Intravenous Q12H levothyroxine 100 mcg Oral Daily lisinopril 5 mg Oral Daily metoprolol 50 mg Oral Daily sodium chloride 50 mL/hr Intravenous 4 Times Daily rifAMPin 300 mg Intravenous Q12H saccharomyces boulardii 250 mg Oral BID senna 2 tablet Oral Nightly tramadol 50 mg Oral Daily Vitamin D3 1,000 Units Oral Daily Continuous Infusions: PRN Meds:.sodium chloride (preservative free) AND heparin lock flush AND* * sodium chloride (preservative free) AND heparin lock flush, polyethylene glycol, promethazine, tramadol AND tramadol LINES: PICC RUE Objective: VITAL SIGNS: Temp: [36.5 C (97.7 F)-36.6 C (97.9 F)] 36.6 C (97.9 F) Pulse: [64-74] 73 Resp: [15-18] 18 BP: (118-157)/(68-75) 157/75 SpO2: [95 %-99 %] 95 % O2 Therapy: Room air PE: General: No acute distress, alert, oriented x 3 Eyes: Eyelids without lesions HEENT: No oral thrush Cardiovascular: HD stable Pulmonary: NLBRA Abdominal: Soft, Non-distended, Non-tender Extremities: No edema, no tenderness Musculoskeletal: normal bulk and tone of all 4 limbs, no limited ROM Psych: Mood and affect normal Skin: LLE knee incision with genesis in place. Wound has mild dried blood but wound is c/d/i, mild swelling Neuro: pain left leg. DIAGNOSTIC STUDIES: CBC: Lab Results Component Value Date WBC 10.7 (H) 10/04/2019 RBC 2.49 (L) 10/04/2019 HGB 8.4 (L) 10/04/2019 HCT 24.4 (L) 10/04/2019 PLT 514 (H) 10/04/2019 CMP: Lab Results Component Value Date NA 135 (L) 10/03/2019 K 4.0 10/03/2019 CL 104 10/03/2019 BICARBONATE 22 10/03/2019 CALCIUM 7.3 (L) 10/03/2019 GLUCOSE 111 10/03/2019 BUN 18 10/03/2019 BCR 26 10/03/2019 PROT 4.8 (L) 10/03/2019 ALBUMIN 2.4 (L) 10/03/2019 TBILI 0.9 10/03/2019 ALKPHOS 60 10/03/2019 AST 23 10/03/2019 ALT 5 10/03/2019 AGRATIO 1.0 10/03/2019 GFRAA 10/03/2019 eGFR is not calculated in patients <18 or >80 years of age. GFRNONAA 10/03/2019 eGFR is not calculated in patients <18 or >80 years of age. DATA REVIEWED: allergy list , medication list and old records Assessment and Plan: Assessment & Plan Yulisa Rebollar is a 89 y.o. 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 Babb on 09/27/2019. # Impaired mobility and self-care: Acute inpatient comprehensive rehabilitation including PT, OT, RT, HOPPER FILLER, and supportive services to improve functional outcome of impaired mobility, ADL's, transfers, and self-care. # Left periprosthetic distal femur fracture now s/p Total Knee Revision with Left Distal Femoral Replacement WBAT Monitor incision, will leave Aquacel intact until 10/04/2019 then switch to Mepilex Evaluate for staple removal 10/11/2019 F/u Dr. Babb after d/c # Positive Intra-op Tissue Culture Grew Staph epi Per Dr. Howard: 6 weeks IV Cefazolin 2gm Q8H & Rifampin 300mg BID ( until 11/11/2019) followed by oral cephalosporin and rifampin for another 6 months and then po cephalosporin indefinitely Continue Florastor with abx Will arrange outpt f/u with Dr. Howard Mild leukocytosis, stable at 10.7 on 10/04 Monitor routine labs wkly & PRN # Pain management Tyl 650 mg 4x/day Tramadol 50 mg prior to 1st AM therpay & Q4H PRN available Frequent ice/elevation # Acute Blood Loss Anemia H/Himproved to 8.4/24.4 on 10/04 Did require 1 unit PRBC postop No signs of active bleeding Iron studies 10/03 consistent with anemia of chronic disease # CAD ASA, Statin, Metoprolol XL # Chronic Systolic Heart Failure/HTN Lasix20 mg BID Metoprolol XL 50 mg daily Is on ACEi outpt, taken off 09/22 KIMBERLY on admission, restarted Lisinopril at 5 mg daily on 10/03 (home dose is 20 mg) as BPs rising, continue and monitor Daily AM wts, VIGNESH diet # Hyponatremia Improved to 135 on 10/03 # Hypothyroidism Levothyroxine 100 mcg QAM # Bowel/Bladder Aleman d/c'd, voiding, monitor PVRs until <100 x 3 consecutively Toilet schedule to help with incontinence (baseline) continue Senna QHS Last BM 10/04 x3 # DVT prophylaxis Lovenox 40mg daily # Obesity Contributes to complexity of care Nutrition will follow # Other health maintenance Vit D hydroxy level 24, restarted Vit D 1000 units daily 10/03 Corrected Ca+ just WNL, takes Ca+ outpt, restarted 10/03 # Code status: DNR I saw and evaluated the patient. Discussed with the resident, Dr Camargo, and agree with his findings as documented in the his note, with the exceptions/ additions as noted below. The resident's notehas only been reviewed, not edited. Doing well. Slept. Pain has improved. Incision examined- clean. Family meeting early next week.Ambulates with Drew. Improved swelling LLE. Quin Betancourt RN - 10/05/2019 9:57 [facility] assessed, read, and agreed with previous RN's assessments. Pt currently in bedsleeping, with bed alarm on and call lopez within reach. Virginia Manning RN - 10/05/2019 4:00 PM ESTThe patient's daughter Nadine (and her partner Maurice) visited this afternoon and had several questions about the patient's antibiotic regimen. Information given, with the patient's consent, on medication names and timing. Also discussed that some patients may be able to go home with a PICC line, and have antibiotics to self-administer with help from family members and / or home care nursing. Nadine confirms her sister Isatu is the patient's health care proxy and main personnel arbitrator for hospital updates, but specifically requests to talk to the medical team and case management herself regarding antibiotic therapy, prognosis , and discharge planning. Explained that typically one family personnel arbitrator is appointed to receive updates from the medical team, for the sake of clarity. Nadine insists she wishes to speak to the medical team herself; was encouraged to visit tomorrow morning, which is typically the time for MD rounds. Nadine and Maurice also request to have the patient referred to theTransitional Care Unit to receive the prescribed IV antibiotic therapy after her discharge from acute rehab. Xiao Loco OTA - 10/05/2019 2:00 PM ESTOccupational Therapy Inpatient Rehabilitation Encounter Form Admitting Diagnosis: s/p mechanical fall resulting in Left periprosthetic distal femur fracture s/p Total Knee Revision with Left Distal Femoral Replacement on 09/27/2019 Rehab Diagnosis: impaired mobility and self care Rehabilitation Precautions/Restrictions: OOB with assist. WBAT. Strict I & O. High Fall risk. Ice PRN. DNR. DVT precautions SUBJECTIVE Patient Report: Hi Pain: Patient currently complains of pain. Location: L calf . Patient describes pain as Aching. Verbal Scale: Patient reports a pain level of 4 out of 10. OBJECTIVE Skin Integrity: surgical incision on L knee covered with aquacell appears c/d/i, slight bloody areas under adhesive on lateral aspect but not on dressing, moderate pitting edema noted throughout L LE increased from previous session, bruising noted L posterio-lateral thigh to ankle, PICC in R UE, mepliex on medial aspect of L thigh by the groin Outcome Measures: Recently assessed, not applicable at this time. Interventions: Therapeutic Activities: ALEMAN provided ice to help relieve pain in knee. ALEMAN facilitated fine motor strength and coordination tasks to improve participate with dressing tasks. Pt demonstrated minimal difficulty with fine motor coordination tasks requiring her to need increase time to complete. Pt transferred with CGA from wheelchair to recliner at the end of today?s session. Pt was left with all needs met and call lopez in reach. Equipment Provided: None issued this visit. Education: Mode of education provided: Demonstration. Explanation. Audience: Patient. Education Provided: Rehabilitation techniques and procedures. Response: Applied knowledge. Needs practice/reinforcement. ASSESSMENT Response to Visit: The session was tolerated fair, as evidenced by: Patient reported fatigue Call lopez was in patient's reach at end of session. Intervention considerations/suggestions for future therapy sessions: FM coordination/strength; ADLs; IADLs; functional mobility; adaptive equipment/devices training; strengthening of bilateral UEs. ENDURANCE! Pain: Patient has no complaints of pain currently. Program: Orthopedics 3 Hour Rule Minutes: 60 minutes. Patient was seen for the full scheduled treatment time this session. Therapy Mode Minutes: Individual: 60 minutes. SESSION: Duration: 60 CHARGES: 14867 - CHARGE - OT THEREAPEUTIC ACT 15 MIN 4 Units - ORTHOPEDIC VISIT 1 Units Total treatment minutes: 60.00 Minutes Electronically Signed by: ASH Lyn, 10/05/2019 3:40:19 PM Asha Gudino PT - 10/05/2019 12:10 PM ESTPhysical Therapy Inpatient Rehabilitation Progress Note Attending Physician: Dr. Diego Admitting Diagnosis: s/p mechanical fall resulting in Left periprosthetic distal femur fracture s/p Total Knee Revision with Left Distal Femoral Replacement on 09/27/2019 Rehab Diagnosis: impaired mobility and self care Rehabilitation Precautions/Restrictions: OOB with assist. WBAT. Strict I & O. High Fall risk. Ice PRN. DNR. DVT precautions SUBJECTIVE Patient Report: Patient agreeable to therapy session. Pain: Patient currently complains of pain. Location: L calf . Patient describes pain as Nonspecific. Verbal Scale: Patient reports a pain level of 3 out of 10. OBJECTIVE No chair alarm noted at start of session. Range of Motion: No change observed. Strength: No change observed. Skin Integrity: surgical incision on L knee covered with aquacell appears c/d/i, slight bloody areas under adhesive on lateral aspect but not on dressing, moderate pitting edema noted throughout L LE increased from previous session, bruising noted L posterio-lateral thigh to ankle, PICC in R UE, mepliex on medial aspect of L thigh by the groin Pt fully clothed this session, so skin not observed (10/05/19) Quality Indicators Sit to Lyin - Supervision or touching assistance: Ravenna provides verbal cues and/or touching/steadying and/or contact guard assistance as patient completes activity. Assistance Provided: Verbal cueing, prompting, or instructing, Tactile cueing Assistive Device(s): Bed rail, Leg flag maker, HOB elevated Lying to Sitting on Edge of Bed: 04 - Supervision or touching assistance: Ravenna provides verbal cues and/or touching/steadying and/or contact guard assistance as patient completes activity. Assistance Provided: Verbal cueing, prompting, or instructing, General supervision for safety Assistive Device(s): Bed rail, Leg flag maker, HOB elevated Sit to Stand Transfer: 04 - Supervision or touching assistance: Ravenna provides verbal cues and/or touching/steadying and/or contact guard assistance as patient completes activity. Assistance Provided: Verbal cueing, prompting, or instructing, General supervision for safety Assistive Device(s): Bed rail, Arm rest(s), Walker Chair/Bed to Chair Transfer: 04 - Supervision or touching assistance: Ravenna provides verbal cues and/or touching/steadying and/or contact guard assistance as patient completes activity. Assistance Provided: General supervision for safety Assistive Device(s): Walker, Bed rails, Arm rest Walk 10 feet: 04 - Supervision or touching assistance: Ravenna provides verbal cues and/or touching/steadying and/or contact guard assistance as patient completes activity. Assistance Provided: Stand by assistance, Verbal cueing, prompting, or instructing, General supervision for safety Assistive Device(s): Rolling walker Stairs not addressed at this time. Patient does not use a wheelchair or scooter. Outcome Measures: Recently assessed, not applicable at this time. Interventions: Gait Training: Facilitated ambulation trials to improve overall balance, strength, and endurance, and to work towards independent function. Patient ambulated 40, 41, and 62 feet with close supervision and rolling walker. Provided verbal cues for patient to increase step length on the R to even out stride length and to keep her gaze focused forward to maximize safety and promote upright standing posture. Patient self-limiting ambulation distance secondary to pain, but improved distance compared to previous sessions. Therapeutic Activities: Provided education on standing technique. Therapist noted patient was starting with her feet too far out in front of her when standing, creating difficulty with anterior weight shift and forcing patient to have to take steps backwards long-term into standing to center her gravity over her base of support. With education, patient was able to follow through with starting her feet further back and came into standing without having to adjust her stance. Had patient practice standing up from multiple surface compositions and heights to challenge her strength and balance (bed, wheelchair, couch, recliner). Facilitated bed mobility to work towards independent function, as patient stated she still requires assist to move her LLE in and out of bed (adjusted HOB to simulate home environment). Instructed patient to attempt hook leg method (RLE under LLE) and picking up her LLE with her pant leg, but patient was unable to bring her leg into bed. Then educated patient in use of leg flag maker; instructed patient to hold onto the bed rail with her R hand and to lift her LLE up with the leg flag maker in her L hand. Therapist provided CGA under heel to guide movement, but patient completed lift into bed without extra assist. Patient was able to move back out of bed without physical assist, therapist only providing initial verbal cuing for technique with leg flag maker. Therapeutic Exercise: Patient performed berry LE exercises in sitting to improve strength and to facilitate carryover for functional tasks. Patient performed 2x10 reps of each with 2# on the RLE, against gravity on the LLE: long arc quad, marching, and heel/toe raises. Provided verbal cues for pacing and technique. Equipment Provided: Leg Carton Forming Machine Adjuster. Wheelchair Cushion Provided: Javier Basic Education: Mode of education provided: Explanation. Demonstration. Audience: Patient. Education Provided: POC, importance of mobility, safe mobility techniques, exercise techniques, bed mobility techniques . Response: Applied knowledge. Verbalized understanding. Needs practice/reinforcement. ASSESSMENT Response to Visit: The session was tolerated well. Patient improving with ambulation distance, standing technique, and ability to move supine to/from sit. Patient left seated in wheelchair with wants/needs met at end of session. Pain: Patient currently complains of pain. Location: L calf . Patient describes pain as Nonspecific. Verbal Scale: Patient reports a pain level of 7 out of 10. Will inform nurse. Will perform therapy only as tolerated. Goal Review: Supervision for transfers, ambulation with rolling walker, and CGA for mobility PLAN Treatment Frequency, Duration, and Intervention: Restorative Physical Therapy is recommended for 90 minutes per day, at least 5x per week for 4 weeks Treatment is to include: Gait Training. Therapeutic Activity. Therapeutic Exercise. Neuromuscular Re-education. Self Care/Home Management. Manual Therapy. Hot Pack. Cold/Ice Pack. Wheelchair Management Intervention considerations/suggestions for future therapy sessions: s/p mechanical fall resulting in L periprosthetic fracture, s/p L revision TKA on 09/27/2019, WBAT, 7 stairs to enter with berry rails, lives alone bed mobility: min assist for R LE, has hospital bed at home transfers: CGA from w/c, min assist from lower surfaces ambulation: 28' with CGA rolling walker, w/c follow for safety stairs: 4 stairs with berry rails, CGA *LE strengthening, knee ROM, standing balance, bed mobility, stairs INTERDISCIPLINARY PATIENT CARE PLAN Identified Problems from Team Documentation: Impaired Self Care Mgmt/ADL/IADL Self Care: Primary Team Goal: Patient will be modified independent with self cares using adaptive equipment/devices as needed by discharge./ Problem: Impaired Bladder Mgmt Bladder Management: Primary Team Goal: Patient will be continent of urine this shift/ Problem: Impaired Bowel Mgmt Bowel Management: Primary Team Goal: Patient will be continent of stool/ Problem: Impaired Leisure Skills Problem: Impaired Mobility Mobility: Primary Team Goal : pt will ambulate 200 feet modified independent with rolling walker/ Add/Update Problems from this Treatment: No updates at this time. Program: Orthopedics 3 Hour Rule Minutes: 60 minutes. Patient was seen for the full scheduled treatment time this session. Therapy Mode Minutes: Individual: 60 minutes. SESSION: Duration: 60 CHARGES: 89387 - CHARGE - PT GAIT TRNG - 15 MIN 1 Units 33733 - CHARGE - PT THER EX - 15 MIN 1 Units 16401 - CHARGE - PT THERAPEUTIC ACTIVITIES - 15 MIN 2 Units - CHARGE - IP-LEG STERILE PROCESSING MANAGER 1 Units - ORTHOPEDIC VISIT 1 Units Total treatment minutes: 60.00 Minutes Electronically Signed by: Asha Beard DPT, PT 10/05/2019 12:49:59 PM Xiao Loco OTA - 10/05/2019 10:00 AM ESTOccupational Therapy Inpatient Rehabilitation Progress Note Attending Physician: Dr. Diego Admitting Diagnosis: s/p mechanical fall resulting in Left periprosthetic distal femur fracture s/p Total Knee Revision with Left Distal Femoral Replacement on 09/27/2019 Rehab Diagnosis: impaired mobility and self care Rehabilitation Precautions/Restrictions: OOB with assist. WBAT. Strict I & O. High Fall risk. Ice PRN. DNR. DVT precautions SUBJECTIVE Patient Report: I have therapy now ? Pain: Patient currently complains of pain. Location: L knee, only with movement. . Patient describes pain as Nonspecific. Verbal Scale: Patient reports a pain level of 5 out of 10. Will instruct in pain-relieving techniques. Will perform therapy only as tolerated. OBJECTIVE Skin Integrity: surgical incision on L knee covered with aquacell appears c/d/i, slight bloody areas under adhesive on lateral aspect but not on dressing, moderate pitting edema noted throughout L LE increased from previous session, bruising noted L posterio-lateral thigh to ankle, PICC in R UE, mepliex on medial aspect of L thigh by the groin Cognition: Executive Function: Planning. Pt required verbal, visual and increased time when being educated on the use of adaptive equipment for LB dressing.Even with cuing pt was unable to complete LB dressing using adative equipmement independently. Quality Indicators Eating and oral hygiene not addressed at this time. Toileting hygiene and showering/bathing not addressed at this time. Lower Body Dressin - Partial(minimal)/moderate assistance: Ravenna does less than half the effort. Ravenna lifts, holds or supports trunk or limbs but provides less than half the effort. Assistance Provided: Pt was educated on the use of remediation consultant and sock aid to don/dof both socks. Pt demonstrated difficulty understanding how to use adaptive equipment. Assistive Device(s): Barrel And Receiver Aligner, sock aid Roll left and right, sit to lying, and lying to sitting on edge of bed not addressed at this time Chair/Bed to Chair Transfer: 04 - Supervision or touching assistance: Ravenna provides verbal cues and/or touching/steadying and/or contact guard assistance as patient completes activity. Assistance Provided: Contact guard Assistive Device(s): Walker, Gait belt Outcome Measures: Recently assessed, not applicable at this time. Interventions: Therapeutic Activities: Educated pt of the use of AE for LB dressing. Pt require moderate verbal and visual cues to use AE correctly to don/doff socks. Pt participate in standing tolerance and unsupported sitting balance activities to improve participation in ADL and IADL tasks. Pt tolerateed standing to 3 mins before having increase pain in left knee. Pt stated her pain increase when knee was at 90% of flexion in sitting. Pt transferred for chair to recliner with CGA using a RW. Pt was left seated in recliner with call lopez in reach. Equipment Provided: None issued this visit. Education: Mode of education provided: Demonstration. Explanation. Audience: Patient. Education Provided: Role of occupational therapy, LB dressing with the use of adaotive equipment. . Response: Applied knowledge. Needs practice/reinforcement. ASSESSMENT Response to Visit: The session was tolerated fair, as evidenced by: Pain unchanged. Call lopez was in patient's reach at end of session. Pain: Yes, pain is unchanged from start of today's treatment. Goal review: Continue to edcuate pt on the use of AE for LB. PLAN Treatment Frequency, Duration, and Intervention: Restorative Occupational Therapy recommended for 90 mins a day 1x a day for 5x a week Treatment is to include: Hot Cold Pack. Therapeutic Activity. Self Care/Home Management. Neuromuscular Re-education. Therapeutic Exercise. Intervention considerations/suggestions for future therapy sessions: FM coordination/strength; ADLs; IADLs; functional mobility; adaptive equipment/devices training; strengthening of bilateral UEs. ENDURANCE! INTERDISCIPLINARY PATIENT CARE PLAN Identified Problems from Team Documentation: Impaired Self Care Mgmt/ADL/IADL Self Care: Primary Team Goal: Patient will be modified independent with self cares using adaptive equipment/devices as needed by discharge./ Problem: Impaired Bladder Mgmt Bladder Management: Primary Team Goal: Patient will be continent of urine this shift/ Problem: Impaired Bowel Mgmt Bowel Management: Primary Team Goal: Patient will be continent of stool/ Problem: Impaired Leisure Skills Problem: Impaired Mobility Mobility: Primary Team Goal : pt will ambulate 200 feet modified independent with rolling walker/ Add/Update Problems from this Treatment: No updates at this time. Program: Orthopedics 3 Hour Rule Minutes: 60 minutes. Patient was seen for the full scheduled treatment time this session. Therapy Mode Minutes: Individual: 60 minutes. SESSION: Duration: 60 CHARGES: 93780 - CHARGE - OT THEREAPEUTIC ACT 15 MIN 4 Units - ORTHOPEDIC VISIT 1 Units Total treatment minutes: 60.00 Minutes Electronically Signed by: ASH Lyn, 10/05/2019 12:49:49 PM Lyly Estrella MD - 10/05/2019 9:44 AM EST Physical Medicine and Rehabilitation IRF Progress Note Subjective: Yulisa Rebollar is a 89 y.o. female. Subjective Pt doing well, no complaints, no sx of vomiting at this time. Denies sob, cp, f , ch Scheduled Meds: acetaminophen (TYLENOL) tablet 650 mg Oral 4x Daily aspirin 81 mg Oral Daily atorvastatin 40 mg Oral QPM calcium carb-cholecalciferol 1 tablet Oral Daily ceFAZolin sodium 2 g Intravenous Q12H enoxaparin 40 mg Subcutaneous Daily furosemide 20 mg Oral BID sodium chloride (preservative free) 10 mL Intravenous Q12H And heparin lock flush 20 Units Intravenous Q12H levothyroxine 100 mcg Oral Daily lisinopril 5 mg Oral Daily metoprolol 50 mg Oral Daily sodium chloride 50 mL/hr Intravenous 4 Times Daily rifAMPin 300 mg Intravenous Q12H saccharomyces boulardii 250 mg Oral BID senna 2 tablet Oral Nightly tramadol 50 mg Oral Daily Vitamin D3 1,000 Units Oral Daily Continuous Infusions: PRN Meds:.sodium chloride (preservative free) AND heparin lock flush AND* * sodium chloride (preservative free) AND heparin lock flush, polyethylene glycol, promethazine, tramadol AND tramadol LINES: PICC RUE Objective: VITAL SIGNS: Temp: [36.2 C (97.2 F)-36.4 C (97.5 F)] 36.4 C (97.5 F) Pulse: [64-74] 72 Resp: [16-18] 16 BP: (119-152)/(64-80) 139/80 SpO2: [96 %-97 %] 97 % O2 Therapy: Room air PE: General: No acute distress, alert, oriented x 3 Eyes: Eyelids without lesions HEENT: No oral thrush Cardiovascular: HD stable Pulmonary: NLBRA Abdominal: Soft, Non-distended, Non-tender Extremities: No edema, no tenderness Musculoskeletal: normal bulk and tone of all 4 limbs, no limited ROM Psych: Mood and affect normal Neuro: pain left leg. DIAGNOSTIC STUDIES: CBC: Lab Results Component Value Date WBC 10.7 (H) 10/04/2019 RBC 2.49 (L) 10/04/2019 HGB 8.4 (L) 10/04/2019 HCT 24.4 (L) 10/04/2019 PLT 514 (H) 10/04/2019 CMP: Lab Results Component Value Date NA 135 (L) 10/03/2019 K 4.0 10/03/2019 CL 104 10/03/2019 BICARBONATE 22 10/03/2019 CALCIUM 7.3 (L) 10/03/2019 GLUCOSE 111 10/03/2019 BUN 18 10/03/2019 BCR 26 10/03/2019 PROT 4.8 (L) 10/03/2019 ALBUMIN 2.4 (L) 10/03/2019 TBILI 0.9 10/03/2019 ALKPHOS 60 10/03/2019 AST 23 10/03/2019 ALT 5 10/03/2019 AGRATIO 1.0 10/03/2019 GFRAA 10/03/2019 eGFR is not calculated in patients <18 or >80 years of age. GFRNONAA 10/03/2019 eGFR is not calculated in patients <18 or >80 years of age. DATA REVIEWED: allergy list , medication list and old records Assessment and Plan: Assessment & Plan Yulisa Rebollar is a 89 y.o. 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 Babb on 09/27/2019. # Impaired mobility and self-care: Acute inpatient comprehensive rehabilitation including PT, OT, RT, HOPPER FILLER, and supportive services to improve functional outcome of impaired mobility, ADL's, transfers, and self-care. # Left periprosthetic distal femur fracture now s/p Total Knee Revision with Left Distal Femoral Replacement WBAT Monitor incision, will leave Aquacel intact until 10/04/2019 then switch to Mepilex Evaluate for staple removal 10/11/2019 F/u Dr. Babb after d/c # Positive Intra-op Tissue Culture Grew Staph epi Per Dr. Howard: 6 weeks IV Cefazolin 2gm Q8H & Rifampin 300mg BID ( until 11/11/2019) followed by oral cephalosporin and rifampin for another 6 months and then po cephalosporin indefinitely Continue Florastor with abx Will arrange outpt f/u with Dr. Howard Mild leukocytosis, stable at 10.7 on 10/04 Monitor routine labs wkly & PRN # Pain management Tyl 650 mg 4x/day Tramadol 50 mg prior to 1st AM therpay & Q4H PRN available Frequent ice/elevation # Acute Blood Loss Anemia H/Himproved to 8.4/24.4 on 10/04 Did require 1 unit PRBC postop No signs of active bleeding Iron studies 10/03 consistent with anemia of chronic disease # CAD ASA, Statin, Metoprolol XL # Chronic Systolic Heart Failure/HTN Lasix20 mg BID Metoprolol XL 50 mg daily Is on ACEi outpt, taken off 09/22 KIMBERLY on admission, restarted Lisinopril at 5 mg daily on 10/03 (home dose is 20 mg) as BPs rising, continue and monitor Daily AM wts, VIGNESH diet # Hyponatremia Improved to 135 on 10/03 # Hypothyroidism Levothyroxine 100 mcg QAM # Bowel/Bladder Aleman d/c'd, voiding, monitor PVRs until <100 x 3 consecutively Toilet schedule to help with incontinence (baseline) continue Senna QHS Last BM 10/04 x3 # DVT prophylaxis Lovenox 40mg daily # Obesity Contributes to complexity of care Nutrition will follow # Other health maintenance Vit D hydroxy level 24, restarted Vit D 1000 units daily 10/03 Corrected Ca+ just WNL, takes Ca+ outpt, restarted 10/03 # Code status: DNR I saw and evaluated the patient. Discussed with the resident, Dr Camargo, and agree with his findings as documented in the his note, with the exceptions/ additions as noted below. The resident's notehas only been reviewed, not edited. Doing well. Neutrophilia resolved. Surgical dressing clean. Ambulated with close supervision. Mehul Toledo - 10/05/2019 9:00 AM ESTTherapeutic Recreation Inpatient Rehabilitation Group Note SUBJECTIVE Patient Report: Doing well Pain: Patient has no complaints of pain currently. OBJECTIVE Group: Unit Social Activity: Enjoyed coffee hour with peers. Social Interaction: Social Interaction Score = 7, Complete [place]. Patient is completely independent for social interaction. Patient does not require medications. Pain: Patient has no complaints of pain currently. Program: Therapeutic Recreation SESSION: Duration: 30 CHARGES: - THERAPEUTIC REC VISIT 1 Units Total treatment minutes: 0.00 Minutes Electronically Signed by: Mehul DENNIS, 10/05/2019 3:26:47 PM Daisy Eisenberg RN - 10/04/2019 9:00 PM ESTPt given HS meds with ice water. Immediately afterwards vomited approx 50 mls clear yellow emesis. No pills seen in emesis. Pt denies any preceding nausea, reports nausea resolved after vomiting. Will attempt future med passes with room temp beverages. Virginia Manning RN - 10/04/2019 4:00 PM ESTAssumed care of the patient from [id number] after receiving report from Nae Church RN. I have assessedthe patient and no changes are noted to the previous assessment technician from 813 today with the exception that the patient no longer reports nausea. Cold compress applied to the patient's left knee area and the left leg was elevated on a pillow with the leg straight. The patient was medicated for pain (see MAR) and denies further needs at this time. Plan of care reviewed, call lopez within reach. Will continue to monitor. Alanis Lake OT - 10/04/2019 3:00 PM ESTOccupational Therapy Inpatient Rehabilitation Encounter Form Admitting Diagnosis: s/p mechanical fall resulting in Left periprosthetic distal femur fracture s/p Total Knee Revision with Left Distal Femoral Replacement on 09/27/2019 Rehab Diagnosis: impaired mobility and self care Rehabilitation Precautions/Restrictions: OOB with assist. WBAT. Strict I & O. High Fall risk. Ice PRN. DNR. DVT precautions SUBJECTIVE Patient Report: "Oh I remember doing something like that yesterday" Pain: Patient has no complaints of pain currently. OBJECTIVE No chair alarm noted at start of session. Skin Integrity: surgical incision on L knee covered with aquacell appears c/d/i, slight bloody areas under adhesive on lateral aspect but not on dressing, moderate pitting edema noted throughout L LE increased from previous session, bruising noted L posterio-lateral thigh to ankle, PICC in R UE, mepliex on medial aspect of L thigh by the groin Outcome Measures: Recently assessed, not applicable at this time. Interventions: Self Care/Home Management: Therapist faciltiated patient through ADL tasks this session to increase safety and independence in preparation for future ADLs, IADLs, and functional mobility. Therapist provided verbal, visual, and tactile cues on technique and re-educated patient on use of remediation consultant to doff/don right sock. Patient educated on use of AE (hard sock aide). Therapist provided verbal, visual, and tactile cues on technique donning sock on sock aide and simulated pulling up back of leg. Patient educated on importance of bilateral UE tasks to improve/maintain strength, fine/gross motor coordination, and dynamic balance in sitting task. Patient required increased time to perform task. Therapist educated patient on increasing endurance with therapies to improve future functional tasks. Patient responded well to all cues and education this session. Equipment Provided: None issued this visit. Education: Mode of education provided: Explanation. Demonstration. Audience: Patient. Education Provided: Importance of activity. Mobility Techniques. Role of Occupational Therapy. Role of Physical Therapy. Safety. Treatment Plan. ADL's. Response: Indicates understanding. Verbalized understanding. Needs practice/reinforcement. Requires cues (auditory/physical). ASSESSMENT Response to Visit: The session was tolerated fair, as evidenced by: decreased endurance. Call lopez was in patient's reach at end of session. Intervention considerations/suggestions for future therapy sessions: FM coordination/strength; ADLs; IADLs; functional mobility; adaptive equipment/devices training; strengthening of bilateral UEs. ENDURANCE! Pain: Patient has no complaints of pain currently. Program: General Medicine 3 Hour Rule Minutes: 30 minutes. Patient was seen for the full scheduled treatment time this session. Therapy Mode Minutes: Individual: 30 minutes. SESSION: Duration: 30 CHARGES: 71645 - CHARGE - OT SELF CARE ADL TRAIN-15 MIN 2 Units - GENERAL MEDICINE VISIT 1 Units Total treatment minutes: 30.00 Minutes Electronically Signed by: KENDALL Smalls/Cristofer, 10/04/2019 3:41:44 PM Lyly Oliveira MD - 10/04/2019 2:59 PM EST Physical Medicine and Rehabilitation IRF Progress Note Subjective: Yulisa Rebollar is a 89 y.o. female. Subjective Patient was seen and examined at bedside this morning. Reports nausea overnight which she believes is secondary to antibiotic administration. Nausea resolved this morning. Reports progress in therapy and good appetite. Denies headaches, dizziness, fevers, SOB, CP, constipation. States that pain is controlled. No new concerns today. Scheduled Meds: acetaminophen (TYLENOL) tablet 650 mg Oral 4x Daily aspirin 81 mg Oral Daily atorvastatin 40 mg Oral QPM calcium carb-cholecalciferol 1 tablet Oral Daily ceFAZolin sodium 2 g Intravenous Q12H enoxaparin 40 mg Subcutaneous Daily furosemide 20 mg Oral BID sodium chloride (preservative free) 10 mL Intravenous Q12H And heparin lock flush 20 Units Intravenous Q12H levothyroxine 100 mcg Oral Daily lisinopril 5 mg Oral Daily metoprolol 50 mg Oral Daily rifAMPin 300 mg Intravenous Q12H saccharomyces boulardii 250 mg Oral BID senna 2 tablet Oral Nightly tramadol 50 mg Oral Daily Vitamin D3 1,000 Units Oral Daily Continuous Infusions: PRN Meds:.sodium chloride (preservative free) AND heparin lock flush AND* * sodium chloride (preservative free) AND heparin lock flush, polyethylene glycol, promethazine, tramadol AND tramadol LINES: PICC RUE Objective: VITAL SIGNS: Temp: [36.3 C (97.3 F)-36.7 C (98.1 F)] 36.7 C (98.1 F) Pulse: [68-76] 76 Resp: [16] 16 BP: (124-164)/(68-80) 143/79 SpO2: [95 %-97 %] 96 % O2 Therapy: Room air PE: General: No acute distress, alert, oriented x3 Eyes: Eyelids without lesions, Sclera anicteric HEENT: No oral thrush, Neck supple Cardiovascular: RRR, S1 S2 normal, No murmurs Pulmonary: Clear to auscultation bilaterally, no crackles/wheezes/rhonchi Abdominal: Soft, Obese, Non-tender, Positive bowel sounds Extremities: LLE edema stable, No calf tenderness. Musculoskeletal: No changes in strength Psych: Mood and affect normal Neuro: no focal deficits DIAGNOSTIC STUDIES: CBC: Lab Results Component Value Date WBC 10.7 (H) 10/04/2019 RBC 2.49 (L) 10/04/2019 HGB 8.4 (L) 10/04/2019 HCT 24.4 (L) 10/04/2019 PLT 514 (H) 10/04/2019 CMP: Lab Results Component Value Date NA 135 (L) 10/03/2019 K 4.0 10/03/2019 CL 104 10/03/2019 BICARBONATE 22 10/03/2019 CALCIUM 7.3 (L) 10/03/2019 GLUCOSE 111 10/03/2019 BUN 18 10/03/2019 BCR 26 10/03/2019 PROT 4.8 (L) 10/03/2019 ALBUMIN 2.4 (L) 10/03/2019 TBILI 0.9 10/03/2019 ALKPHOS 60 10/03/2019 AST 23 10/03/2019 ALT 5 10/03/2019 AGRATIO 1.0 10/03/2019 GFRAA 10/03/2019 eGFR is not calculated in patients <18 or >80 years of age. GFRNONAA 10/03/2019 eGFR is not calculated in patients <18 or >80 years of age. DATA REVIEWED: allergy list , medication list and old records Assessment and Plan: Assessment & Plan Yulisa Rebollar is a 89 y.o. 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 Babb on 09/27/2019. # Impaired mobility and self-care: Acute inpatient comprehensive rehabilitation including PT, OT, RT, HOPPER FILLER, and supportive services to improve functional outcome of impaired mobility, ADL's, transfers, and self-care. # Left periprosthetic distal femur fracture now s/p Total Knee Revision with Left Distal Femoral Replacement WBAT Monitor incision, will leave Aquacel intact until 10/04/2019 then switch to Mepilex Evaluate for staple removal 10/11/2019 F/u Dr. Babb after d/c # Positive Intra-op Tissue Culture Grew Staph epi Per Dr. Howard: 6 weeks IV Cefazolin 2gm Q8H & Rifampin 300mg BID ( until 11/11/2019) followed by oral cephalosporin and rifampin for another 6 months and then po cephalosporin indefinitely Continue Florastor with abx Will arrange outpt f/u with Dr. Howard Mild leukocytosis, stable at 10.7 on 10/04 Monitor routine labs wkly & PRN # Pain management Tyl 650 mg 4x/day Tramadol 50 mg prior to 1st AM therpay & Q4H PRN available Frequent ice/elevation # Acute Blood Loss Anemia H/Himproved to 8.4/24.4 on 10/04 Did require 1 unit PRBC postop No signs of active bleeding Iron studies 10/03 consistent with anemia of chronic disease # CAD ASA, Statin, Metoprolol XL # Chronic Systolic Heart Failure/HTN Lasix20 mg BID Metoprolol XL 50 mg daily Is on ACEi outpt, taken off 09/22 KIMBERLY on admission, restarted Lisinopril at 5 mg daily on 10/03 (home dose is 20 mg) as BPs rising, continue and monitor Daily AM wts, VIGNESH diet # Hyponatremia Improved to 135 on 10/03 # Hypothyroidism Levothyroxine 100 mcg QAM # Bowel/Bladder Aleman d/c'd, voiding, monitor PVRs until <100 x 3 consecutively Toilet schedule to help with incontinence (baseline) continue Senna QHS Last BM 10/04 x2 # DVT prophylaxis Lovenox 40mg daily # Obesity Contributes to complexity of care Nutrition will follow # Other health maintenance Vit D hydroxy level 24, restarted Vit D 1000 units daily 10/03 Corrected Ca+ just WNL, takes Ca+ outpt, restarted 10/03 # Code status: DNR Progress in therapies: ambulating 28 feet with contact guard and rolling walker , negotiated 4 steps with bilateral handrails and contact gaurd Patient is making progress towards the rehabilitation goals established; the patient's condition is sufficiently stable to allow the patient to actively participate in an intensive rehabilitation program. The patient requires and is able to tolerate 3 hours of therapy at least 5 days per week. The patient continues to benefit from the inpatient rehabilitation program with care provided by rehabilitation medicine team, rehabilitation nursing, occupational and physical therapies. I have updated the patient/family regarding the current status and above plans. Discussed with my attending physician: Dr Diego I saw and evaluated the patient. Discussed with the resident, Dr Vargas, and agree with her findings as documented in the her note, with the exceptions/ additions as noted below. The resident's notehas only been reviewed, not edited. Pain better controlled. CBC today with improved anemia-mild leukocytosis-10.7 today from 9.2 prior and 10.5 before that- will recheck WBC in the am- no s/s of infection . Did stairs with min-modA. Had some nausea with the abx, resolved. Had a bm. Emma Ferraro, PT - 10/04/2019 11:30 AM ESTPhysical Therapy Inpatient Rehabilitation Encounter Form Admitting Diagnosis: s/p mechanical fall resulting in Left periprosthetic distal femur fracture s/p Total Knee Revision with Left Distal Femoral Replacement on 09/27/2019 Rehab Diagnosis: impaired mobility and self care Rehabilitation Precautions/Restrictions: OOB with assist. WBAT. Strict I & O. High Fall risk. Ice PRN. DNR. DVT precautions SUBJECTIVE Patient Report: "can we stay in the room? my daughter is supposed to call back" Pain: Patient currently complains of pain. Location: L knee . Patient describes pain as Nonspecific. Verbal Scale: Patient reports a pain level of 6 out of 10. Will provide an intervention to address pain. Will perform therapy only as tolerated. OBJECTIVE No chair alarm noted at start of session. Skin Integrity: surgical incision on L knee covered with aquacell appears c/d/i, slight bloody areas under adhesive on lateral aspect but not on dressing, moderate pitting edema noted throughout L LE increased from previous session, bruising noted L posterio-lateral thigh to ankle, PICC in R UE, mepliex on medial aspect of L thigh by the groin Outcome Measures: Recently assessed, not applicable at this time. Interventions: Therapeutic Exercise: Instructed in and performed seated ther ex to promote ROM and circulation in L LE and strengthening in R LE to reduce the risk of postoperative complications. All completed 3 x 10 reps with verbal/tactile cues and demonstration for technique. 2# on the R, AROM on the L. -LAQs -Marches -Toe raises -Heel slides with pillow case (attempted HS curls on the R with orange theraband however pt unable to perform through full ROM) -sit to stands x 5 reps Education: Mode of education provided: Explanation. Audience: Patient. Education Provided: treatment plan. . Response: Verbalized understanding. ASSESSMENT Response to Visit: The session was tolerated well. Call lopez was in patient's reach at end of session. Intervention considerations/suggestions for future therapy sessions: s/p mechanical fall resulting in L periprosthetic fracture, s/p L revision TKA on 09/27/2019, WBAT, 7 stairs to enter with berry rails, lives alone bed mobility: min assist for R LE, has hospital bed at home transfers: CGA from w/c, min assist from lower surfaces ambulation: 28' with CGA rolling walker, w/c follow for safety stairs: 4 stairs with berry rails, CGA *LE strengthening, knee ROM, standing balance, bed mobility, stairs Pain: Yes, pain is unchanged from start of today's treatment. Program: Orthopedics 3 Hour Rule Minutes: 30 minutes. Patient was seen for the full scheduled treatment time this session. Therapy Mode Minutes: Individual: 30 minutes. SESSION: Duration: 30 CHARGES: 65177 - CHARGE - PT THER EX - 15 MIN 2 Units - ORTHOPEDIC VISIT 1 Units Total treatment minutes: 30.00 Minutes Electronically Signed by: Emma Acosta PT, DPT, 10/04/2019 11:32:27 AM Alanis Lake OT - 10/04/2019 11:00 AM ESTOccupational Therapy Inpatient Rehabilitation Encounter Form Admitting Diagnosis: s/p mechanical fall esulting in Left periprosthetic distal femur fracture s/p Total Knee Revision with Left Distal Femoral Replacement on 09/27/2019 Rehab Diagnosis: impaired mobility and self care Rehabilitation Precautions/Restrictions: OOB with assist. WBAT. Strict I & O. High Fall risk. Ice PRN. DNR. DVT precautions SUBJECTIVE Patient Report: "Okay, I'd like to do that" Pain: Patient currently complains of pain. Location: L knee . Patient describes pain as Nonspecific. Verbal Scale: Patient reports a pain level of 3 out of 10. OBJECTIVE No chair alarm noted at start of session. Skin Integrity: surgical incision on L knee covered with aquacell appears c/d/i, slight bloody areas under adhesive on lateral aspect but not on dressing, moderate pitting edema noted throughout L LE increased from previous session, bruising noted L posterio-lateral thigh to ankle, PICC in R UE, mepliex on medial aspect of L thigh by the groin Outcome Measures: Recently assessed, not applicable at this time. Interventions: Self Care/Home Management: Therapist facilitated patient through ADL/IADL tasks this session to increase safety and independence in preparation for future ADLs, IADLs, and functional mobility. Therapist educated patient on importance of performing standing tasks to increase endurance and balance while decreasing fall risk. Patient set up with home management task this session to improve/maintain bilateral UE strength. Therapist provided set up with grooming activity and patient educated on importance of performing task in standing. Patient responded well to all cues and education this session. Equipment Provided: None issued this visit. Education: Mode of education provided: Explanation. Demonstration. Audience: Patient. Education Provided: Importance of activity. Mobility Techniques. Role of Occupational Therapy. Role of Physical Therapy. Safety. Treatment Plan. ADL's. Response: Indicates understanding. Verbalized understanding. Needs practice/reinforcement. Requires cues (auditory/physical). ASSESSMENT Response to Visit: The session was tolerated fair, as evidenced by: decreased endurance Call lopez was in patient's reach at end of session. Intervention considerations/suggestions for future therapy sessions: FM coordination/strength; ADLs; IADLs; functional mobility; adaptive equipment/devices training; strengthening of bilateral UEs. ENDURANCE! Pain: Yes, pain is unchanged from start of today's treatment. Program: General Medicine 3 Hour Rule Minutes: 30 minutes. Patient was seen for the full scheduled treatment time this session. Therapy Mode Minutes: Individual: 30 minutes. SESSION: Duration: 30 CHARGES: 69825 - CHARGE - OT SELF CARE ADL TRAIN-15 MIN 2 Units - GENERAL MEDICINE VISIT 1 Units Total treatment minutes: 30.00 Minutes Electronically Signed by: KENDALL Smalls/Cristofer, 10/04/2019 11:08:04 AM Emma Ferraro, PT - 10/04/2019 10:00 AM ESTPhysical Therapy Inpatient Rehabilitation Progress Note Attending Physician: Dr. 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 WBAT. Strict I & O. High Fall risk. Ice PRN. DNR. DVT precautions SUBJECTIVE Patient Report: pt is agreeable to therapy Pain: Patient currently complains of pain. Location: L knee . Patient describes pain as Nonspecific. Verbal Scale: Patient reports a pain level of 6 out of 10. Will perform therapy only as tolerated. OBJECTIVE No chair alarm noted at start of session. Range of Motion: No change observed. Strength: No change observed. Skin Integrity: surgical incision on L knee covered with aquacell appears c/d/i, slight bloody areas under adhesive on lateral aspect but not on dressing, moderate pitting edema noted throughout L LE increased from previous session, bruising noted L posterio-lateral thigh to ankle, PICC in R UE, mepliex on medial aspect of L thigh by the groin Quality Indicators Roll left and right, sit to lying, and lying to sitting on edge of bed not addressed at this time Sit to Stand Transfer: 04 - Supervision or touching assistance: Ravenna provides verbal cues and/or touching/steadying and/or contact guard assistance as patient completes activity. Assistance Provided: Verbal cueing, prompting, or instructing, Contact guard Assistive Device(s): Arm rest(s), Walker, Gait belt Walk 10 feet: 04 - Supervision or touching assistance: Ravenna provides verbal cues and/or touching/steadying and/or contact guard assistance as patient completes activity. Assistance Provided: Verbal cueing, prompting, or instructing, Contact guard Assistive Device(s): Rolling walker, Gait belt Stairs - Four steps: 03 - Partial(minimal)/moderate assistance: Ravenna does less than half the effort. Ravenna lifts, holds or supports trunk or limbs but provides less than half the effort. Lift/Holding Assistance Provided: After patient completed partial activity, helper completed remainder Assistive Device(s): Handrail(s), Gait belt Patient does not use a wheelchair or scooter. Outcome Measures: Recently assessed, not applicable at this time. Interventions: Gait Training: Facilitated ambulation with rolling walker x 44', 37', 26' and 26' with CGA and w/c follow to maximize distance. pt with shuffled pattern noted and decreased weight bearing through L LE. Verbal cues for improving step length berry, especially the R, for improved step through pattern. Improvements noted when walking in a straight path. pt noted to be looking at the floor; therapist provided verbal cues for upright head posture with no improvement noted. pt reporting high levels of pain throughout session. Ice pack applied to decrease swelling and pain to promote improved activity tolerance during session. Skin checked pre and post with no issues noted. Facilitated stair negotiation x 4 stairs with berry rails and min assist x 1. During descent, pt stepped down with the R LE losing her balance and needed assistance to correct. Verbal cues provided throughout session. pt appeared to be short of breath during session; oxygen saturation is 96%. Therapeutic Exercise: Instructed in and performed ther ex to promote circulation in L LE to decrease risk of post operative complications. Glute sets and quad sets performed 2 x 10 reps with verbal cues for technique. Equipment Provided: None issued this visit. Wheelchair Cushion Provided: Javier Basic Education: Mode of education provided: Explanation. Audience: Patient. Education Provided: treatment plan. importance of mobility. . Response: Verbalized understanding. ASSESSMENT Response to Visit: The session was tolerated well. Call lopez was in patient's reach at end of session. Pain: Patient currently complains of pain. Location: L knee . Patient describes pain as Nonspecific. Verbal Scale: Patient reports a pain level of 7 out of 10. Will perform therapy only as tolerated. Will provide an intervention to address pain. Ice pack applied to L knee at end of session. Goal Review: progressing, pt ambulating further distances this session PLAN Treatment Frequency, Duration, and Intervention: Restorative Physical Therapy is recommended for 90 minutes per day, at least 5x per week for 4 weeks Treatment is to include: Gait Training. Neuromuscular Re-education. Therapeutic Activity. Therapeutic Exercise. Self Care/Home Management. Patient/family/professionals conference. Intervention considerations/suggestions for future therapy sessions: s/p mechanical fall resulting in L periprosthetic fracture, s/p L revision TKA on 09/27/2019, WBAT, 7 stairs to enter with berry rails, lives alone bed mobility: min assist for R LE, has hospital bed at home transfers: CGA from w/c, min assist from lower surfaces ambulation: 44' with CGA rolling walker, w/c follow for safety stairs: 4 stairs with berry rails, CGA *LE strengthening, knee ROM, standing balance, bed mobility, stairs INTERDISCIPLINARY PATIENT CARE PLAN Identified Problems from Team Documentation: Impaired Self Care Mgmt/ADL/IADL Self Care: Primary Team Goal: Patient will be modified independent with self cares using adaptive equipment/devices as needed by discharge./ Problem: Impaired Bladder Mgmt Bladder Management: Primary Team Goal: Patient will be continent of urine this shift/ Problem: Impaired Bowel Mgmt Bowel Management: Primary Team Goal: Patient will be continent of stool/ Problem: Impaired Mobility Mobility: Primary Team Goal : pt will ambulate 200 feet modified independent with rolling walker/ Add/Update Problems from this Treatment: No updates at this time. Program: Orthopedics 3 Hour Rule Minutes: 30 minutes. Patient was seen for the full scheduled treatment time this session. Therapy Mode Minutes: Individual: 30 minutes. SESSION: Duration: 30 CHARGES: 64234 - CHARGE - PT GAIT TRNG - 15 MIN 2 Units 57312 - CHARGE - PT THER EX - 15 MIN 0 Units - ORTHOPEDIC VISIT 1 Units Total treatment minutes: 30.00 Minutes Electronically Signed by: Emma Acosta PT, DPT, 10/04/2019 11:33:05 AM Alanis Lake OT - 10/04/2019 9:30 AM ESTOccupational Therapy Inpatient Rehabilitation Progress Note Attending Physician: Dr. 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 WBAT. Strict I & O. High Fall risk. Ice PRN. DNR. DVT precautions SUBJECTIVE Patient Report: "I guess I'll get dressed" Pain: Patient has no complaints of pain currently. OBJECTIVE No chair alarm noted at start of session. Skin Integrity: surgical incision on L knee covered with aquacell appears c/d/i, slight bloody areas under adhesive on lateral aspect but not on dressing, moderate pitting edema noted throughout L LE increased from previous session, bruising noted L posterio-lateral thigh to ankle, PICC in R UE, mepliex on medial aspect of L thigh by the groin Cognition: Patient's cognition functionally intact this session. Quality Indicators Eatin - Setup or clean-up assistance: Ravenna sets up or cleans up; patient completes activity. Ravenna assists only prior to or following the activity. Assistance Provided: Opening containers, Opening cartons Assistive Device(s): None Toileting hygiene and showering/bathing not addressed at this time. Upper Body Dressin - Setup or clean-up assistance: Ravenna sets up or cleans up; patient completes activity. Ravenna assists only prior to or following the activity. Assistance Provided: Setup assistance, Clean-up assistance Assistive Device(s): None Lower Body Dressin - Partial(minimal)/moderate assistance: Ravenna does less than half the effort. Ravenna lifts, holds or supports trunk or limbs but provides less than half the effort. Assistance Provided: Threading right leg through undergarment, Threading left leg through undergarment, Donning and doffing pants/skirt threading right leg, Donning and doffing pants/skirt threading left leg Assistive Device(s): None Putting On/Off Footwear: 01 - Dependent: Ravenna does all of the effort. Patient does none of the effort to complete the activity. Assistance Provided: Donning and doffing sock, right foot, Donning and doffing sock, left foot Assistive Device(s): None Roll left and right, sit to lying, and lying to sitting on edge of bed not addressed at this time Sit to Stand Transfer: 03 - Partial(minimal)/moderate assistance: Ravenna does less than half the effort. Ravenna lifts, holds or supports trunk or limbs but provides less than half the effort. Lift/Holding Assistance Provided: Left lower extremity, Trunk Assistive Device(s): Arm rest(s), Walker Toilet Transfer: 03 - Partial(minimal)/moderate assistance: Ravenna does less than half the effort. Ravenna lifts, holds or supports trunk or limbs but provides less than half the effort. Lift/Holding Assistance Provided: Right lower extremity, Trunk Assistive Device(s): Grab bars Outcome Measures: Recently assessed, not applicable at this time. Interventions: Self Care/Home Management: Therapist facilitated patient through ADL tasks this session to increase safety and independence in preparation for future ADLs, IADLs, and functional mobility. Therapist provided verbal cue on bilateral hand use when manipulating and opening containers on breakfast tray. Therapist educated patient on importance of bilaterality to include increasing strength and dexterity for future functional tasks when discharged. Therapist provided verbal and visual cues on technique for addressing affected side when performing LB ADLs. Therapist educated patient on importance of performing self care tasks to increase safety and independence. Patient and therapist discussed adaptive equipment, goals, and future sessions to increase endurance and independence. Therapist provided verbal encouragement throughout toilet hygiene task to improve balance through buttocks hygiene. Patient educated on home set up and modifications to increase stability upon discharge. Patient responded well to all cues and education this session. Equipment Provided: None issued this visit. Education: Mode of education provided: Explanation. Demonstration. Audience: Patient. Education Provided: Importance of activity. Mobility Techniques. Role of Occupational Therapy. Role of Physical Therapy. Safety. Treatment Plan. ADL's. Response: Indicates understanding. Verbalized understanding. Needs practice/reinforcement. Requires cues (auditory/physical). ASSESSMENT Response to Visit: The session was tolerated fair, as evidenced by: decreased endurance and increased lethargy. Call lopez was in patient's reach at end of session. Pain: Patient has no complaints of pain currently. Goal review: Patient was moderate assist with toilet hygiene this session with use of grab bars and verbal cues for safety. PLAN Treatment Frequency, Duration, and Intervention: Restorative Occupational Therapy recommended for 90 mins a day 1x a day for 5x a week Treatment is to include: Development of Cognitive Skills. Neuromuscular Re-education. Self Care/Home Management. Therapeutic Activity. Therapeutic Exercise. Intervention considerations/suggestions for future therapy sessions: FM coordination/strength; ADLs; IADLs; functional mobility; adaptive equipment/devices training; strengthening of bilateral UEs. ENDURANCE! INTERDISCIPLINARY PATIENT CARE PLAN Identified Problems from Team Documentation: Impaired Self Care Mgmt/ADL/IADL Self Care: Primary Team Goal: Patient will be modified independent with self cares using adaptive equipment/devices as needed by discharge./ Problem: Impaired Bladder Mgmt Bladder Management: Primary Team Goal: Patient will be continent of urine this shift/ Problem: Impaired Bowel Mgmt Bowel Management: Primary Team Goal: Patient will be continent of stool/ Problem: Impaired Mobility Mobility: Primary Team Goal : pt will ambulate 200 feet modified independent with rolling walker/ Add/Update Problems from this Treatment: No updates at this time. Program: General Medicine 3 Hour Rule Minutes: 60 minutes. Patient was seen for the full scheduled treatment time this session. Therapy Mode Minutes: Individual: 60 minutes. SESSION: Duration: 60 CHARGES: 24559 - CHARGE - OT SELF CARE ADL TRAIN-15 MIN 4 Units - GENERAL MEDICINE VISIT 1 Units Total treatment minutes: 60.00 Minutes Electronically Signed by: KENDALL Smalls/L, 10/04/2019 10:01:37 AM Irais Orozco RN - 10/04/2019 9:24 AM ESTCase Management Screen & Assessment Patient's Name: Yulisa Rebollar Date of : 1930 Age: 89 y.o. Gender: female Attending Provider: Lyly Diego,* Admitting Diagnosis: orthopedic condition Periprosthetic fracture of shaft of femur Admission Date and Time: 10/02/2019 1:50 PM High Risk Criteria - CONSULTING UTILITY FORESTER/Upon Arrival CONSULTING UTILITY FORESTER-Type of Residence: Private residence CONSULTING UTILITY FORESTER- Home Care Services: No Limited Home Supports/Lives Alone?: Yes(pt's dtr Isatu confirmed she will stay with pt) Multi trauma/Critical care admit?: No Head/Spinal cord injury?: No Self pay/No prescription plan?: No Active with homecare?: No Multiple ED visits?: No Related/Unplanned readmission within 30 days?: No Complex/New medical issues: S/P L distal femur replacement (TK revision) ; s/p L periprosthetic fx Relevant comorbidities: CAD; hx of IA, CHF; HTN; Obesity ; arthritis, ( hx of bilat TKR (2000) CM Screen Outcome Technology Applications Teacher Screen Outcome: Meets high risk criteria for active binder caser intervention Patient/Agent informed of choice and given written list?: Patient/agent accepted list Important message (Medicare rights) given?: Yes Date Given: 10/04/19 CM Chart Review Notice of Privacy Practice Signed?: Yes PCP (if different from registration record): Ken Saldana MD Self Pay: No Prescription Plan?: Yes (comment) Pt. Pharmacy & Phone # : [facility] CONSULTING UTILITY FORESTER: Functional/Environmental Assessment Came from Rehab/SNF, plan to return?: No Brief physical/psychosocial summary: Pt is an 89 yr old female; Independent CONSULTING UTILITY FORESTER ; lives alone - dtr Isatu confirmed she will stay with pt following d/c Bathing: Independent Dressing: Independent Toileting: Independent Medication administration: Independent Transfers: Unable to assess Ambulation: Unable to assess Meal preparation: Unable to assess Number of stairs into home: 6 Number of stairs to bathroom: 0 Number of stairs to bedroom: 0 Durable Medical Equipment (DME): Tub bench Potential Issues/Teaching Needs Physical: pain management, safety with transfers, ambulation and adl's Psychosocial: adjustment to altered lifestyle Other: family training with therapy and for home IV infusion Case Management Review Date CM re-review date needed?: Yes Case Management Review Date: 10/08/19 Discharge Assessment Additional Referrals Requested: Insurance benefit check Referred to Coordinator for: home care ; home infusion Patient/family informed of need for discharge planning?: Yes Patient/Agent informed of choice and given written list?: Patient/agent accepted list Patient expects to be discharged to:: home Actual discharge location : Home-With Homecare Services Has discharge transport been arranged?: No transport arrangement necessary Living Arrangements: Alone Support Systems: Children, Family members, Friends/neighbors Type of Residence: Private residence Note: Chart reviewed. Pt is an 89 yr old female admitted to acute rehab s/p L distal femur replacement ; TK revision. This radio news writer met with pt ; the role and function of CM reviewed. Pt deferred to her dtr Isatu; -Pt's demographic information was confirmed with Isatu. Isatu also stated she would be able to stay with her mother during her recovery. Isatu was informed pt will need LT IV ABX end date of 11/11/19; she confirmed she would be willing to learn for home infusion. The routine ofweekly team rounds on Mondays with updates following was also reviewed. Isatu stated she would prefer [facility] [place] [facility] and no preference for an infusion vendor. Pt has been [facility]to [facility]. CM will follow to assist with facilitating a safe d/c plan. Irais Jennings A 9: 31 AM Suzie Olsen RN - 10/03/2019 10:54 PM ESTAssumed care of patient from [id number] and agree with the previously charted assessment. No changes to report. Hourly rounding continued. Nicolas Maldonado RN - 10/03/2019 5:39 PM ESTAgree with previous assessment. Pt stable with no changes noted and call lopez in reach. Pineda Garcia - 10/03/2019 3:50 PM EST Spiritual Care Progress Note Photographic Lithographer: Rev. Pineda Conner M.Div.; [facility] Patient Name: Yulisa Rebollar Age: 89 y.o. Sex: female Room/Bed: 434/1 Dina Affiliation/Tradition: Lutheran Admit Date: 10/02/2019 Referrals: Referral From: Nurse Referral To: Photographic Lithographer Contact Information: [phone] Spiritual Care Assessment Spouse/Significant Other Name/Relationship: None Assessed Need for Visit: Adjustment/Coping Issues, Change in Health Status, Spiritual Companionship Patient Description: Sleeping Spiritual/Cultural/Social Issues Assessment: I visited Yulisa but she was asleep. I said a prayer and left a card. Spiritual Care Intervention: Left Card, Prayer Spiritual Outcomes - Patient: Not available for assessment Spiritual Outcomes - Family: Not available for assessment Spiritual Care Plan Goal Goal: Identify and support relationship with [facility]. 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 WBAT. Strict I & O. High Fall risk. Ice PRN. DNR. DVT precautions SUBJECTIVE Patient Report: pt is agreeable to therapy session. Pain: Patient currently complains of pain. Location: L knee . Patient describes pain as Nonspecific. Verbal Scale: Patient reports a pain level of 3 out of 10. OBJECTIVE No bed alarm noted at start of session. Skin Integrity: surgical incision on L knee covered with aquacell appears c/d/i, slight bloody areas under adhesive on lateral aspect but not on dressing, moderate pitting edema noted throughout L LE increased from previous session, bruising noted L posterio-lateral thigh to ankle, PICC in R UE, mepliex on medial aspect of L thigh by the groin Outcome Measures: Recently assessed, not applicable at this time. Interventions: Therapeutic Exercise: Instructed in and performed supine ther ex to promote ROM and circulation in L LE to reduce the risk of postoperative complications. All completed 3 x 10 reps with verbal/tactile cues and demonstration for technique. -Ankle pumps -Quad sets -Glute sets -Heel slides -Hip abduction -SAQs Self Care/Home Management: Pt noted to have pillow behind the knee following revision of left TKA upon entering the room. Provided education to patient and Nae Church RN about postoperative precautions. Encouraged patient to complete ankle pumps and quad sets 10x every waking hour. provided ice pack and elevation to L knee prior to leaving to assist in reducing edema and pain in L knee. Education: Mode of education provided: Explanation. Audience: Patient. Nurse. Education Provided: posteroperative precautions. . Response: Verbalized understanding. ASSESSMENT Response to Visit: The session was tolerated well. pt very lethargic this session and requesting to stay in bed. Call lopez was in patient's reach at end of session. Intervention considerations/suggestions for future therapy sessions: s/p mechanical fall resulting in L periprosthetic fracture, s/p L revision TKA on 09/27/2019, WBAT, 7 stairs to enter with berry rails, lives alone bed mobility: min assist for R LE, has hospital bed at home transfers: CGA from w/c, min assist from lower surfaces ambulation: 28' with CGA rolling walker, w/c follow for safety stairs: 4 stairs with berry rails, CGA *LE strengthening, knee ROM, standing balance, bed mobility, stairs Pain: Yes, pain is unchanged from start of today's treatment. Program: Orthopedics 3 Hour Rule Minutes: 30 minutes. Patient was seen for the full scheduled treatment time this session. Therapy Mode Minutes: Individual: 30 minutes. SESSION: Duration: 30 CHARGES: 70478 - CHARGE - PT THER EX - 15 MIN 2 Units 21605 - CHARGE - PT SELF CARE ADL - 15 MIN 0 Units - ORTHOPEDIC VISIT 1 Units Total treatment minutes: 30.00 Minutes Electronically Signed by: Emma Acosta PT, DPT, 10/03/2019 3:07:36 PM Lyly Oliveira MD - 10/03/2019 12:58 PM EST Physical Medicine and Rehabilitation IRF Progress Note Subjective: Yulisa Rebollar is a 89 y.o. female. Subjective Pt seen & examined this AM bedside sitting in w/c. No acute events overnight. Endorses pain LLE,has not been given ice. Had nausea last night after med pass, resolved. Voiding. Denies chest pain, SOB, abdominal pain and headache. Scheduled Meds: acetaminophen (TYLENOL) tablet 650 mg Oral 4x Daily aspirin 81 mg Oral Daily atorvastatin 40 mg Oral QPM calcium carb-cholecalciferol 1 tablet Oral Daily ceFAZolin sodium 2 g Intravenous Q12H enoxaparin 40 mg Subcutaneous Daily furosemide 20 mg Oral BID sodium chloride (preservative free) 10 mL Intravenous Q12H And heparin lock flush 20 Units Intravenous Q12H levothyroxine 100 mcg Oral Daily metoprolol 50 mg Oral Daily rifAMPin 300 mg Intravenous Q12H saccharomyces boulardii 250 mg Oral BID senna 2 tablet Oral Nightly [START ON 10/04/2019] tramadol 50 mg Oral Daily Vitamin D3 1,000 Units Oral Daily Continuous Infusions: PRN Meds:.sodium chloride (preservative free) AND heparin lock flush AND* * sodium chloride (preservative free) AND heparin lock flush, polyethylene glycol, promethazine, [START ON 10/04/2019] tramadol AND tramadol LINES: PICC and there is no evidence of infection Objective: VITAL SIGNS: Temp: [36.3 C-36.7 C] 36.4 C Pulse: [72-91] 91 Resp: [16-17] 16 BP: (118-167)/(66-79) 147/73 SpO2: [96 %-99 %] 96 % O2 Therapy: Room air PE: General: No acute distress, alert, oriented x 3 Eyes: Eyelids without lesions, Sclera anicteric HEENT: No oral thrush, Neck supple Cardiovascular: RRR, S1 S2 normal, No murmurs Pulmonary: Clear to auscultation bilaterally, unlabored effort Abdominal: Soft, Obese, Non-tender, Positive bowel sounds Extremities: LLE edema, No calf tenderness. Aquacel drsg CDI Musculoskeletal: No changes in strength. Psych: Mood and affect normal Neuro: no focal deficits DIAGNOSTIC STUDIES: CBC: Lab Results Component Value Date WBC 9.2 10/03/2019 RBC 2.25 (L) 10/03/2019 HGB 7.5 (L) 10/03/2019 HCT 22.0 (L) 10/03/2019 PLT 391 10/03/2019 CMP: Lab Results Component Value Date NA 135 (L) 10/03/2019 K 4.0 10/03/2019 CL 104 10/03/2019 BICARBONATE 22 10/03/2019 CALCIUM 7.3 (L) 10/03/2019 GLUCOSE 111 10/03/2019 BUN 18 10/03/2019 BCR 26 10/03/2019 PROT 4.8 (L) 10/03/2019 ALBUMIN 2.4 (L) 10/03/2019 TBILI 0.9 10/03/2019 ALKPHOS 60 10/03/2019 AST 23 10/03/2019 ALT 5 10/03/2019 AGRATIO 1.0 10/03/2019 GFRAA 10/03/2019 eGFR is not calculated in patients <18 or >80 years of age. GFRNONAA 10/03/2019 eGFR is not calculated in patients <18 or >80 years of age. DATA REVIEWED: allergy list , medication list and old records Assessment and Plan: Assessment & Plan Yulisa Rebollar is a 89 y.o. 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 Babb on 09/27/2019. Diagnoses/Plan: Femur fracture, left # Impaired mobility and self-care: Acute inpatient comprehensive rehabilitation including PT, OT, RT, HOPPER FILLER, and supportive services to improve functional outcome of impaired mobility, ADL's, transfers, and self-care. # Left periprosthetic distal femur fracture now s/p Total Knee Revision with Left Distal Femoral Replacement WBAT Monitor incision, will leave Aquacel intact until 10/04/2019 then switch to Mepilex Evaluate for staple removal 10/11/2019 F/u Dr. Babb after d/c # Positive Intra-op Tissue Culture Grew Staph epi Per Dr. Howard: 6 weeks IV cefazolin & rocephin (until 11/11/2019) followed by oral cephalosporin and rifampin for another 6 months and then po cephalosporin indefinitely Added Florastor with abx Will arrange outpt f/u with Dr. Howard Mild leukocytosis has normalized on admission labs Monitor routine labs wkly & PRN # Pain management Will schedule routine Tyl 650 mg 4x/day Tramadol 50 mg prior to 1st AM therpay & Q4H PRN available Frequent ice/elevation # Acute Blood Loss Anemia H/H7.01/09 Did require 1 unit PRBC postop No signs of active bleeding ^MCV/MCH, added Iron studies CBC AM # CAD ASA, Statin, Metoprolol XL # Chronic Systolic Heart Failure/HTN Lasix20 mg BID Metoprolol XL 50 mg daily Is on ACEi outpt, taken off 2/2 KIMBERLY on admission, restart Lisinopril at 5 mg daily today (home dose is 20 mg) as BPs rising, renal function stable Daily AM wts, VIGNESH diet Monitor anemia, CBC AM # Hyponatremia Improving from 128 to 133 to 135 this AM # Hypothyroidism Levothyroxine 100 mcg QAM # Bowel/Bladder Moving bowels, will continue Senna QHS. D/c'd Colace, Miralax PRN Aleman d/c'd, voiding, monitor PVRs until <100 x 3 consecutively Toilet schedule to help with incontinence (baseline) # DVT prophylaxis Lovenox # Obesity Contributes to complexity of care Nutrition will follow # Other health maintenance Vit D hydroxy level 24, restarted Vit D 1000 units daily Corrected Ca+ just WNL, takes Ca+ outpt, restarted CODE STATUS: DNR Progress in therapies: evals in progress Patient is making progress towards the rehabilitation goals established; the patient's condition is sufficiently stable to allow the patient to actively participate in an intensive rehabilitation program. The patient requires and is able to tolerate 3 hours of therapy at least 5 days per week. The patient continues to benefit from the inpatient rehabilitation program with care provided by rehabilitation medicine team, rehabilitation nursing, occupational and physical therapies. I have updated the patient/family regarding the current status and above plans. Certain parts of this note may have been carried over from prior notes to maintain accuracy of patient's pertinent medical history and continuity of care. The details were verified and edited as appropriate. Discussed with Dr. Diego, Nursing ++++++++++++++++++++++++++++ Daniella Roberto MS, STRAIGHT SLICING MACHINE OPERATOR-BS Physical Medicine & Rehabilitation [facility] I saw and evaluated the patient. Discussed with the Nurse Practitioner, and agree with the Nurse Practitioner's findings as documented in the the note, with the exceptions/additions as noted below. The Nurse Practitioner's note has only been reviewed, not edited. With increased swelling in the LLE and calf tenderness-will check a Doppler UA. Scheduled low dose tramadol prior to the therapies for improved pain control. Gets good benefit from tramadol but does not last too long-will make it every 4 hours low dose 50 mg with holding parameters. Monitor PVRs. Ambulated with Drew. CBC am for anemia. Nae Robins RN - 10/03/2019 11:42 AM ESTPt face shows more pain than 5, only option available currently until after 12:30, per , provided early to patient Alanis Lake OT - 10/03/2019 10:00 AM ESTOccupational Therapy Inpatient Rehabilitation Encounter Form Admitting Diagnosis: orthopedic condition Periprosthetic fracture of shaft of femur Rehab Diagnosis: Impaired mobility and self-care Rehabilitation Precautions/Restrictions: DNR/DNI High Fall Risk OOB w/assistance WBAT LLE DVT Precautions SUBJECTIVE Patient Report: "I'd like to continue on if that's okay?" "I have a hard time seeing, what time is is?" Pain: Patient currently complains of pain. Location: below left knee . Patient describes pain as Nonspecific. Verbal Scale: Patient reports a pain level of 2 out of 10. OBJECTIVE Chair alarm was on at start of session. Skin Integrity: PICC Single Lumen 10/01/19 Right Basilic Wound 09/27/19 Surgical Incision Knee Left: Dressing (C/D/I) Outcome Measures: Recently assessed, not applicable at this time. Interventions: Self Care/Home Management: Therapist facilitated patient through bilateral LE ADL task to increase safety and independence in preparation for future ADLs, IADLs, and functional mobility. Therapist provided verbal and visual cues on technique using remediation consultant for assistance in performing functional tasks. Patient educated on importance of performing ADL tasks to increase bilateral UE strengthening and fine/gross motor coordination. Therapist provided verbal and tactile assist with postiioning of remediation consultant throughout to increase accuracy. Therapist and patient discussed discharge planning with goals and home set up. Patient responded well to all cues and education this session. Equipment Provided: None issued this visit. Education: Mode of education provided: Explanation. Demonstration. Audience: Patient. Education Provided: Importance of activity. Mobility Techniques. Role of Occupational Therapy. Role of Physical Therapy. Safety. Treatment Plan. ADL's. Response: Indicates understanding. Verbalized understanding. Applied knowledge. Needs practice/reinforcement. Requires cues (auditory/physical). ASSESSMENT Response to Visit: The session was tolerated fair, as evidenced by: decreased endurance and bilateral UE strength/coordination. Chair alarm was on at end of session. Call lopez was in patient's reach at end of session. Intervention considerations/suggestions for future therapy sessions: 10/03 FM coordination/strength; ADLs; IADLs; functional mobility; adaptive equipment/devices training; strengthening of bilateral UEs. Pain: Yes, pain is unchanged from start of today's treatment. Program: General Medicine 3 Hour Rule Minutes: 30 minutes. Patient was seen for the full scheduled treatment time this session. Therapy Mode Minutes: Individual: 30 minutes. SESSION: Duration: 30 CHARGES: 97987 - CHARGE - OT SELF CARE ADL TRAIN-15 MIN 2 Units - GENERAL MEDICINE VISIT 1 Units Total treatment minutes: 30.00 Minutes Electronically Signed by: KENDALL Smalls/Cristofer, 10/03/2019 10:25:45 AM Nae Robins RN - 10/03/2019 7:33 AM ESTPer welder 2nd shift Pt was high pvr in bed, once got up and voided in bsc was able to empty to 9cc post void residual Gisella Aguilar RN - 10/02/2019 7:38 PM ESTRN had conservation to patient about aleman removal and patient stated "I am incontinent at home and wear a brief to bed usually". RN offered purwick and patient agreed. Minh Payton [facility] - 10/02/2019 4:14 PM EST Minh Lombardo [facility] 10/02/2019 16:13 | 4E Pharmacist Admission Medication Reconciliation Yulisa Rebollar, 89 y.o. Medications Prior to Admission Medication Sig Dispense Refill Last Dose Acetaminophen 500 MG Oral Tablet (TYLENOL) Take 500 mg by mouth every 6 ( six) hours as needed for Pain 09/25/2019 at Unknown time Aspirin 81 MG Oral Tablet Chewable Chew 81 mg by Mouth daily 09/25/2019 at Unknown time Atorvastatin Calcium 40 MG Oral Tablet (LIPITOR) Take 40 mg by mouth every evening 09/25/2019 at Unknown time Calcium Carbonate 600 MG Oral Tablet (OS-TOÑA) Take 1,000 mg by mouth Two times daily with meals Past Week at Unknown time Denosumab 60 MG/ML Subcutaneous Solution Prefilled Syringe (PROLIA) Inject 60 mg into the skin every 6 (six) months More than a month at Unknown time Furosemide 40 MG Oral Tablet (LASIX) Take 40 mg by mouth daily 09/25/2019 at Unknowntime Levothyroxine Sodium 100 MCG Oral Tablet (SYNTHROID, LEVOTHROID) Take 100 mcg by mouth Daily 09/25/2019 at Unknown time [START ON 10/03/2019] Metoprolol Succinate ER 50 MG Oral Tablet Extended Release 24 Hour (TOPROL-XL) Take 1 tablet by mouth daily 30 tablet 11 Lisinopril 20 MG Oral Tablet (PRINIVIL,ZESTRIL) Take 20 mg by mouth daily 09/25/2019 at Unknown time traMADol HCl 50 MG Oral Tablet (ULTRAM) Take 50 mg by mouth every 6 (six ) hours as needed for Pain 09/25/2019 at Unknown time Vitamin D 50 MCG (2000 UT) Oral Tablet Take 2,000 Units by mouth daily Past Week atUnknown time @CMED@ Lab Results Component Value Date CREATININE 0.70 10/02/2019 , Estimated Creatinine Clearance: 33.2 mL/min (based on SCr of 0.7 mg/dL). Of note, Patient's Outpatient Pharmacy: (at the time of admission, please make sure this matches what is in [facility]) [facility] [place], [place] The following home medications were not continued for current regimen: Lisinopril 20 mg po daily Calcium carbonate 600 mg BID with meals Vitamin D 2000 units po daily PROLIA 60 mg SC every 6 months The following doses and/or frequency changes were identified: Tramadol was changed to 25 to 50 mg po q 6 hours prn for Mod to severe pain Furosemide was changed to 20 mg po BID from 40 mg po daily The following medications were added during admission: polyethylene glycol (MIRALAX) packet 17 g, PO, Daily ceFAZolin (ANCEF) IVPB 2 g IV q 8 hours rifAMPin (RIFADIN) 300 mg IV q 12 hours saccharomyces boulardii (FLORASTOR) PO BID senna 8.6 MG 2 tablet po nightly The following issues have been discussed and addressed with the admitting provider /, on patient's arrival to : Lisinopril 20 mg po daily was not continued from home med list will need to evaluate to see if needed Unresolved Recommendations: Calcium was 7.2 mg/dl today has no order for calcium supplement at this time Also Vitamin d was not continued Continue to monitor cr and check renal function for Cefazolin May need Liver function checked while on Rifampin Patient is currently on Long-Term Antibiotics for Orthopedic infection with an anticipated end dateof 6 weeks from start Cefazolin 2 grams iv q 8 hours and Rifampin 300 mg iv q 12 hours Discharge Counseling Concerns: ongoing antibiotics @MECRED@ 10/02/2019 @ 3:45 PM Extension [phone] Electronically signed by Minh Lombardo [facility] at 10/02/2019 4:15 PM ESTdocumented in this encounter Plan of Treatment Date Type Specialty Care Team Description 10/22/2019 Office Visit Orthopedic Surgery Dexter Babb MD [address] [place] [address] [phone] Name Type Priority Associated Order Schedule Diagnoses Consult to Assisted Rehab Routine Continuous for 30 PET Days for 30 Days Therapy-Rehab/Psych starting 10/02/2019 until 10/02/2019 Consult to Rehab Routine Continuous for 30 Recreational Therapy Days for 30 Days Inpatient starting 10/02/2019 until 10/02/2019 Incentive Spirometry Respiratory Care Routine Respiratory use RT Teach only - Every 2 hours while awake for 30 Days starting 10/02/2019 until 11/01/2019 Name Type Priority Associated Diagnoses Order Schedule Referral to home Outpatient Referral Routine Impaired mobility Ordered: health Periprosthetic 10/17/2019 fracture of shaft of femur Referral to home Outpatient Referral Routine Impaired mobility Ordered: health Periprosthetic 10/17/2019 fracture of shaft of femur Health Maintenance Due Date Last Done Comments MMR Vaccines (1 of 1 - Standard 1933 series) Varicella Vaccines (1 of 2 - 1933 2-dose childhood series) DTaP,Tdap,and Td Vaccines (1 - 1939 Tdap) Zoster Vaccines (1 of 2) 1982 Pneumococcal Vaccine: 65+ Years (1 1997 of 2 - PCV13) Influenza Vaccine 05/21/2019 Osteoporosis Screening 2 yr 09/25/2021 09/25/2019 HIB Vaccines Aged Out No longer eligible based on patient's age to complete this topic Hepatitis A Vaccines Aged Out No longer eligible based on patient's age to complete this topic Hepatitis B Vaccines Aged Out No longer eligible based on patient's age to complete this topic IPV Vaccines Aged Out No longer eligible based on patient's age to complete this topic Pneumococcal Vaccine: Pediatrics Aged Out No longer eligible based on (0 to 5 Years) and At-Risk patient's age to complete Patients (6 to 64 Years) this topic documented as of this encounter Implants Implanted Type Area Decal Transferrer Device Shelf Model / Identifier Expiration Date Serial / Lot Cement Bone Simplexw/Tobra - [id number] Left: MAHENDRA 06/20/2020 6197-9 -001 / Implanted: Qty: 4 on 09/27/2019 by Dexter Babb MD at [place] [facility] Information / [id number] Insert Kinemax Tib 11mm Sml - [id number] Left: MAHENDRA 10/21/2022 6485- 2-111 / Implanted: Qty: 1 on 09/27/2019 by Dexter Babb MD at [place] [facility] / [id number] Gmrs Dist Fem Lt Sm 65mm - [id number] Left: MAHENDRA 09/18/2023 6495-2- 010 / Implanted: Qty: 1 on 09/27/2019 by Dexter Babb MD at [place] [facility] Information / [id number] Gmrs Dist Fem Sm Bushing - [id number] Left: MAHENDRA 09/30/2022 6495-2- 105 / Implanted: Qty: 1 on 09/27/2019 by Dexter Babb MD at [place] [facility] Information / [id number] Gmrs Dist Fem Sm Axle - [id number] Left: MAHENDRA 10/15/2023 6495-2-115 / Implanted: Qty: 1 on 09/27/2019 by Dexter Babb MD at [place] [facility] / [id number] Gmrs Dist Fem Sm [place]ushing - [id number] Left: MAHENDRA 09/14/2022 6495-2- 105 / Implanted: Qty: 1 on 09/27/2019 by Dexter Babb MD at [place] [facility] Information / [id number] Gmrs Global Ext Piece 70mm - [id number] Left: MAHENDRA 07/30/2021 6495-6 -070 / Implanted: Qty: 1 on 09/27/2019 by Dexter Babb MD at [place] [facility] Information / [id number] Bearing Hinge Fem Tib Mod - [id number] Left: MAHENDRA 05/04/2024 6481-2- 103 / Implanted: Qty: 1 on 09/27/2019 by Dexter Babb MD at [place] [facility] Information / [id number] Bumper Knee Hinge 3dg Duration - [id number] Left: MAHENDRA 05/28/2024 6481-2-133 / Implanted: Qty: 1 on 09/27/2019 by Dexter Babb MD at [place] [employer] / [id number] Stem Fem 13 X127mm W/O Body - [id number] Left: MAHENDRA 10/19/2023 6485- 3-113 / Implanted: Qty: 1 on 09/27/2019 by Dexter Babb MD at [place] [employer] / [id number] documented as of this encounter Procedures Procedure Name Priority Date/Time Associated Comments Diagnosis CBC AND DIFFERENTIAL Routine 10/15/2019 6:34 Results for this AM EST procedure are in the results section. COMPREHENSIVE Routine 10/15/2019 6:34 Results for this METABOLIC PANEL AM EST procedure are in the results section. CBC AND DIFFERENTIAL Routine 10/11/2019 5:52 Results for this AM EST procedure are in the results section. BASIC METABOLIC PANEL Routine 10/11/2019 5:52 Results for this AM EST procedure are in the results section. COMPREHENSIVE Routine 10/07/2019 6:18 Results for this METABOLIC PANEL AM EST procedure are in the results section. DIFFERENTIAL WITH WBC Routine 10/05/2019 6:34 Results for this AM EST procedure are in the results section. CBC AND DIFFERENTIAL Routine 10/04/2019 12:07 Results for this PM EST procedure are in the results section. US DOPPLER LOWER Urgent 10/03/2019 2:18 Results for this EXTREMITY UNILATERAL PM EST procedure are in VENOUS LIMITED 42761 the results section. VITAMIN D 25 HYDROXY, Routine 10/03/2019 5:48 Results for this TOTAL AM EST procedure are in the results section. TOTAL FE BINDING Routine 10/03/2019 5:44 Results for this CAPACITY AM EST procedure are in the results section. CBC AND DIFFERENTIAL Routine 10/03/2019 5:44 Results for this AM EST procedure are in the results section. FERRITIN LEVEL Routine 10/03/2019 5:44 Results for this AM EST procedure are in the results section. COMPREHENSIVE Routine 10/03/2019 5:44 Results for this METABOLIC PANEL AM EST procedure are in the results section. documented in this encounter Results CBC and Differential (10/15/2019 6:34 AM EST) White Blood Cell 5.3 4 - 10 [facility] 10*3/uL [facility] CG Red Blood Cell 2.42 (L) 4.1 - 5.3 [facility] 10*6/uL [facility] Hemoglobin 8.5 (L) 11.5 - 15.5 [facility] g/dL [facility] Hematocrit 25.0 (L) 36 - 45 % [facility] at Mean Cell Volume 103.2 (H) 80 - 96 fL [facility] at Mean Cell Hemoglobin 34.9 (H) 27 - 33 pg [facility] at Mean Cell Hgb Conc 33.9 32.0 - 36.0 [facility] g/dL Medical [facility] at Red Cell Dist Width 20.7 (H) 11.5 - 14.5 % [facility] at Platelet Count 460 (H) 150 - 400 [facility] 10*3/uL [facility] at Differential Type Automated Diff [facility] at Neutrophil 69 % [facility] Lymphocyte 15 % [facility] Monocyte 8 % [facility] Eosinophil 7 % [facility] Basophil 1 % [facility] at Abs Neutrophil 3.66 1.8 - 7.0 [facility] 10*3/uL [facility] at Abs Lymphocyte 0.80 (L) 1.2 - 4.0 [facility] 10*3/uL [facility] Abs Monocyte 0.45 0 - 0.8 [facility] 10*3/uL [facility] Abs Eosinophil 0.39 0 - 0.5 [facility] 10*3/uL [facility] at Abs Basophil 0.04 0 - 0.2 [facility] 10*3/uL [facility] at Nucleated Red Blood 0 0 - 0 [facility] Cells /100{WBCs} [facility] at Specimen EDTA Whole Blood Performing Organization Address City/State/Zipcode Phone Number [facility] AT [place] [id number] [place] [address] [phone] [facility] at [address] [place] [address] Comprehensive Metabolic Panel (10/15/2019 6:34 AM EST) Albumin 2.9 (L) 3.5 - 5.2 [facility] g/dL [facility] at Bilirubin, Total 0.2 <1.2 mg/dL [facility] at CG Calcium 7.9 (L) 8.8 - 10.2 [facility] mg/dL [facility] CG Chloride 99 98 - 107 [facility] mmol/L [facility] CG Creatinine 0.68 0.50 - 0.90 [facility] mg/dL [facility] CG Glucose 95 70 - 140 [facility] mg/dL [facility] CG Alkaline 81 35 - 104 U/L [facility] Phosphatase [facility] CG Potassium 4.0 3.4 - 5.1 [facility] mmol/L [facility] CG Total Protein 5.0 (L) 6.4 - 8.3 [facility] g/dL [facility] CG Sodium 132 (L) 136 - 145 [facility] mmol/L [facility] at CG AST/SGO 19 <32 U/L [facility] at Blood Urea Nitrogen 16 8 - 23 mg/dL [facility] at CG Osmolality, Toña 275 275 - 300 [facility] mosm/kg [facility] at CG BUN/Cre Ratio 23 [facility] at CG Bicarbonate 24 22 - 29 [facility] mmol/L [facility] CG ALT/SGP <5 <33 U/L [facility] at Anion Gap 9 8 - 15 mmol/L [facility] at CG A/G Ratio 1.0 [facility] at GFR Non eGFR is not >60 [facility] 2008 calculated in mL/min/1.73m2 [facility] at CDK-EPI patients <18 or CG >80 years of age. GFR eGFR is not >60 [facility] 2008 calculated in mL/min/1.73m2 [facility] at CKD-EPI patients <18 or CG >80 years of age. Specimen Plasma Performing Organization Address City/State/Zipcode Phone Number [facility] AT [address] [address] [facility] at [address] [place] [address] Basic Metabolic Panel (10/11/2019 5:52 AM EST) Bicarbonate 22 22 - 29 [facility] mmol/L [facility] CG Chloride 100 98 - 107 [facility] mmol/L [facility] CG Creatinine 0.81 0.50 - 0.90 [facility] mg/dL [facility] CG Glucose 106 70 - 140 [facility] mg/dL [facility] at Potassium 4.2 3.4 - 5.1 [facility] mmol/L [facility] at Sodium 134 (L) 136 - 145 [facility] mmol/L [facility] at Blood Urea Nitrogen 13 8 - 23 mg/dL [facility] at Anion Gap 12 8 - 15 mmol/L [facility] at Osmolality, To[place] 279 275 - 300 [facility] mosm/kg [facility] at BUN/Cre Ratio 16 [facility] at Calcium 8.1 (L) 8.8 - 10.2 [facility] mg/dL [facility] at GFR Non eGFR is not >60 [facility] 2008 calculated in mL/min/1.73m2 [facility] at CDK-EPI patients <18 or CG >80 years of age. GFR eGFR is not >60 [facility] [facility] 2008 calculated in mL/min/1.73m2 [facility] at CKD-EPI patients <18 or CG >80 years of age. Specimen Plasma Performing Organization Address City/State/Zipcode Phone Number [facility] [place] [address] [facility] [place] [address] CBC and Differential (10/11/2019 5:52 AM EST) White Blood Cell 7.3 4 - 10 10*3/uL [facility] at Red Blood Cell 2.62 (L) 4.1 - 5.3 [facility] 10*6/uL [facility] at Hemoglobin 8.8 (L) 11.5 - 15.5 [facility] g/dL [facility] at Hematocrit 26.6 (L) 36 - 45 % [facility] at Mean Cell Volume 101.3 (H) 80 - 96 fL [facility] at Mean Cell Hemoglobin 33.6 (H) 27 - 33 pg [facility] at Mean Cell Hgb Conc 33.2 32.0 - 36.0 [facility] g/dL [facility] at Red Cell Dist Width 19.0 (H) 11.5 - 14.5 % [facility] at Platelet Count 645 (H) 150 - 400 [facility] 10*3/uL [facility] at Differential Type Manual Diff [facility] CG Neutrophil 62 % [facility] CG Lymphocyte 21 % [facility] CG Eosinophil 8 % [facility] Abs Neutrophil 4.53 1.8 - 7.0 [facility] 10*3/uL [facility] CG Abs Lymphocyte 1.53 1.2 - 4.0 [facility] 10*3/uL [facility] Abs Eosinophil 0.58 (H) 0 - 0.5 [facility] 10*3/uL [facility] CG Neut Band 8 % [facility] CG Metamyelocyte 1 % [facility] CG Abs Neut Band 0.58 0 - 0.6 [facility] 10*3/uL [facility] Abs Metamyelocyte 0.07 (H) 0 - 0 10*3/uL [facility] at Macrocytosis 1+ [facility] Anisocytosis 2+ [facility] Basophilic Stippling 1+ [facility] Medical [facility] at Polychromasia 2+ [facility] Medical [facility] at Specimen EDTA Whole Blood Performing Organization Address City/State/Zipcode Phone Number [facility] [place] [address] [phone] [facility] at [address] [address] Comprehensive Metabolic Panel (10/07/2019 6:18 AM EST) Albumin 2.5 (L) 3.5 - 5.2 [facility] g/dL [facility] at Bilirubin, Total 0.8 <1.2 mg/dL [facility] at Calcium 7.5 (L) 8.8 - 10.2 [facility] mg/dL [facility] at Chloride 101 98 - 107 [facility] mmol/L [facility] at Creatinine 0.65 0.50 - 0.90 [facility] mg/dL [facility] Glucose 115 70 - 140 [facility] mg/dL [facility] at Alkaline 71 35 - 104 U/L [facility] Phosphatase [facility] at CG Potassium 4.1 3.4 - 5.1 [facility] mmol/L [facility] at Total Protein 4.6 (L) 6.4 - 8.3 [facility] g/dL [facility] at Sodium 133 (L) 136 - 145 [facility] mmol/L [facility] at AST/SGO 27 <32 U/L [facility] at Blood Urea Nitrogen 13 8 - 23 mg/dL [facility] at Osmolality, [place] 277 275 - 300 [facility] mosm/kg Medical [facility] at BUN/Cre Ratio 20 [facility] at Bicarbonate 21 (L) 22 - 29 [facility] mmol/L [facility] at ALT/SGP <5 <33 U/L [facility] at Anion Gap 11 8 - 15 mmol/L [facility] at A/G Ratio 1.0 [facility] at GFR Non eGFR is not >60 [facility] 2008 calculated in mL/min/1.73m2 [facility] at CDK-EPI patients <18 or CG >80 years of age. GFR eGFR is not >60 [facility] 2008 calculated in mL/min/1.73m2 [facility] at CKD-EPI patients <18 or CG >80 years of age. Specimen Plasma Performing Organization Address City/[facility] Phone Number [facility] [place] [address] [phone] [facility] at [place] [phone] Differential with WBC (10/05/2019 6:34 AM EST) Differential Type Automated Diff [facility] at Neutrophil 66 % [facility] at Lymphocyte 22 % [facility] at Monocyte 7 % [facility] at Eosinophil 4 % [facility] at Basophil 1 % [facility] at Abs Neutrophil 6.99 1.8 - 7.0 [facility] 10*3/uL [facility] at Abs Lymphocyte 2.32 1.2 - 4.0 [facility] 10*3/uL [facility] at Abs Monocyte 0.75 0 - 0.8 [facility] 10*3/uL [facility] at Abs Eosinophil 0.37 0 - 0.5 [facility] 10*3/uL [facility] at Abs Basophil 0.06 0 - 0.2 [facility] 10*3/uL [facility] at Nucleated Red Blood 0 0 - 0 [facility] Cells /100{WBCs} [facility] at Specimen EDTA Whole Blood Performing Organization Address City/[facility]/Zipcode Phone Number [facility] [address] [address] [facility] at [address] [place] [address] CBC and Differential (10/04/2019 12:07 PM EST) White Blood Cell 10.7 (H) 4 - 10 [facility] 10*3/uL [facility] at Red Blood Cell 2.49 (L) 4.1 - 5.3 [facility] 10*6/uL [facility] at Hemoglobin 8.4 (L) 11.5 - 15.5 [facility] g/dL [facility] at Hematocrit 24.4 (L) 36 - 45 % [facility] at Mean Cell Volume 97.9 (H) 80 - 96 fL [facility] Medical [facility] at Mean Cell Hemoglobin 33.7 (H) 27 - 33 pg [facility] at Mean Cell Hgb Conc 34.5 32.0 - 36.0 [facility] g/dL [facility] at Red Cell Dist Width 16.8 (H) 11.5 - 14.5 % [facility] at Platelet Count 514 (H) 150 - 400 [facility] 10*3/uL [facility] at Differential Type Automated Diff [facility] Medical [facility] at Neutrophil 76 % [facility] Medical [facility] at Lymphocyte 12 % [facility] Medical [facility] at Monocyte 10 % [facility] Medical [facility] at Eosinophil 2 % [facility] Medical [facility] at Basophil 0 % [facility] Medical [facility] at Abs Neutrophil 8.02 (H) 1.8 - 7.0 [facility] 10*3/uL [facility] at Abs Lymphocyte 1.32 1.2 - 4.0 [facility] 10*3/uL [facility] at CG Abs Monocyte 1.07 (H) 0 - 0.8 [facility] 10*3/uL [facility] at CG Abs Eosinophil 0.25 0 - 0.5 [facility] 10*3/uL [facility] at Abs Basophil 0.04 0 - 0.2 [facility] 10*3/uL [facility] at Nucleated Red Blood 0 0 - 0 [facility] Cells /100{WBCs} [facility] at Specimen EDTA Whole Blood Performing Organization Address City/State/Zipcode Phone Number [facility] [address] [place] [address] [facility] at CG [address] [place] [address] US Doppler Lower Extremity Unilateral Venous Limited (CC) (10/03/2019 2:18 PM EST) Specimen Impressions Performed At Impression: No definitive current evidence of acute thrombosis is [facility] identified. Examination limited by severe soft tissue edema. Narrative Performed At Procedure: Left lower extremity real-time compression venous ultrasound [facility] with Duplex and Color Doppler imaging. History: Leg swelling post surgery. Utilizing real-time ultrasonic imaging multiple real time high-resolution ultrasonic images of the deep venous system were performed from the common femoral vein through the proximal calf veins. Compression real time ultrasonic imaging was performed in addition to color Doppler imaging and duplex Doppler ultrasound with velocity spectral profile analysis during Valsalva and augmentation maneuvers . Currently there is normal compressibility of the deep venous system from the common femoral vein through the proximal calf veins. No definitive current evidence of acute thrombosis is identified. Normal vascular flow is currently identified. Examination limited by severe soft tissue edema. Procedure Note Interface, Received [id number] - 10/03/2019 2:45 PM EST Procedure: Left lower extremity real-time compression venous ultrasound with Duplex and Color Doppler imaging. History: Leg swelling post surgery. Utilizing real-time ultrasonic imaging multiple real time high-resolution ultrasonic images of the deep venous system were performed from the common femoral vein through the proximal calf veins. Compression real time ultrasonic imaging was performed in addition to color Doppler imaging and duplex Doppler ultrasound with velocity spectral profile analysis during Valsalva and augmentation maneuvers . Currently there is normal compressibility of the deep venous system from the common femoral vein through the proximal calf veins. No definitive current evidence of acute thrombosis is identified. Normal vascular flow is currently identified. Examination limited by severe soft tissue edema. Impression: No definitive current evidence of acute thrombosis is identified. Examination limited by severe soft tissue edema. Performing Organization Address City/State/Zipcode Phone Number [facility] [address] [place] [address] Vitamin D 25 hydroxy (10/03/2019 5:48 AM EST) Vitamin D 25 Hydroxy, 24 (L) >30 ng/mL [facility] TOTAL Clin Pathology Specimen Serum Performing Organization Address City/State/Zipcode Phone Number [facility] [address] [place] [address] [facility] [address] [place] [address] Pathology Iron and TIBC (10/03/2019 5:44 AM EST) Iron 37 37 - 145 ug/dl [facility] at Transferrin Serum 134 (L) 200 - 360 mg/dL [facility] Clin Pathology Total Fe Bind Cap 186 (L) 228 - 428 ug/dl [facility] Clin Pathology % Fe Saturation 20.0 20 - 55 % [facility] Clin Pathology Specimen Plasma Performing Organization Address City/[facility] Phone Number [facility] [address] [place] [address] [phone] [facility] at [address] [address] [facility] [address] [place] [address] Pathology Ferritin Level (10/03/2019 5:44 AM EST) Ferritin 518 (H) 13 - 150 ng/ml [facility] at Specimen Plasma Performing Organization Address [facility] Centercode Phone Number [facility] AT [address] [address] [facility] at [address] [address] Comprehensive Metabolic Panel (10/03/2019 5:44 AM EST) Albumin 2.4 (L) 3.5 - 5.2 [facility] g/dL [facility] at Bilirubin, Total 0.9 <1.2 mg/dL [facility] at Calcium 7.3 (L) 8.8 - 10.2 [facility] mg/dL [facility] at Chloride 104 98 - 107 [facility] mmol/L [facility] at Creatinine 0.69 0.50 - 0.90 [facility] mg/dL [facility] at Glucose 111 70 - 140 [facility] mg/dL [facility] at Alkaline 60 35 - 104 U/L [facility] Phosphatase [facility] at Potassium 4.0 3.4 - 5.1 [facility] mmol/L [facility] at Total Protein 4.8 (L) 6.4 - 8.3 [facility] g/dL [facility] at Sodium 135 (L) 136 - 145 [facility] mmol/L [facility] at AST/SGO 23 <32 U/L [facility] at Blood Urea Nitrogen 18 8 - 23 mg/dL [facility] at Osmolality, [place] 283 275 - 300 [facility] mosm/kg [facility] at BUN/Cre Ratio 26 [facility] at Bicarbonate 22 22 - 29 [facility] mmol/L [facility] at ALT/SGP 5 <33 U/L [facility] at Anion Gap 9 8 - 15 mmol/L [facility] at A/G Ratio 1.0 [facility] at GFR Non eGFR is not >60 [facility] 2009 calculated in mL/min/1.73m2 [facility] at CDK-EPI patients <18 or CG >80 years of age. GFR eGFR is not >60 [facility] 2008 calculated in mL/min/1.73m2 [facility] at CKD-EPI patients <18 or CG >80 years of age. Specimen Plasma Performing Organization Address City/State/Zipcode Phone Number [facility] [place] [address] [facility] at [address] [address] CBC and Differential (10/03/2019 5:44 AM EST) White Blood Cell 9.2 4 - 10 [facility] 10*3/uL [facility] at Red Blood Cell 2.25 (L) 4.1 - 5.3 [facility] 10*6/uL [facility] at Hemoglobin 7.5 (L) 11.5 - 15.5 [facility] g/dL [facility] at Hematocrit 22.0 (L) 36 - 45 % [facility] at Mean Cell Volume 97.9 (H) 80 - 96 fL [facility] at Mean Cell Hemoglobin 33.2 (H) 27 - 33 pg [facility] at Mean Cell Hgb Conc 33.9 32.0 - 36.0 [facility] g/dL [facility] at Red Cell Dist Width 16.3 (H) 11.5 - 14.5 % [facility] at Platelet Count 391 150 - 400 [facility] 10*3/uL [facility] at Differential Type Automated Diff [facility] at Neutrophil 71 % [facility] at Lymphocyte 17 % [facility] at Monocyte 9 % [facility] at Eosinophil 3 % [facility] at Basophil 0 % [facility] at Abs Neutrophil 6.45 1.8 - 7.0 [facility] 10*3/uL [facility] at Abs Lymphocyte 1.55 1.2 - 4.0 [facility] 10*3/uL [facility] at Abs Monocyte 0.87 (H) 0 - 0.8 [facility] 10*3/uL [facility] at Abs Eosinophil 0.31 0 - 0.5 [facility] 10*3/uL [facility] at Abs Basophil 0.04 0 - 0.2 [facility] 10*3/uL [facility] at Nucleated Red Blood 0 0 - 0 [facility] Cells /100{WBCs} [facility] at Specimen EDTA Whole Blood Performing Organization Address City/State/Zipcode Phone Number [facility] [place] [address] [facility] at [address] [place] [address] documented in this encounter Visit Diagnoses Diagnosis Femur fracture, left - Primary Closed fracture of unspecified part of femur Impaired mobility Other ill-defined conditions Periprosthetic fracture of shaft of femur Essential hypertension Unspecified essential hypertension Compression fracture of L1 lumbar vertebra, with routine healing, subsequent encounter Chronic systolic heart failure CAD (coronary artery disease) Coronary atherosclerosis of unspecified type of vessel, [place] or graft Acute blood loss anemia Acute posthemorrhagic anemia Acquired hypothyroidism Unspecified hypothyroidism Hyponatremia Hyposmolality and/or hyponatremia documented in this encounter Administered Medications Medication Order MAR Action Action Date Dose Rate Site aspirin chewable tablet 81 mg Given 10/17/2019 8:04 AM EST 81 mg 81 mg, Oral, Daily Standard, First dose (after last modification) on Alyssa 10/03/19 at 0900, For 23 doses, Chew tablet before swallowing., Given 10/16/2019 9:31 AM EST 81 mg Given 10/15/2019 8:03 AM EST 81 mg atorvastatin (LIPITOR) tablet 40 mg Given 10/16/2019 8:23 PM EST 40 mg 40 mg, Oral, Every evening, First dose (after last modification) on Mon10/02/19 at 2100, For 24 doses Given 10/15/2019 9:21 PM EST 40 mg Given 10/14/2019 8:39 PM EST 40 mg calcium carb-cholecalciferol 250-125 Given 10/17/2019 12:00 PM EST 1 tablet MG-UNIT per tablet 1 tablet 1 tablet, Oral, Daily Standard, First dose on Mon10/03/19 at 1200, For 30 days Given 10/16/2019 12:19 PM EST 1 tablet Given 10/15/2019 12:18 PM EST 1 tablet ceFAZolin (ANCEF) IVPB 2 g in New Bag 10/17/2019 5:52 AM EST 2 g 200 mL/ hr dextrose (premix) 2 g, Intravenous, Administer over 30 Minutes, Every 8 hours, First dose (after last modification) on Mon10/07/19 at 1430, For 35 doses New Bag 10/16/2019 9:40 PM EST 2 g 200 mL/hr Restarted - All Meds 10/16/2019 2:39 PM EST 200 mL/hr enoxaparin sodium (LOVENOX) injection 40 mg Given 10/17/2019 8:04 AM EST 40 mg 40 mg, Subcutaneous, Daily Standard, First dose (after last modification) on Mon10/03/19 at 0900, For 25 doses, Non Patients: body weight < 150 kg, CrCl > 30 mL/min. Guidelines for Lovenox: MUST wait 24 hours before starting Enoxaparin if patient has epidural catheter. D/C Enoxaparin 10-12 hours prior to removing epidural catheter., Given 10/16/2019 9:31 AM EST 40 mg Given 10/15/2019 8:03 AM EST 40 mg furosemide (LASIX) tablet 40 mg Given 10/17/2019 8:05 AM EST 40 mg 40 mg, Oral, Daily Standard, First dose on Mon10/09/19 at 0900, For 30 days Given 10/16/2019 9:31 AM EST 40 mg Given 10/15/2019 8:03 AM EST 40 mg heparin lock flush 10 UNIT/ML Given by IV push 10/13/2019 11:06 PM EST 20 Units injection 20 Units 20 Units, Intravenous, PRN, Line Care, Starting Mon10/02/19 at 1415, For 28 days, Verify blood return before use. Flush with 10 mL of Sodium Chloride 0.9 % before and after infusions or blood sampling followed-by 2 mL Heparin 10 units/mL to lock. Reference Policy CM C-34H Central Line Policy., Given by IV push 10/11/2019 6:46 PM EST 20 Units Given by IV push 10/10/2019 10:44 PM EST 20 Units heparin lock flush 10 UNIT/ML Given by IV push 10/17/2019 5:49 AM EST 20 Units injection 20 Units 20 Units, Intravenous, Every 12 hours, First dose (after last modification) on Mon10/02/19 at 1800, For 56 doses, WHEN NOT IN USE - Verify blood return before use. Flush with 10 mL of Sodium Chloride 0.9 % and 2 mL Heparin 10 units/mL. Reference Policy CM C-34H Central Line Policy., New Bag 10/16/2019 5:50 PM EST 20 Units Given by IV push 10/16/2019 6:48 AM EST 20 Units levothyroxine (SYNTHROID, LEVOTHROID) Given 10/17/2019 5:49 AM EST 100 mcg tablet 100 mcg 100 mcg, Oral, Daily at 0600, First dose (after last modification) on Mon10/03/19 at 0600, For 23 doses Given 10/16/2019 4:23 AM EST 100 mcg Given 10/15/2019 4:23 AM EST 100 mcg lisinopril (PRINIVIL,ZESTRIL) tablet 10 mg Given 10/17/2019 8:05 AM EST 10 mg 10 mg, Oral, Daily Standard, First dose (after last modification) on Mon10/16/19 at 0900, For 17 doses, Check vital signs before administering, Given 10/16/2019 9:33 AM EST 10 mg metoprolol (TOPROL-XL) 24 hr tablet 50 mg Given 10/17/2019 8:05 AM EST 50 mg 50 mg, Oral, Daily Standard, First dose (after last modification) on Mon10/03/19 at 0900, For 26 doses, Do not crush or chew, Given 10/16/2019 9:31 AM EST 50 mg Given 10/15/2019 8:03 AM EST 50 mg NaCl infusion 0.9 % New Bag 10/17/2019 5:51 AM EST 100 mL/hr 100 mL/hr at 50 mL/hr, Intravenous, Three Times Daily Standard, First dose (after last modification) on Mon10/11/19 at 1430, For 7 days, IV flush for abx, Rate/Dose Change 10/16/2019 10:37 PM EST 20 mL/hr 20 mL/hr Rate/Dose Change 10/16/2019 10:10 PM EST 100 mL/hr 100 mL/hr polyethylene glycol (MIRALAX) packet 17 g 17 g, Oral, Daily PRN, constipation, Starting [facility] 10/03/19 at 1100, For 480 hours, Mix in 8 ounces of water, juice or milk. Avoid use in patients who require thickened liquids due to potential increased risk for aspiration., promethazine (PHENERGAN) tablet 25 mg Given 10/15/2019 8:03 AM EST 25 mg 25 mg, Oral, Every 6 hours PRN, Nausea, Vomiting, Starting Mon10/02/19 at 2216, For 30 days Given 10/04/2019 3:32 AM EST 25 mg rifAMPin (RIFADIN) capsule 300 mg Given 10/17/2019 8:04 AM EST 300 mg 300 mg, Oral, Every 12 hours Standard (2 times per day), First dose on Mon10/07/19 at 1130, For 14 days Given 10/16/2019 8:23 PM EST 300 mg Given 10/16/2019 9:32 AM EST 300 mg saccharomyces boulardii (FLORASTOR) capsule Given 10/17/2019 8:04 AM EST 250 mg 250 mg 250 mg, Oral, 2 Times Daily, First dose on Mon10/02/19 at 2100, For 30 days Given 10/16/2019 8:23 PM EST 250 mg Given 10/16/2019 9:31 AM EST 250 mg senna 8.6 MG 2 tablet Given 10/16/2019 8:23 PM EST 2 tablets 2 tablet, Oral, Nightly, First dose (after last modification) on Mon10/02/19 at 2200, For 25 doses Given 10/15/2019 9:21 PM EST 2 tablets Given 10/14/2019 8:39 PM EST 2 tablets sodium chloride (preservative free) 0.9 % New Bag 10/12/2019 2:36 PM EST 10 mLs flush 10 mL 10 mL, Intravenous, PRN, Line Care, Starting Mon10/02/19 at 1415, For 28 days, Verify blood return before use. Flush with 10 mL of Sodium Chloride 0.9 % before and after infusions or blood sampling followed-by 2 mL Heparin 10 units/mL to lock. Reference Policy CM C-34H Central Line Policy., Given by IV push 10/11/2019 6:46 PM EST 10 mLs Given by IV push 10/10/2019 10:44 PM EST 10 mLs sodium chloride (preservative Given by IV push 10/17/2019 5:49 AM EST 10 mLs free) 0.9 % flush 10 mL 10 mL, Intravenous, Every 12 hours, First dose (after last modification) on Mon10/02/19 at 1800, For 56 doses, WHEN NOT IN USE - Verify blood return before use. Flush with 10 mL of Sodium Chloride 0.9 % and 2 mL Heparin 10 units/mL. Reference Policy C-34H Central Line Policy., New Bag 10/16/2019 5:49 PM EST 10 mLs Given by IV push 10/16/2019 6:08 AM EST 10 mLs tramadol (ULTRAM) tablet 50 mg Given 10/16/2019 10:15 AM EST 50 mg 50 mg, Oral, Daily Standard, First dose (after last modification) on Mon10/16/19 at 1030, For 7 days, 30 min Prior to 1st AM therapy (adjust time to accomidate), tramadol (ULTRAM) tablet 50 mg Given 10/16/2019 2:40 PM EST 50 mg 50 mg, Oral, Every 4 hours PRN, Moderate Pain (Pain Scale Score 4-6), Severe Pain (Pain Scale Score 7-10), Starting Mon10/15/19 at 1128, For 168 hours, Hold for lethargy or RR <12. Space 4 hours from scheduled dose, Vitamin D3 (CHOLECALCIFEROL) tablet Given 10/17/2019 12:00 PM EST 1,000 Units 1,000 Units 1,000 Units, Oral, Daily Standard, First dose on Mon10/03/19 at 1200, For 30 days, 25 mcg vitamin D3 = 1,000 International Units vitamin D3., Given 10/16/2019 12:19 PM EST 1,000 Units Given 10/15/2019 12:18 PM EST 1,000 Units Medication Order MAR Action Action Date Dose Rate Site acetaminophen (TYLENOL) tablet Given 10/03/2019 8:31 AM EST 650 mg 650 mg 650 mg, Oral, Four Times Daily Standard, First dose (after last modification) on Mon10/02/19 at 1600, For 2 days, Maximum dose of acetaminophen is 4000 mg from all sources in 24 hours., Given 10/02/2019 9:41 PM EST 650 mg Given 10/02/2019 3:43 PM EST 650 mg acetaminophen (TYLENOL) tablet 650 mg Given 10/13/2019 5:42 AM EST 650 mg 650 mg, Oral, Four Times Daily Standard, First dose (after last modification) on [facility] 10/03/19 at 1200, For 10 days, Maximum dose of acetaminophen is 4000 mg from all sources in 24 hours., Given 10/12/2019 8:33 PM EST 650 mg Given 10/12/2019 3:52 PM EST 650 mg ceFAZolin (ANCEF) IVPB 2 g in New Bag 10/03/2019 6:36 AM EST 2 g 200 mL/ hr dextrose (premix) 2 g, Intravenous, Administer over 30 Minutes, Every 8 hours, First dose (after last modification) on [facility] 10/02/19 at 1430, For 12 days New Bag 10/02/2019 9:51 PM EST 2 g 200 mL/hr New Bag 10/02/2019 3:05 PM EST 2 g 200 mL/hr ceFAZolin (ANCEF) IVPB 2 g in New Bag 10/07/2019 6:16 AM EST 2 g 200 mL/ hr dextrose (premix) 2 g, Intravenous, Administer over 30 Minutes, Every 12 hours, First dose (after last modification) on [facility] 10/03/19 at 1845, For 11 days New Bag 10/06/2019 6:47 PM EST 2 g 200 mL/hr New Bag 10/06/2019 6:45 AM EST 2 g 200 mL/hr furosemide (LASIX) tablet 20 mg Given 10/03/2019 8:32 AM EST 20 mg 20 mg, Oral, 2 Times Daily, First dose (after last modification) on [facility] 10/02/19 at 1600, For 55 doses Given 10/02/2019 3:43 PM EST 20 mg furosemide (LASIX) tablet 20 mg Given 10/08/2019 7:57 AM EST 20 mg 20 mg, Oral, 2 Times Daily, First dose (after last modification) on [facility] 10/03/19 at 1400, For 53 doses Given 10/07/2019 3:45 PM EST 20 mg Given 10/07/2019 9:52 AM EST 20 mg furosemide (LASIX) tablet 20 mg Given 10/08/2019 2:19 PM EST 20 mg 20 mg, Oral, 2 Times Daily, First dose (after last modification) on Mon10/08/19 at 1500, For 1 dose lisinopril (PRINIVIL,ZESTRIL) tablet 5 mg Given 10/15/2019 8:03 AM EST 5 mg 5 mg, Oral, Daily Standard, First dose on Mon10/03/19 at 1400, For 30 days, Check vital signs before administering, Given 10/14/2019 9:12 AM EST 5 mg Given 10/13/2019 9:12 AM EST 5 mg NaCl infusion 0.9 % Rate/Dose Verify 10/07/2019 3:49 PM EST 50 mL/hr 50 mL/hr at 50 mL/hr, Intravenous, Four Times Daily, First dose on Mon10/05/19 at 0230, For 4 days, IV flush for abx, New Bag 10/07/2019 3:48 PM EST 50 mL/hr 50 mL/hr Restarted - All Meds 10/07/2019 6:46 AM EST 100 mL/hr 100 mL/hr NaCl infusion 0.9 % New Bag 10/11/2019 5:55 AM EST 50 mL/hr 50 mL/hr at 50 mL/hr, Intravenous, Three Times Daily Standard, First dose (after last modification) on Mon10/08/19 at 0630, For 15 doses, IV flush for abx, New Bag 10/10/2019 9:43 PM EST 50 mL/hr 50 mL/hr New Bag 10/10/2019 1:54 PM EST 50 mL/hr 50 mL/hr oseltamivir (TAMIFLU) capsule 30 mg Given 10/17/2019 8:04 AM EST 30 mg 30 mg, Oral, Daily Standard, First dose on Mon10/08/19 at 1200, For 10 days, For prophylaxis, antiviral drugs should be continued for the duration of known influenza A in the community because of the potential for repeated and unknown exposures or until immunity can be achieved by immunization., Given 10/16/2019 9:32 AM EST 30 mg Given 10/15/2019 8:03 AM EST 30 mg polyethylene glycol (MIRALAX) packet 17 g Given 10/16/2019 1:05 PM EST 17 g 17 g, Oral, Once, Mon10/16/19 at 1000, For 1 dose, Mix in 8 ounces of water, juice or milk. Avoid use in patients who require thickened liquids due to potential increased risk for aspiration., rifAMPin (RIFADIN) 300 mg in Rate/Dose Change 10/07/2019 2:08 AM EST 200 mL/hr sodium chloride 0.9 % 100 mL infusion 300 mg, Intravenous, Administer over 30 Minutes, Every 12 hours, First dose (after last modification) on Mon10/02/19 at 1430, For 7 days New Bag 10/07/2019 2:02 AM EST 300 mg 200 mL/hr Rate/Dose Verify 10/06/2019 3:09 PM EST 200 mL/hr sodium chloride 0.9 % infusion Given 10/02/2019 2:48 PM EST 25 mLs Starting Mon10/02/19 at 1354, For 1 dose, Nicolas Nam : cabinet override, tramadol (ULTRAM) tablet 25 mg Given 10/03/2019 7:17 AM EST 25 mg 25 mg, Oral, Every 6 hours PRN, Moderate Pain (Pain Scale Score 4-6), Starting [facility] 10/02/19 at 1415, For 7 days, Hold for lethargy or RR <12, tramadol (ULTRAM) tablet 50 mg Given 10/03/2019 11:41 AM EST 50 mg 50 mg, Oral, Every 6 hours PRN, Severe Pain (Pain Scale Score 7-10), Starting [facility] 10/02/19 at 1415, For 7 days, Hold for lethargy or RR <12, tramadol (ULTRAM) tablet 50 mg Given 10/09/2019 9:44 AM EST 50 mg 50 mg, Oral, Daily Standard, First dose on Mon10/04/19 at 0800, For 7 days, 30 min Prior to 1st AM therapy (adjust time to accomidate), Given 10/08/2019 7:57 AM EST 50 mg Given 10/05/2019 8:16 AM EST 50 mg tramadol (ULTRAM) tablet 50 mg Given 10/08/2019 12:00 PM EST 50 mg 50 mg, Oral, Every 4 hours PRN, Moderate Pain (Pain Scale Score 4-6), Severe Pain (Pain Scale Score 7-10), Starting [facility] 10/03/19 at 1242, For 7 days, Hold for lethargy or RR <12. Space 4 hours from scheduled dose, Given 10/07/2019 3:44 PM EST 50 mg Given 10/07/2019 11:39 AM EST 50 mg tramadol (ULTRAM) tablet 50 mg Given 10/11/2019 3:07 PM EST 50 mg 50 mg, Oral, Every 4 hours PRN, Moderate Pain (Pain Scale Score 4-6), Severe Pain (Pain Scale Score 7-10), Starting 10/09/19 at 1233, For 168 hours, Hold for lethargy or RR <12. Space 4 hours from scheduled dose, Given 10/09/2019 2:36 PM EST 50 mg tramadol (ULTRAM) tablet 50 mg Given 10/15/2019 10:35 AM EST 50 mg 50 mg, Oral, Daily Standard, First dose (after last modification) on [facility] 10/10/19 at 0800, For 7 days, 30 min Prior to 1st AM therapy (adjust time to accomidate), Given 10/14/2019 10:44 AM EST 50 mg Given 10/13/2019 9:08 AM EST 50 mg documented in this encounter
--- OUTSIDE RECORDS SUMMARY | 2019-10-18 19:24 | XMS REPORT | Summary of Care ---
:1930 Author Organization [facility] Address [address] [place] [address] Care Team Providers Name Role Phone Ken Saldana MD Primary Care Provider Reason for Visit Reason Comments ED To ED Transfer Auth/Cert Status Reason Specialty Diagnoses / Procedures Referred By Contact Referred To Contact Diagnoses Femur fracture, left Prosthetic Femur Fracture Femur fracture, left Other fracture of left femur, initial encounter for closed fracture Encounter Details Date Type Department Care Team Description 09/25/2019 - Hospital Encounter 6 MED/SURG/ORTHO CC Eli Melo MD [address] [place] [address] [phone] Femur fracture, left (Primary Dx); 10/02/2019 [address] [facility] Sahil Nascimento MD [address] [place] [address] Acquired hypothyroidism; [place], [place] Kanu Dallas MD [address] [place] [address] Pain; [id number] Bro Owen MD [address] [facility] [address] [place] [address] [phone] Closed fracture of distal end of left femur, unspecified fracture morphology, initial encounter; Oneida Cardenas MD [address] [place] [address] [phone] Osteoporosis with current pathological fracture, unspecified osteoporosis type, initial encounter; Curtis Bravo, MBBS [address] [place] [address] [phone] Hypertension, essential; Fall from embankment, initial encounter; Activities involving property and land maintenance, building and construction; Garden or yard of non-institutional residence as the place of occurrence of the external cause Allergies Active Allergy Reactions Severity Noted Date Comments Aspirin 09/25/2019 Nosebleed with high doses of aspirin Nitrofurantoin Macrocrystal Rash Low 09/25/2019 Spironolactone 09/26/2019 Kidney failure Sulfa Antibiotics Rash Low 09/25/2019 documented as of this encounter (statuses as of 10/02/2019) Medications Medication Sig Dispensed Refills Start Date End Date Status Aspirin 81 MG Oral Chew 81 mg by 0 Suspended Tablet Chewable Mouth daily Levothyroxine Sodium Take 100 mcg 0 Suspended 100 MCG Oral Tablet by mouth Daily (SYNTHROID, LEVOTHROID) Vitamin D 50 MCG Take 2,000 0 Suspended (2000 UT) Oral Tablet Units by mouth daily Furosemide 40 MG Oral Take 40 mg by 0 Suspended Tablet (LASIX) mouth daily traMADol HCl 50 MG Take 50 mg by 0 Suspended Oral Tablet (ULTRAM) mouth every 6 (six) hours as needed for Pain Acetaminophen 500 MG Take 500 mg by 0 Suspended Oral Tablet (TYLENOL) mouth every 6 (six) hours as needed for Pain Lisinopril 20 MG Oral Take 20 mg by 0 Suspended Tablet mouth daily (PRINIVIL,ZESTRIL) Calcium Carbonate 600 Take 1,000 mg 0 Suspended MG Oral Tablet by mouth Two (OS-TOÑA) times daily with meals Atorvastatin Calcium Take 40 mg by 0 Suspended 40 MG Oral Tablet mouth every (LIPITOR) evening Denosumab 60 MG/ML Inject 60 mg 0 Suspended Subcutaneous Solution into the skin Prefilled Syringe every 6 (six) (PROLIA) months Metoprolol Succinate Take 1 tablet 30 tablet 11 10/03/2019 10/01/2020 Suspended ER 50 MG Oral Tablet by mouth daily Extended Release 24 Hour (TOPROL-XL) Additional information Polyethylene Take 1 packet by 14 each 0 10/02/2019 10/02/2019 Discontinued Glycol 3350 Oral mouth daily as (Formulary Packet (MIRALAX) needed (As needed change) for Constipation) for up to 3 daysPlease substitute bottle for packets, if packets are unavailable. Senna 8.6 MG Oral Take 2 tablets by 120 each 0 10/02/2019 10/02/2019 Discontinued Tablet mouth nightly (Formulary change) ceFAZolin Inject 100 mLs 53327 mL 0 10/02/2019 10/02/2019 Discontinued Sodium-Dextrose into the vein (Formulary 2-4 GM/100ML-% every 8 (eight) change) Intravenous hours Solution (ANCEF) sodium chloride Inject 300 mg into 0 10/02/2019 10/02/2019 Discontinued 0.9 % SOLN 100 mL the vein every 12 (Formulary with rifAMPin 600 (twelve) hours change) MG SOLR 300 mg infusion documented as of this encounter (statuses as of 10/02/2019) Active Problems Problem Noted Date Hyponatremia 10/02/2019 [...] CAD (coronary artery disease) 09/26/2019 Overview: Hisotry [place] 2017 Chronic systolic heart failure 09/26/2019 Preop cardiovascular exam 09/26/2019 Femur fracture, left 09/25/2019 documented as of this encounter (statuses as of 10/02/2019) Social History Tobacco Use Types Packs/Day Years [...] Sign Reading Time Taken Comments Blood Pressure 135/66 10/02/2019 1:34 PM EST Pulse 75 10/02/2019 1:34 PM EST Temperature 36.4 10/02/2019 1:34 PM EST C (97.5 F) Respiratory Rate 16 10/02/2019 1:34 PM EST Oxygen Saturation 98% 10/02/2019 1:34 PM EST Inhaled Oxygen Concentration - - Weight 64.9 kg (143 lb) 09/25/2019 9:07 PM EST Height 152.4 cm (5') 09/25/2019 9:07 PM EST Body Mass Index 27.93 09/25/2019 9:07 PM EST documented in this encounter Progress Notes Jennifer Simmons RN - 10/02/2019 12:53 PM ESTOT in to see the patient to complete eval. The patient has been offered a bed on PM&R for today. Patient is agreeable with discharge to PM&R today. PA aware and has completed the discharge.Patient's daughter in the room and aware of the discharge. Charge nurse is aware and will update bedside nurse since she is at lunch presently. No other needs noted. Jennifer Simmons Roverto Wong PTA - 10/02/2019 11:00 AM ESTPhysical Therapy Acute CareTotal Joint Treatment Note Medical Diagnosis: s/p fall resulting in L distal femur fracture, s/p LEFT TOTAL KNEE REVISION WITH LEFT DISTAL FEMORAL REPLACEMENT (Left) 09/27/2019 Rehabilitation Precautions/Restrictions: OOB with assist, WBAT L LE Goal Review Visit Number: 9 SUBJECTIVE Patient Report: Patient with left knee pain. Pain: Patient currently complains of pain. Location: L knee . Patient describes pain as Aching. Dull. Verbal Scale: Patient reports a pain level of 3 out of 10. Pain Medication Today: yes. OBJECTIVE General Observation: Patient to PT gym in wheelchair. Vital Signs: Stable. Range of Motion:Left knee flexion AAROM 5-70 degrees. Strength:Patient with decreased assistance and was able to do stairs. Skin Integrity Screen: patient with bandage covering surgical site, otherwise grossly intact Functional Status: Transfers: Patient transferred sit to/from stand requiring contact guard assistance of 1 person. Patient used the following equipment: Arms of chair. Patient used the following equipment: Transfer belt. Bed Mobility: Not assessed. Locomotion/Gait/Ambulation: Patient was contact guard with gait/ambulation of 1 person for 37 feet . Patient requires the following assistive device(s): Rolling walker. Gait belt. Patient has decreased gait speed, mg. step length, heel strike and forward flexed trunk. Antalgic. Stairs: Patient was contact guard assist of 1 person for 2 stairs . Patient used the following equipment: Bilateral Railing. Patient was provided blocking at left knee when ascending for support. Outcome Measures: [facility] AM-PAC "6 Clicks" Basic Mobility Inpatient Short Form: Turning over in bed: Unable to perform (1) Sitting down on and standing up from a chair with arms: A little difficulty (3) Moving from lying on back to sitting on the side of the bed: Unable to perform (1) Moving to and from a bed to a chair (including a wheelchair): A little help (3) Walking in hospital room: A little help (3) Climbing 3-5 steps with a railing: A little help (3) Raw Score 14 /24. Interventions: Gait Training: Facilitated gait training during ambulation to increae distance and improve gait. Ambulated 37 feet using rolling walker/gait belt and contact guard. Patient was cued to improve upright posture, mg. step length and heel strike. Instructed in stair technique. Negotiated 2 stairs with rails/gait belt and contact guard. Patient was cued to tighten left thigh for support. Therapeutic Exercise: Performed left LE AROM seated for 2x10 reps to increase ROM and strength. Performed heel slides, quad sets and ankle pumps with reminders for pacing. Education: Mode of education provided: Explanation. Audience: Patient. Education Provided: Range of motion exercises. Safe mobility. Response: Requires cues (auditory/physical). ASSESSMENT Response to Visit: The session was tolerated well. Call lopez was in patient's reach at end of session. Pain: Yes, pain is unchanged from start of today's treatment. Goal review: Patient with increased ambulation distance. Changes in or Continuation of Plan of Care: Patient will benefit from continued therapy to achieve planned goals. PLAN Treatment Frequency, Duration and Interventions: Restorative Physical Therapy is recommended for 2x/day for 2 weeks Treatment is to include: Gait Training. Therapeutic Exercise. Therapeutic Activity. Equipment Provided: None issued this visit. Equipment Recommended: None. Recommended Physical Therapy Follow Up: Upon acute care discharge, the following is currently recommended: Anticipate patient will have inpatient rehab needs beyond the acute stay. Recommended Consults: None currently. Development of Plan of Care: Participants included: pt. There was no change to plan of care today. Visit Number: Today's visit is number 9 Program: Total Joint (Therapist may be reached on [employer]) SESSION: Duration: 30 CHARGES: 23544 - CHARGE - PT GAIT TRNG - 15 MIN 1 Units 37169 - CHARGE - PT THER EX - 15 MIN 1 Units - TOTAL JOINT VISIT 1 Units Total treatment minutes: 30.00 Minutes Electronically Signed by: Natan Fajardo PTA, 10/02/2019 1:04:25 PM Roverto Wong PTA - 10/01/2019 2:39 PM ESTPhysical Therapy Acute Care Encounter Note Medical Diagnosis: s/p fall resulting in L distal femur fracture, s/p LEFT TOTAL KNEE REVISION WITH LEFT DISTAL FEMORAL REPLACEMENT (Left) 09/27/2019 Rehabilitation Precautions/Restrictions: OOB with assist, WBAT L LE Goal Review Visit Number: 8 SUBJECTIVE Patient Report: Patient with left knee pain. Pain: Patient currently complains of pain. Location: L knee . Patient describes pain as Dull. Verbal Scale: Patient reports a pain level of 7 out of 10. Will perform therapy only as tolerated. Pain Medication Today: yes. OBJECTIVE General Observation: Patient to PT gym in wheelchair. +aleman Skin Integrity Screen: patient with bandage covering surgical site, otherwise grossly intact Vital Signs: Stable. Functional Status: Transfers: Patient transferred sit to/from stand requiring minimal assistance of 1 person. Patient used the following equipment: Transfer belt. Patient used the following equipment: Arms of chair. Bed Mobility: Patient moves from supine to/from sit requiring minimal assistance. Needed assist with LEs and trunk. Locomotion/Gait/Ambulation: Patient was contact guard with gait/ambulation of 1 person for 22 and 16 feet . Patient requires the following assistive device(s): Rolling walker. Gait belt. Patient has flexed trunk, decreased gait speed, step length, base of support and heel strike. Antalgic. Stairs: Not assessed. Outcome Measures: [facility]-PAC "6 Clicks" Basic Mobility Inpatient Short Form: Turning over in bed: Unable to perform (1) Sitting down on and standing up from a chair with arms: A lot of difficulty (2) Moving from lying on back to sitting on the side of the bed: Unable to perform (1) Moving to and from a bed to a chair (including a wheelchair): A little help (3) Walking in hospital room: A little help (3) Climbing 3-5 steps with a railing: Total assistance (1) Raw Score 11 /24. Interventions: Gait Training: Facilitated gait training during ambulation to increase distance and improve gait. Ambulated 22 and 16 feet using rolling walker/gait belt and contact guard. She was cued to look up, increase step length and heel strike. Therapeutic Activities: Instructed in use of leg fiscal analyst for sit to/from supine. Performed sit to/from supine with min. assist for LEs and using leg fiscal analyst for sit to supine only. She was cued for technique. Therapeutic Exercise: Instructed in LE A/AAROM supine for 2x10 reps to increasse strength/ROM. Performed AAROM for heel slides, AROM for quad sets and ankle pumps with reminders for slow reps and 3 second hold. Education: Mode of education provided: Explanation. Demonstration. Audience: Patient. Education Provided: Range of motion exercises. Safe mobility. Response: Requires cues (auditory/physical). Needs practice/reinforcement. ASSESSMENT Response to Visit: The session was tolerated fair, as evidenced by: Pain unchanged. Patient reported fatigue Call lopez was in patient's reach at end of session. Pain: Yes, pain is unchanged from start of today's treatment. PLAN Treatment Frequency, Duration and Interventions: Restorative Physical Therapy is recommended for 2x/day for 2 weeks Treatment is to include: Gait Training. Therapeutic Activity. Therapeutic Exercise. Recommended Physical Therapy Follow Up: Upon acute care discharge, the following is currently recommended: Anticipate patient will have inpatient rehab needs beyond the acute stay. Equipment Provided: None issued this visit. Visit Number: Today's visit is number 8 Program: Total Joint (Therapist may be reached on Vocera) SESSION: Duration: 38 CHARGES: 82242 - CHARGE - PT GAIT TRNG - 15 MIN 1 Units 28843 - CHARGE - PT THER EX - 15 MIN 1 Units 85825 - CHARGE - PT THERAPEUTIC ACTIVITIES - 15 MIN 1 Units - TOTAL JOINT VISIT 1 Units Total treatment minutes: 38.00 Minutes Electronically Signed by: Natan Fajardo PTA, 10/01/2019 4:01:55 PM Caitlin Dahl PA - 10/01/2019 1:44 PM EST Internal Medicine Inpatient Progress Note Length of stay- 6 Subjective: patient examined at bedside; sitting up comfortably in bed eating breakfast. Denies malaise/fatigue, h/a, CP, SOB, abd pain, n/v/d. No other complaints. Pending placement. Review of Systems Constitutional: Negative for chills, fever and malaise/fatigue. Respiratory: Negative for cough and shortness of breath. Cardiovascular: Negative for chest pain and palpitations. Gastrointestinal: Negative for heartburn, nausea and vomiting. Genitourinary: Negative for dysuria, frequency and urgency. Musculoskeletal: Negative for myalgias and neck pain. Neurological: Negative for dizziness and headaches. Objective: Vitals: 09/30/19 1400 09/30/19 1445 09/30/19 2348 10/01/19 0823 BP: 132/76 129/68 117/67 134/83 BP Location: Right arm Right arm Patient Position: Lying Lying Pulse: 81 71 76 78 Resp: 18 18 18 18 Temp: 36.7 C 36.7 C 36.8 C 36.9 C TempSrc: Oral Oral Oral Oral SpO2: 99% 100% 97% 98% Weight: Height: Physical Exam Constitutional: She is oriented to person, place, and time and well-developed, well-nourished, and in no distress. HENT: Head: Normocephalic and atraumatic. Cardiovascular: Normal rate and regular rhythm. Pulmonary/Chest: Effort normal and breath sounds normal. Abdominal: Soft. Bowel sounds are normal. Musculoskeletal: General: Edema (BUE edema) present. Neurological: She is alert and oriented to person, place, and time. Skin: Skin is warm and dry. Nursing note and vitals reviewed. Laboratory independently reviewed Recent Labs Lab 09/27/19 0354 09/28/19 0309 09/30/19 0824 10/01/19 0429 NA 137 132* 128* -- K 4.2 4.8 4.2 -- CL 101 98 99 -- BICARBONATE 25 22 20* -- BUN 35* 30* 24* -- CREATININE 1.15* 0.98* 0.70 0.78 GLUCOSE 94 163* 114 -- Recent Labs Lab 09/26/19 0454 09/27/19 0354 09/29/19 0606 09/30/19 0632 09/30/19 1600 WBC 8.4 7.7 < > 9.7 9.2 9.8 HGB 9.5* 8.1* < > 8.3* 6.9* 8.9* HCT 28.1* 23.8* < > 23.7* 20.2* 25.9* MCV 100.8* 101.4* < > 94.8 95.8 96.9* PLT 206 180 < > 191 221 266 NEUTOPHILPCT 81 62 -- -- -- -- MONOPCT 8 9 -- -- -- -- < > = values in this interval not displayed. No results found for: PROT, ALBUMIN, AST, ALT, TBILI, ALKPHOS, LIPASE, AMYLASE Recent Labs Lab 09/25/192122 INR 1.05 Recent Labs Lab 09/25/192122 CK 239* No results found for: HGBA1C, TSH, K7ETCPA, D2HINDX, THYROIDAB Finger stick glucose levels: MICROBIOLOGY: IMAGING independently reviewed: MEDICATIONS: Scheduled Meds: aspirin 81 mg Oral Daily atorvastatin 40 mg Oral QPM ceFAZolin sodium 2 g Intravenous Q8H docusate sodium 100 mg Oral BID enoxaparin 40 mg Subcutaneous Daily furosemide 20 mg Oral BID sodium chloride (preservative free) 10 mL Intravenous Q12H And heparin lock flush 20 Units Intravenous Q12H levothyroxine 100 mcg Oral Daily metoprolol 50 mg Oral Daily senna 2 tablet Oral Nightly sodium chloride (preservative free) 3 mL Intravenous 3 times per day Continuous Infusions: PRN Meds:.acetaminophen (TYLENOL) tablet, bisacodyl, [COMPLETED] Peripheral IV * *AND sodium chloride (preservative free) AND sodium chloride ( preservative free) AND [COMPLETED] Saline Lock order AND sodium chloride AND dextrose, sodium chloride (preservative free) AND heparin lock flush AND sodium chloride (preservative free) AND heparin lock flush, lidocaine, ondansetron, polyethylene glycol, sodium phosphate Assessment & Plan: Yulisa Rebollar is a 89 y.o. female who is here for Principal Problem: Other fracture of left femur, initial encounter for closed fracture Active Problems: Femur fracture, left Macrocytic anemia Acquired hypothyroidism Compression fracture of L1 lumbar vertebra, with routine healing, subsequent encounter Essential hypertension CAD (coronary artery disease) Chronic systolic heart failure Preop cardiovascular exam Acute blood loss anemia #L femur fracture - post op day 4 - c/w PT, pending placement - pain control with tramadol, tylenol - f/u with Dr. Bridges in 2 weeks - c/w lmwh for dvt ppx, then continue with ASA 81 #Positive Intra-op Tissue Culture - one culture positive for staph epi - patient started on cefazolin on 09/30 for six weeks. Will start rifampin after a few days - picc line placed today #Acute Blood Loss Anemia -POD#4 -H/H 8.9/25.9 - no signs of active bleeding #CAD - c/w ASA, statin #Chronic Systolic Heart Failure -c/w lasix 20mg BID DVT Prophylaxis: lmwh GI Prophylaxis: not indicated Functional Status: moderately impaired Code Status: full Disposition: Plan discharge to: rehab Estimated Discharge Date: 10/02 VISHNU [facility]C Internal Medicine Pager [phone] signed by DEJA Frazier at 10/01/2019 2: 33 PM EST Associated attestation - Curtis Bravo MBBS - 10/01/2019 2:33 PM ESTAttending Addendum: I saw and examined the patient. I evaluated the clinical findings and discussed the plan for Yulisa Mackey with the PA. I have reviewed the note and agree with the findings and plan as documented. Overall amount of data reviewed, level of risk, complexity and medical decision making is: moderate.Time spent providing, discussing, and coordinating care today: 25 minutes [facility] Department of Medicine Taylor Angela RN - 10/01/2019 12:38 PM ESTPICC Line Insertion Procedure Note Procedure: Insertion of #4 FR/18G PICC Indications: Assisted IV therapy Procedure Details Informed consent was obtained for the procedure. Risks of bleeding at site, infection, malposition,phlebitis, DVT or SVT were discussed. Maximum sterile technique was used including antiseptics, cap, gloves, gown, hand hygiene, mask and sheet. #4 FR/18G PICC inserted to the R Basilic vein per hospital protocol. Blood return: yes Findings: Catheter inserted to 30 cm, with 39 cm exposed. Total catheter length is 0 cm. Catheter was flushedwith 10 cc NS. Patient did tolerate procedure well. PICC Line Insertion Status: PICC successfully inserted using ultrasound guidance. by Susan Angela RN VAT. PICC tip location confirmed utilizing the Vascular Positioning System (VPS) per policy CM C-34 - Central Lines and procedure PROC CM C-34A - Central Line Insertion and Removal. Steady Blue Bullseye symbol obtained confirming ideal PICC tip placement in the lower 1/3 of the SVC/CAJ. CXR is not necessary to confirm placement. Appropriate order set placed in EPIC. Bedside nurse Lalo ANDUJAR aware PICC is cleared for use per orders with all new IV administration sets. Jessa Mccoy RN - 10/01/2019 10:43 AM ESTAssumed care of patient from 1346-2645. Assessed patient. Read and agree with previous RN shift assessment. No acute changes. Aleman is draining below the level of the bladder. Will continue to monitor.Call lopez within reach. Roverto Wong PTA - 2019 10:30 AM ESTPhysical Therapy Acute CareTotal Joint Treatment Note Medical Diagnosis: s/p fall resulting in L distal femur fracture, s/p LEFT TOTAL KNEE REVISION WITH LEFT DISTAL FEMORAL REPLACEMENT (Left) 09/27/2019 Rehabilitation Precautions/Restrictions: OOB with assist, WBAT L LE Goal Review Visit Number: 7 SUBJECTIVE Patient Report: Patient with left knee pain. Pain: Patient currently complains of pain. Location: L knee . Patient describes pain as Dull. Verbal Scale: Patient reports a pain level of 7 out of 10. Will perform therapy only as tolerated. Pain Medication Today: yes. OBJECTIVE General Observation: Patient to PT gym in wheelchair. +aleman and Masimo Vital Signs: Stable. Heart Rate: 57 beats per minute Oxygen Saturation: 99 % Range of Motion:Left knee flexion AAROM 8-68 degrees. Strength:No change observed. Skin Integrity Screen: patient with bandage covering surgical site, otherwise grossly intact Functional Status: Transfers: Patient transferred sit to/from stand requiring contact guard assistance of 1 person. Patient used the following equipment: Arms of chair. Patient used the following equipment: Transfer belt. Bed Mobility: Not assessed. Locomotion/Gait/Ambulation: Patient was contact guard with gait/ambulation of 1 person for 17 and 34 feet . Patient requires the following assistive device(s): Rolling walker. Gait belt. Patient has decreased gait speed, mg. step length, heel strike and foot clearance. Antalgic. Stairs: Not assessed. Outcome Measures: [facility]-PAC "6 Clicks" Basic Mobility Inpatient Short Form: Turning over in bed: Unable to perform (1) Sitting down on and standing up from a chair with arms: A little difficulty (3) Moving from lying on back to sitting on the side of the bed: Unable to perform (1) Moving to and from a bed to a chair (including a wheelchair): A little help (3) Walking in hospital room: A little help (3) Climbing 3-5 steps with a railing: Total assistance (1) Raw Score 12 /24. Interventions: Gait Training: Facilitated gait training to improve gait and distance. Ambulated 17 and 34 feet using rolling walker/gait belt and contact guard. Patient needed cues to increase mg. step length, heel strike and base of support. Therapeutic Exercise: Instructed in and performed left LE AROM seated for 2x10 reps to increase strength and ROM. Performed heel slides, quad sets and ankle pumps. Patient needed cues to slow reps and for 3 second hold. Education: Mode of education provided: Explanation. Demonstration. Audience: Patient. Education Provided: Range of motion exercises. Safe mobility. Response: Requires cues (auditory/physical). Needs practice/reinforcement. ASSESSMENT Response to Visit: The session was tolerated well. Call lopez was in patient's reach at end of session. Pain: Yes, pain is unchanged from start of today's treatment. Goal review: Patient with increased ambulation distance. Changes in or Continuation of Plan of Care: Patient will benefit from continued therapy to achieve planned goals. PLAN Treatment Frequency, Duration and Interventions: Restorative Physical Therapy is recommended for 2x/day for 2 weeks Treatment is to include: Gait Training. Therapeutic Exercise. Therapeutic Activity. Equipment Provided: None issued this visit. Equipment Recommended: None. Recommended Physical Therapy Follow Up: Upon acute care discharge, the following is currently recommended: Anticipate patient will have inpatient rehab needs beyond the acute stay. Recommended Consults: None currently. Development of Plan of Care: Participants included: pt. There was no change to plan of care today. Visit Number: Today's visit is number 7 Program: Total Joint (Therapist may be reached on Vocera) SESSION: Duration: 30 CHARGES: 72427 - CHARGE - PT GAIT TRNG - 15 MIN 1 Units 72253 - CHARGE - PT THER EX - 15 MIN 1 Units - TOTAL JOINT VISIT 1 Units Total treatment minutes: 30.00 Minutes Electronically Signed by: Natan Fajardo CENTRAL COMMUNICATIONS SPECIALIST, 10/01/2019 12:40:50 PM Taylor Andrade RN - 10/01/2019 9:05 AM ESTVAT-Arrived to place PICC, pt eating breakfast and requests to finish. Pt is not set for d/c this am so will go place another pt PICC and return later this am. Liliam Matos PA - 06/2020 8:54 AM EST ORTHOPEDIC PROGRESS NOTE Hospital Day: 7, 4 Days Post-Op Procedure(s): LEFT TOTAL KNEE REVISION WITH LEFT DISTAL FEMORAL REPLACEMENT (Left) Subjective: Patient doing well, no acute issues or complaints. Pain controlled. No issues overnight, feeling better today after transfusion yesterday. Vitals: Vitals: 09/30/19 1400 09/30/19 1445 09/30/19 2348 10/01/19 0823 BP: 132/76 129/68 117/67 134/83 Pulse: 81 71 76 78 Resp: 18 18 18 Temp: 36.7 C 36.7 C 36.8 C 36.9 C SpO2: 99% 100% 97% 98% Intake/Output last 3 shifts: I/O last 3 completed shifts: In: 1233 [P.O.:960; Blood:273] Out: 1300 [Urine:1300] Intake/Output Summary (Last 24 hours) at 10/01/2019 0854 Last data filed at 10/01/2019 0700 Gross per 24 hour Intake 1233 ml Output 1300 ml Net -67 ml Drain Output: Drain Output (mL) 09/30/19 0700 - 10/01/19 0659 10/01/19 0700 - 10/01/19 0854 Patient has no LDAs of requested type attached. Physical Exam: Alert, Awake, Oriented x 3 No acute distress ABD soft, NT/ND Dressing clean, dry, no drainage, intact. No drainage or bleeding. +soft tissue swelling and peripheral edema, no significant ecchymosis. Left lower extremity: +SILT distally +EHL/FHL/DF/PF Toes WWP, palp distal pulse Calves benign B/L Labs: Recent Labs Lab 09/30/19 1600 HCT 25.9* HGB 8.9* MCH 33.2* MCHC 34.2 MCV 96.9* PLT 266 RDW 16.4* WBC 9.8 Recent Labs Lab 09/30/19 0824 10/01/19 0429 NA 128* -- K 4.2 -- CL 99 -- BICARBONATE 20* -- GLUCOSE 114 -- BUN 24* -- CREATININE 0.70 0.78 BCR 35 -- GFRAA eGFR is not calculated in patients <18 or >80 years of age. eGFR is not calculated in patients <18 or >80 years of age. GFRNONAA eGFR is not calculated in patients <18 or >80 years of age. eGFR is not calculated inpatients <18 or >80 years of age. Lab Results Component Value Date CALCIUM 7.0 (L) 09/30/2019 Lab Results Component Value Date INR 1.05 09/25/2019 ASSESSMENT: Principal Problem: Other fracture of left femur, initial encounter for closed fracture Active Problems: Femur fracture, left Macrocytic anemia Acquired hypothyroidism Compression fracture of L1 lumbar vertebra, with routine healing, subsequent encounter Essential hypertension CAD (coronary artery disease) Chronic systolic heart failure Preop cardiovascular exam Acute blood loss anemia PLAN: -Other fracture of left femur, initial encounter for closed fracture 4 Days Post -Op s/p revision left total knee arthroplasty, distal femoral replacement: -Ortho stable -Continue OOB, WBAT -Continue PT, will need STR -Pain control, well controlled with current regimen -Plan for DVT prophylaxis with Lovenox in house, transition to 81mg ASA x 6 weeks if pt not already taking at baseline -intra op cx were taken - 1 cx +1 colony of staph epi - appreciate ID consult - per Dr. Howard who discussed with Dr. Bridges: could be infection could be contaminant, recommended to start cefazolin [id number] and then rifampin 300mg bid after a few days. Plan to treat for 6 weeks iv and then bentley to po cephalosporin and rifampin for another 6 months and the po cephalosporin indefinitely. -pt remains ortho stable. Will sign off, please call with further issues or complaints. -Pt to follow up with orthopedics as outpatient in 10-14 days once discharged. -Acute Blood Loss Anemia- expected post op: -s/p 2units PRBC post op total post op. -responded appropriately to transfusion, appears to remain asymptomatic at this time. -H&H improved. Remainder of care per primary team - DVT Prophylaxis - SCDs Lovenox 40 mg Daily - DCP - needs STR Certain parts of this note may have been carried over from prior notes to maintain accuracy of patient's pertinent medical history and continuity of care. The details were verified and edited as appropriate. Liliam Roca Nunu Muniz RN - 10/01/2019 4:38 AM ESTProvidylan/RN Notification Reason for Communication: Pt straight cath on 09/29 for 700ml voided 500ml on 09/30 at 1444 Pt hasnot voided since Bladder scan 500ml pt Unable to void Provider Name: Dr Owen Provider Role: Hospitalist Method of Communication: Text Response: See new orders Notification Time: 439 Last Vital Signs: Blood pressure 117/67, pulse 76, temperature 36.8 C, temperature source Oral,resp. rate 18, height 1.524 m, weight 64.9 kg (143 lb), SpO2 97 %. Elier Corral RN - 09/30/2019 10:10 PM ESTPICC consult placed for patient in need of ABX. Patient has working PIV for the night. PICC can be placed in the morning. Bedside RN Carrie Hernandez aware. Nery Bui - 09/30/2019 7:49 PM ESTAssumed care for patient from 15-19, gusberonica agrees with previous assessment, call lopez in reach safety maintained report given to on coming shift nurse. Carla Nogueira RN - 2019 5:47 PM ESTPT is recommending STR. Referral was made to [facility] in [place]. Called and left message for Luna in Admissions and will f/u with her. Gennaro Deal MD - 09/30/2019 2:52 PM EST Consult Note Subjective: Reason for Consultation: management recommendations. Requested By: DEJA Frazier History of present illness: Yulisa Rebollar is a 89 y.o. female seen today for antibiotic recommendations. Patient had a mechanical fall and suffered a left periprostetic distal femur fracture. Patient has Hx of bilateral TKA from 2000. S/p revision TKA and distal femoral replacement (09/27). Surgical tissue culture yielded 1+WBC and 1 colony of Staph epi. That is sensitive to cefazolin, clindamycin, oxacillin, trimethoprim + sulfamethoxazole , and vancomycin. Patient denied fevers, chills, surgical scar drainage or pus. Denied prior history of MRSA infections. Review of Systems Other than stated in HPI all other systems were negative Past Medical & Surgical History Past Medical History: Diagnosis Date Arthritis Blood transfusion without reported diagnosis Hypertension Thyroid disease Past Surgical History: Procedure Laterality Date APPENDECTOMY HYSTERECTOMY JOINT REPLACEMENT Home medications Home Medications Medication Sig Acetaminophen 500 MG Oral Tablet (TYLENOL) Take 500 mg by mouth every 6 (six) hours as needed for Pain Aspirin 81 MG Oral Tablet Chewable Chew 81 mg by Mouth daily Atorvastatin Calcium 40 MG Oral Tablet (LIPITOR) Take 40 mg by mouth every evening Calcium Carbonate 600 MG Oral Tablet (OS-TOÑA) Take 1,000 mg by mouth Two times daily with meals Furosemide 40 MG Oral Tablet (LASIX) Take 40 mg by mouth daily Levothyroxine Sodium 100 MCG Oral Tablet (SYNTHROID, LEVOTHROID) Take 100 mcg by mouth Daily Lisinopril 20 MG Oral Tablet (PRINIVIL,ZESTRIL) Take 20 mg by mouth daily traMADol HCl 50 MG Oral Tablet (ULTRAM) Take 50 mg by mouth every 6 (six) hours as needed for Pain Vitamin D 50 MCG (1999 UT) Oral Tablet Take 2,000 Units by mouth daily Denosumab 60 MG/ML Subcutaneous Solution Prefilled Syringe (PROLIA) Inject 60 mg into the skin every6 (six) months Allergies Allergen Reactions Aspirin Nosebleed with high doses of aspirin Spironolactone Kidney failure Macrobid [Nitrofurantoin Macrocrystal] Rash Sulfa Antibiotics Rash Medications at this time aspirin 81 mg Oral Daily atorvastatin 40 mg Oral QPM docusate sodium 100 mg Oral BID enoxaparin 40 mg Subcutaneous Daily furosemide 20 mg Oral BID levothyroxine 100 mcg Oral Daily metoprolol 50 mg Oral Daily senna 2 tablet Oral Nightly sodium chloride (preservative free) 3 mL Intravenous 3 times per day sodium chloride acetaminophen (TYLENOL) tablet, bisacodyl, [COMPLETED] Peripheral IV AND sodium chloride (preservative free) AND sodium chloride (preservative free) AND [COMPLETED] Saline Lock order AND sodium chloride AND dextrose, ondansetron, polyethylene glycol, sodium phosphate, tramadol Social History She is . reports that she has never smoked. She has never used smokeless tobacco. She reports previous alcohol use. She reports previous drug use. Family History family history is not on file. Allergies: Allergies Allergen Reactions Aspirin Nosebleed with high doses of aspirin Spironolactone Kidney failure Macrobid [Nitrofurantoin Macrocrystal] Rash Sulfa Antibiotics Rash Objective: Vitals: Visit Vitals BP 132/76 Pulse 81 Temp 36.7 C (Oral) Resp 18 Ht 1.524 m Wt 64.9 kg (143 lb) SpO2 99% BMI 27.93 kg/m Physical Exam Visit Vitals BP 132/76 Pulse 81 Temp 36.7 C (Oral) Resp 18 Ht 1.524 m Wt 64.9 kg (143 lb) SpO2 99% BMI 27.93 kg/m General Appearance: Alert, cooperative, no distress, appears stated age Head: Normocephalic, without obvious abnormality, atraumatic Eyes: ,onjunctiva/corneas clear, EOM's Ears: Normal external ear , both ears Nose: No defromities Throat: Lips, mucosa, and tongue normal; Neck: Supple, symmetrical, trachea midline, no adenopathy; No thyromegally Lungs: Clear to auscultation bilaterally, respirations unlabored Chest wall: No tenderness or deformity Chest . Lungs clear Heart: Regular rate and rhythm, S1 and S2 normal, no murmur, rub or gallop Abdomen: Soft, non-tender no hepatomegly no masses, no organomegaly of liver or kidneys Extremities: Bilateral edema present in hands. Left knee edematous, no significant erythema. Mild tenderness to palpation around surgical site. No drainage noted or significant ecchymosis Neurologic: A&Ox3 Data Reviewed All laboratory and imaging data in the past 24 hours reviewed aspirin 81 mg Oral Daily atorvastatin 40 mg Oral QPM docusate sodium 100 mg Oral BID enoxaparin 40 mg Subcutaneous Daily furosemide 20 mg Oral BID levothyroxine 100 mcg Oral Daily metoprolol 50 mg Oral Daily senna 2 tablet Oral Nightly sodium chloride (preservative free) 3 mL Intravenous 3 times per day sodium chloride Assessment/Plan: Fracture of left femur, s/p revision left TKA and distal femoral replacement Patient is healing well from surgery, is afebrile, stable BP, WBC of 9.7. Hx of left TKA in 2000. Intra-op cultures grew 1 colony of Staph epi. With prior TKA, can consider beginning oxacillin or cefazolin given sensitives. Will discuss with Dr. Howard for final recs. Signed: JORGITO QUIROZ, MS4 I was present with the medical student for my service.I personally verified the history of present illness and performed the physical exam and medical decision making. I have verified all of students documentation for this encounter. Could be infection could be contaminant . No way to know for sure. Would start cefazolin 2gmiv q8h and then rifampin 300mg bid after a few days. Would treat for 6 weeks iv and then changto po cephalosporin and rifampin For another 6 monhts and the po cephalosporin indefinitely. Discussed with Dr Bridges and reid Hutton PA Roverto Wong, [employer] COMM[employer]ICATIONS SPECIALIST - 09/30/2019 2:28 PM ESTPhysical Therapy Acute Care Encounter Note Medical Diagnosis: s/p fall resulting in L distal femur fracture, s/p LEFT TOTAL KNEE REVISION WITH LEFT DISTAL FEMORAL REPLACEMENT (Left) 09/27/2019 Rehabilitation Precautions/Restrictions: OOB with assist, WBAT L LE Goal Review Visit Number: 6 SUBJECTIVE Patient Report: Patient has no complaints at this time. Pain: Patient has no complaints of pain currently. Pain Medication Today: yes. OBJECTIVE General Observation: Patient sitting in bedside chair. +Masimo and IV pole for blood transfusion. Skin Integrity Screen: patient with bandage covering surgical site, otherwise grossly intact Vital Signs: Stable. Heart Rate: 67 beats per minute Oxygen Saturation: 97 % Functional Status: Transfers: Patient transferred sit to/from stand requiring moderate assistance of 1 person. Patient used the following equipment: Arms of chair. Patient used the following equipment: Transfer belt. Bed Mobility: Not assessed. Locomotion/Gait/Ambulation: Patient was contact guard with gait/ambulation of 1 person for 30 and 10 feet . Patient requires the following assistive device(s): Rolling walker. Gait belt. Antalgic. Right decreased heel strike. Left decreased heel strike. Right decreased step length. Left decreased step length. Stairs: Not assessed. Outcome Measures: [facility] "6 Clicks" Basic Mobility Inpatient Short Form: Turning over in bed: Unable to perform (1) Sitting down on and standing up from a chair with arms: Unable to perform (1) Moving from lying on back to sitting on the side of the bed: Unable to perform (1) Moving to and from a bed to a chair (including a wheelchair): A little help (3) Walking in hospital room: A little help (3) Climbing 3-5 steps with a railing: Total assistance (1) Raw Score 10 /24. Interventions: Gait Training: Facilitated gait training during ambulation to improve gait and distance. Ambulated 30 and 10 feet using rolling walker/gait belt and contact guard. Patient needed cues to improve upright posture, step length and heel strike. Therapeutic Exercise: Instructed in left LE AROM seated for 2x10 reps to increase ROM and strength. Performed heel slides and quad sets with max cues for slow reps and 3 second hold. Education: Mode of education provided: Explanation. Demonstration. Audience: Patient. Education Provided: Range of motion exercises. Safe mobility. Response: Requires cues (auditory/physical). Needs practice/reinforcement. ASSESSMENT Response to Visit: The session was tolerated well. Call lopez was in patient's reach at end of session. Chair alarm was on at end of session. Pain: Patient has no complaints of pain currently. PLAN Treatment Frequency, Duration and Interventions: Restorative Physical Therapy is recommended for 2x/day for 2 weeks Treatment is to include: Gait Training. Therapeutic Exercise. Therapeutic Activity. Recommended Physical Therapy Follow Up: Upon acute care discharge, the following is currently recommended: Anticipate patient will have inpatient rehab needs beyond the acute stay. Equipment Provided: None issued this visit. Visit Number: Today's visit is number 6 Program: Total [facility] (Therapist may be reached on [employer]) SESSION: Duration: 25 CHARGES: 89188 - CHARGE - PT GAIT TRNG - 15 MIN 1 Units 14704 - CHARGE - PT THER EX - 15 MIN 1 Units - TOTAL JOINT VISIT 1 Units Total treatment minutes: 25.00 Minutes Electronically Signed by: Natan Fajardo PTA, 09/30/2019 4:08:12 PM Teresa Montes RN - 09/30/2019 2:15 PM EST1 unit PRBC transfused. Patient tolerated well. No adverse reactions noted. Vital signs stable. Will continue to monitor.Electronically signed by Teresa Ordaz RN at 2019 2:16 PM Roverto Wong PTA - 09/30/2019 10:59 AM ESTPhysical Therapy Acute CareTotal Joint Treatment Note Medical Diagnosis: s/p fall resulting in L distal femur fracture, s/p LEFT TOTAL KNEE REVISION WITH LEFT DISTAL FEMORAL REPLACEMENT (Left) 09/27/2019 Rehabilitation Precautions/Restrictions: OOB with assist, WBAT L LE Goal Review Visit Number: 5 SUBJECTIVE Patient Report: Patient offers no complaints. Pain: Patient has no complaints of pain currently. Pain Medication Today: yes. OBJECTIVE General Observation: Patient supine in bed. +Masimo and IV blood transfusing Vital Signs: Stable. Heart Rate: 90 beats per minute Oxygen Saturation: 98 % Range of Motion:Not assessed. Strength:Not assessed. Skin Integrity Screen: patient with bandage covering surgical site, otherwise grossly intact Functional Status: Transfers: Patient transferred sit to/from stand requiring minimal assistance of 1 person. Patient used the following equipment: Bed rails. Patient used the following equipment: Transfer belt. Patient transferred stand pivot right requiring contact guard assistance. Patient used the following equipment: rolling walker. Patient used the following equipment: Transfer belt. Bed Mobility: Patient moves from supine to/from sit requiring minimal assistance. Needed assist with left LE. Locomotion/Gait/Ambulation: Patient was contact guard with gait/ambulation of 1 person for 5 feet . Patient requires the following assistive device(s): Rolling walker. Gait belt. Antalgic. Right decreased heel strike. Left decreased heel strike. Right decreased step length. Left decreased step length. Stairs: Not assessed. Outcome Measures: [facility] "6 Clicks" Basic Mobility Inpatient Short Form: Turning over in bed: Unable to perform (1) Sitting down on and standing up from a chair with arms: Unable to perform (1) Moving from lying on back to sitting on the side of the bed: Unable to perform (1) Moving to and from a bed to a chair (including a wheelchair): A little help (3) Walking in hospital room: A lot of help (2) Climbing 3-5 steps with a railing: Total assistance (1) Raw Score 9 /24. Interventions: Therapeutic Activities: Performed supine to sit using rail with min. assist at trunk and left LE. Patient was cued for proper technique. Performed sit to stand pushing from bed with rolling walker/gait belt and min. assist. Patient was able to pivot to chair with rolling walker/gait belt and contact guard. She was cued to increase step length and to use armrests when sitting. Therapeutic Exercise: Instructed patient in left LE AROM seated for 2x10 reps to improve strength and ROM. Performed heel slides, quad sets and ankle pumps with reminders for technique. Education: Mode of education provided: Explanation. Demonstration. Audience: Patient. Education Provided: Range of motion exercises. Safe mobility. bed mobility . Response: Requires cues (auditory/physical). Needs practice/reinforcement. ASSESSMENT Response to Visit: The session was tolerated well. Call lopez was in patient's reach at end of session. Chair alarm was on at end of session. Pain: Patient has no complaints of pain currently. Goal review: Patient goals remain appropriate. Changes in or Continuation of Plan of Care: Patient will benefit from continued therapy to achieve planned goals. PLAN Treatment Frequency, Duration and Interventions: Restorative Physical Therapy is recommended for 2x/day for 2 weeks Treatment is to include: Gait Training. Therapeutic Activity. Therapeutic Exercise. Equipment Provided: None issued this visit. Equipment Recommended: None. Recommended Physical Therapy Follow Up: Upon acute care discharge, the following is currently recommended: Anticipate patient will have inpatient rehab needs beyond the acute stay. Recommended Consults: None currently. Development of Plan of Care: Participants included: pt. There was no change to plan of care today. Visit Number: Today's visit is number 5 Program: Total [facility] (Therapist may be reached on [employer]) SESSION: Duration: 23 CHARGES: 91544 - CHARGE - PT THER EX - 15 MIN 1 Units 35456 - CHARGE - PT THERAPEUTIC ACTIVITIES - 15 MIN 1 Units - TOTAL JOINT VISIT 1 Units Total treatment minutes: 23.00 Minutes Electronically Signed by: Natan Fajardo PTA, 09/30/2019 12:51:13 PM Caitlin Dahl PA - 09/30/2019 10:54 AM EST Internal Medicine Inpatient Progress Note Length of stay- 5 Subjective: patient examined at bedside; sitting up comfortably in bed eating breakfast. Found to have drop in H/H in am labs, denies malaise/fatigue, CP, SOB. No other complaints. Review of Systems Constitutional: Negative for chills, fever and malaise/fatigue. Respiratory: Negative for cough and shortness of breath. Cardiovascular: Negative for chest pain and palpitations. Gastrointestinal: Negative for heartburn, nausea and vomiting. Genitourinary: Negative for dysuria, frequency and urgency. Musculoskeletal: Negative for myalgias and neck pain. Neurological: Negative for dizziness and headaches. Objective: Vitals: 09/29/19 2348 09/30/19 0749 09/30/19 0939 09/30/19 1012 BP: 131/74 133/70 119/70 129/64 BP Location: Right arm Right arm Patient Position: Lying Lying Pulse: 76 80 84 84 Resp: 18 18 18 18 Temp: 36.4 C 37.1 C 36.6 C 36.7 C TempSrc: Oral Oral Oral Oral SpO2: 94% 97% 98% 98% Weight: Height: Physical Exam Constitutional: She is oriented to person, place, and time and well-developed, well-nourished, and in no distress. HENT: Head: Normocephalic and atraumatic. Cardiovascular: Normal rate and regular rhythm. Pulmonary/Chest: Effort normal and breath sounds normal. Abdominal: Soft. Bowel sounds are normal. Musculoskeletal: General: Edema (BUE edema) present. Neurological: She is alert and oriented to person, place, and time. Skin: Skin is warm and dry. Nursing note and vitals reviewed. Laboratory independently reviewed Recent Labs Lab 09/27/1935309/28/19 03009/30/19 0824 NA 137 132* 128* K 4.2 4.8 4.2 CL 101 98 99 BICARBONATE 25 22 20* BUN 35* 30* 24* CREATININE 1.15* 0.98* 0.70 GLUCOSE 94 163* 114 Recent Labs Lab 09/26/19 0454 09/27/194 09/28/19 0309 09/29/19 0606 09/30/19 0632 WBC 8.4 7.7 -- 7.2 9.7 9.2 HGB 9.5* 8.1* < > 9.1* 8.3* 6.9* HCT 28.1* 23.8* < > 27.1* 23.7* 20.2* MCV 100.8* 101.4* -- 96.4* 94.8 95.8 PLT 206 180 -- 166 191 221 NEUTOPHILPCT 81 62 -- -- -- -- MONOPCT 8 9 -- -- -- -- < > = values in this interval not displayed. No results found for: PROT, ALBUMIN, AST, ALT, TBILI, ALKPHOS, LIPASE, AMYLASE Recent Labs Lab 09/25/192122 INR 1.05 Recent Labs Lab 09/25/192122 CK 239* No results found for: HGBA1C, TSH, G4ZAYUK, B6ETMNU, THYROIDAB Finger stick glucose levels: MICROBIOLOGY: IMAGING independently reviewed: MEDICATIONS: Scheduled Meds: aspirin 81 mg Oral Daily atorvastatin 40 mg Oral QPM docusate sodium 100 mg Oral BID enoxaparin 40 mg Subcutaneous Daily furosemide 20 mg Oral BID levothyroxine 100 mcg Oral Daily metoprolol 50 mg Oral Daily senna 2 tablet Oral Nightly sodium chloride (preservative free) 3 mL Intravenous 3 times per day sodium chloride Continuous Infusions: PRN Meds:.acetaminophen (TYLENOL) tablet, bisacodyl, [COMPLETED] Peripheral IV * *AND sodium chloride (preservative free) AND sodium chloride ( preservative free) AND [COMPLETED] Saline Lock order AND sodium chloride AND dextrose, ondansetron, polyethylene glycol, sodium phosphate, tramadol Assessment & Plan: Yulisa Rebollar is a 89 y.o. female who is here for Principal Problem: Other fracture of left femur, initial encounter for closed fracture Active Problems: Femur fracture, left Macrocytic anemia Acquired hypothyroidism Compression fracture of L1 lumbar vertebra, with routine healing, subsequent encounter Essential hypertension CAD (coronary artery disease) Chronic systolic heart failure Preop cardiovascular exam Acute blood loss anemia #L femur fracture - post op day 3 - c/w PT, pending placement - pain control with tramadol, tylenol - f/u with Dr. Bridges in 2 weeks - c/w lmwh for dvt ppx, then continue with ASA 81 - ID consulted for one positive staph epi tissue culture; appreciate recommendations, patient AFVSS #Acute Blood Loss Anemia -POD#3 -H/H 6.9/20.2 - transfuse with PRBC this am; received 1 unit post op - no signs of active bleeding #CAD - c/w ASA, statin #Chronic Systolic Heart Failure -resumed lasix; 20mg BID DVT Prophylaxis: lmwh GI Prophylaxis: not indicated Functional Status: moderately impaired Code Status: full Disposition: Plan discharge to: rehab Estimated Discharge Date: 10/01 Caitlin Tan PA-C Internal Medicine Pager [phone] signed by DEJA Frazier at 09/30/2019 11: 13 AM EST Associated attestation - Curtis Bravo MBBS - 09/30/2019 11:13 AM ESTAttending Addendum: I saw and examined the patient. I evaluated the clinical findings and discussed the plan for Yulisa Mackey with the PA. I have reviewed the note and agree with the findings and plan as documented. Overall amount of data reviewed, level of risk, complexity and medical decision making is: moderate.Time spent providing, discussing, and coordinating care today: 25 minutes DEJA [facility] Department of Medicine [place], CARLOS Argueta - 09/30/2019 9:34 AM EST ORTHOPEDIC PROGRESS NOTE Hospital Day: 6, 3 Days Post-Op Procedure(s): LEFT TOTAL KNEE REVISION WITH LEFT DISTAL FEMORAL REPLACEMENT (Left) Subjective: Patient doing well, no acute issues or complaints. Pain controlled. Vitals: Vitals: 09/29/19 1540 09/29/19 1744 09/29/19 2348 09/30/19 0749 BP: 115/63 132/71 131/74 133/70 Pulse: 76 80 Resp: 18 18 18 Temp: 36.9 C 36.4 C 37.1 C SpO2: 96% 94% 97% Intake/Output last 3 shifts: I/O last 3 completed shifts: In: 934.5 [P.O.:540; I.V.:394.5] Out: 1100 [Urine:1100] Intake/Output Summary (Last 24 hours) at 09/30/2019 0934 Last data filed at 09/29/2019 2200 Gross per 24 hour Intake 571.54 ml Output 1100 ml Net -528.46 ml Drain Output: Drain Output (mL) 09/29/19 0700 - 09/30/19 0659 09/30/19 0700 - 09/30/19 0934 Patient has no LDAs of requested type attached. Physical Exam: Alert, Awake, Oriented x 3 No acute distress ABD soft Dressing clean, dry, no drainage, intact. No drainage or bleeding. +soft tissue swelling, no significant ecchymosis. Left lower extremity: +SILT distally +EHL/FHL/DF/PF Toes WWP, palp distal pulse Calves benign B/L Labs: Recent Labs Lab 09/30/19 0632 HCT 20.2* HGB 6.9* MCH 33.0 MCHC 34.4 MCV 95.8 PLT 221 RDW 16.7* WBC 9.2 Recent Labs Lab 09/30/19 0824 NA 128* K 4.2 CL 99 BICARBONATE 20* GLUCOSE 114 BUN 24* CREATININE 0.70 BCR 35 GFRAA eGFR is not calculated in patients <18 or >80 years of age. GFRNONAA eGFR is not calculated in patients <18 or >80 years of age. Lab Results Component Value Date CALCIUM 7.0 (L) 09/30/2019 Lab Results Component Value Date INR 1.05 09/25/2019 ASSESSMENT: Principal Problem: Other fracture of left femur, initial encounter for closed fracture Active Problems: Femur fracture, left Macrocytic anemia Acquired hypothyroidism Compression fracture of L1 lumbar vertebra, with routine healing, subsequent encounter Essential hypertension CAD (coronary artery disease) Chronic systolic heart failure Preop cardiovascular exam Acute blood loss anemia PLAN: -Other fracture of left femur, initial encounter for closed fracture 3 Days Post -Op s/p revision left total knee arthroplasty, distal femoral replacement: -Ortho stable -received 1u PRBC secondary to acute blood loss anemia, pt responded well, however H&H low again- another unit PRBC to be transfused today - see below. -Continue OOB, WBAT -Continue PT, will need STR -Pain control, well controlled with current regimen -Pt to follow up with orthopedics as outpatient in 10-14 days once discharged -Plan for DVT prophylaxis with Lovenox in house, transition to 81mg ASA x 6 weeks if pt not already taking at baseline -intra op cx were taken - 1 cx +1 colony of justynh epi - will d/w Dr. Bridges regarding these findings -per Dr. Bridges, he favors treating this but would like Dr. Howard's evaluation/opinion - I d/w primaryteam. -pt remains ortho stable. -Acute Blood Loss Anemia- expected post op: -s/p 1u PRBC post op. Responded appropriately to transfusion, appears to remain asymptomatic at thistime. -H&H low this AM at 20.2 and 6.9 -- transfusing 1 unit today per medicine. No s/s of active bleeding. Remainder of care per primary team - DVT Prophylaxis - SCDs Lovenox 40 mg Daily - DCP - needs STR Certain parts of this note may have been carried over from prior notes to maintain accuracy of patient's pertinent medical history and continuity of care. The details were verified and edited as appropriate. Liliam Roca Teresa Montes RN - 09/30/2019 7:56 AM ESTProvider/RN Notification Reason for Communication: Critical H&H 6.05/10.2. Patient edematous BUE. Pt normally on Lasix at home. IVF infusing at 60/hr. New type and cross needed- expires 09/30/19 Provider Name: Dr. Bravo Provider Role: Hospitalist Method of Communication: Telephone Response: Provider notified Notification Time: 07:57 Last Vital Signs: Blood pressure 131/74, pulse 76, temperature 36.4 C, temperature source Oral,resp. rate 18, height 1.524 m, weight 64.9 kg (143 lb), SpO2 94 %. Mariela Bob RN - 09/29/2019 5:[address] Bravo. Aleman removed from patient this morning, due to void by 1600. Has not voided and has been bladder scanned for 79ml. He did order a 500ml bolus for this issue, however, the patient does have CHF and is retaining quite a bit of fluid. Is on Lasix 40mg at home which she has not received yet. Generalized swelling, rings on fingers becoming tight. Just want to verify whether or not he would like to order and administer the lasix. Waiting to hear back. Lasix ordered and administeredElectronically signed by Mariela Stokes RN at 2019 5:50 PM Katie Bansal PT - 09/29/2019 1:49 PM ESTPhysical Therapy Acute Care Encounter Note Medical Diagnosis: s/p fall resulting in L distal femur fracture, s/p LEFT TOTAL KNEE REVISION WITH LEFT DISTAL FEMORAL REPLACEMENT (Left) 09/27/2019 Rehabilitation Precautions/Restrictions: OOB with assist, WBAT L LE Goal Review Visit Number: 4 SUBJECTIVE Patient Report: "I'm ok" Pain: Patient currently complains of pain. Location: L LE . Patient describes pain as Nonspecific. Verbal Scale: Patient reports a pain level of 2 out of 10. Pain Medication Today: yes. OBJECTIVE General Observation: Pt received sitting in recliner chair at bedside with left UE PIV, family present Chair alarm was on at start of session. Skin Integrity Screen: patient with marleny wrap covering surgical site, otherwise grossly intact Vital Signs: Stable. Functional Status: Transfers: Patient transferred sit to/from stand requiring moderate assistance of 1 person. Patient used the following equipment: Transfer belt. Patient used the following equipment: Arms of chair. Patient used the following equipment: rolling walker. cues for hand placement for leverage, cues for WBAT right LE Bed Mobility: Pt moves sitting to supine with min assist of 2 Locomotion/Gait/Ambulation: Patient was minimal assist with gait/ambulation of 1 person for 6 feet . Patient requires the following assistive device(s): Rolling walker. forward flexed posture, short, labored steps Patient was also minimal assist with gait/ambulation of 1 person for 2-3 steps recliner to bed . Patient requires the following assistive device(s): Rolling walker. Assist of second person to follow with wheelchair Stairs: Not assessed. Outcome Measures: [facility] "6 Clicks" Basic Mobility Inpatient Short Form: Turning over in bed: Unable to perform (1) Sitting down on and standing up from a chair with arms: Unable to perform (1) Moving from lying on back to sitting on the side of the bed: Unable to perform (1) Moving to and from a bed to a chair (including a wheelchair): A little help (3) Walking in hospital room: A lot of help (2) Climbing 3-5 steps with a railing: Total assistance (1) Raw Score 9 /24. Interventions: Therapeutic Activities: Pt received instruction in sit to stand transfers from recliner and transport chair with cues for hand placement for leverage, cues for right LE placement for WBAT right LE, cues for positioning to edge of seat to optimize leverage. Pt educated in elevating LEs for edema control Gait Training: Pt received instruction in pregait activities with cues for weight shifting in standing at rolling walker, cues for postural correction to tolerance. Pt received instruction in gait with cues for gait sequence for WBAT right LE, cues for postural correction to tolerance Education: Mode of education provided: Demonstration. Explanation. Audience: Patient. Education Provided: Importance of activity. Mobility Techniques. Role of Physical Therapy. Safety. Treatment Plan. Response: Applied knowledge. Indicates understanding. Needs practice/reinforcement. ASSESSMENT Response to Visit: The session was tolerated fair, as evidenced by: Patient reported fatigue Call lopez was in patient's reach at end of session. Bed alarm was on at end of session. Pain: Yes, pain is unchanged from start of today's treatment. PLAN Treatment Frequency, Duration and Interventions: Restorative Physical Therapy is recommended for 2x/day for 2 weeks Treatment is to include: Gait Training. Neuromuscular Re-education. Therapeutic Activity. Therapeutic Exercise. Wheelchair Management Self Care/Home Management. Recommended Physical Therapy Follow Up: Upon acute care discharge, the following is currently recommended: Anticipate patient will have inpatient rehab needs beyond the acute stay. Equipment Provided: None issued this visit. Visit Number: Today's visit is number 4 Program: Orthopedics (Therapist may be reached on [employer]) SESSION: Duration: 23 CHARGES: 49038 - CHARGE - PT GAIT TRNG - 15 MIN 1 Units 34390 - CHARGE - PT THERAPEUTIC ACTIVITIES - 15 MIN 1 Units - ORTHOPEDIC VISIT 1 Units Total treatment minutes: 23.00 Minutes Electronically Signed by: Katie Lucas PT, PT 09/29/2019 5:52:25 PM Curtis Field MBBS - 09/29/2019 12:28 PM EST Inpatient Progress Note Subjective Patient seen and examined at bedside. No acute overnight events. Doing well post operatively. Deniesany complaints. Review of Systems: Constitutional: Negative for activity change, chills, fatigue, fever and unexpected weight change. HENT: Negative for congestion, sinus pressure, sore throat and trouble swallowing. Eyes: Negative for photophobia and visual disturbance. Respiratory: Negative for cough, chest tightness, shortness of breath and wheezing. Cardiovascular: Negative for chest pain, palpitations and leg swelling. Gastrointestinal: Negative for abdominal distention, abdominal pain, constipation, diarrhea, nausea and vomiting. Genitourinary: Negative for difficulty urinating, dysuria, flank pain, frequency , hematuria and pelvic pain. Musculoskeletal: Negative for myalgias, neck pain and neck stiffness. Left knee pain on movement Skin: Negative for rash. Neurological: Negative for dizziness, seizures, syncope, speech difficulty, weakness, light-headedness and headaches. Psychiatric/Behavioral: Negative for agitation, confusion, dysphoric mood. Objective Temp: [36.7 C-36.8 C] 36.7 C Pulse: [86-94] 94 Resp: [16-17] 17 BP: (130-149)/(78-89) 149/80 SpO2: [97 %-99 %] 99 % O2 Therapy: Room air Physical Exam: Constitutional: Age-appropriate. No distress. HENT: Head: Normocephalic and atraumatic. Mouth/Throat: Oropharynx is clear and moist. Neck: Normal range of motion. Neck supple. No JVD present. Cardiovascular: Normal rate, regular rhythm, normal heart sounds and intact distal pulses. Pulmonary/Chest: Effort normal. No stridor. No respiratory distress. The patient has no wheezes, no rales. Abdominal: Soft. Bowel sounds are normal. Patient exhibits no distension and no mass. There is no tenderness. Musculoskeletal: Patient exhibits no edema or tenderness. Peripheral pulses and sensation intact Neurological: Patient is alert and oriented to person, place, and time. Patient displays normal reflexes. Nursing note and vitals reviewed. Laboratory Data (Most Recent over Past 3 Years) Lab 09/27/19 0354 09/28/19 0309 09/29/19 0606 WBC 7.7 -- 7.2 9.7 HGB 8.1* < > 9.1* 8.3* HCT 23.8* < > 27.1* 23.7* MCV 101.4* -- 96.4* 94.8 PLT 180 -- 166 191 < > = values in this interval not displayed. Lab 09/26/19 0454 09/27/19 0354 09/28/19 0309 NA 137 137 132* K 4.4 4.2 4.8 CL 99 101 98 BICARBONATE 25 25 22 GLUCOSE 131 94 163* BUN 31* 35* 30* CREATININE 0.90 1.15* 0.98* Lab 09/26/19 0454 09/27/19 0354 NEUTOPHILPCT 81 62 LYMPHOPCT 11 28 MONOPCT 8 9 EOSPCT 0 1 Invalid input(s): BILDIR Lab 09/25/192122 INR 1.05 Ct Head Without Contrast Result Date: 09/26/2019 [...] ELECTRONICALLY SIGNED BY RUBIN GARSIA MD Xr Pelvis 1-2 Views Result Date: 09/26/2019 [...] BEEN ELECTRONICALLY SIGNED BY RUBIN GARSIA MD Assessment/Plan Yulisa Rebollar is a 89 y.o. old who is here with, Principal Problem: Other fracture of left femur, initial encounter for closed fracture Active Problems: Femur fracture, left Macrocytic anemia Acquired hypothyroidism Compression fracture of L1 lumbar vertebra, with routine healing, subsequent encounter Essential hypertension CAD (coronary artery disease) [facility] [place] [facility] Chronic systolic heart failure Preop cardiovascular exam Acute blood loss anemia Overview: Secondary to fracture - POD #2- c/w current management. 1/2 bone margin is positive for staph epi. Could be a contaminant.The patient has not shown any signs/ symptoms of infection. Will monitor for now. - Lovenox for DVT PPx, will switch to ASA on discharge - Will need inpatient rehab - Acute blood loss anemia: small drop in H/H after transfusion. C/w CBC monitoring - Holding off her home dose Lasix and lisinopril. She still appears dehydrated and has low urine output. C/w gentle hydration for today. - Will resume home dose metoprolol today - I have updated patient's family today on the diagnosis, treatments so far, and further management.I have answered their questions to their satisfaction. DVT Prophylaxis: low molecular weight heparin Code Status: Full Code Disposition: Rehab I saw and examined the patient myself. I have reviewed pertinent labs, imaging, EKG independently myself. Overall amount of data reviewed, level of risk, complexity and medical decision making is: high. Time spent providing, discussing, and coordinating care today: 35 minutes Curtis Bravo MD Field Operations Coordinatorlaborer dairy farm Department of Hospital Medicine Sharee Toribio RN - 09/29/2019 10:43 AM ESTMicrobiology called to say that the tissue biopsy sent on Wednesday 09/27 is now growing one colony of staph epidermidis Provider Name: Curtis Bravo Provider Role: Attending MD Method of Communication: text page Response: waiting for response Notification Time: 1042 Provider's response: Continue to monitor. Miri Pascual RN - 09/29/2019 10:05 AM ESTDo you want aleman catheter discontinued and patient urine output was decreases for previous shift. Provider Name: Curtis Bravo Provider Role: Attending Method of Communication: Face to face Response: Discontinue Aleman and promote PO fluid intake and leave IV fluids at 60mL/hr. Notification Time: 929Electronically signed by Miri Rothman RN at 2019 10:08 AM Katie Bansal PT - 09/29/2019 9:38 AM ESTPhysical Therapy Acute Care Treatment Note Medical Diagnosis: s/p fall resulting in L distal femur fracture, s/p LEFT TOTAL KNEE REVISION WITH LEFT DISTAL FEMORAL REPLACEMENT (Left) 09/27/2019 Rehabilitation Precautions/Restrictions: OOB with assist, WBAT L LE Goal Review Visit Number: 3 SUBJECTIVE Patient Report: "I feel pretty good" Pain: Patient currently complains of pain. Location: L LE . Patient describes pain as Nonspecific. Verbal Scale: Patient reports a pain level of 3 out of 10. Pain Medication Today: yes. OBJECTIVE General Observation: Pt received sitting in recliner chair at bedside with left UE PIV, Aleman catheter Chair alarm was on at start of session. Vital Signs: Stable. Range of Motion:No change observed. Strength:Strength WFL for functional activities performed this visit Skin Integrity Screen: patient with marleny wrap covering surgical site, otherwise grossly intact Functional Status: Transfers: Patient transferred sit to/from stand requiring moderate assistance of 1 person. Patient used the following equipment: Transfer belt. Patient used the following equipment: Arms of chair. Patient used the following equipment: rolling walker. cues for hand placement and for positioning to edge of seat Bed Mobility: Not assessed. Locomotion/Wheelchair: Not assessed. Locomotion/Gait/Ambulation: Patient was minimal assist with gait/ambulation of 1 person for 6 feet x2 . Patient requires the following assistive device(s): Rolling walker. Gait belt. assist of second person to follow with chair . short steps, decreased stance time left LE, decreased foot clearance, forward flexed posture Stairs: Not assessed. Outcome Measures: [facility] AM-PAC "6 Clicks" Basic Mobility Inpatient Short Form: Turning over in bed: Unable to perform (1) Sitting down on and standing up from a chair with arms: Unable to perform (1) Moving from lying on back to sitting on the side of the bed: Unable to perform (1) Moving to and from a bed to a chair (including a wheelchair): A little help (3) Walking in hospital room: A lot of help (2) Climbing 3-5 steps with a railing: Total assistance (1) Raw Score 9 /24. Interventions: Therapeutic Exercise: Pt received instruction in therex in supine including ankle pumps, quad sets and glute sets x15, therex in sitting including left heel slide alternating with long arc quad x5 Therapeutic Activities: Pt received instruction in sit to stand transfers from recliner and transport chair with cues for hand and LE placement for leverage, cues for WBAT left LE. Pt received instruction in pregait activities with cues for gait sequence for WBAT left LE, cues for postural correction to tolerance and increased step length, cues/assist for positioning walker when backing up to chair Education: Mode of education provided: Demonstration. Explanation. Audience: Patient. Education Provided: Importance of activity. Mobility Techniques. Role of Physical Therapy. Safety. Treatment Plan. Response: Applied knowledge. Indicates understanding. Needs practice/reinforcement. ASSESSMENT Response to Visit: The session was tolerated fair, as evidenced by: Patient reported fatigue Pain increased Call lopez was in patient's reach at end of session. Chair alarm was on at end of session. Pain: Patient currently complains of pain. Location: L LE . Patient describes pain as Nonspecific. Verbal Scale: Patient reports a pain level of 5 out of 10. Will inform nurse. Will instruct in pain-relieving techniques. Will instruct in relaxation techniques. Will perform therapy only as tolerated. Will provide an intervention to address pain. Goal review: Pt progressing toward goals by improving ambulation distance Changes in or Continuation of Plan of Care: Patient will benefit from continued therapy to achieve planned goals. PLAN Treatment Frequency, Duration and Interventions: Restorative Physical Therapy is recommended for 2x/day for 2 weeks Treatment is to include: Gait Training. Neuromuscular Re-education. Therapeutic Activity. Therapeutic Exercise. Wheelchair Management Self Care/Home Management. Equipment Provided: None issued this visit. Equipment Recommended: To be assessed. Recommended Physical Therapy Follow Up: Upon acute care discharge, the following is currently recommended: Anticipate patient will have inpatient rehab needs beyond the acute stay. Recommended Consults: Occupational Therapy. Development of Plan of Care: Participants included: Patient. Visit Number: Today's visit is number 3 Program: Total Joint (Therapist may be reached on Voc[employer]) SESSION: Duration: 26 CHARGES: 44845 - CHARGE - PT THER EX - 15 MIN 1 Units 86922 - CHARGE - PT THERAPEUTIC ACTIVITIES - 15 MIN 1 Units - ORDER - Physical Therapy Treatment 1 Units - TOTAL JOINT VISIT 1 Units Total treatment minutes: 26.00 Minutes Electronically Signed by: Katie Lucas PT, PT 09/29/2019 1:06:34 PM Roverto Calero PA - 09/29/2019 9:34 AM EST ORTHOPEDIC PROGRESS NOTE Hospital Day: 5, 2 Days Post-Op Procedure(s): LEFT TOTAL KNEE REVISION WITH LEFT DISTAL FEMORAL REPLACEMENT (Left) Subjective: Patient doing well. Pt doing well with no new complaints. Vitals: Vitals: 09/28/19 1128 09/28/19 1615 09/28/19 2349 09/29/19 0730 BP: 133/72 130/89 139/78 149/80 Pulse: 89 86 94 94 Resp: 16 16 16 17 Temp: 36.7 C 36.8 C 36.8 C 36.7 C SpO2: 98% 97% 98% 99% Intake/Output last 3 shifts: I/O last 3 completed shifts: In: 1876.7 [P.O.:840; I.V.:1036.7] Out: 575 [Urine:575] Intake/Output Summary (Last 24 hours) at 09/29/2019 0934 Last data filed at 09/29/2019 0845 Gross per 24 hour Intake 1996.73 ml Output 575 ml Net 1421.73 ml Drain Output: Drain Output (mL) 09/28/19 0700 - 09/29/19 0659 09/29/19 0700 - 09/29/19 0929 Patient has no LDAs of requested type attached. Physical Exam: Alert, Awake, Oriented x 3 No acute distress Lungs no respiratory distress ABD soft Aleman intact - not chronic Dressing clean, dry, no drainage, intact. Left lower extremity: +diminished sensation distally, likely secondary to nerve block +EHL/FHL/DF/PF Toes WWP, palp distal pulse Calves benign B/L Labs: Recent Labs Lab 09/29/19 0606 HCT 23.7* HGB 8.3* MCH 33.2* MCHC 35.0 MCV 94.8 PLT 191 RDW 17.0* WBC 9.7 Recent Labs Lab 09/28/19 0309 NA 132* K 4.8 CL 98 BICARBONATE 22 GLUCOSE 163* BUN 30* CREATININE 0.98* BCR 30 GFRAA eGFR is not calculated in patients <18 or >80 years of age. GFRNONAA eGFR is not calculated in patients <18 or >80 years of age. Lab Results Component Value Date CALCIUM 7.4 (L) 09/28/2019 Lab Results Component Value Date INR 1.05 09/25/2019 ASSESSMENT: Principal Problem: Other fracture of left femur, initial encounter for closed fracture Active Problems: Femur fracture, left Macrocytic anemia Acquired hypothyroidism Compression fracture of L1 lumbar vertebra, with routine healing, subsequent encounter Essential hypertension CAD (coronary artery disease) Chronic systolic heart failure Preop cardiovascular exam Acute blood loss anemia PLAN: -Other fracture of left femur, initial encounter for closed fracture 2 Days Post -Op s/p revision left total knee arthroplasty, distal femoral replacement -Ortho stable -received 1u PRBC secondary to acute blood loss anemia, pt responded well -Continue OOB, WBAT -Continue PT, will need STR -Pain control, well controlled with current regimen -Pt to follow up with orthopedics as outpatient in 10-14 days once discharged -Plan for DVT prophylaxis with Lovenox in house, transition to 81mg ASA x 6 weeks if pt not already taking at baseline -Acute Blood Loss Anemia- expected post op, s/p 1u PRBC. Responded appropriately to transfusion, asymptomatic this AM. Continue to monitor. Remaining care per primary team - DVT Prophylaxis - SCDs Lovenox 30 mg Daily - DCP - needs STR Certain parts of this note may have been carried over from prior notes to maintain accuracy of patient's pertinent medical history and continuity of care. The details were verified and edited as appropriate. Roverto Huertas Sharee Toribio RN - 09/28/2019 4:25 PM ESTSpoke with MD this AM about pt's aleman expiring. She said if pt didn't do well with PT then to leavefoley. Pt did not do too well with PT today so asking MD to renew aleman for at least another day. Provider Name: Oneida Cardenas Provider Role: MD Method of Communication: telephone Response: leave aleman in for another day, d/c tomorrow. See new orders Notification Time: 1624Electronically signed by Sharee Layne RN at 2019 4:28 PM Taylor Geller, PT - 09/28/2019 2:56 PM ESTPhysical Therapy Acute Care Encounter Note Medical Diagnosis: s/p fall resulting in L distal femur fracture, s/p LEFT TOTAL KNEE REVISION WITH LEFT DISTAL FEMORAL REPLACEMENT (Left) 09/27/2019 Rehabilitation Precautions/Restrictions: OOB with assist, WBAT L LE Goal Review Visit Number: 2 SUBJECTIVE Patient Report: patient agreeable to treatment session Pain: Patient currently complains of pain. Location: L LE . Patient describes pain as Nonspecific. Verbal Scale: Patient reports a pain level of 6 out of 10. Will inform nurse. Will perform therapy only as tolerated. Pain Medication Today: yes. OBJECTIVE General Observation: patient reclined in bedside chair, family at bedside, no apparent distress Chair alarm was on at start of session. Skin Integrity Screen: patient with marleny wrap covering surgical site, otherwise grossly intact Vital Signs: Stable. Functional Status: Transfers: Patient transferred sit to/from stand requiring maximal assistance of 1 person. Patient used the following equipment: Arms of chair. Patient used the following equipment: rolling walker. Bed Mobility: Not assessed. Locomotion/Gait/Ambulation: Not assessed. Stairs: Not assessed. Outcome Measures: [facility] AM-PAC "6 Clicks" Basic Mobility Inpatient Short Form: Turning over in bed: Unable to perform (1) Sitting down on and standing up from a chair with arms: Unable to perform (1) Moving from lying on back to sitting on the side of the bed: Unable to perform (1) Moving to and from a bed to a chair (including a wheelchair): A lot of help (2) Walking in hospital room: Total assistance (1) Climbing 3-5 steps with a railing: Total assistance (1) Raw Score 7 /24. Interventions: Therapeutic Exercise: Instructed patient in the following for mg LE strengthening and ROM: hip flexion, knee extension, ankle pumps. Patient performed 10 repetitions of each exercise bilaterally with verbal cues for proper form and pacing of exercises. Patient required AAROM of L LE to achieve full range. Therapeutic Activities: Worked with patient on repeated sit to/from stand transfers to increase patient's activity tolerance and promote functional independence. Verbal and tactile cues provided for hand placement and use of momentum strategy. Therapist placed foot in front of patient's R foot to prevent it from sliding on ground. Patient completed transfers x 4 repetitions requiring maximal assistance of 1 to achieve full standing. Patient only able to tolerate standing for up to 30 seconds each trial requiring significant verbal and tactile cues for erect posture. Patient fatigues quickly. Patient educated on progression of activity to improve functional status. Education: Mode of education provided: Explanation. Audience: Patient. Nurse. Education Provided: Role of Physical Therapy. Safety. Treatment Plan. Mobility Techniques. Importance of activity. WB status . Response: Verbalized understanding. Needs practice/reinforcement. ASSESSMENT Response to Visit: The session was tolerated fair, as evidenced by: patient requiring maximal assistance for transfers and requires prolonged rest breaks between trials. pt left as she was found with all needs attended to Call lopez was in patient's reach at end of session. Chair alarm was on at end of session. Pain: Yes, pain is unchanged from start of today's treatment. PLAN Treatment Frequency, Duration and Interventions: Restorative Physical Therapy is recommended for 2x/day for 2 weeks Treatment is to include: Gait Training. Therapeutic Activity. Therapeutic Exercise. Self Care/Home Management. Neuromuscular Re-education. Recommended Physical Therapy Follow Up: Upon acute care discharge, the following is currently recommended: Anticipate patient will have inpatient rehab needs beyond the acute stay. Equipment Provided: None issued this visit. Visit Number: Today's visit is number 2 Program: Orthopedics (Therapist may be reached on [facility]) SESSION: Duration: 30 CHARGES: - ORDER - Physical Therapy Treatment 1 Units 33541 - CHARGE - PT THER EX - 15 MIN 1 Units 97040 - CHARGE - PT THERAPEUTIC ACTIVITIES - 15 MIN 1 Units - ORTHOPEDIC VISIT 1 Units Total treatment minutes: 30.00 Minutes Electronically Signed by: Taylor Ponce PT, DPT, PT 09/28/2019 3:54:40 PM Benitez Adhikari, PharmD - 09/28/2019 12:29 PM EST Pharmacist completed patient's medication reconciliation while patient was present in the ED/GEM. Source of med rec information: (eric X for all sources) [ ] Patient [ ] Patient/Family provided written list [X] Patient's family member [X] Pharmacy database (Dr. Brandon winston [facility]) [ ] Doctor's office [ ] Outpatient pharmacy (field underwriter called to confirm medication list) [ ] Recent Hospital Discharge Summary [ ] Prescription bottles (patient brought with them) Of note: Patients family member is a good historian and was able to confirm their medication list. Patient's Home Medication List: Prior to Admission medications Medication Sig Acetaminophen 500 MG Oral Tablet (TYLENOL) Take 500 mg by mouth every 6 (six) hours as needed for Pain Aspirin 81 MG Oral Tablet Chewable Chew 81 mg by Mouth daily Atorvastatin Calcium 40 MG Oral Tablet (LIPITOR) Take 40 mg by mouth every evening Calcium Carbonate 600 MG Oral Tablet (OS-TOÑA) Take 1,000 mg by mouth Two times daily with meals Furosemide 40 MG Oral Tablet (LASIX) Take 40 mg by mouth daily Levothyroxine Sodium 100 MCG Oral Tablet (SYNTHROID, LEVOTHROID) Take 100 mcg by mouth Daily Lisinopril 20 MG Oral Tablet (PRINIVIL,ZESTRIL) Take 20 mg by mouth daily traMADol HCl 50 MG Oral Tablet (ULTRAM) Take 50 mg by mouth every 6 (six) hours as needed for Pain Vitamin D 50 MCG (2000 UT) Oral Tablet Take 2,000 Units by mouth daily Denosumab 60 MG/ML Subcutaneous Solution Prefilled Syringe (PROLIA) Inject 60 mg into the skin every6 (six) months Disclaimer: Medication history was completed based on information available during this patient encounter. The list above may not be all inclusive, including, but not limited to: over the counter medications, prescriptions filled at alternative pharmacy locations, medication samples from provider office, etc. Follow-up questions may be discussed with the pharmacy department if needed: [phone]. Malissa Viveros PA - 09/28/2019 6:23 AM EST ORTHOPEDIC PROGRESS NOTE Hospital Day: 4, 1 Day Post-Op Procedure(s): LEFT TOTAL KNEE REVISION WITH LEFT DISTAL FEMORAL REPLACEMENT (Left) Subjective: Patient doing well. Patient feeling better this AM after receiving 1 unit of PRBC. Appears more alert. Denies chest pain, shortness of breath, nausea, vomiting, or abdominal pain. Pain well controlled. Vitals: Vitals: 09/28/19 0125 09/28/19 0204 09/28/19 0226 09/28/19 0319 BP: 138/79 144/77 142/75 144/82 Pulse: 92 87 89 90 Resp: 16 16 16 16 Temp: 36.6 C 36.6 C 36.5 C 36.8 C SpO2: 96% 96% 96% 96% Intake/Output last 3 shifts: I/O last 3 completed shifts: In: 1485.4 [P.O.:300; I.V.:1160.4; Blood:25] Out: 1025 [Urine:725; Blood:300] Intake/Output Summary (Last 24 hours) at 09/28/2019 06 Last data filed at 09/28/2019 0325 Gross per 24 hour Intake 1485 ml Output 1000 ml Net 485 ml Drain Output: Drain Output (mL) 09/27/19 0700 - 09/28/19 0623 Patient has no LDAs of requested type attached. Physical Exam: Alert, Awake, Oriented x 3 No acute distress Lungs no respiratory distress ABD soft Aleman intact - not chronic Dressing clean, dry, no drainage, intact. Left lower extremity: +diminished sensation distally, likely secondary to nerve block +EHL/FHL/DF/PF Toes WWP, palp distal pulse Calves benign B/L Labs: Recent Labs Lab 09/27/19 0354 09/28/19 0309 HCT 23.8* < > 27.1* HGB 8.1* < > 9.1* MCH 34.4* -- -- MCHC 33.9 -- -- MCV 101.4* -- -- PLT 180 -- -- RDW 12.8 -- -- WBC 7.7 -- -- < > = values in this interval not displayed. Recent Labs Lab 09/28/19 0309 NA 132* K 4.8 CL 98 BICARBONATE 22 GLUCOSE 163* BUN 30* CREATININE 0.98* BCR 30 GFRAA eGFR is not calculated in patients <18 or >80 years of age. GFRNONAA eGFR is not calculated in patients <18 or >80 years of age. Lab Results Component Value Date CALCIUM 7.4 (L) 09/28/2019 Lab Results Component Value Date INR 1.05 09/25/2019 ASSESSMENT: Principal Problem: Other fracture of left femur, initial encounter for closed fracture Active Problems: Femur fracture, left Macrocytic anemia Acquired hypothyroidism Compression fracture of L1 lumbar vertebra, with routine healing, subsequent encounter Essential hypertension CAD (coronary artery disease) Chronic systolic heart failure Preop cardiovascular exam Acute blood loss anemia PLAN: -Other fracture of left femur, initial encounter for closed fracture 1 Day Post- Op s/p revision lefttotal knee arthroplasty, distal femoral replacement -Ortho stable -Last night received 1u PRBC secondary to acute blood loss anemia, pt responded well -Continue OOB, WBAT -Continue PT, awaiting eval this AM -Pain control, well controlled with current regimen -Pt to follow up with orthopedics as outpatient in 10-14 days once discharged -Plan for DVT prophylaxis with Lovenox in house, transition to 81mg ASA x 6 weeks if pt not already taking at baseline -Acute Blood Loss Anemia- expected post op, 7.8/22.8 last night on repeat H& H post-op, pt increased lethargy with anemia. Pt with cardiac hx, ordered for 1u PRBC last night. Responded appropriatelyto transfusion, asymptomatic this AM. Continue to monitor. Remaining care per primary team - DVT Prophylaxis - SCDs Lovenox 30 mg Daily - DCP - pending PT eval Certain parts of this note may have been carried over from prior notes to maintain accuracy of patient's pertinent medical history and continuity of care. The details were verified and edited as appropriate. Malissa Fitzpatrick Malissa Viveros PA - 09/27/2019 8:22 PM EST ORTHOPEDIC POST-OP CHECK: Patient seen and examined, s/p Procedure(s): LEFT TOTAL KNEE REVISION WITH LEFT DISTAL FEMORAL REPLACEMENT (Left). No issues at this time. Has been doing well since arrival on the floor. Denies nausea/vomiting/headaches/chest pain/shortness of breath. PE: Visit Vitals BP 119/78 (BP Location: Right arm, Patient Position: Lying) Pulse 93 Temp 36.5 C (Oral) Resp 16 Ht 1.524 m Wt 64.9 kg (143 lb) SpO2 96% BMI 27.93 kg/m GEN: No acute distress. Patient Alert and Oriented x3. Dressing clean, dry, no drainage, intact. Left lower extremity: +diminished sensation distally, likely secondary to nerve block +EHL/FHL/DF/PF Toes WWP, palp distal pulse Calves benign B/L Post-Op X-ray: Awaiting official read on studies. Patient s/p L total knee revision with distal femoral replacement. Hardware appears well fixed. A/P: Yulisa Rebollar is a 89 y.o. y.o. female s/p Procedure(s): LEFT TOTAL KNEE REVISION WITH LEFT DISTAL FEMORAL REPLACEMENT (Left), POD#0 No current concerns. Pain control. Continue current orders. Will continue to monitor. DVT Prophylaxis: SCDs Lovenox 30 mg Daily Malissa Fitzpatrick PA Yony Baptiste RN - 09/27/2019 10:[address] Cardenas that pt arrived from transfer. Provider will follow up. Recent vitals Blood pressure 154/79, pulse 74, temperature 36.8 C, temperature source Oral, resp. rate 18, height 1.524 m, weight 64.9 kg (143 lb) , SpO2 96 %. Kanu Ovalle MD - 09/27/2019 7:26 AM EST Inpatient Medicine Progress Note Hospital day # 2 SUBJECTIVE: Discussed with nursing staff. No overnight events. No chest pain or dyspnea. Pain sharp at fracture site improved since admission 12/28. Relief with pain medications Review of Systems Constitutional: Negative for chills and fever. Respiratory: Negative for cough, sputum production and shortness of breath. Cardiovascular: Negative for chest pain, palpitations, orthopnea and leg swelling. Musculoskeletal: Positive for myalgias. Neurological: Negative for dizziness, sensory change and headaches. All other systems reviewed and are negative. OBJECTIVE: Temp: [36.4 C-37 C] 36.7 C Pulse: [66-74] 70 Resp: [16-18] 18 BP: (92-130)/(53-80) 130/69 SpO2: [94 %-98 %] 98 % O2 Therapy: Room air Intake/Output Summary (Last 24 hours) at 09/27/2019 0726 Last data filed at 09/27/2019 0630 Gross per 24 hour Intake 660.4 ml Output 675 ml Net -14.6 ml Physical Exam Constitutional: She is oriented to person, place, and time. No distress. Eyes: No scleral icterus. Cardiovascular: Normal rate and regular rhythm. No murmur heard. Pulmonary/Chest: Effort normal and breath sounds normal. No stridor. No respiratory distress. She has no wheezes. She has no rales. Abdominal: Soft. Bowel sounds are normal. She exhibits no distension. There is no abdominal tenderness. Musculoskeletal: General: Tenderness and edema present. Comments: Left upper leg in brace Neurological: She is alert and oriented to person, place, and time. Skin: Skin is warm and dry. No rash noted. She is not diaphoretic. No erythema. Nursing note and vitals reviewed. Telemetry independently reviewed: Sinus rhythm with PVCs. HR controlled in 70s Laboratory independently reviewed Recent Labs Lab 09/25/19212209/26/19 0454 09/27/19 0354 NA 136 137 137 K 4.2 4.4 4.2 CL 100 99 101 BICARBONATE 25 25 25 BUN 33* 31* 35* CREATININE 1.11* 0.90 1.15* GLUCOSE 145* 131 94 Recent Labs Lab 09/25/192122 CK 239* Recent Labs Lab 09/25/19212220 0454 09/27/19 0354 WBC 9.9 8.4 7.7 HGB 10.2* 9.5* 8.1* HCT 30.4* 28.1* 23.8* MCV 101.7* 100.8* 101.4* PLT 210 206 180 NEUTOPHILPCT -- 81 62 MONOPCT -- 8 9 No results found for: PROT, ALBUMIN, AST, ALT, TBILI, ALKPHOS, LIPASE, AMYLASE Recent Labs Lab 09/25/192122 INR 1.05 No results found for: HGBA1C, TSH, M0SNMMU, M8GBNYX, THYROIDAB MICROBIOLOGY: IMAGING independently reviewed: MEDICATIONS: Scheduled Meds: aspirin 81 mg Oral Daily atorvastatin 40 mg Oral QPM levothyroxine 100 mcg Oral Daily Continuous Infusions: sodium chloride 60 mL/hr at 09/26/19 2358 PRN Meds:.acetaminophen (TYLENOL) tablet, acetaminophen (TYLENOL) tablet, tramadol ASSESSMENT & PLAN: Ms. Yulisa Rebollar is a 89 y.o. year old female who is here for the following problems: Principal Problem: Other fracture of left femur, initial encounter for closed fracture Active Problems: Femur fracture, left Macrocytic anemia Acquired hypothyroidism Compression fracture of L1 lumbar vertebra, with routine healing, subsequent encounter Essential hypertension CAD (coronary artery disease) Chronic systolic heart failure Preop cardiovascular exam I discussed case with Dr. Key a couple times this morning as well as nursing staff. Patient willing to be transferred to for surgery with Dr. Bridges today. She understands the risks of transport including accidents/injury, but benefit outweighs risks. Regarding cardiac disease, she has no sign of unstable angina/ACS or acute heart failure. History of CAD and chronic systolic heart failure. Continue with aspirin Lasix and Lisinopril on hold, need to be reassessed postoperatively, continue gentle hydration with IVF for now at 60ml/h Continue synthroid Renal function mildly impaired though making good urine. 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 HCT is 23 this morning, probably has acute blood loss anemia secondary to the fracture. Hold heparin DVT prophylaxis until after the surgery. May need blood transfusion perioperatively though not necessary at this time as assymptomatic and HCT >21. Will check CBC q12h I updated family Nadine daughter on phone. I discussed case Dr. Owen and Dr. Cardenas regarding transfer or care of this patient to this morning. DVT Prophylaxis with SCDs- start heparin post operatively if HCT stable Overall amount of data reviewed, level of risk, complexity and medical decision making is: high Disposition and estimated discharge date: Transfer to today for surgery with Dr. Bridges. Kanu Dallas MD Medicine Attending [facility] Pager [phone] Kanu Ovalle MD - 09/27/2019 5:19 AM ESTPaged by ortho resident- Dr bridges requesting transfer to [facility] for surgery today Anita alerted Dr Owen who has accepted and placed order Discussed with charge nurse Unfortunately there is nocase recreation manager to facilitate the transfer at this hour Will discuss with high risk case manager as soon as she arrives toarrange transport this morning No overnight events per nursing NPO, IVF, telemetry Kae Sidhu RN - 2019 4:30 PM ESTCase Management Screen & Assessment Patient's Name: Yulisa Rebollar Date of : 1930 Age: 89 y.o. Gender: female Attending Provider: Kanu Dallas MD Admitting Diagnosis: Femur fracture, left [S72.92XA] Admission Date and Time: 09/25/2019 9:08 PM High Risk Criteria - CENTRAL COMMUNICATIONS SPECIALIST/Upon Arrival CENTRAL COMMUNICATIONS SPECIALIST-Type of Residence: Private residence CENTRAL COMMUNICATIONS SPECIALIST- Home Care Services: No Limited Home Supports/Lives Alone?: Yes Multi trauma/Critical care admit?: No Head/Spinal cord injury?: No Self pay/No prescription plan?: No Active with homecare?: No Multiple ED visits?: No Related/Unplanned readmission within 30 days?: No Complex/New medical issues: Femur fracture, left Relevant comorbidities: CHF, HTN, hypothyroidism CM Screen Outcome Track Helper Screen Outcome: Meets high risk criteria for active high risk case manager intervention Patient/Agent informed of choice and given written list?: Patient/agent accepted list Important message (Medicare rights) given?: Yes Date Given: 09/26/19 CM Chart Review Notice of Privacy Practice Signed?: Yes Self Pay: No Prescription Plan?: Yes (comment) Pt. Pharmacy & Phone # : [facility] CENTRAL COMMUNICATIONS SPECIALIST: Functional/Environmental Assessment Came from Rehab/SNF, plan to return?: No Bathing: Independent Dressing: Independent Toileting: Independent Medication administration: Independent Transfers: Independent Ambulation: Independent Meal preparation: Independent Number of stairs into home: 7 Number of stairs to bathroom: 0 Number of stairs to bedroom: 0 Durable Medical Equipment (DME): Walker, Grab bars, Tub bench(no wheel walker) Case Management Review Date CM re-review date needed?: Yes Case Management Review Date: 09/27/19 Discharge Assessment Additional Referrals Requested: PT/ OT Referred to Coordinator for: launched to snfs and homecare agency Patient/family informed of need for discharge planning?: Yes Patient/Agent informed of choice and given written list?: Patient/agent accepted list Patient expects to be discharged to:: home vs rehab Living Arrangements: Alone Support Systems: Children, Family members, Friends/neighbors Type of Residence: Private residence Float CM Note: Pt was admitted with left femur fracture and is waiting patiently to go to the OR forrepair. CM met at bedside with the pt and her family to introduce the CM role and discuss d/c planning. CM discussed home with homecare vs rehab. Pt stated that she has had [facility] in the past andwould want this again, also the pt's sister is in a facility and she would want to be there as well if a SNF is needed- [facility] in [facility]. CM requested pt to be launched to both. Plan will be guided by pt's progress. CM to continue to follow to help to facilitate a safe d/c when medically appropriate. Provided patient/pharmacy care coordinator with a list of in-network facilities and/or agencies within their preferred geographic area which are available to provide the services recommended by the physician as described in the discharge plan. Have also provided information on CMS Star ratings for the above post-acute care providers and ways for the patient/pharmacy care coordinator to access additional information on these ratings, if they prefer. Kae Chavez L 4: 38 PM Kanu Ovalle MD - 09/26/2019 3:21 PM EST Internal Medicine Inpatient Progress Note Subjective Ms. Rebollar was seen today at the bedside and reported having pain in her left leg. Review of Systems Constitutional: Negative for fatigue and fever. HENT: Negative. Eyes: Negative. Respiratory: Negative for chest tightness and shortness of breath. Cardiovascular: Negative for chest pain and leg swelling. Gastrointestinal: Negative for abdominal pain and nausea. Musculoskeletal: Positive for arthralgias. Skin: Negative. Neurological: Negative. Negative for light-headedness, numbness and headaches. All other systems reviewed and are negative. Objective Temp: [36.2 C (97.1 F)-36.8 C (98.2 F)] 36.8 C (98.2 F) Pulse: [59-69] 69 Resp: [12-18] 18 BP: (92-139)/(52-70) 92/53 SpO2: [95 %-97 %] 95 % O2 Therapy: Room air Intake/Output Summary (Last 24 hours) at 09/26/2019 1521 Last data filed at 09/26/2019 1500 Gross per 24 hour Intake Output 700 ml Net -700 ml I/O last 3 completed shifts: In: - Out: 700 [Urine:700] No intake/output data recorded. Physical Exam Constitutional: She is oriented to person, place, and time. HENT: Head: Normocephalic and atraumatic. Cardiovascular: Normal rate, regular rhythm, normal heart sounds and normal pulses. Pulmonary/Chest: Effort normal and breath sounds normal. Abdominal: Soft. Normal appearance. Musculoskeletal: General: No signs of injury. Comments: Left leg immobilized due to fracture Neurological: She is alert and oriented to person, place, and time. Skin: Skin is warm. Psychiatric: Mood normal. Vitals reviewed. Lines, Tubes, Monitors & Restraints Description Still Required? Comments PIV [x] Yes [] No Aleman [x] Yes [] No Total Days of Anti-infective Therapy: 0 Laboratory Data (Most Recent in Past 3 Days) Lab 09/25/19 2123 09/26/19 0454 WBC 9.9 8.4 HGB 10.2* 9.5* HCT 30.4* 28.1* MCV 101.7* 100.8* PLT 210 206 Lab 09/25/19212209/26/19 0454 NA 136 137 K 4.2 4.4 CL 100 99 BICARBONATE 25 25 GLUCOSE 145* 131 BUN 33* 31* CREATININE 1.11* 0.90 Lab 09/26/19 0454 CALCIUM 8.3* Lab 09/26/19 0454 NEUTOPHILPCT 81 LYMPHOPCT 11 MONOPCT 8 EOSPCT 0 Invalid input(s): BILDIR Lab 09/25/192122 INR 1.05 IMAGING: Ct Head Without Contrast Result Date: 09/26/2019 IMPRESSION: 1. No acute intracranial pathology. 2. Slight swelling of the left frontal scalp. Ct Cervical Spine Without Contrast Result Date: 09/26/2019 IMPRESSION: 1. No definite evidence of acute [...] Thoracic Spine Without Contrast Result Date: 09/26/2019 IMPRESSION: 1. No definite evidence of acute [...] Lumbar Spine Without Contrast Result Date: 09/26/2019 IMPRESSION: 1. No definite evidence of acute [...] bodies. 5. Advanced degenerative changes as described. Assessment/Plan Ms. Yulisa Rebollar is a 89 y.o. female with a past medical history most significant for CHF, HTN, hypothyroidism, presenting with a mechanical fall found to have left distal femur fracture. Principal Problem: fracture of left femur, initial encounter for closed fracture Active Problems: Femur fracture, left Macrocytic anemia Acquired hypothyroidism Compression fracture of L1 lumbar vertebra, with routine healing, subsequent encounter Essential hypertension CAD (coronary artery disease) Chronic systolic heart failure # Left distal closed periprosthetic femur fracture: - s/p mechanical fall - Hx of left TKA - Plan for surgical intervention for operative fixation with revision of TKA. 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 No need for bracing - WBAT # KIMBERLY: - Cr/Bun at 1.133 on 09/25/19 - Cr on 09/26/19-0.90 - Will hold home lisinopril, lasix - Gentle hydration # CHF: - Homemeds include Lasix 40 mg bid, Lisinopril, will hold both in setting of KIMBERLY - LVEF -30% IN 2017 # HTN: - will hold lisinopril # Hypothyroidism: - c/w Levothyroxine DVT Prophylaxis: none GI Prophylaxis: Not Indicated Functional Status: mildly impaired Code Status: Full Code Disposition: Plan discharge to: TBD Estimated Discharge Date: The patient was discussed with Kanu Dallsa MD who agrees with the assessment and plan as notedabove. Signature: Henry Parnell MBBS Date/Time: September 26, 2019 3:21 PM Attending addendum: I saw and examined the patient, discussed case with the resident, personally reviewed labs and imaging and agree with the history, exam, assessment and plan outlined above with the following additionalassessment/plan. Hold IVf if patient is not NPO. Hold Lisinopril and lasix as well for now. Awaiting ortho plan forsurgery. Kanu Dallas MD Medicine Attending [facility] Pager [phone] Carrie Titus Anulichukw - 09/26/2019 10:53 AM EST Spiritual Care Progress Note Foreign Trade Teacher: Vitor Govea Foreign Trade Teacher Scroll Shear Operator Patient Name: Yulisa Rebollar Age: 89 y.o. Sex: female Room/Bed: 73887 Dina Affiliation/Tradition: Amish Admit Date: 09/25/2019 Referrals: Referral From: Foreign Trade Teacher Referral To: Foreign Trade Teacher Scroll Shear Operator Contact Information: [place] Spiritual Care Assessment Spouse/Significant Other Name/Relationship: Two Daughters and Son In-law Assessed Need for Visit: Pre-surgical Visit Patient Description: Calm, Accepting, At Peace Spiritual/Cultural/Social Issues Assessment: I received a referral to visit Yulisa Rebollar. When I arrived she was in bed talking to her two daughters and son in-law who were sitting around her bedside. She came to the hospital for other fracture of left femur. She was scheduled for surgery today. She hope her pain will be under control and the surgery will help speed her recovery and go home toher family. Her family support is strong and her family helping her to cope with her health challenges. She requested for prayer and I prayed with Yulisa, her daughters and son in-law. Spiritual care still remains available. Spiritual Care Intervention: Provide Ministry of Presence, Spiritual Companionship, Pastoral Touch,Prayer Spiritual Outcomes - Patient: Expressed feelings, [place] comforted, accompanied, Pastoral relationship established Spiritual Outcomes - Family: Expressed feelings, [place] comforted, accompanied, Pastoral relationshipestablished Spiritual Care Plan Goal Goal: Foreign Trade Teacher will monitor and/or provide for ongoing identified spiritual needs as they emerge throughout the hospitalization. Outcome: gradually improving Spiritual Care Follow Up Follow Up: Routine visit Dilan Danielle RN - 09/26/2019 10:39 AM ESTPt Axox3,brace On LLE ,pain Under Control po med's, per medicine team clear For surgery, ortho resident waiting for attending answer for OR time ,francecsa Maddox, pt on fluids now agree with Last assessment Continue monitoring Kanu Ovalle MD - 09/26/2019 10:22 AM BART saw and examined the patient. Asked for preoperative risk assessment prior to surgery by ortho team. We have contacted PCP's office and obtained records just now. She has had an NE in 2017 and echo with EF of 30%. She did not want further work up in the interim. No diabetes, CKD, strokes. She appears to have stable angina. Currently no chest pain or dyspnea. Her METS are limited by her significant arthritis. 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 Increased cardiac risk due to chronic systolic heart failure and CAD/NE history , though no active cardiac symptoms at this time. No further cardiac work up is necessary preoperatively. Will monitor on telemetry and give IVF 75ml/h now. Will monitor volume status perioperatively. I updated patient and daughter/granddaughter at bedside. Steven Farfan MD - 09/26/2019 6:25 AM EST ORTHOPEDIC TRAUMA PROGRESS NOTE SUBJECTIVE: Complaining of a lot of pain in her knee. Denies pain in other extremities. OBJECTIVE: Temp: [36.2 C (97.1 F)-36.5 C (97.7 F)] 36.2 C (97.1 F) Pulse: [59-67] 67 Resp: [12-18] 16 BP: (106-139)/(52-70) 106/56 SpO2: [95 %-97 %] 97 % O2 Therapy: Room air Recent Labs Lab 09/25/192122 NA 136 K 4.2 CL 100 BICARBONATE 25 GLUCOSE 145* BUN 33* CREATININE 1.11* BCR 30 GFRAA eGFR is not calculated in patients <18 or >80 years of age. GFRNONAA eGFR is not calculated in patients <18 or >80 years of age. Recent Labs Lab 09/25/192122 HCT 30.4* HGB 10.2* MCH 34.1* MCHC 33.5 MCV 101.7* PLT 210 RDW 12.7 WBC 9.9 Lab Results Component Value Date INR 1.05 09/25/2019 Physical Exam: Gen: Patient is awake, alert and oriented. No acute distress. Lungs: Unlabored respirations, equal chest rise bilaterally Ext: LLE: Sensory:Sensation intact to light touch to toes. Motor: Extensor hallucis longus / flexor hallucis longus motor function intact. Vascular: Toes warm and well perfused. 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 female on Hospital Day: 2 with a left periprosthetic distal femur fracture s/p fall. PLAN: - NPO for OR today - Pain control - Awaiting medical clearance, appreciate optimization per medicine - Secondary survey performed this morning on rounds and the following actions were taken: negative for other injury at this time, so no need for additional tests or imaging - [facility] Orthopedic Surgery 09/26/2019 6:25 AM Associated attestation - Kanu Marks MD - 09/27/2019 10:18 AM ESTPHYSICIAN ATTESTATION: I have reviewed this patient in detail with the resident. I have reviewed all labs, images and findings myself and I agree with the assessment and plan as outlined in the note. Candis Reeves GN - 09/26/2019 2:26 AM ESTIf wound was present on admission, this documentation was sent to attending provider for cosignature. documented in this encounter Plan of Treatment Name Type Priority Associated Date/Time Diagnoses Fungus culture Microbiology Routine 09/27/2019 1:15 PM EST Fungus culture Microbiology Routine 09/27/2019 1:15 PM EST Transfuse RBC Units Nursing Transfusion Routine 09/27/2019 10:09 (Once) 1 Unit Over PM EST 4 Hours Each Transfuse RBC Units Nursing Transfusion Routine 09/27/2019 10:09 (Once) 1 Unit Over PM EST 4 Hours Each Name Type Priority Associated Order Schedule Diagnoses Prepare RBC 2 Units Blood Bank STAT STAT for 1 Occurrences starting 09/27/2019 until 09/27/2019 Bx/Surg Tissue Microbiology Routine Once for 1 Culture 1 Occurrences starting 09/27/2019 until 09/27/2019 Bx/Surg Tissue Microbiology Routine Once for 1 Culture 1 Occurrences starting 09/27/2019 until 09/27/2019 Oxygen Orders: Nasal Respiratory Care Routine Continuous for 30 Cannula; Liters per days for 4 Days minute: 2 LPM; D/C starting 09/27/2019 Oxygen 48hrs After until 10/01/2019 Being on Room Air: Yes; Wean/Titrate O2 to Keep Sats =>: 91 Prepare RBC 1 Unit Blood Bank Routine Once for 1 Occurrences starting 09/30/2019 until 09/30/2019 Type and Crossmatch Blood Bank Routine Once for 1 Occurrences starting 09/30/2019 until 09/30/2019 Health Maintenance Due Date Last Done Comments [...] of this encounter Implants Implanted Type Area Physician Executive Device Shelf Model / Identifier Expiration Date Serial / Lot Cement Bone Simplexw/Tobra - [id number] Left: MAHENDRA 06/20/2020 6197-9 -001 / Implanted: Qty: 4 on 09/27/2019 by Dexter Bridges MD at OR [employer] / [id number] Insert Kinemax Tib 11mm Sml - [id number] Left: MAHENDRA 10/21/2022 6485- 2-111 / Implanted: Qty: 1 on 09/27/2019 by Dexter Bridges MD at OR [employer] / [id number] Gmrs Dist Fem Lt Sm 65mm - [id number] Left: MAHENDRA 09/18/2023 6495-2- 010 / Implanted: Qty: 1 on 09/27/2019 by Dexter Bridges MD at OR [employer] / [id number] Gmrs Dist Fem Sm Bushing - [id number] Left: MAHENDRA 09/30/2022 6495-2- 105 / Implanted: Qty: 1 on 09/27/2019 by Dexter Bridges MD at OR [employer] / [id number] Gmrs Dist Fem Sm Axle - [id number] Left: MAHENDRA 10/15/2023 6495-2-115 / Implanted: Qty: 1 on 09/27/2019 by Dexter Bridges MD at OR [employer] / [id number] Gmrs Dist Fem Sm Bushing - [id number] Left: MAHENDRA 09/14/2022 6495-2- 105 / Implanted: Qty: 1 on 09/27/2019 by Dexter Bridges MD at OR [employer] / [id number] Gmrs Global Ext Piece 70mm - [id number] Left: MAHENDRA 07/30/2021 6495-6 -070 / Implanted: Qty: 1 on 09/27/2019 by Dexter Bridges MD at OR [employer] / [id number] Bearing Hinge Fem Tib Mod - [id number] Left: MAHENDRA 05/04/2024 6481-2- 103 / Implanted: Qty: 1 on 09/27/2019 by Dexter Bridges MD at OR [employer] / [id number] Bumper Knee Hinge 3dg Duration - [id number] Left: MAHENDRA 05/28/2024 6481-2-133 / Implanted: Qty: 1 on 09/27/2019 by Dexter Bridges MD at OR [employer] / [id number] Stem Fem 13 X127mm W/O Body - [id number] Left: MAHENDRA 10/19/2023 6485- 3-113 / Implanted: Qty: 1 on 09/27/2019 by Dexter Bridges MD at OR [employer] / [id number] documented as of this encounter Procedures Procedure Name Priority Date/Time Associated Diagnosis Comments CBC Routine 10/02/2019 8:25 Results for this AM EST procedure are in the results section. BASIC METABOLIC Routine 10/02/2019 8:25 Results for this PANEL AM EST procedure are in the results section. PICC ULTRASOUND - Routine 10/01/2019 10:59 BEDSIDE PROCEDURE AM EST CREATININE WITH GFR Routine 10/01/2019 4:29 Results for this AM EST procedure are in the results section. CBC Routine 09/30/2019 4:00 Results for this PM EST procedure are in the results section. TRANSFUSE RBC Routine 09/30/2019 2:54 (ONCE) PM EST BASIC METABOLIC Routine 09/30/2019 8:24 Results for this PANEL AM EST procedure are in the results section. CBC Routine 09/30/2019 6:32 Results for this AM EST procedure are in the results section. CBC Routine 09/29/2019 6:06 Results for this AM EST procedure are in the results section. CBC Routine 09/28/2019 3:09 Results for this AM EST procedure are in the results section. BASIC METABOLIC Routine 09/28/2019 3:09 Results for this PANEL AM EST procedure are in the results section. HEMOGLOBIN Routine 09/27/2019 6:40 Results for this PM EST procedure are in the results section. HEMATOCRIT Routine 09/27/2019 6:40 Results for this PM EST procedure are in the results section. XR FEMUR, MINIMUM Routine 09/27/2019 3:56 Results for this OF 2 VIEWS 17625 PM EST procedure are in the results section. XR KNEE 1-2 VIEWS STAT 09/27/2019 3:56 Results for this 23684 PM EST procedure are in the results section. BX/SURG TISSUE Routine 09/27/2019 1:15 Results for this CULTURE 1 PM EST procedure are in the results section. BX/SURG TISSUE Routine 09/27/2019 1:15 Results for this CULTURE 1 PM EST procedure are in the results section. ANAEROBIC CULTURE Routine 09/27/2019 1:15 Results for this PM EST procedure are in the results section. ANAEROBIC CULTURE Routine 09/27/2019 1:15 Results for this PM EST procedure are in the results section. OPEN TREATMENT, 09/27/2019 12:21 left distal femur FEMORAL FX, DISTAL PM EST periprosthetic fx END, MEDIAL/LATERAL CONDYLE, W/WO INT/EXT FIX Special Needs saggital saw, cement removal equipment, c -arm, kareen table TYPE AND CROSSMATCH STAT 09/27/2019 12:00 PM EST US GUIDED PERIPHERAL NERVE Routine 09/27/2019 11:36 AM EST BLOCK (OR ONLY) CBC AND DIFFERENTIAL Routine 09/27/2019 3:54 AM EST BASIC METABOLIC PANEL Routine 09/27/2019 3:54 AM EST SEDIMENTATION RATE, STAT 09/26/2019 4:54 AM EST Results for this AUTOMATED procedure are in the results section. CBC AND DIFFERENTIAL Routine 09/26/2019 4:54 AM EST INFLAMMATORY C-REACTIVE STAT 09/26/2019 4:54 AM EST Results for this PROTEIN (CRP) procedure are in the results section. BASIC METABOLIC PANEL Routine 09/26/2019 4:54 AM EST XR FEMUR, MINIMUM OF 2 VIEWS STAT 09/26/2019 1:04 AM EST Results for this 01530 procedure are in the results section. XR TIBIA 11780 STAT 09/26/2019 1:04 AM EST XR PELVIS 1-2 VIEWS 92900 STAT 09/26/2019 1:[address] CERVICAL SPINE WITHOUT STAT 09/25/2019 10:37 PM EST Results for this CONTRAST 18362 procedure are in the results section. CT HEAD WITHOUT CONTRAST STAT 09/25/2019 10:37 PM EST Results for this 65623 procedure are in the results section. CT LUMBAR SPINE WITHOUT STAT 09/25/2019 10:37 PM EST Results for this CONTRAST 48007 procedure are in the results section. CT THORACIC SPINE WITHOUT STAT 09/25/2019 10:37 PM EST Results for this CONTRAST 63579 procedure are in the results section. EKG 12-LEAD - CMAXX REPORT 09/25/2019 10:16 PM EST EKG 12-LEAD - CMAXX REPORT 09/25/2019 10:16 PM EST EKG 12-LEAD STAT 09/25/2019 10:16 PM EST EKG 12-LEAD - CMAXX REPORT 09/25/2019 10:16 PM EST XR CHEST FRONTAL ONLY 76434 STAT 09/25/2019 10:07 PM EST PARTIAL THROMBOPLASTIN TIME Routine 09/25/2019 9:23 PM EST Results for this (PTT) procedure are in the results section. PROTIME INR Routine 09/25/2019 9:23 PM EST CBC Routine 09/25/2019 9:23 PM EST TYPE AND SCREEN Routine 09/25/2019 9:23 PM EST CK Routine 09/25/2019 9:23 PM EST BASIC METABOLIC PANEL Routine 09/25/2019 9:23 PM EST documented in this encounter Results Basic Metabolic Panel (10/02/2019 8:25 AM EST) Bicarbonate 20 (L) 22 - 29 [facility] mmol/L [facility] at CG Chloride 102 98 - 107 [facility] mmol/L Medical [facility] at Creatinine 0.70 0.50 - 0.90 [facility] mg/dL [facility] at Glucose 112 70 - 140 [facility] mg/dL [facility] at Potassium 3.8 3.4 - 5.1 [facility] mmol/L [facility] at Sodium 133 (L) 136 - 145 [facility] mmol/L Medical [facility] at CG Blood Urea Nitrogen 19 8 - 23 mg/dL [facility] at Anion Gap 11 8 - 15 mmol/L [facility] at Osmolality, Toña 279 275 - 300 [facility] mosm/kg Medical Univ at BUN/Cre Ratio 28 [facility] at Calcium 7.2 (L) 8.8 - 10.2 [facility] mg/dL [facility] Univ at GFR Non eGFR is not >60 [facility] 2009 calculated in mL/min/1.73m2 Medical Univ at CDK-EPI patients <18 or CG >80 years of age. GFR eGFR is not >60 [facility] 2008 calculated in mL/min/1.73m2 [facility] at CKD-EPI patients <18 or CG >80 years of age. Specimen Plasma Performing Organization Address City/State/Zipcode Phone Number [facility] PATHOLOGY AT [facility] [address] [place] [address] [phone] [facility] at [address] [place] [address] CBC (10/02/2019 8:25 AM EST) White Blood Cell 10.5 (H) 4 - 10 10*3/uL [facility] at Red Blood Cell 2.55 (L) 4.1 - 5.3 [facility] 10*6/uL Medical [facility] at Hemoglobin 8.4 (L) 11.5 - 15.5 [facility] g/dL [facility] at Hematocrit 24.9 (L) 36 - 45 % [facility] at Mean Cell Volume 97.6 (H) 80 - 96 fL [facility] at Mean Cell Hemoglobin 32.9 27 - 33 pg [facility] at Mean Cell Hgb Conc 33.7 32.0 - 36.0 [facility] g/dL [facility] at Red Cell Dist Width 16.5 (H) 11.5 - 14.5 % [facility] at Platelet Count 389 150 - 400 [facility] 10*3/uL [facility] at Specimen EDTA Whole Blood Performing Organization Address City/[facility]/Zipcode Phone Number [facility] PATHOLOGY AT [address] [address] [phone] [facility] at [address] [address] PICC Ultrasound - Bedside Procedure (10/01/2019 10:59 AM EST) Specimen Performing Organization Address City/[facility]/Zipcode Phone Number [facility] [address] [place] [address] Creatinine with GFR (10/01/2019 4:29 AM EST) Creatinine 0.78 0.50 - 0.90 [facility] mg/dL [facility] at GFR Non eGFR is not >60 [facility] 2008 calculated in mL/min/1.73m2 Medical [facility] at CDK-EPI patients <18 or CG >80 years of age. GFR eGFR is not >60 [facility] 2008 calculated in mL/min/1.73m2 Medical [facility] at CKD-EPI patients <18 or CG >80 years of age. Specimen Plasma Performing Organization Address City/[facility]/Zipcode Phone Number [facility] PATHOLOGY AT [address] [phone] [facility] at [address] [address] CBC (09/30/2019 4:00 PM EST) White Blood Cell 9.8 4 - 10 10*3/uL [facility] at Red Blood Cell 2.68 (L) 4.1 - 5.3 [facility] 10*6/uL Medical [facility] at Hemoglobin 8.9 (L) 11.5 - 15.5 [facility] g/dL Medical [facility] at Hematocrit 25.9 (L) 36 - 45 % [facility] at Mean Cell Volume 96.9 (H) 80 - 96 fL [facility] at Mean Cell Hemoglobin 33.2 (H) 27 - 33 pg [facility] at Mean Cell Hgb Conc 34.2 32.0 - 36.0 [facility] g/dL [facility] at Red Cell Dist Width 16.4 (H) 11.5 - 14.5 % [facility] at Platelet Count 266 150 - 400 [facility] 10*3/uL [facility] at Specimen EDTA Whole Blood Performing Organization Address City/State/Zipcode Phone Number [facility] [place] [address] [facility] at [address] [address] Basic Metabolic Panel (09/30/2019 8:24 AM EST) Bicarbonate 20 (L) 22 - 29 [facility] mmol/L [facility] at Chloride 99 98 - 107 [facility] mmol/L [facility] at Creatinine 0.70 0.50 - 0.90 [facility] mg/dL [facility] at Glucose 114 70 - 140 [facility] mg/dL [facility] at Potassium 4.2 3.4 - 5.1 [facility] mmol/L [facility] at Sodium 128 (L) 136 - 145 [facility] mmol/L [facility] at Blood Urea Nitrogen 24 (H) 8 - 23 mg/dL [facility] at Anion Gap 9 8 - 15 mmol/L [facility] at Osmolality, Toña 271 (L) 275 - 300 [facility] mosm/kg [facility] at BUN/Cre Ratio 35 [facility] at Calcium 7.0 (L) 8.8 - 10.2 [facility] mg/dL [facility] at GFR Non eGFR is not >60 [facility] 2009 calculated in mL/min/1.73m2 [facility] at CDK-EPI patients <18 or CG >80 years of age. GFR eGFR is not >60 [facility] 2008 calculated in mL/min/1.73m2 [facility] at CKD-EPI patients <18 or CG >80 years of age. Specimen Plasma Performing Organization Address [facility]/Rustcode Phone Number [address] [phone] [facility] at [address] [address] CBC (09/30/2019 6:32 AM EST) White Blood Cell 9.2 4 - 10 10*3/uL [facility] at Red Blood Cell 2.10 (L) 4.1 - 5.3 [facility] 10*6/uL [facility] at Hemoglobin 6.9 (L) 11.5 - 15.5 [facility] g/dL [facility] at Hematocrit 20.2 36 - 45 % [facility] (LL)Comment: Medical Univ at Called to and read back by Minerva/[id number]/ 6th floor 09/30/19 0718 6515. Mean Cell Volume 95.8 80 - 96 fL [facility] Mean Cell 33.0 27 - 33 pg [facility] at Mean Cell Hgb Conc 34.4 32.0 - 36.0 [facility] g/dL [facility] ER Red Cell Dist Width 16.7 (H) 11.5 - 14.5 % [facility] Platelet Count 221 150 - 400 [facility] 10*3/uL [facility] at Specimen EDTA Whole Blood Performing Organization Address City/[facility]/Zipcode Phone Number [facility] AT [address] [address] [facility] at [address] [address] CBC (09/29/2019 6:06 AM EST) White Blood Cell 9.7 4 - 10 10*3/uL [facility] at Red Blood Cell 2.50 (L) 4.1 - 5.3 [facility] 10*6/uL [facility] at Hemoglobin 8.3 (L) 11.5 - 15.5 [facility] g/dL Medical Univ at CG Hematocrit 23.7 (L) 36 - 45 % [facility] Medical Univ at Mean Cell Volume 94.8 80 - 96 fL [facility] Medical Univ at Mean Cell Hemoglobin 33.2 (H) 27 - 33 pg [facility] Medical Univ at Mean Cell Hgb Conc 35.0 32.0 - 36.0 [facility] g/dL Medical Univ at Red Cell Dist Width 17.0 (H) 11.5 - 14.5 % [facility] Medical Univ at Platelet Count 191 150 - 400 [facility] 10*3/uL Medical Univ at Specimen EDTA Whole Blood Performing Organization Address City/[facility]/Zipcode Phone Number [facility] PATHOLOGY [address] [address] [phone] [facility] Univ at [address] [address] CBC (09/28/2019 3:09 AM EST) White Blood Cell 7.2 4 - 10 [facility] 10*3/uL Medical Univ at Red Blood Cell 2.81 (L) 4.1 - 5.3 [facility] 10*6/uL Medical Univ at Hemoglobin 9.1 (L) 11.5 - 15.5 [facility] g/dL Medical Univ at CG Hematocrit 27.1 (L) 36 - 45 % [facility] Medical [facility] at Mean Cell Volume 96.4 (H)Comment: 80 - 96 fL [facility] Confirmed Medical Univ at Identity of CG Sample Mean Cell 32.5 27 - 33 pg [facility] Hemoglobin Medical Univ at Mean Cell Hgb Conc 33.7 32.0 - 36.0 [facility] g/dL Medical Univ at Red Cell Dist Width 17.7 (H) 11.5 - 14.5 % [facility] at Platelet Count 166 150 - 400 [facility] 10*3/uL Medical Univ at Specimen EDTA Whole Blood Performing Organization Address City/[facility]/Zipcode Phone Number [address] [address] [facility] Univ at [address] [address] Basic Metabolic Panel (09/28/2019 3:09 AM EST) Bicarbonate 22 22 - 29 [facility] mmol/L Medical [facility] at Chloride 98 98 - 107 [facility] mmol/L Medical [facility] at Creatinine 0.98 (H) 0.50 - 0.90 [facility] mg/dL Medical Univ at Glucose 163 (H) 70 - 140 [facility] mg/dL Medical Univ at Potassium 4.8 3.4 - 5.1 [facility] mmol/L Medical Univ at Sodium 132 (L) 136 - 145 [facility] mmol/L Medical Univ at Blood Urea Nitrogen 30 (H) 8 - 23 mg/dL [facility] at Anion Gap 12 8 - 15 mmol/L [facility] at Osmolality, Toña 284 275 - 300 [facility] mosm/kg [facility] at BUN/Cre Ratio 30 [facility] at Calcium 7.4 (L) 8.8 - 10.2 [facility] mg/dL Medical [facility] at GFR Non eGFR is not >60 [facility] 2008 calculated in mL/min/1.73m2 Medical Univ at CDK-EPI patients <18 or CG >80 years of age. GFR eGFR is not >60 [facility] 2008 calculated in mL/min/1.73m2 Medical [facility] at CKD-EPI patients <18 or CG >80 years of age. Specimen Plasma Performing Organization Address City/[facility]/Zipcode Phone Number [facility] PATHOLOGY AT [address] [phone] [facility] at [address] [address] Hemoglobin (09/27/2019 6:40 PM EST) Hemoglobin 7.8 (L) 11.5 - 15.5 g/dL [facility] at Specimen EDTA Whole Blood Performing Organization Address City/[facility]/Zipcode Phone Number [address] [address] [facility] at [address] [address] Hematocrit (09/27/2019 6:40 PM EST) Hematocrit 22.8 (L) 36 - 45 % [facility] at Specimen EDTA Whole Blood Performing Organization Address City/[facility]/Zipcode Phone Number [facility] PATHOLOGY [address] [address] [facility] at CG [address] [place] [address] XR Femur, Minimum of 2 Views Left (09/27/2019 3:56 PM EST) Specimen Impressions Performed At IMPRESSION: There is interval resection of the distal femur with [facility] replacement of the previous knee hardware with a megaprosthesis. The alignment appears within normal limits. Postoperative soft tissue changes are seen about the distal left femur and knee. Narrative Performed At INDICATION: Status post distal femoral replacement, evaluate prosthesis. [facility] TECHNIQUE: Multiple views the left femur and left knee were obtained. COMPARISON: Prior study dated 09/26/2019. FINDINGS/ Procedure Note Interface, Received Via [facility] - 09/28/2019 8:04 AM EST INDICATION: Status post distal femoral replacement, evaluate prosthesis. TECHNIQUE: Multiple views the left femur and left knee were obtained. COMPARISON: Prior study dated 09/26/2019. FINDINGS/ IMPRESSION: There is interval resection of the distal femur with replacement of the previous knee hardware with a megaprosthesis. The alignment appears within normal limits. Postoperative soft tissue changes are seen about the distal left femur and knee. Performing Organization Address City/State/Zipcode Phone Number [facility] [address] [place] [address] XR Knee 1-2 Views Left (09/27/2019 3:56 PM EST) Specimen Impressions Performed At IMPRESSION: There is interval resection of the distal femur with [facility] replacement of the previous knee hardware with a megaprosthesis. The alignment appears within normal limits. Postoperative soft tissue changes are seen about the distal left femur and knee. Narrative Performed At INDICATION: Status post distal femoral replacement, evaluate [facility] prosthesis. TECHNIQUE: Multiple views the left femur and left knee were obtained. COMPARISON: Prior study dated 09/26/2019. FINDINGS/ Procedure Note Interface, Received Via [facility] [facility] - 09/28/2019 8:04 AM EST INDICATION: Status post distal femoral replacement, evaluate prosthesis. TECHNIQUE: Multiple views the left femur and left knee were obtained. COMPARISON: Prior study dated 09/26/2019. FINDINGS/ IMPRESSION: There is interval resection of the distal femur with replacement of the previous knee hardware with a megaprosthesis. The alignment appears within normal limits. Postoperative soft tissue changes are seen about the distal left femur and knee. Performing Organization Address City/State/Zipcode Phone Number [facility] [address] [place] [address] Anaerobic culture ; (09/27/2019 1:15 PM EST) Special Request None [facility] at Culture/Results No anaerobes [facility] Pathology Specimen Tissue Performing Organization Address [facility]/Rustcode Phone Number [facility] PATHOLOG[facility] [address] [place] [address] [facility] [address] [place] [address] [facility] [address] [place] [address] Pathology Bx/Surg Tissue Culture 1 (09/27/2019 1:15 PM EST) Special Request None [facility] at Gram Stain 1+ WBC'S Seen. (A) [facility] Pathology Gram Stain No organisms seen [facility] Pathology Culture/Results STAPHYLOCOCCUS [facility] EPIDERMIDIS (A) [facility] Pathology Culture/Results (NOTE) [facility] Called to and read back by Gayla Layne RN on 6th floor CC at [address] [facility] on 09/29/2019 by [facility] Pathology Specimen Tissue Organism Antibiotic Method Susceptibility Staphylococcus Cefazolin SELECT SUGEY Sensitive epidermidis RESULTS REPORTED. Staphylococcus Erythromycin SELECT SUGEY >=8: Resistant epidermidis RESULTS REPORTED. Staphylococcus Clindamycin SELECT SUGEY 0.25: Sensitive epidermidis RESULTS REPORTED. Staphylococcus Oxacillin SELECT SUGEY <=0.25: Sensitive epidermidis RESULTS REPORTED. Staphylococcus Trimethoprim + SELECT SUGEY <=0.5/9.5: Sensitive epidermidis Sulfamethoxazole RESULTS REPORTED. Staphylococcus Vancomycin SELECT SUGEY 1: Sensitive epidermidis RESULTS REPORTED. Performing Organization Address City/[facility]/Zipcode Phone Number [facility] [address] [place] [address] [phone] [facility] at [address] [address] [facility] [address] [place] [address] Pathology Anaerobic culture ; (09/27/2019 1:15 PM EST) Special Request None [facility] Culture/Results No anaerobes [facility] Pathology Specimen Tissue Performing Organization Address City/[facility]/Zipcode Phone Number [facility] [address] [place] [address] [facility] [address] [place] [address] [facility] [address] [place] [address] Pathology Bx/Surg Tissue Culture 1 (09/27/2019 1:15 PM EST) Special Request None [facility] Gram Stain 1+ WBC'S Seen. (A) [facility] Pathology Gram Stain No organisms seen [facility] Pathology Culture/Results NO GROWTH [facility] Pathology Specimen Tissue Performing Organization Address City/[facility]/Zipcode Phone Number [facility] PATH[facility] [address] [place] [address] [facility] at [address] [address] [facility] [address] [place] [address] Pathology Type and Crossmatch (09/27/2019 12:00 PM EST) ABO/RH(D) O POS [facility] Gel Antibody Screen NEG [facility] Crossmatch 10/01/2019 [facility] at Site Performed at [facility] at [facility] Blood Bank Comment Blood Type Confirmed [facility] at UNIT NUMBER [id number] [facility] Blood Component Leukoreduced Red [facility] Type Cells Medical Univ at Unit Division 00 [facility] at STATUS OF UNIT ISSUED, FINAL [facility] TRANSFUSION STATUS OK TO TRANSFUSE [facility] CROSSMATCH RESULT Compatible [facility] UNIT NUMBER [id number] [facility] Blood Component Leukoreduced Red [facility] Type Cell, [employer] [facility] at Unit Division 00 [facility] at STATUS OF UNIT ISSUED, FINAL [facility] at TRANSFUSION STATUS OK TO TRANSFUSE [facility] CROSSMATCH RESULT Compatible [facility] Specimen EDTA Whole Blood Performing Organization Address City/[facility]/Zipcode Phone Number [facility] PATHOLOGY [address] [address] [facility] CG [address] [place] [address] [place] Guided Peripheral Nerve Block (OR ONLY) (09/27/2019 11:36 AM EST) Specimen Performing Organization Address City/State/Zipcomi Phone Number [facility] [address] [place] [address] CBC and Differential (09/27/2019 3:54 AM EST) White Blood Cell 7.7 4 - 10 [facility] Med 10*3/uL Univ Clin Pathology Red Blood Cell 2.34 (L) 4.1 - 5.3 [facility] 10*6/uL Univ Clin Pathology Hemoglobin 8.1 (L) 11.5 - 15.5 [facility] g/dL Univ Clin Pathology Hematocrit 23.8 (L) 36 - 45 % [facility] Pathology Mean Cell Volume 101.4 (H) 80 - 96 fL [facility] Univ Clin Pathology Mean Cell Hemoglobin 34.4 (H) 27 - 33 pg [facility] Clin Pathology Mean Cell Hgb Conc 33.9 32.0 - 36.0 [facility] g/dL Univ Clin Pathology Red Cell Dist Width 12.8 11.5 - 14.5 % [facility] Univ Clin Pathology Platelet Count 180 150 - 400 [facility] 10*3/uL Univ Clin Pathology Differential Type Automated Diff [facility] Clin Pathology Neutrophil 62 % [facility] Clin Pathology Lymphocyte 28 % [facility] Clin Pathology Monocyte 9 % [facility] Univ Clin Pathology Eosinophil 1 % [facility] Univ Clin Pathology Basophil 0 % [facility] Univ Clin Pathology Abs Neutrophil 4.76 1.8 - 7.0 [facility] Med 10*3/uL Univ Clin Pathology Abs Lymphocyte 2.14 1.2 - 4.0 [facility] 10*3/uL Univ Clin Pathology Abs Monocyte 0.70 0 - 0.8 [facility] 10*3/uL Univ Clin Pathology Abs Eosinophil 0.10 0 - 0.5 [facility] 10*3/uL Univ Clin Pathology Abs Basophil 0.02 0 - 0.2 [facility] 10*3/uL Univ Clin Pathology Nucleated Red Blood 0 0 - 0 [facility] Cells /100{WBCs} Univ Clin Pathology Specimen EDTA Whole Blood Performing Organization Address City/State/Rustcode Phone Number [facility] PATHOLOGY [address] [place] [address] [facility] [address] [place] [address] Pathology Basic Metabolic Panel (09/27/2019 3:54 AM EST) Bicarbonate 25 22 - 29 [facility] mmol/L Univ Clin Pathology Chloride 101 98 - 107 [facility] mmol/L [facility] Pathology Creatinine 1.15 (H) 0.50 - 0.90 [facility] mg/dL [facility] Pathology Glucose 94 70 - 140 [facility] mg/dL [facility] Pathology Potassium 4.2 3.4 - 5.1 [facility] mmol/L [facility] Pathology Sodium 137 136 - 145 [facility] mmol/L [facility] Pathology Blood Urea Nitrogen 35 (H) 8 - 23 mg/dL [facility] Pathology Anion Gap 11 8 - 15 mmol/L [facility] Pathology Osmolality, Toña 292 275 - 300 [facility] mosm/kg [facility] Pathology BUN/Cre Ratio 30 [facility] Pathology Calcium 7.9 (L) 8.8 - 10.2 [facility] mg/dL [facility] Pathology GFR Non eGFR is not >60 [facility] 2008 calculated in mL/min/1.73m2 [facility] CDK-EPI patients <18 or Pathology >80 years of age. GFR eGFR is not >60 [facility] 2008 calculated in mL/min/1.73m2 [facility] CKD-EPI patients <18 or Pathology >80 years of age. Specimen Plasma Performing Organization Address City/[facility]/[employer]ustcode Phone Number [facility] [address] [place] [address] [facility] [address] [place] [address] Pathology Sedimentation rate, automated (09/26/2019 4:54 AM EST) Sed Rate - ESR 7 <30 mm/hr [facility] Pathology Specimen EDTA Whole Blood Performing Organization Address City/[facility]/Zipcode Phone Number [facility] [address] [place] [address] [phone] [facility] [address] [place] [address] Pathology Inflammatory C-Reactive Protein (CRP) (09/26/2019 4:54 AM EST) C Reactive Protein 2.7 <8.0 mg/L [facility] Pathology Specimen Plasma Performing Organization Address City/State/Zipcode Phone Number [facility] PATHOLOG[facility] [address] [place] [address] [facility] [address] [place] [address] Pathology CBC and Differential (09/26/2019 4:54 AM EST) White Blood Cell 8.4 4 - 10 [facility] 10*3/uL Univ Clin Pathology Red Blood Cell 2.79 (L) 4.1 - 5.3 [facility] 10*6/uL Univ Clin Pathology Hemoglobin 9.5 (L) 11.5 - 15.5 [facility] g/dL [facility] Pathology Hematocrit 28.1 (L) 36 - 45 % [facility] Pathology Mean Cell Volume 100.8 (H) 80 - 96 fL [facility] Univ Clin Pathology Mean Cell Hemoglobin 34.2 (H) 27 - 33 pg [facility] Univ Clin Pathology Mean Cell Hgb Conc 33.9 32.0 - 36.0 [facility] g/dL Univ Clin Pathology Red Cell Dist Width 12.6 11.5 - 14.5 % [facility] Pathology Platelet Count 206 150 - 400 [facility] 10*3/uL Univ Clin Pathology Differential Type Automated Diff [facility] Clin Pathology Neutrophil 81 % [facility] Clin Pathology Lymphocyte 11 % [facility] Clin Pathology Monocyte 8 % [facility] Clin Pathology Eosinophil 0 % [facility] Clin Pathology Basophil 0 % [facility] Univ Clin Pathology Abs Neutrophil 6.80 1.8 - 7.0 [facility] 10*3/uL Univ Clin Pathology Abs Lymphocyte 0.95 (L) 1.2 - 4.0 [facility] 10*3/uL Univ Clin Pathology Abs Monocyte 0.63 0 - 0.8 [facility] 10*3/uL Univ Clin Pathology Abs Eosinophil 0.00 0 - 0.5 [facility] 10*3/uL Univ Clin Pathology Abs Basophil 0.01 0 - 0.2 [facility] 10*3/uL Univ Clin Pathology Nucleated Red Blood 0 0 - 0 [facility] Cells /100{WBCs} [facility] Pathology Specimen EDTA Whole Blood Performing Organization Address [facility]/[employer] Phone Number [facility] PATHOLOG[facility] [address] [place] [address] [facility] [address] [place] [address] Pathology Basic Metabolic Panel (09/26/2019 4:54 AM EST) Bicarbonate 25 22 - 29 [facility] mmol/L [facility] Pathology Chloride 99 98 - 107 [facility] mmol/L [facility] Pathology Creatinine 0.90 0.50 - 0.90 [facility] mg/dL [facility] Pathology Glucose 131 70 - 140 [facility] mg/dL [facility] Pathology Potassium 4.4 3.4 - 5.1 [facility] mmol/L [facility] Pathology Sodium 137 136 - 145 [facility] mmol/L [facility] Pathology Blood Urea Nitrogen 31 (H) 8 - 23 mg/dL [facility] Pathology Anion Gap 13 8 - 15 mmol/L [facility] Pathology Osmolality, Toña 292 275 - 300 [facility] mosm/kg [facility] Pathology BUN/Cre Ratio 34 [facility] Pathology Calcium 8.3 (L) 8.8 - 10.2 [facility] mg/dL [facility] Pathology GFR Non eGFR is not >60 [facility] 2009 calculated in mL/min/1.73m2 [facility] CDK-EPI patients <18 or Pathology >80 years of age. GFR eGFR is not >60 [facility] 2008 calculated in mL/min/1.73m2 [facility] CKD-EPI patients <18 or Pathology >80 years of age. Specimen Plasma Performing Organization Address City/[facility]/Zipcode Phone Number [facility] PATH[facility] [address] [place] [address] [facility] [address] [place] [address] Pathology XR Pelvis 1-2 Views (09/26/2019 1:04 AM EST) Specimen Narrative Performed At PROCEDURE INFORMATION: [facility] Exam: XR Pelvis Exam date and time: 09/25/2019 11:49 PM Age: 89 years old Clinical indication: Unspecified fracture of left femur, initial encounter for closed fracture; Other: Trauma TECHNIQUE: Imaging protocol: XR pelvis. Views: 1 or 2 view. COMPARISON: No relevant prior studies available. FINDINGS: Bones/joints: No evidence of acute fracture. [...] BEEN ELECTRONICALLY SIGNED BY RUBIN GARSIA MD Procedure Note Interface, Received Via [employer] - 09/26/2019 1:33 AM EST PROCEDURE INFORMATION: Exam: XR Pelvis Exam date and time: 09/25/2019 11:49 PM Age: 89 years old Clinical indication: Unspecified fracture of left femur, initial encounter for closed fracture; Other: Trauma TECHNIQUE: Imaging protocol: XR pelvis. Views: 1 or 2 view. COMPARISON: No relevant prior studies available. FINDINGS: Bones/joints: No evidence of acute fracture. [...] BEEN ELECTRONICALLY SIGNED BY RUBIN GARSIA MD Performing Organization Address City/State/Zipcode Phone Number [facility] [address] [place] [address] XR Tibia Left (09/26/2019 1:04 AM EST) Specimen Narrative Performed At PROCEDURE INFORMATION: [facility] Exam: XR Left Tibia and Fibula Exam date and time: 09/25/2019 11:49 PM Age: 89 years old Clinical indication: Unspecified fracture of left femur, initial encounter for closed fracture; Other: Trauma TECHNIQUE: Imaging protocol: XR Left tibia and fibula. Views: 2 views. COMPARISON: DX KNE L2 KNEE LEFT 1-2 VWS 09/25/2019 [...] BEEN ELECTRONICALLY SIGNED BY RUBIN GARSIA MD Procedure Note Interface, Received Via [employer] - 09/26/2019 1:38 AM EST PROCEDURE INFORMATION: Exam: XR Left Tibia and Fibula Exam date and time: 09/25/2019 11:49 PM Age: 89 years old Clinical indication: Unspecified fracture of left femur, initial encounter for closed fracture; Other: Trauma TECHNIQUE: Imaging protocol: XR Left tibia and fibula. Views: 2 views. COMPARISON: DX KNE L2 KNEE LEFT 1-2 VWS 09/25/2019 [...] BEEN ELECTRONICALLY SIGNED BY RUBIN GARSIA MD Performing Organization Address City/State/Rustcode Phone Number [facility] [address] [place] [address] XR Femur, Minimum of 2 Views Left (09/26/2019 1:04 AM EST) Specimen Narrative Performed At PROCEDURE INFORMATION: [facility] Exam: XR Left Femur Exam date and time: 09/25/2019 11:49 PM Age: 89 years old Clinical indication: Unspecified fracture of left femur, initial encounter for closed fracture; Other: Trauma TECHNIQUE: Imaging protocol: XR Left femur. Views: 2 views. 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 Limited evaluation, deformity and fracture through lateral femoral condyle, not seen well. Small fragment along medial aspect distal femur, possible acute fracture. Soft tissues: Mild-moderate soft tissue swelling. IMPRESSION: 1. 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 2. Limited evaluation, deformity and fracture through lateral femoral condyle, not seen well. 3. Small fragment along medial aspect distal femur, possible acute fracture. 4. Mild-moderate soft tissue swelling. THIS DOCUMENT HAS BEEN ELECTRONICALLY SIGNED BY RUBIN GARSIA MD Procedure Note Interface, Received Via [employer] - 09/26/2019 1:38 AM EST PROCEDURE INFORMATION: Exam: XR Left Femur Exam date and time: 09/25/2019 11:49 PM Age: 89 years old Clinical indication: Unspecified fracture of left femur, initial encounter for closed fracture; Other: Trauma TECHNIQUE: Imaging protocol: XR Left femur. Views: 2 views. 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 Limited evaluation, deformity and fracture through lateral femoral condyle, not seen well. Small fragment along medial aspect distal femur, possible acute fracture. Soft tissues: Mild-moderate soft tissue swelling. IMPRESSION: 1. 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 2. Limited evaluation, deformity and fracture through lateral femoral condyle, not seen well. 3. Small fragment along medial aspect distal femur, possible acute fracture. 4. Mild-moderate soft tissue swelling. THIS DOCUMENT HAS BEEN ELECTRONICALLY SIGNED BY RUBIN GARSIA MD Performing Organization Address City/State/Zipcode Phone Number [facility] [address] [place] [address] CT Cervical Spine without Contrast (09/25/2019 10:37 PM EST) Specimen Impressions Performed At IMPRESSION: [facility] 1. No definite evidence of acute osseous abnormality although the bones are diffusely demineralized and there are extensive degenerative changes which may decrease the sensitivity in detection of an acute injury. 2. Age indeterminate but likely chronic compression deformity of the anterior aspect of the T7 vertebral body. 3. Age indeterminate but likely chronic compression deformity of the L4 vertebral body. 4. Chronic compression deformities of the L1 and L2 vertebral bodies. 5. Advanced degenerative changes as described. Narrative Performed At INDICATION: 89-year-old female status post fall down 10 feet. [facility] TECHNIQUE: Axial images of the cervical, thoracic, [...] 1 anterolisthesis at C6/7. There are multilevel degenerative changes including osteophytosis and facet and uncovertebral arthrosis. [...] the L1 vertebral body (vertebra plana). Chronic compression deformity of the L2 vertebral body with approximately 40% loss of height. Age indeterminate but likely chronic compression deformity of the L4 vertebral body with approximately 40% loss of height. There is mild loss of intervertebral disc height at L2/3 and L4/5 with associated vacuum disc phenomenon. There is trace degenerative retrolisthesis of L4 over L5. There are multilevel degenerative changes including prominent osteophytosis and facet arthrosis. There are osteophytes along the anterior and posterior margins of the bilateral SI joints. Visualized paraspinal soft tissues are grossly unremarkable. Procedure Note Interface, Received Via [employer] - 09/26/2019 10:17 AM EST INDICATION: 89-year-old female status post fall down [...] 1 anterolisthesis at C6/7. There are multilevel degenerative changes including osteophytosis and facet and uncovertebral arthrosis. [...] the L1 vertebral body (vertebra plana). Chronic compression deformity of the L2 vertebral body with approximately 40% loss of height. Age indeterminate but likely chronic compression deformity of the L4 vertebral body with approximately 40% loss of height. There is mild loss of intervertebral disc height at L2/3 and L4/5 with associated vacuum disc phenomenon. There is trace degenerative retrolisthesis of L4 over [...] chronic compression deformity of the L4 vertebral body. 4. Chronic compression deformities of the L1 and L2 vertebral bodies. 5. Advanced degenerative changes as described. Performing Organization Address City/State/Zipcode Phone Number [facility] [address] [place] [address] CT Head without Contrast (09/25/2019 10:37 PM EST) Specimen Impressions Performed At IMPRESSION: [facility] 1. No acute intracranial pathology. 2. Slight swelling of the left frontal scalp. Narrative Performed At INDICATION: 89-year-old female fell down 10 feet. [facility] TECHNIQUE: Contiguous axial CT images of the head from the base of the skull to the vertex without IV contrast. Automated dose lowering techniques and/or adjustment according to patient size were utilized for this exam. COMPARISON: None. FINDINGS: There is no evidence of intracranial hemorrhage or acute territorial infarction. No evidence of edema, mass effect, or extra-axial collection. Ventricles, cisterns, and sulci are normal. Paranasal sinuses are clear. Mastoid air cells are clear bilaterally. No depressed calvarial fracture. There is slight swelling of the left frontal scalp. Procedure Note Interface, Received Via [employer] - 09/26/2019 11:20 AM EST INDICATION: 89-year-old female fell down 10 feet. [...] edema, mass effect, or extra-axial collection. Ventricles, cisterns, and sulci are normal. Paranasal sinuses are clear. Mastoid air cells are clear bilaterally. No depressed calvarial fracture. There is slight swelling of the left frontal scalp. IMPRESSION: 1. No acute intracranial pathology. 2. Slight swelling of the left frontal scalp. Performing Organization Address City/State/Zipcode Phone Number [facility] [address] [place] [address] CT Lumbar Spine without Contrast (09/25/2019 10:37 PM EST) Specimen Impressions Performed At IMPRESSION: [facility] 1. No definite evidence of acute osseous abnormality although the bones are diffusely demineralized and there are extensive degenerative changes which may decrease the sensitivity in detection of an acute injury. 2. Age indeterminate but likely chronic compression deformity of the anterior aspect of the T7 vertebral body. 3. Age indeterminate but likely chronic compression deformity of the L4 vertebral body. 4. Chronic compression deformities of the L1 and L2 vertebral bodies. 5. Advanced degenerative changes as described. Narrative Performed At INDICATION: 89-year-old female status post fall down 10 feet. [facility] TECHNIQUE: Axial images of the cervical, thoracic, [...] 1 anterolisthesis at C6/7. There are multilevel degenerative changes including osteophytosis and facet and uncovertebral arthrosis. [...] the L1 vertebral body (vertebra plana). Chronic compression deformity of the L2 vertebral body with approximately 40% loss of height. Age indeterminate but likely chronic compression deformity of the L4 vertebral body with approximately 40% loss of height. There is mild loss of intervertebral disc height at L2/3 and L4/5 with associated vacuum disc phenomenon. There is trace degenerative retrolisthesis of L4 over L5. There are multilevel degenerative changes including prominent osteophytosis and facet arthrosis. There are osteophytes along the anterior and posterior margins of the bilateral SI joints. Visualized paraspinal soft tissues are grossly unremarkable. Procedure Note Interface, Received Via [employer] - 09/26/2019 10:17 AM EST INDICATION: 89-year-old female status post fall down [...] 1 anterolisthesis at C6/7. There are multilevel degenerative changes including osteophytosis and facet and uncovertebral arthrosis. [...] the L1 vertebral body (vertebra plana). Chronic compression deformity of the L2 vertebral body with approximately 40% loss of height. Age indeterminate but likely chronic compression deformity of the L4 vertebral body with approximately 40% loss of height. There is mild loss of intervertebral disc height at L2/3 and L4/5 with associated vacuum disc phenomenon. There is trace degenerative retrolisthesis of L4 over [...] chronic compression deformity of the L4 vertebral body. 4. Chronic compression deformities of the L1 and L2 vertebral bodies. 5. Advanced degenerative changes as described. Performing Organization Address City/State/Zipcode Phone Number [facility] [address] [place] [address] CT Thoracic Spine without Contrast (09/25/2019 10:37 PM EST) Specimen Impressions Performed At IMPRESSION: [facility] 1. No definite evidence of acute osseous abnormality although the bones are diffusely demineralized and there are extensive degenerative changes which may decrease the sensitivity in detection of an acute injury. 2. Age indeterminate but likely chronic compression deformity of the anterior aspect of the T7 vertebral body. 3. Age indeterminate but likely chronic compression deformity of the L4 vertebral body. 4. Chronic compression deformities of the L1 and L2 vertebral bodies. 5. Advanced degenerative changes as described. Narrative Performed At INDICATION: 89-year-old female status post fall down 10 feet. [facility] TECHNIQUE: Axial images of the cervical, thoracic, [...] 1 anterolisthesis at C6/7. There are multilevel degenerative changes including osteophytosis and facet and uncovertebral arthrosis. [...] the L1 vertebral body (vertebra plana). Chronic compression deformity of the L2 vertebral body with approximately 40% loss of height. Age indeterminate but likely chronic compression deformity of the L4 vertebral body with approximately 40% loss of height. There is mild loss of intervertebral disc height at L2/3 and L4/5 with associated vacuum disc phenomenon. There is trace degenerative retrolisthesis of L4 over L5. There are multilevel degenerative changes including prominent osteophytosis and facet arthrosis. There are osteophytes along the anterior and posterior margins of the bilateral SI joints. Visualized paraspinal soft tissues are grossly unremarkable. Procedure Note Interface, Received Via [facility] - 09/26/2019 10:17 AM EST INDICATION: 89-year-old female status post fall down [...] 1 anterolisthesis at C6/7. There are multilevel degenerative changes including osteophytosis and facet and uncovertebral arthrosis. [...] the L1 vertebral body (vertebra plana). Chronic compression deformity of the L2 vertebral body with approximately 40% loss of height. Age indeterminate but likely chronic compression deformity of the L4 vertebral body with approximately 40% loss of height. There is mild loss of intervertebral disc height at L2/3 and L4/5 with associated vacuum disc phenomenon. There is trace degenerative retrolisthesis of L4 over [...] chronic compression deformity of the L4 vertebral body. 4. Chronic compression deformities of the L1 and L2 vertebral bodies. 5. Advanced degenerative changes as described. Performing Organization Address City/State/Zipcode Phone Number [facility] [address] [place] [address] EKG 12-LEAD - CMAXX REPORT (09/25/2019 10:16 PM EST) Narrative Performed At EKG 12-LEAD - CMAXX REPORT (09/25/2019 10:16 PM EST) Narrative Performed At EKG 12 Lead (09/25/2019 10:16 PM EST) Specimen Narrative Performed At Ventricular Rate: [facility] EKG 64 BPM Atrial Rate: 64 BPM P-R Interval: 148 ms QRS Duration: 134 ms Q-T Interval: 526 ms QTC Calculation(Bazett): 542 ms P [place]: 61 degrees R [place]: 5 degrees T [place]: 84 degrees : SINUS RHYTHM WITH : POSSIBLE LEFT ATRIAL ENLARGEMENT : LEFT BUNDLE BRANCH BLOCK : QUITE PROLONGED QTC EVEN FOR FOR LBBB : ABNORMAL QRS-T ANGLE, CONSIDER PRIMARY T WAVE ABNORMALITY : ABNORMAL ECG : NO PREVIOUS ECGS AVAILABLE : Confirmed by YUE MCCRAY ([id number]) on 09/26/2019 10:55:46 : AM Procedure Note Interface, Received Via [employer] - 09/26/2019 10:55 AM EST Ventricular Rate: 64 BPM Atrial Rate: 64 BPM P-R Interval: 148 ms QRS Duration: 134 ms Q-T Interval: 526 ms QTC Calculation(Bazett): 542 ms P [place]: 61 degrees R [place]: 5 degrees T [place]: 84 degrees : SINUS RHYTHM WITH : POSSIBLE LEFT ATRIAL ENLARGEMENT : LEFT BUNDLE BRANCH BLOCK : QUITE PROLONGED QTC EVEN FOR FOR LBBB : ABNORMAL QRS-T ANGLE, CONSIDER PRIMARY T WAVE ABNORMALITY : ABNORMAL ECG : NO PREVIOUS ECGS AVAILABLE : Confirmed by YUE MCCRAY ([id number]) on 09/26/2019 10:55:46 : AM Performing Organization Address City/State/Zipcode Phone Number [facility] EKG EKG 12-LEAD - CMAXX REPORT (09/25/2019 10:16 PM EST) Narrative Performed At XR Chest Frontal Only (09/25/2019 10:07 PM EST) Specimen Narrative Performed At PROCEDURE INFORMATION: [facility] Exam: XR Chest, 1 View Exam date and time: 09/25/2019 10:06 PM Age: 89 years old Clinical indication: [...] calcific structures adjacent to the right shoulder. --Possible extra-articular loose bodies versus synovial chondromatosis. THIS DOCUMENT HAS BEEN ELECTRONICALLY SIGNED BY RUBIN GARSIA MD Procedure Note Interface, Received Via [facility] - 09/25/2019 10:55 PM EST PROCEDURE INFORMATION: Exam: XR Chest, 1 View Exam date and time: 09/25/2019 10:06 PM Age: 89 years old Clinical indication: [...] calcific structures adjacent to the right shoulder. --Possible extra-articular loose bodies versus synovial chondromatosis. THIS DOCUMENT HAS BEEN ELECTRONICALLY SIGNED BY RUBIN GARSIA MD Performing Organization Address City/[facility]/Zipcode Phone Number [facility] [address] [place] [address] CK (09/25/2019 9:23 PM EST) CK 239 (H) 20 - 180 U/L [facility] Pathology Specimen Plasma Performing Organization Address [facility]/[employer] Phone Number [facility] [address] [place] [address] [facility] [address] [place] [address] Pathology Partial Thromboplastin Time (PTT) (09/25/2019 9:23 PM EST) PTT Patient (PAT) 25.6 24.0 - 34.0 s [facility] Pathology Specimen Plasma Performing Organization Address [facility] Phone Number [facility] [address] [place] [address] [facility] [address] [place] [address] Pathology Protime-INR (09/25/2019 9:23 PM EST) PT Patient 14.0 12.5 - 14.9 s [facility] Pathology Int'l Normalized Ratio 1.05 [facility] Pathology Specimen Plasma Performing Organization Address [facility] Phone Number [facility] [address] [place] [address] [phone] [facility] [address] [place] [address] Pathology CBC (09/25/2019 9:23 PM EST) White Blood Cell 9.9 4 - 10 10*3/uL [facility]ology Red Blood Cell 2.99 (L) 4.1 - 5.3 [facility] 10*6/uL [facility] Pathology Hemoglobin 10.2 (L) 11.5 - 15.5 [facility] g/dL [facility] Pathology Hematocrit 30.4 (L) 36 - 45 % [facility] Pathology Mean Cell Volume 101.7 (H) 80 - 96 fL [facility] Mean Cell Hemoglobin 34.1 (H) 27 - 33 pg [facility] Pathology Mean Cell Hgb Conc 33.5 32.0 - 36.0 [facility] g/dL [facility] Pathology Red Cell Dist Width 12.7 11.5 - 14.5 % [facility] Pathology Platelet Count 210 150 - 400 [facility] 10*3/uL [facility] Pathology Specimen EDTA Whole Blood Performing Organization Address City/[facility]/[place] Phone Number [facility] [address] [place] [address] [facility] [address] [place] [address] Pathology Basic Metabolic Panel (09/25/2019 9:23 PM EST) Bicarbonate 25 22 - 29 [facility] mmol/L [facility] Pathology Chloride 100 98 - 107 [facility] mmol/L [facility] Pathology Creatinine 1.11 (H) 0.50 - 0.90 [facility] mg/dL [facility] Pathology Glucose 145 (H) 70 - 140 [facility] mg/dL [facility] Pathology Potassium 4.2 3.4 - 5.1 [facility] mmol/L [facility] Pathology Sodium 136 136 - 145 [facility] mmol/L [facility] Pathology Blood Urea Nitrogen 33 (H) 8 - 23 mg/dL [facility] Pathology Anion Gap 10 8 - 15 mmol/L [facility] Pathology Osmolality, Toña 291 275 - 300 [facility] mosm/kg [facility] Pathology BUN/Cre Ratio 30 [facility] Pathology Calcium 8.4 (L) 8.8 - 10.2 [facility] mg/dL [facility] Pathology GFR Non eGFR is not >60 [facility] 2009 calculated in mL/min/1.73m2 [facility] CDK-EPI patients <18 or Pathology >80 years of age. GFR eGFR is not >60 [facility] 2008 calculated in mL/min/1.73m2 [facility] CKD-EPI patients <18 or Pathology >80 years of age. Specimen Plasma Performing Organization Address City/[facility]/Zipcode Phone Number [facility] [address] [place] [address] [facility] [address] [place] [address] Pathology Type and Screen (09/25/2019 9:23 PM EST) ABO/RH(D) O POS [facility] Path[facility] Gel Antibody Screen NEG [facility] Pathology Site Performed at [facility], [facility] Dakotah Schwartz [facility], Pathology [place], [place] Specimen EDTA Whole Blood Performing Organization Address City/State/Zipcode Phone Number [facility] [address] [place] [address] [facility] [address] [place] [address] Pathology documented in this encounter Visit Diagnoses Diagnosis Other fracture of left femur, initial encounter for closed fracture - Primary Femur fracture, left Closed fracture of unspecified part of femur Acquired hypothyroidism Unspecified hypothyroidism Pain Generalized pain Closed fracture of distal end of left femur, unspecified fracture morphology, initial encounter Osteoporosis with current pathological fracture, unspecified osteoporosis type, initial encounter Hypertension, essential Unspecified essential hypertension Fall from embankment, initial encounter Activities involving property and land maintenance, building and construction Other activity involving property and land maintenance, building and construction Garden or yard of non-institutional residence as the place of occurrence of the external cause Place of occurrence, home Macrocytic anemia Unspecified deficiency anemia Compression fracture of L1 lumbar vertebra, with routine healing, subsequent encounter Essential hypertension Unspecified essential hypertension CAD (coronary artery disease) Coronary atherosclerosis of unspecified type of vessel, [place] or graft Chronic systolic heart failure Preop cardiovascular exam Pre-operative cardiovascular examination Acute blood loss anemia Acute posthemorrhagic anemia documented in this encounter Administered Medications Medication Order MAR Action Action Date Dose Rate Site acetaminophen (TYLENOL) tablet Given 10/02/2019 8:17 AM EST 650 mg 650 mg 650 mg, Oral, Every 6 hours PRN, Pain, Starting Alyssa 09/26/19 at 0335, For 8 days, Maximum dose of acetaminophen is 4000 mg from all sources in 24 hours., Given 10/01/2019 6:35 PM EST 650 mg Given 10/01/2019 12:31 PM EST 650 mg aspirin chewable tablet 81 mg Given 10/02/2019 8:17 AM EST 81 mg 81 mg, Oral, Daily Standard, First dose on Alyssa 09/26/19 at 0900, For 30 days, Chew tablet before swallowing., Given 10/01/2019 8:25 AM EST 81 mg Given 09/30/2019 10:00 AM EST 81 mg atorvastatin (LIPITOR) tablet 40 mg Given 10/01/2019 7:45 PM EST 40 mg 40 mg, Oral, Every evening, First dose on Alyssa 09/26/19 at 2100, For 30 days Given 09/30/2019 8:43 PM EST 40 mg Given 09/29/2019 9:30 PM EST 40 mg bisacodyl (DULCOLAX) suppository 10 mg Given 09/29/2019 7:53 AM EST 10 mg 10 mg, Rectal, Daily PRN, Constipation, Starting Mon09/27/19 at 1647, For 30 days ceFAZolin (ANCEF) IVPB 2 g in New Bag 09/28/2019 5:28 AM EST 2 g 200 mL/ hr dextrose (premix) 2 g, Intravenous, Administer over 30 Minutes, Every 8 hours, First dose on Mon09/27/19 at 2100, For 2 doses New Bag 09/27/2019 9:18 PM EST 2 g 200 mL/hr ceFAZolin (ANCEF) IVPB 2 g in New Bag 10/02/2019 4:32 AM EST 2 g 200 mL/ hr dextrose (premix) 2 g, Intravenous, Administer over 30 Minutes, Every 8 hours, First dose on 09/30/19 at 1900, For 7 days New Bag 10/01/2019 7:30 PM EST 2 g 200 mL/hr New Bag 10/01/2019 12:38 PM EST 2 g 200 mL/hr dextrose 5 % infusion at 0.2-10 mL/hr, Intravenous, PRN, For Meds, Starting Mon09/27/19 at 1647, For 30 days docusate sodium (COLACE) capsule 100 mg Given 10/02/2019 8:17 AM EST 100 mg 100 mg, Oral, 2 Times Daily, First dose on Mon09/27/19 at 2100, For 30 days Given 10/01/2019 7:46 PM EST 100 mg Given 10/01/2019 8:25 AM EST 100 mg enoxaparin sodium (LOVENOX) injection 30 mg Given 09/29/2019 8:08 AM EST 30 mg 30 mg, Subcutaneous, Daily Standard, First dose on Mon09/28/19 at 0900, For 30 days, Non Patients: body weight < 150 kg, CrCl > 30 mL/min. Guidelines for Lovenox: MUST wait 24 hours before starting Enoxaparin if patient has epidural catheter. D/C Enoxaparin 10-12 hours prior to removing epidural catheter., Given 09/28/2019 8:32 AM EST 30 mg enoxaparin sodium (LOVENOX) injection 40 mg Given 10/02/2019 8:16 AM EST 40 mg 40 mg, Subcutaneous, Daily Standard, First dose (after last modification) on Mon09/30/19 at 0900, For 28 doses, Non Patients: body weight < 150 kg, CrCl > 30 mL/min. Guidelines for Lovenox: MUST wait 24 hours before starting Enoxaparin if patient has epidural catheter. D/C Enoxaparin 10-12 hours prior to removing epidural catheter., Given 10/01/2019 8:25 AM EST 40 mg Given 09/30/2019 10:03 AM EST 40 mg furosemide (LASIX) injection 20 mg Given by IV push 09/29/2019 5:44 PM EST 20 mg 20 mg, Intravenous, Once, Josephine 09/29/19 at 1745, For 1 dose furosemide (LASIX) tablet 20 mg Given 10/02/2019 8:17 AM EST 20 mg 20 mg, Oral, 2 Times Daily, First dose on Mon09/30/19 at 0900, For 30 days Given 10/01/2019 4:42 PM EST 20 mg Given 10/01/2019 8:23 AM EST 20 mg furosemide (LASIX) tablet 40 mg Given 09/26/2019 9:09 AM EST 40 mg 40 mg, Oral, 2 Times Daily, First dose on Alyssa 09/26/19 at 0900, For 30 days, Hold if SBP<95, heparin lock flush 10 UNIT/ML injection 20 Units 20 Units, Intravenous, PRN, Line Care, Starting 09/30/19 at 1755, For 30 days, Verify blood return before use. Flush with 10 mL of Sodium Chloride 0.9 % before and after infusions or blood sampling followed-by 2 mL Heparin 10 units/mL to lock. Reference Policy CM C-34H Central Line Policy., heparin lock flush 10 UNIT/ML injection New Bag 10/02/2019 5:31 AM EST 20 Units 20 Units 20 Units, Intravenous, Every 12 hours, First dose on Mon09/30/19 at 1800, For 30 days, WHEN NOT IN USE - Verify blood return before use. Flush with 10 mL of Sodium Chloride 0.9 % and 2 mL Heparin 10 units/mL. Reference Policy CM C-34H Central Line Policy., New Bag 10/01/2019 6:37 PM EST 20 Units Given 10/01/2019 12:33 PM EST 20 Units levothyroxine (SYNTHROID, LEVOTHROID) Given 10/02/2019 5:33 AM EST 100 mcg tablet 100 mcg 100 mcg, Oral, Daily at 0600, First dose on Alyssa 09/26/19 at 0600, For 30 days Given 10/01/2019 5:30 AM EST 100 mcg Given 09/30/2019 6:26 AM EST 100 mcg lidocaine (XYLOCAINE) 1 % injection Given by Other 10/01/2019 12:32 PM EST 5 mLs 5 mL 5 mL, Subcutaneous, Once PRN, for PICC insertion, Starting 09/30/19 at 1755, For 30 days lisinopril (PRINIVIL,ZESTRIL) tablet 20 mg Given 09/26/2019 9:09 AM EST 20 mg 20 mg, Oral, Daily Standard, First dose on Mon09/26/19 at 0900, For 30 days, Check vital signs before administering, metoprolol (TOPROL-XL) 24 hr tablet 50 mg Given 10/02/2019 8:16 AM EST 50 mg 50 mg, Oral, Daily Standard, First dose on Mon09/29/19 at 1300, For 30 days, Do not crush or chew, Given 10/01/2019 8:24 AM EST 50 mg Given 09/30/2019 10:00 AM EST 50 mg morphine sulfate (PF) injection 2 mg New Bag 09/25/2019 10:16 PM EST 2 mg 2 mg, Intravenous, Once, Mon09/25/19 at 2200, For 1 dose NaCl infusion 0.9 % New Bag 09/26/2019 10:51 AM EST 75 mL/hr at 75 mL/hr, Intravenous, Continuous, Starting Alyssa 09/26/19 at 1030, For 30 days NaCl infusion 0.9 % New Bag 09/29/2019 11:12 PM EST 60 mL/hr at 60 mL/hr, Intravenous, Continuous, Starting Mon09/27/19 at 0000, For 720 hours New Bag 09/29/2019 6:28 AM EST 60 mL/hr New Bag 09/28/2019 1:35 PM EST 60 mL/hr NaCl infusion 0.9 % at 0.2-10 mL/hr, Intravenous, PRN, For Meds, Starting Mon09/27/19 at 1647, For 30 days ondansetron (ZOFRAN) injection 4 mg Given 09/25/2019 10:13 PM EST 4 mg 4 mg, Given by IV, Once, Mon09/25/19 at 2200, For 1 dose ondansetron (ZOFRAN) injection 4 mg New Bag 09/28/2019 9:22 PM EST 4 mg 4 mg, Intravenous, Every 6 hours PRN, Nausea, Vomiting, Starting Mon09/27/19 at 1647, For 30 days polyethylene glycol (MIRALAX) packet 17 g Given 09/29/2019 8:05 AM EST 17 g 17 g, Oral, Daily PRN, As needed for Constipation, Starting Mon09/27/19 at 1647, For 30 days, Mix in 8 ounces of water, juice or milk. Avoid use in patients who require thickened liquids due to potential increased risk for aspiration., Given 09/28/2019 8:32 AM EST 17 g rifAMPin (RIFADIN) 300 mg in sodium chloride 0.9 % 100 mL infusion 300 mg, Intravenous, Administer over 30 Minutes, Every 12 hours, First dose on Mon10/02/19 at 1400, For 7 days senna 8.6 MG 2 tablet Given 10/01/2019 7:46 PM EST 2 tablets 2 tablet, Oral, Nightly, First dose on Mon09/27/19 at 2200, For 30 days Given 09/30/2019 8:43 PM EST 2 tablets Given 09/29/2019 9:30 PM EST 2 tablets sodium chloride (preservative free) 0.9 % flush 10 mL 10 mL, Intravenous, PRN, Line Care, Starting 09/30/19 at 1755, For 30 days, Verify blood return before use. Flush with 10 mL of Sodium Chloride 0.9 % before and after infusions or blood sampling followed-by 2 mL Heparin 10 units/mL to lock. Reference Policy C-34H Central Line Policy., sodium chloride (preservative free) 0.9 % New Bag 10/02/2019 5:31 AM EST 10 mLs flush 10 mL 10 mL, Intravenous, Every 12 hours, First dose on 09/30/19 at 1800, For 30 days, WHEN NOT IN USE - Verify blood return before use. Flush with 10 mL of Sodium Chloride 0.9 % and 2 mL Heparin 10 units/mL. Reference Policy CM C-34H Central Line Policy., New Bag 10/01/2019 6:37 PM EST 10 mLs sodium chloride (preservative Given by IV push 10/01/2019 8:31 AM EST 3 mLs free) 0.9 % flush 3 mL 3 mL, Intravenous, Every 8 hours Standard (3 times per day), First dose on Mon09/27/19 at 1700, For 30 days, Saline Lock. Flush Q8H and after each use to Saline Lock., New Bag 09/30/2019 8:45 PM EST 3 mLs New Bag 09/30/2019 10:07 AM EST 3 mLs sodium chloride (preservative free) 0.9 % flush 3 mL 3 mL, Intravenous, PRN, Line Care, Starting Mon09/27/19 at 1647, For 30 days, Saline Lock. Flush Q8H and after each use to Saline Lock., sodium chloride 0.9 % bolus 500 New Bag 09/29/2019 5:51 PM EST 500 mLs 250 mL/hr mL 500 mL, Intravenous, Once, 09/29/19 at 1700, For 1 dose sodium chloride 0.9 % infusion Given 09/27/2019 10:00 PM EST 250 mLs Starting Mon09/27/19 at 2123, For 1 dose, Brit Aiken : cabinet override, sodium chloride 0.9 % infusion Given 10/01/2019 12:32 PM EST 25 mLs Starting 10/01/19 at 1227, For 1 dose, Lalo Quezada : cabinet override, tramadol (ULTRAM) tablet 50 mg Given 09/30/2019 10:08 AM EST 50 mg 50 mg, Oral, Every 6 hours PRN, Severe Pain (Pain Scale Score 7-10), Starting [facility] 09/26/19 at 0335, For 5 days 3 hours Given 09/29/2019 8:04 AM EST 50 mg Given 09/28/2019 2:36 PM EST 50 mg documented in this encounter
--- OUTSIDE RECORDS SUMMARY | 2019-10-18 19:24 | XMS REPORT ---
:1930 Author Organization [facility] Care Team Providers Name Role Phone Unavailable Unavailable Unavailable Problems Condition Condition Condition Status Onset Resolution Last Treating Comments Name Details Category Date Date Treatment Clinician Date Unspecified Unspecified Diagnosis Active Carla fracture of fracture of 2-11 Wendela left femur, left femur, subsequent subsequent encounter encounter for closed for closed fracture fracture with with routine routine healing healing Allergies, Adverse Reactions, Alerts Allergy Allergy Status Severity Reaction(s) Onset Inactive Treating Comments Name Type Date Date Clinician Unknown None Active Unknown None Unknown No Known Allergies For This Patient Medications Ordered Filled Start Stop Current Ordering Indication Dosage Frequency Signature Comments Components Medication Medication Date Date Medication? Clinician (SIG) Name Name No Known No Known No None None None Medications Medications For This For This Patient Patient Procedures This patient has no known procedures. Results This patient has no known results.
--- OUTSIDE RECORDS SUMMARY | 2019-10-18 19:24 | XMS REPORT ---
:1930 Author Organization [facility] Care Team Providers Name Role Phone Unavailable [...]
--- OUTSIDE RECORDS SUMMARY | 2019-10-18 19:24 | XMS REPORT ---
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 Allergies, Adverse Reactions, Alerts Allergy Name Allergy Status Severity Reaction(s) Onset Inactive Treating Comments Type Date Date Clinician aspirin Base Active Unknown nose bleeds 2020-0 Kathy Beam Ingredient with high 2-27 doses Macrobid Medication Active Unknown Rash 2020-0 Kathy Beam Name ID 2 Sulfa Allergen Active Unknown Rash 0 Kathy Beam (Sulfonamide Group 2-27 Antibiotics) spironolacto Base Active Unknown Kidney 2020-0 Kathy Beam ne Ingredient Failure 2-27 Medications Ordered Filled Start Stop Current Ordering Indication Dosage Frequency Signature Comments Components Medication Medication Date Date Medication? Clinician (SIG) Name Name No Known No Known No None None None Medications Medications For This For This Patient Patient Procedures This patient has no known procedures. Results This patient has no known results.
--- OUTSIDE RECORDS SUMMARY | 2019-10-18 19:24 | XMS REPORT ---
:1930 Author Organization [facility] Care Team Providers Name Role Phone Unavailable Unavailable Unavailable Problems This patient has no known problems. Allergies, Adverse Reactions, Alerts Allergy Allergy Status [...]
--- NOTE | 2019-10-18 19:29 | ED ---
Shortness of Breath - HPI Summary HPI Summary: 89 year old F arriving via ambulance with family members from home complains of shortness of breath, fatigue, weakness since today 10/18/2019. Recent dx left femur fracture and left knee surgery. Patient was admitted to [facility] on 09/25/2019 and discharged yesterday 10/17/2019 to home. Patient has PICC line in right upper extremity which is administering continuous ramipril and cefazolin for left knee staph infection. Patient reports nausea, decreased appetite. Nurse reports fever. Patient states she doesn't feel short of breath but family members note she is more short of breath than normal. Patient denies cough, vomiting/diarrhea. Symptoms rated 1/10 in severity. Symptoms aggravated by nothing. Symptoms alleviated by nothing. Patient is DNR. PMHx NSTEMI, CHF, hypothyroidism, anemia, HTN, renal failure. FHx HTN, breast cancer. No hx tobacco use. Medications reviewed. Allergies reviewed. - History of Current Complaint Time Seen by Provider: 10/18/19 19:24 Hx Obtained From: Patient, Family/Warehouse Technician Onset/Duration: Lasting Hours, Still Present Timing: Constant Current Severity: Mild - 1/10 Aggravating Factors: Nothing Alleviating Factors: Nothing - Allergy/Home Medications Allergies/Adverse Reactions: Allergies Allergy/AdvReac Type Severity Reaction Status Date / Time aspirin Allergy Bleeding Verified 09/25/19 16:10 nitrofurantoin Allergy Rash Verified 09/25/19 16:10 [From Macrobid] spironolactone Allergy kidney Verified 09/25/19 16:10 [From Aldactone] failure Sulfa (Sulfonamide Allergy Rash Verified 09/25/19 16:10 Antibiotics) Home Medications: Home Medications Cholecalciferol TAB* [Vitamin D TAB*] 2,000 units PO QPM 08/19/16 [History Confirmed 10/18/19] Furosemide TAB* [Lasix TAB*] 40 mg PO QAM 08/19/16 [History Confirmed 10/18/19] traMADol TAB* [Ultram*] 50 mg PO Q6H PRN 05/27/17 [History Confirmed 10/18/19] Aspirin EC TAB* [Ecotrin EC Low Dose 81 MG*] 81 mg PO DAILY #30 tab.ec 06/04/17 [Rx Confirmed 10/18/19] Metoprolol Succinate XL TAB* [Toprol XL TAB*] 50 mg PO DAILY #30 tab.xl [Rx Confirmed 10/18/19] Calcium Carbonate [Calcium] 1,000 mg PO BID 11/08/17 [History Confirmed 10/18/19 ] Atorvastatin* [Lipitor 40 MG*] 40 mg PO DAILY 09/25/19 [History Confirmed ] Denosumab [Prolia] 60 mg SUBCUT Q6M 09/25/19 [History Confirmed 10/18/19] Levothyroxine TAB* [Synthroid TAB*] 100 mcg PO DAILY 09/25/19 [History Confirmed 10/18/19] Cefazolin Sodium/Water [Cefazolin 1 G/10 ml-Water Syrg] 6 gm IV .CONTINUOUSLY [History Confirmed 10/18/19] Heparin FLUSH(*) 5 ml IV FLUSH ONCE PRN 10/18/19 [History Confirmed 10/18/19] Polyethylene Glycol 3350* [Miralax (17 GM DOSE HUGO)] 17 gm PO DAILY PRN [History Confirmed 10/18/19] RiFAMPin CAP* 300 mg PO BID 10/18/19 [History Confirmed 10/18/19] Saccharomyces Boulardii [Probiotic] 250 mg PO BID 10/18/19 [History Confirmed ] Senna TAB 8.6 mg* [Senokot 8.6 mg TAB*] 2 tab PO BEDTIME PRN 10/18/19 [History Confirmed 10/18/19] lisinopriL [Lisinopril] 10 mg PO DAILY 10/18/19 [History Confirmed 10/18/19] PMH/Surg Hx/FS Hx/Imm Hx Endocrine/Hematology History: Reports: Hx Thyroid Disease, Hx Anemia Cardiovascular History: Reports: Hx Congestive Heart Failure, Hx Hypertension, Other Cardiovascular Problems/Disorders - NSTEMI GI History: Reports: Hx Diverticulosis, Other GI Disorders - Ischemic colitis History: Reports: Other Problems/Disorders - renal failure Musculoskeletal History: Reports: Hx Arthritis, Hx Back Problems - Spinal stenosis, Hx Osteoporosis Sensory History: Reports: Hx Macular Degeneration, Hx Hearing Problem - Hard of hearing Denies: Hx Contacts or Glasses, Hx Hearing Aid Opthamlomology History: Reports: Hx Macular Degeneration Denies: Hx Contacts or Glasses Neurological History: Reports: Other Neuro Impairments/Disorders - OSTEOPOROSIS - Cancer History Hx Chemotherapy: No Hx Radiation Therapy: No - Surgical History Surgery Procedure, Year, and Place: BILATERAL KNEE REPLACEMENTS; HYSTERECTOMY; BLADDER REPAIR; APPENDECTOMY Infectious Disease History: Yes Infectious Disease History: Denies: History Other Infectious Disease, Traveled Outside the [place] in Last 30 Days - Family History Known Family History: Positive: Hypertension, Other - Breast cancer. Family History: FHx of Breast CA and HTN - Social History Alcohol Use: None Hx Substance Use: No Substance Use Type: Reports: None Hx Tobacco Use: No Smoking Status (MU): Never Smoked Tobacco - Additional Comments History Additional Comments: PMHx NSTEMI, CHF, hypothyroidism, anemia, HTN, renal failure Review of Systems - ROS Summary Review of Systems Summary: Home Medications Medication Instructions Recorded Confirmed Type Cholecalciferol TAB* [Vitamin D 2,000 units PO QPM 08/19/16 10/18/19 History TAB*] Furosemide TAB* [Lasix TAB*] 40 mg PO QAM 08/19/16 10/18/19 History traMADol TAB* [Ultram*] 50 mg PO Q6H PRN 05/27/17 10/18/19 History Aspirin EC TAB* [Ecotrin EC Low 81 mg PO DAILY #30 tab.ec 06/04/17 10/18/19 Rx Dose 81 MG*] Metoprolol Succinate XL TAB* 50 mg PO DAILY #30 tab.xl 06/04/17 10/18/19 Rx [Toprol XL TAB*] Calcium Carbonate [Calcium] 1,000 mg PO BID 11/08/17 10/18/19 History Atorvastatin* [Lipitor 40 MG*] 40 mg PO DAILY 09/25/19 10/18/19 History Denosumab [Prolia] 60 mg SUBCUT Q6M 09/25/19 10/18/19 History Levothyroxine TAB* [Synthroid TAB*] 100 mcg PO DAILY 09/25/19 10/18/19 History Cefazolin Sodium/Water [Cefazolin 6 gm IV .CONTINUOUSLY 10/18/19 10/18/19 History 1 G/10 ml-Water Syrg] Heparin FLUSH(*) 5 ml IV FLUSH ONCE PRN 10/18/19 10/18/19 History Polyethylene Glycol 3350* [Miralax 17 gm PO DAILY PRN 10/18/19 10/18/19 History (17 GM DOSE HUGO)] RiFAMPin CAP* 300 mg PO BID 10/18/19 10/18/19 History Saccharomyces Boulardii [Probiotic] 250 mg PO BID 10/18/19 10/18/19 History Senna TAB 8.6 mg* [Senokot 8.6 mg 2 tab PO BEDTIME PRN 10/18/19 10/18/19 History TAB*] lisinopriL [Lisinopril] 10 mg PO DAILY 10/18/19 10/18/19 History Positive: Fever Positive: Shortness Of Breath. Negative: Cough Positive: Nausea, Other - decreased appetite. Negative: Vomiting, Diarrhea All Other Systems Reviewed And Are Negative: Yes Physical Exam - Summary Physical Exam Summary: General: Elderly female. No apparent distress at rest HEENT: Normocephalic, Atraumatic. Eyes: Conjuctiva normal, PERRL. Oropharynx: Clear, mucous membranes moist, (-) exudates. Neck: Soft, FROM, (-) lymphadenopathy, (-) thyromegaly, (-) JVD. Cardiovascular: Normal sinus rhythm, (-) murmur. Lungs: She appears a little winded. Good breath sounds bilaterally. Clear to auscultation bilaterally (-) wheezes, (-) rales, (-) rhonchi. Abdomen: Soft, non-tender, non-distended, (-) organomegaly, normal bowel sounds. Back: (-) CVA tenderness Extremities: +1 edema in lower extremities. Her left leg above her BLANE wrap is a little erythematous and warm. Her PICC line is clean, dry, in tact with no obvious erythema Skin: Warm, dry, (-) rash. Neuro: Alert and oriented x3, moves all extremities equally. No ataxia. No gait disturbance. No sensory deficit. Normal strength, normal sensation. Psychiatric: Mood normal, affect normal. Triage Information Reviewed: Yes Vital Signs On Initial Exam: Initial Vitals Temp Pulse Resp BP Pulse Ox 101 F 80 18 143/67 97 10/18/19 19:23 10/18/19 19:23 10/18/19 19:23 10/18/19 19:23 10/18/19 19:23 Vital Signs Reviewed: Yes Procedures - Sedation Patient Received Moderate/Deep Sedation with Procedure: No Diagnostics - Vital Signs Vital Signs Temp Pulse Resp BP Pulse Ox 10/18/19 19:23 101 F 80 18 143/67 97 - Laboratory Result Diagrams: 10/18/19 19:49 10/18/19 19:49 Lab Statement: Any lab studies that have been ordered have been reviewed, and results considered in the medical decision making process. - Radiology CXR Radiology Interpretation Completed By: ED Physician - No infiltrate. No pleural effusion. Pending official report. - CT CHEST/THORAX CTA CT Interpretation Completed By: Radiologist - IMPRESSION: 1. There is minimal bibasilar atelectatic change or scarring and there is mild biapical pleural and parenchymal scarring. The lungs and pleural spaces are otherwise clear. 2. There is a moderate hiatal hernia. 3. There may be mild ascites in the upper abdomen. 4. No visible acute pulmonary embolism. ED physician has reviewed this imaging report. - EKG 2026 Cardiac Rate: NL - 78 BPM EKG Rhythm: Sinus Rhythm Summary of EKG Findings: EKG at 2026 reveals normal sinus rhythm with rate of 78 BPM, no acute changes, no ischemic changes. This EKG was reviewed and interpreted by Dr. Pérez. Re-Evaluation - Re-Evaluation First Eval Re-Evaluation Time: 00:33 Change: Improved Comment: I have discussed results with the patient and family. Her symptoms have resolved. Fever has improved after Tylenol. Course/Dx - Course Course Of Treatment: 89-year-old female presents from home via EMS for weakness and shortness of breath. Patient has no complaints upon arrival. Family explaining the patient recently has had a broken femur. Had surgery on leg complicated by infection. she had to have repeat surgery. patient then went to rehabilitation. Is currently on 2 different antibiotics through a PICC line. She went home yesterday. At home family states that she has declined steadily. Is very weak. Appears to be short of breath. Is not doing nearly as much as she was doing in rehabilitation. upon physical exampatient is frail appearing. Appears in mild respiratory discomfort. temperature initially 101. That decreased nicely with Tylenol. patient with decreased breath sounds bilaterally. 1+ edema. Workup demonstrates a negative CTA of chest. ormal white count. Anemia at 10.1. Negative flu swab. Serial troponins increased from 0.01 to 0.02 to 0.03. She is allergic to aspirin so it was not given. is referred to hospitalist for admission for elevated troponins. - Diagnoses Provider Diagnoses: Shortness of breath, Fatigue, Elevated troponin - Physician Notifications Discussed Care of Patient With: Krystal Chacon Time Discussed With Above Provider: 05:13 Instructed by Provider To: Other - Dr. Chacon, hospitalist, agrees to admit patient Discharge ED - Sign-Out/Discharge Documenting (check all that apply): Patient Departure - Discharge Plan Condition: Stable Disposition: ADMITTED TO [facility] Referrals: Ken Saldana MD [Primary Care Provider] - 3 Days Additional Instructions: Follow up with your primary care provider in 3 days. Return to the Emergency Department for changing or worsening symptoms. - Billing Disposition and Condition Condition: STABLE Disposition: Admitted to [facility] - Attestation Statements Document Initiated by Aleks: Yes Documenting Scribe: Danielle Luque Provider For Whom Aleks is Documenting (Include Credential): Radha Pérez MD Scribe Attestation: IDanielle, scribed for Radha Pérez MD on 10/19/19 at 0602. Scribe Documentation Reviewed: Yes Provider Attestation: The documentation as recorded by the Danielle kogn accurately reflects the service I personally performed and the decisions made by me, Radha Pérez MD Status of Scribe Document: Viewed
[2019-10-18] MEDS ORDERED: Acetaminophen TAB* 325 MG PO ONE (19:35)
[2019-10-18 20:10] LABS: ABS Lymphocytes 0.2 10^3/ul (1.0-4.8); ABS Monocytes 0.1 10^3/ul (0-0.8); ABS Neutrophils 4.2 10^3/ul (1.5-7.7); Eosinophil % 0.3 %; Hematocrit 29 % (35-47); Hemoglobin 10.1 g/dL (12.0-16.0); Mean Corpuscular HGB Conc 35 g/dL (31-36); Mean Corpuscular Hemoglobin 37 pg (27-31); Mean Corpuscular Volume 103 fL (80-97); Mean Platelet Volume 7.2 fL (7.4-10.4); Platelet Count 388 10^3/uL (150-450); Red Blood Count 2.76 10^6 /uL (3.70-4.87); Red Cell Distribution Width 21 % (10-15); White Blood Count 4.6 10^3/uL (3.5-10.8)
[2019-10-18 20:16] LABS: INR 0.99 (0.82-1.09)
[2019-10-18 20:27] LABS: ALT < 3 U/L (7-52); AST 17 U/L (13-39); Albumin 3.3 g/dL (3.2-5.2); Albumin/Globulin Ratio 1.6 (1-3); Alkaline Phosphatase 74 U/L (34-104); Anion Gap 5 mmol/L (2-11); BUN/Creatinine Ratio 19.2 (8-20); Blood Urea Nitrogen 15 mg/dL (6-24); CO2 Carbon Dioxide 27 mmol/L (22-32); Calcium 7.7 mg/dL (8.6-10.3); Chloride 98 mmol/L (101-111); EGFR African American 84.5 (>60); EGFR Non-African American 69.9 (>60); Globulin 2.1 g/dL (2-4); Glucose 117 mg/dL (70-100); Potassium 4.1 mmol/L (3.5-5.0); Sodium 130 mmol/L (135-145); Total Protein 5.4 g/dL (6.4-8.9)
[2019-10-18 20:29] LABS: Troponin I 0.01 ng/mL (<0.03)
[2019-10-18] MEDS ORDERED: Iohexol 350* (CONTRAST) 500 ML MDV IV ONE (21:17)
[2019-10-19 00:26] LABS: Urine Appearance Clear; Urine Bilirubin Negative (Negative); Urine Blood 1+ (Negative); Urine Color Amber; Urine Glucose Negative (Negative); Urine Ketones Trace (Negative); Urine Nitrite Negative (Negative); Urine Protein 1+(30 mg/dL) (Negative); Urine Urobilinogen Negative (Negative)
[2019-10-19 00:27] LABS: Urine Bacteria Absent (Absent); Urine Red Blood Cell Trace(0-2/hpf) (Absent); Urine White Blood Cell Trace(0-5/hpf) (Absent)
[2019-10-19 00:32] LABS: Urine Specific Gravity > 1.059 (1.010-1.030)
[2019-10-19] MEDS ORDERED: NS 0.9% 1000 ML** 1,000 ML IV ONE (00:35)
[2019-10-19 01:52] LABS: Influenza A Molecular Negative (Negative); Influenza B Molecular Negative (Negative)
[2019-10-19 01:53] LABS: C Reactive Protein 30.49 mg/L (<8.01)
[2019-10-19 01:56] LABS: Troponin I 0.02 ng/mL (<0.03)
[2019-10-19] MEDS ORDERED: Ondansetron INJ* 2 MG/ML VIAL IV ONE (04:13)
[2019-10-19 05:10] LABS: Troponin I 0.03 ng/mL (<0.03)
[2019-10-19] MEDS ORDERED: traMADol TAB* 50 MG PO PRN (06:08)
[2019-10-19] MEDS ORDERED: Polyethylene Glycol 3350* 17 GM PACKET PO PRN (06:08)
[2019-10-19] MEDS ORDERED: CEFAZOLIN SODIUM IV SCH (06:15)
[2019-10-19] MEDS ORDERED: WATER IV SCH (06:15)
--- NOTE | 2019-10-19 06:20 | ADMNOTE ---
Subjective Interval History: This is my H/P 89 yo female with past medical hx of CAD came in via ambulance with complaints of shortness of breath. Pt was just discharged from [facility] following a 3 weeks long hospitalization for left periprosthetic distal femur fracture with total knee revision and positive intra-op tissue cultures. She completed inpatient rehab there. Pt was discharged iwth a PICC to finish a 6 weeks course of Cefazolin and rifampin. When she got home, family was concerned on how the patient looked. They felt she was too easily fatigued and short of breath. Pt herself said she does not feel short of breath but she is extremely tired, has low energy. She complains of poor appetite and nausea. In the ED, pt was febrile at 1o1. This would be the first time she spikes a fever in weeks. She had a CTA done which was normal. Her labs are non- actionable except for a repeat troponin of 0.03. Family History: Unchanged from Admission Social History: Unchanged from Admission Past Medical History: Unchanged from Admission Review of Systems - Measurements Intake and Output: Intake and Output Last 24 Hours 10/16/19 10/17/19 10/18/19 10/19/19 06:59 06:59 06:59 06:59 Intake Total 1000 Balance 1000 Weight 143 lb Intake: IV Fluids 1000 - Review of Systems Constitutional Symptoms: Positive: Weakness, Fatigue, Fever Negative: Weight Gain, Weight Loss, Night Sweats, Unexplained Falls, Other Dermatology: Negative: Normal, Rash, Skin Lesions, Cancer, Skin Lumps, Other HEENT: Negative: Normal, Change in Hearing, Vertigo, Dental Problems, Tinnitus, Sinus Problem, Other Eyes: Negative: Normal, Change in Vision, Double Vision, Eye Pain, Glaucoma, Cataract, Contacts or Glasses, Other Thyroid: Negative: Normal, Goiter, Thyroid Nodule, Cold Intolerance, Heat Intolerance , Sweatiness, Tremor, Frequent Defecation, Constipation, Palpitations, Primary Hypothyroidism, Primary Hyperthyroidism, Weight Loss, Weight Gain, Change in Skin/Hair, Change in Menstruation, Radiation Exposure, Other Pulmonary: Negative: Normal, Cough, Sputum, Hemoptysis, Wheezing, Respiratory Distress, Shortness of Breath, COPD, Asthma, Exercise Intolerance, Home Oxygen, Other Cardiology: Negative: Normal, Chest Pain, Shortness of Breath, Palpitations, Swelling of Ankles, Peripheral Vascular Dis, Edema, Faintness, Syncope, Claudication, Proximal NocturnalDyspnea, Orthopnoea, Other Gastroenterology: Negative: Normal, Abdominal Pain, Nausea, Vomiting, Anorexia, Indigestion, Difficulty Swallowing, Heartburn, Constipation, Diarrhea, Blood in Stools, Change in Bowel Habits, Haematemesis, Melena, Other Genital - Urinary: Negative: Normal, Dysuria, Hematuria, Polyuria, Nocturia, Other Genitourinay - Female: Negative: Menses Normal, Vaginal Discharge, Menopause, Dysmenorrhea, Other Musculoskeletal: Negative: Joint Pain, Joint Stiffness, Arthritis, Osteoporosis, Low Back Pain , Sciatica, Joint Deformities, Kyphoscoliosis, Other Endocrinology: Negative: Normal, Thyroid Problems, Adrenal Problems, Gonadal Problems, Family Hx Endocrine Disorders, Obesity, Diabetes Mellitus, Hyperglycemia, Hx Hypoglycemia, Diabetic Foot Ulcers, Calluses, Hirsutism, Menstrual Abnormalities , Polydipsia, Polyuria, Gonadal Problems, Gynecomastia, Pituitary disease, Other Hematologic/Lymphatic: Negative: Anemia, Easy Bruising, Hx Leukemia, Hx Lymphoma, Use of Anticoagulant, Use of Antiplatelet Drugs, Other Neurology: Negative: Normal, Headache, Migraines, Change in Vision, Diplopia, Dizziness , Change in Balancing, Change in Coordination, Change in Memory, Change in Speech, Change in Sphincter Function, Change in Walking, Numbness\Paresthesiae, Unexplained Weakness, Hx of Stroke\TIA, Hx of Seizures, Other Psychiatry: Negative: Normal, Depression, Anxiety, Depressed Mood, Anhedonia, Sexual Dysfunction, Weight Change, Guilt Feelings, Tearfulness, Unusual Fatigue, Unusual Anxiety, Suicidal Ideation, Hypomania, Eating Disorders, Other Objective Active Medications: Metoprolol Succinate (Toprol Xl Tab*) 50 mg PO DAILY RYAN Non-Formulary Medication (Cefazolin Sodium/Water [Cefazolin 1 G/10 Ml-Water Syrg ]) 6 gm IV .CONTINUOUSLY RYAN Non-Formulary Medication (Heparin Flush(*)) 5 ml IV FLUSH ONCE PRN PRN Reason: PER PROTOCOL Non-Formulary Medication (Lisinopril [Lisinopril]) 10 mg PO DAILY RYAN Non-Formulary Medication (Saccharomyces Boulardii [Probiotic]) 250 mg PO BID RYAN Polyethylene Glycol/Electrolytes (Miralax (17 Gm Dose Ricky)) 17 gm PO DAILY PRN PRN Reason: CONSTIPATION Rifampin (Rifampin Cap*) 300 mg PO BID RYAN Tramadol HCl (Ultram*) 50 mg PO Q6H PRN PRN Reason: PAIN Vital Signs - 8 hr 10/19/19 10/19/19 10/19/19 00:00 00:04 00:05 Temperature 97.9 F Pulse Rate 77 77 75 Respiratory 18 Rate Blood Pressure 121/61 125/54 (mmHg) O2 Sat by Pulse 96 96 95 Oximetry 10/19/19 10/19/19 10/19/19 00:35 01:00 01:05 Temperature Pulse Rate 76 79 76 Respiratory Rate Blood Pressure 127/59 118/61 (mmHg) O2 Sat by Pulse 95 94 94 Oximetry 10/19/19 10/19/19 10/19/19 01:35 02:00 02:05 Temperature Pulse Rate 73 77 74 Respiratory Rate Blood Pressure 126/58 130/58 (mmHg) O2 Sat by Pulse 94 95 95 Oximetry 10/19/19 10/19/19 10/19/19 02:35 03:01 03:05 Temperature Pulse Rate 74 75 73 Respiratory Rate Blood Pressure 129/62 141/61 (mmHg) O2 Sat by Pulse 96 96 92 Oximetry 10/19/19 10/19/19 10/19/19 03:35 04:01 04:17 Temperature Pulse Rate 73 73 75 Respiratory Rate Blood Pressure 118/55 131/60 (mmHg) O2 Sat by Pulse 95 95 94 Oximetry 10/19/19 10/19/19 05:01 06:00 Temperature Pulse Rate 73 73 Respiratory 22 18 Rate Blood Pressure (mmHg) O2 Sat by Pulse 92 93 Oximetry Oxygen Devices in Use Now: None Appearance: pt is sluggish, she looks tired Eyes: No Scleral Icterus, PERRLA Ears/Nose/Mouth/Throat: Clear Oropharnyx, Mucous Membranes Moist Neck: NL Appearance and Movements; NL JVP, Trachea Midline Respiratory: Symmetrical Chest Expansion and Respiratory Effort, Clear to Auscultation, Clear to Percussion Cardiovascular: NL Sounds; No Murmurs; No JVD, - - 2+ edema Abdominal: NL Sounds; No Tenderness; No Distention Lymphatic: No Cervical Adenopathy Skin: No Rash or Ulcers, No Nodules or Sclerosis Neurological: Alert and Oriented x 3 Result Diagrams: 10/18/19 19:49 10/18/19 19:49 Assess/Plan/Problems-Billing Assessment: - Patient Problems (1) Fever Current Visit: Yes Status: Acute Code(s): R50.9 - FEVER, UNSPECIFIED SNOMED Code(s): 279736185 Comment: she had 1 episode where her Temp was 101 in the ED Pe r/o, she has been on abx for weeks. Her leg has no erythema, no drainage CRP is mildly elevated, no white count likely related to her medications flu neg (2) NSTEMI (non-ST elevated myocardial infarction) Current Visit: No Status: Acute Code(s): I21.4 - NON-ST ELEVATION (NSTEMI) MYOCARDIAL INFARCTION SNOMED Code(s): 56995832 Comment: hx of CAD and CHF with ef of 30-35%. pt said she has never had stents placed Her trops is mildly elevated in the ED, will trend. She is not having any chest pain PE was r/o cont iwth aspirin, BB, BLANE and statin (3) Chronic systolic CHF (congestive heart failure) Current Visit: No Status: Acute Code(s): I50.22 - CHRONIC SYSTOLIC ( CONGESTIVE) HEART FAILURE SNOMED Code(s): 150792418 Comment: EF 30-35% no pulmonary edema, cont home Lasix. Continue BLANE-I, statin, beta-kt, ASA, and Plavix. (4) Nausea & vomiting Current Visit: No Status: Acute Code(s): R11.2 - NAUSEA WITH VOMITING, UNSPECIFIED SNOMED Code(s): 85609703 Comment: She has been nauseous with poor appetite. Likely side effects of her abx and her chronic illness (5) Anemia Current Visit: No Status: Acute Code(s): D64.9 - ANEMIA, UNSPECIFIED SNOMED Code(s): 932181063 Comment: pt has chronic anemia, received blood perioperatively. was told to have anemia of chronic disease stable (6) DNR (do not resuscitate) Current Visit: No Status: Acute (7) Infection of total left knee replacement Current Visit: Yes Status: Acute Code(s): T84.54XA - INFECT/INFLM REACTION DUE TO INTERNAL LEFT KNEE PROSTH, INIT SNOMED Code(s): 029217426 Comment: intra-op cultures at [facility] were pos during knee revision. Pt has been on rifampin and cefazolin as recommended by ID to complete a 6 weeks course had fever in the ED, new blood cultures drawn, but with mildly elevated CRP, no white count, im thinking possibly a drug fever (8) DVT prophylaxis Current Visit: No Status: Acute Code(s): QCP3727 - SNOMED Code(s): 770668522 Comment: Heparin (9) Hypothyroid Current Visit: No Status: Acute Code(s): E03.9 - HYPOTHYROIDISM, UNSPECIFIED SNOMED Code(s): 29601510 Comment: Continue Synthroid (10) Hypertension Current Visit: No Status: Acute Code(s): I10 - ESSENTIAL (PRIMARY) HYPERTENSION SNOMED Code(s): 92418022 Comment: Continue Lisinopril and Toprol.
[2019-10-19 07:08] LABS: Troponin I 0.03 ng/mL (<0.03)
[2019-10-19] MEDS: Metoprolol Succinate XL TAB* 50 MG PO SCH (08:39)
[2019-10-19] MEDS: Lisinopril TAB* 10 MG PO SCH (08:39)
[2019-10-19] MEDS: Heparin VIAL(*) 5000 UNITS/ML VIAL (FIVE THOUSAND) SUBCUT SCH ×2 (08:40→21:00)
[2019-10-19] MEDS: SACCHAROMYCES BOULARDII 250 MG PO SCH ×2 (08:40→21:00)
--- NOTE | 2019-10-19 09:40 | PN ---
Hospitalist Progress Note Date of Service: 10/19/19 Patient admitted this morning Currently nausea has improved, denies CP, SOB. Has patent PICC line with continuous cefazolin infusion attached (using home pump) We discussed switching her to the hospital IV system and providing the medication in house (order placed) Denies any known sick contacts; felt well up until discharge from [facility] on . 89 yo female, appears tired and ill, sitting up in bed, NAD. AOx3 HEENT: PERRLA, EOMI, oral mucosa moist Neck: supple, full ROM CV: RRR, BLE edema 1-2+, DP 2+ Lungs: CTA Abd: soft, NTND, BS + Extremities: left knee incision, well approximated, no erythema or drainage, sutures removed, steristrips in place Neuro: no focal deficits continue current plan of care No CP or SOB, continue to trend troponins States that her ID provider is Dr. Jang and her orthopedic surgeon is Dr. Babb Continue cefazolin.
[2019-10-19] MEDS: RiFAMPin CAP* 300 MG CAP PO SCH ×2 (09:49→21:00)
[2019-10-19] MEDS ORDERED: ceFAZolin 2 GM in NS PREMIX(*) 2 GM/100 ML BAG IVPB SCH (10:00)
[2019-10-19] MEDS: ceFAZolin 2 GM in NS PREMIX(*) 2 GM/100 ML BAG IVPB SCH ×2 (11:09→16:59)
[2019-10-19 18:45] LABS: Troponin I 0.03 ng/mL (<0.03)
[2019-10-20] MEDS: ceFAZolin 2 GM in NS PREMIX(*) 2 GM/100 ML BAG IVPB SCH ×3 (02:01→18:08)
[2019-10-20 06:57] LABS: ABS Basophils 0.1 10^3/ul (0-0.2); ABS Lymphocytes 0.7 10^3/ul (1.0-4.8); ABS Monocytes 0.3 10^3/ul (0-0.8); ABS Neutrophils 2.9 10^3/ul (1.5-7.7); Eosinophil % 1.2 %; Hematocrit 28 % (35-47); Hemoglobin 9.7 g/dL (12.0-16.0); Lymphocyte % 18.1 %; Mean Corpuscular HGB Conc 35 g/dL (31-36); Mean Corpuscular Hemoglobin 36 pg (27-31); Mean Corpuscular Volume 103 fL (80-97); Mean Platelet Volume 7.3 fL (7.4-10.4); Platelet Count 316 10^3/uL (150-450); Red Blood Count 2.71 10^6 /uL (3.70-4.87); Red Cell Distribution Width 21 % (10-15)
[2019-10-20 07:12] LABS: BUN/Creatinine Ratio 22.1 (8-20); Calcium 6.8 mg/dL (8.6-10.3); EGFR Non-African American 81.8 (>60); Potassium 3.9 mmol/L (3.5-5.0)
[2019-10-20] MEDS: Metoprolol Succinate XL TAB* 50 MG PO SCH (09:56)
[2019-10-20] MEDS: RiFAMPin CAP* 300 MG CAP PO SCH ×2 (09:57→21:48)
[2019-10-20] MEDS: Lisinopril TAB* 10 MG PO SCH (09:57)
[2019-10-20] MEDS: Heparin VIAL(*) 5000 UNITS/ML VIAL (FIVE THOUSAND) SUBCUT SCH ×2 (10:05→21:49)
--- NOTE | 2019-10-20 13:48 | PN ---
Subjective Date of Service: 10/20/19 Interval History: Patient has no dyspnea or fever today. She does feel weak, but has been OOB to chair. She is tolerating food. Lives alone. Family History: Unchanged from Admission Social History: Unchanged from Admission Past Medical History: Unchanged from Admission Objective Active Medications: Heparin Sodium (Porcine) (Heparin Vial(*)) 5,000 units SUBCUT Q12HR [facility] Last Admin: 10/20/19 10:05 Dose: 5,000 units Heparin Sodium (Porcine) (Heparin Flush Picc/Ml/Cvc(*)) 1 - 3 ml FLUSH 0600, 1800 [facility]; Protocol Last Admin: 10/20/19 06:08 Dose: 1 ml Cefazolin Sodium (Kefzol 2 Gm In Ns Premix(*)) 2 gm in 100 mls @ 200 mls/hr IVPB Q8H [facility] Last Admin: 10/20/19 10:00 Dose: 200 mls/hr Lisinopril (Prinivil Tab*) 10 mg PO DAILY [facility] Last Admin: 10/20/19 09:57 Dose: 10 mg Metoprolol Succinate (Toprol Xl Tab*) 50 mg PO DAILY [facility] Last Admin: 10/20/19 09:56 Dose: 50 mg Probiotic (Target Brand Lactobacillus Combination) 0 mg PO BID [facility] Polyethylene Glycol/Electrolytes (Miralax (17 Gm Dose Ricky)) 17 gm PO DAILY PRN PRN Reason: CONSTIPATION Rifampin (Rifampin Cap*) 300 mg PO BID [facility] Last Admin: 10/20/19 09:57 Dose: 300 mg Tramadol HCl (Ultram*) 50 mg PO Q6H PRN PRN Reason: PAIN Vital Signs - 8 hr 10/20/19 10/20/19 07:15 08:00 Temperature 36.4 C Pulse Rate 72 Respiratory 16 16 Rate Blood Pressure 131/58 (mmHg) O2 Sat by Pulse 98 Oximetry Oxygen Devices in Use Now: None Appearance: alert, no distress Eyes: No Scleral Icterus Ears/Nose/Mouth/Throat: NL Teeth, Lips, Gums Neck: NL Appearance and Movements; NL JVP Respiratory: Symmetrical Chest Expansion and Respiratory Effort, Clear to Auscultation Cardiovascular: NL Sounds; No Murmurs; No JVD Abdominal: NL Sounds; No Tenderness; No Distention Extremities: - - LT knee w/ recent surgical wound, no dehissence Lines/Tubes/Other Access: Clean, Dry and Intact Peripheral IV Nutrition: Taking PO's Result Diagrams: 10/20/19 06:41 10/20/19 06:41 Additional Lab and Data: Laboratory Tests 10/18/19 10/19/19 10/20/19 19:49 17:55 06:41 BUN/Creatinine Ratio 22.1 H Calcium 6.8 L Troponin I 0.03 H* Albumin 3.3 Microbiology and Other Data: Microbiology 10/19/19 00:15 Urine Culture - Final Urine No Growth (<1,000 CFU/mL) 10/18/19 19:49 Aerobic Blood Culture - Preliminary Blood Venous No Growth Day 1 Anaerobic Blood Culture - Preliminary No Growth Day 1 10/18/19 19:49 Aerobic Blood Culture - Preliminary Blood Venous No Growth Day 1 Anaerobic Blood Culture - Preliminary No Growth Day 1 10/19/19 08:38 Nasal Screen MRSA (PCR) - Final Nasal Mrsa Not Detected Assess/Plan/Problems-Billing Assessment: 89 year old with infection in LT knee replacment, on chronic IV and PO antibiotics, admitted w/ dyspnea and fever - Patient Problems (1) Fever Current Visit: Yes Status: Acute Priority: High Code(s): R50.9 - FEVER, UNSPECIFIED SNOMED Code(s): 083115259 Comment: -No further fevers, no change in antibiotic regimen -Likely viral illness, which would explain fatigue, dyspnea also (2) Infection of total left knee replacement Current Visit: Yes Status: Acute Priority: Medium Code(s): T84.54XA - INFECT/INFLM REACTION DUE TO INTERNAL LEFT KNEE PROSTH, INIT SNOMED Code(s): 852162883 Comment: -Continue cefazolin and rifampin for 6 weeks per ID in [place] (3) Anemia, macrocytic Current Visit: Yes Status: Acute Priority: Medium Code(s): D53.9 - NUTRITIONAL ANEMIA, UNSPECIFIED SNOMED Code(s): 04357798 Comment: - Will check B12 level tomorrow - may be medication-related. (4) DVT prophylaxis Current Visit: No Status: Acute Priority: Medium Code(s): UTF8694 - SNOMED Code(s): 268949238 Comment: -Heparin SC Status and Disposition: Short-term rehab planned
[2019-10-20] MEDS: SACCHAROMYCES BOULARDII 250 MG PO SCH (14:55)
[2019-10-20] MEDS: PROBIOTIC PO SCH (21:51)
[2019-10-21] MEDS: ceFAZolin 2 GM in NS PREMIX(*) 2 GM/100 ML BAG IVPB SCH ×3 (03:00→17:47)
[2019-10-21 05:52] LABS: ABS Eosinophils 0.2 10^3/ul (0-0.6); ABS Monocytes 0.4 10^3/ul (0-0.8); ABS Neutrophils 2.7 10^3/ul (1.5-7.7); Eosinophil % 3.5 %; Hematocrit 28 % (35-47); Hematocrit for Retic CNT 28 % (35-47); Hemoglobin 9.4 g/dL (12.0-16.0); Lymphocyte % 22.8 %; Mean Corpuscular HGB Conc 34 g/dL (31-36); Mean Corpuscular Hemoglobin 35 pg (27-31); Mean Corpuscular Volume 103 fL (80-97); Mean Platelet Volume 7.3 fL (7.4-10.4); Platelet Count 319 10^3/uL (150-450); RBC Retic Count 2.71 10^6/uL (3.70-4.87); Red Blood Count 2.71 10^6 /uL (3.70-4.87); Red Cell Distribution Width 21 % (10-15); White Blood Count 4.3 10^3/uL (3.5-10.8)
[2019-10-21 06:00] LABS: Corrected Retic Count 1.3 % (0.5-1.5); Immature Retic Fraction 0.51
[2019-10-21] MEDS ORDERED: Levothyroxine TAB* 100 MCG TAB PO SCH (06:00)
[2019-10-21 06:16] LABS: BUN/Creatinine Ratio 26.2 (8-20); Calcium 6.9 mg/dL (8.6-10.3); EGFR African American 112.3 (>60); EGFR Non-African American 92.8 (>60)
[2019-10-21] MEDS: Heparin VIAL(*) 5000 UNITS/ML VIAL (FIVE THOUSAND) SUBCUT SCH ×2 (08:01→20:34)
[2019-10-21] MEDS: RiFAMPin CAP* 300 MG CAP PO SCH ×2 (08:01→20:31)
[2019-10-21] MEDS: Lisinopril TAB* 10 MG PO SCH (08:01)
[2019-10-21] MEDS: Metoprolol Succinate XL TAB* 50 MG PO SCH (08:01)
[2019-10-21] MEDS: PROBIOTIC PO SCH ×2 (08:05→20:33)
[2019-10-21] MEDS ORDERED: Senna TAB 8.6 mg* TAB PO PRN (08:19)
[2019-10-21] MEDS: Aspirin EC TAB* 81 MG TAB.EC PO SCH (09:20)
[2019-10-21] MEDS: Atorvastatin* 40 MG TAB PO SCH (09:20)
[2019-10-21] MEDS: Cyanocobalamin TAB* 500 MCG PO SCH (10:12)
[2019-10-21] MEDS: Levothyroxine TAB* 100 MCG TAB PO SCH (10:12)
[2019-10-21] MEDS ORDERED: DENOSUMAB 60 MG/ML SUBCUT ONE (11:22)
--- NOTE | 2019-10-21 11:36 | PN ---
Subjective Date of Service: 10/21/19 Interval History: Ms. Rebollar is feeling fine today. She offers no complaints now, but did not sleep well overnight. She did eat breakfast this morning and has a good appetite. No leg pain. Denies CP or SOB. No concerns from nursing. Family History: Unchanged from Admission Social History: Unchanged from Admission Past Medical History: Unchanged from Admission Objective Active Medications: Aspirin (Aspirin Ec Tab*) 81 mg PO DAILY [facility] Atorvastatin Calcium (Lipitor*) 40 mg PO DAILY [facility] Cholecalciferol (Vitamin D Tab*) 2,000 units PO QPM [facility] Cyanocobalamin (Vitamin B12 Tab*) 1,000 mcg PO DAILY [facility] Heparin Sodium (Porcine) (Heparin Vial(*)) 5,000 units SUBCUT Q12HR [facility] Heparin Sodium (Porcine) (Heparin Flush Picc/Ml/Cvc(*)) 1 - 3 ml FLUSH 0600, 1800 [facility]; Protocol Cefazolin Sodium (Kefzol 2 Gm In Ns Premix(*)) 2 gm in 100 mls @ 200 mls/hr IVPB Q8H [facility] Levothyroxine Sodium (Synthroid Tab*) 100 mcg PO 0601 [facility] Lisinopril (Prinivil Tab*) 10 mg PO DAILY [facility] Metoprolol Succinate (Toprol Xl Tab*) 50 mg PO DAILY [facility] Probiotic (Target Brand Lactobacillus Combination) 0 mg PO BID [facility] Polyethylene Glycol/Electrolytes (Miralax (17 Gm Dose Ricky)) 17 gm PO DAILY PRN CONSTIPATION Rifampin (Rifampin Cap*) 300 mg PO BID [facility] Senna (Senokot 8.6 Mg Tab*) 2 tab PO BEDTIME PRN DIARRHEA Tramadol HCl (Ultram*) 50 mg PO Q6H PRN PAIN Vital Signs - 8 hr 10/21/19 10/21/19 07:33 07:45 Temperature 98.2 F Pulse Rate 65 Respiratory 16 16 Rate Blood Pressure 144/66 (mmHg) O2 Sat by Pulse 98 Oximetry Oxygen Devices in Use Now: None Appearance: Elderly female sitting in chair in NAD Ears/Nose/Mouth/Throat: Mucous Membranes Moist Neck: NL Appearance and Movements; NL JVP, Trachea Midline Respiratory: Symmetrical Chest Expansion and Respiratory Effort, Clear to Auscultation Cardiovascular: NL Sounds; No Murmurs; No JVD, RRR Abdominal: NL Sounds; No Tenderness; No Distention Extremities: - - +1 pitting BLE Neurological: Alert and Oriented x 3 Lines/Tubes/Other Access: Clean, Dry and Intact Peripheral IV Nutrition: Taking PO's Result Diagrams: 10/21/19 05:45 10/21/19 05:45 Assess/Plan/Problems-Billing Assessment: Ms. Rebollar is an 89 yo F with PMH of HTN, CAD, hypothyroidism, osteoporosis, macular degeneration, spinal stensosis; recently discharged from [facility] for prosthetic joint infection, on IV antibiotics; presented to the ED with c/o dyspnea and fever, thought to have viral illness. - Patient Problems (1) Fever Code(s): R50.9 - FEVER, UNSPECIFIED Comment: - No further fevers, no change in antibiotic regimen - Likely viral illness, which would explain fatigue and dyspnea (2) Infection of total left knee replacement Code(s): T84.54XA - INFECT/INFLM REACTION DUE TO INTERNAL LEFT KNEE PROSTH, INIT Comment: - [facility] providers; Ortho: Dr. Babb; ID specialist: Dr. Jang - PICC line in place - Continue cefazolin, rifampin for 6 weeks (3) Anemia, macrocytic Code(s): D53.9 - NUTRITIONAL ANEMIA, UNSPECIFIED Comment: - B12 low - Start vitamin B12 (4) Hypertension Code(s): I10 - ESSENTIAL (PRIMARY) HYPERTENSION Comment: - Normotensive - Continue lisinopril, metoprolol; resume furosemide (5) Chronic systolic CHF (congestive heart failure) Code(s): I50.22 - CHRONIC SYSTOLIC (CONGESTIVE) HEART FAILURE Comment: - EF 30-35% in 2017 - Not in acute exacerbation, but there is notable BLE edema - Continue metoprolol, lisinopril; resume furosemide (6) CAD (coronary artery disease) Code(s): I25.10 - ATHSCL HEART DISEASE OF [place] CORONARY ARTERY W/O ANG PCTRS Comment: - Continue aspirin, atorvastatin, metoprolol (7) Hypothyroid Code(s): E03.9 - HYPOTHYROIDISM, UNSPECIFIED Comment: - Continue levothyroxine (8) Osteoporosis Code(s): M81.0 - AGE-RELATED OSTEOPOROSIS W/O CURRENT PATHOLOGICAL FRACTURE Comment: - Due for [id number] injection of Prolia which family has supplied - Prolia x1 today (9) DVT prophylaxis Comment: - Heparin SQ (10) DNR (do not resuscitate) Comment: Status and Disposition: Inpatient. Medically stable. Awaiting [facility] bed. Attending: Nixon Landers
[2019-10-21] MEDS: Cholecalciferol TAB* 1000 UNITS PO SCH (17:46)
[2019-10-22] MEDS: ceFAZolin 2 GM in NS PREMIX(*) 2 GM/100 ML BAG IVPB SCH ×3 (02:24→17:23)
[2019-10-22] MEDS: Levothyroxine TAB* 100 MCG TAB PO SCH (05:21)
[2019-10-22 05:30] LABS: ABS Eosinophils 0.3 10^3/ul (0-0.6); ABS Lymphocytes 1.1 10^3/ul (1.0-4.8); ABS Monocytes 0.4 10^3/ul (0-0.8); ABS Neutrophils 2.9 10^3/ul (1.5-7.7); Eosinophil % 5.8 %; Hematocrit 29 % (35-47); Hemoglobin 9.9 g/dL (12.0-16.0); Lymphocyte % 23.7 %; Mean Corpuscular HGB Conc 34 g/dL (31-36); Mean Corpuscular Hemoglobin 35 pg (27-31); Mean Corpuscular Volume 103 fL (80-97); Mean Platelet Volume 7.5 fL (7.4-10.4); Platelet Count 346 10^3/uL (150-450); Red Blood Count 2.84 10^6 /uL (3.70-4.87); Red Cell Distribution Width 20 % (10-15); White Blood Count 4.7 10^3/uL (3.5-10.8)
[2019-10-22] MEDS: PROBIOTIC PO SCH ×2 (09:50→21:33)
[2019-10-22] MEDS: Heparin VIAL(*) 5000 UNITS/ML VIAL (FIVE THOUSAND) SUBCUT SCH ×2 (09:50→21:33)
[2019-10-22] MEDS: Metoprolol Succinate XL TAB* 50 MG PO SCH (09:51)
[2019-10-22] MEDS: Cyanocobalamin TAB* 500 MCG PO SCH (09:51)
[2019-10-22] MEDS: Lisinopril TAB* 10 MG PO SCH (09:51)
[2019-10-22] MEDS: RiFAMPin CAP* 300 MG CAP PO SCH ×2 (09:51→21:32)
[2019-10-22] MEDS: Aspirin EC TAB* 81 MG TAB.EC PO SCH (09:51)
[2019-10-22] MEDS: Furosemide TAB* 40 MG PO SCH (09:51)
[2019-10-22] MEDS: Atorvastatin* 40 MG TAB PO SCH (09:51)
[2019-10-22] MEDS ORDERED: Furosemide TAB* 20 MG PO ONE (15:02)
--- NOTE | 2019-10-22 15:03 | PN ---
Subjective Date of Service: 10/22/19 Interval History: Ms. Rebollar is feeling okay today. She offers no complaints. Generally feels better than she has in the last few days. Denies significant fatigue. No CP or SOB. Family at bedside notes that her LE are more edematous than usual. Patient is not happy about having to go to [facility], but is agreeable. No concerns from nursing. Family History: Unchanged from Admission Social History: Unchanged from Admission Past Medical History: Unchanged from Admission Objective Active Medications: Aspirin (Aspirin Ec Tab*) 81 mg PO DAILY [facility] Atorvastatin Calcium (Lipitor*) 40 mg PO DAILY [facility] Cholecalciferol (Vitamin D Tab*) 2,000 units PO QPM [facility] Cyanocobalamin (Vitamin B12 Tab*) 1,000 mcg PO DAILY [facility] Furosemide (Lasix Tab*) 40 mg PO QAM [facility] Heparin Sodium (Porcine) (Heparin Vial(*)) 5,000 units SUBCUT Q12HR [facility] Heparin Sodium (Porcine) (Heparin Flush Picc/Ml/Cvc(*)) 1 - 3 ml FLUSH 0600, 1800 [facility]; Protocol Cefazolin Sodium (Kefzol 2 Gm In Ns Premix(*)) 2 gm in 100 mls @ 200 mls/hr IVPB Q8H [facility] Levothyroxine Sodium (Synthroid Tab*) 100 mcg PO 0601 [facility] Lisinopril (Prinivil Tab*) 10 mg PO DAILY [facility] Metoprolol Succinate (Toprol Xl Tab*) 50 mg PO DAILY [facility] Probiotic (Target Brand Lactobacillus Combination) 0 mg PO BID [facility] Polyethylene Glycol/Electrolytes (Miralax (17 Gm Dose Ricky)) 17 gm PO DAILY PRN CONSTIPATION Rifampin (Rifampin Cap*) 300 mg PO BID [facility] Senna (Senokot 8.6 Mg Tab*) 2 tab PO BEDTIME PRN DI[facility] Tramadol HCl (Ultram*) 50 mg PO Q6H PRN PAIN Vital Signs - 8 hr 10/22/19 10/22/19 10/22/19 07:15 08:00 10:30 Temperature 97.9 F 98.5 F Pulse Rate 65 68 Respiratory 18 18 20 Rate Blood Pressure 130/58 140/73 (mmHg) O2 Sat by Pulse 97 97 Oximetry 10/22/19 14:53 Temperature 98.7 F Pulse Rate 73 Respiratory 20 Rate Blood Pressure 142/62 (mmHg) O2 Sat by Pulse 98 Oximetry Oxygen Devices in Use Now: None Appearance: Elderly female sitting in chair in NAD Ears/Nose/Mouth/Throat: Mucous Membranes Moist Neck: NL Appearance and Movements; NL JVP, Trachea Midline Respiratory: Symmetrical Chest Expansion and Respiratory Effort, Clear to Auscultation Cardiovascular: NL Sounds; No Murmurs; No JVD, RRR Abdominal: NL Sounds; No Tenderness; No Distention Extremities: - - +1-2 pitting BLE Neurological: Alert and Oriented x 3 Lines/Tubes/Other Access: Clean, Dry and Intact PICC Line Nutrition: Taking PO's Result Diagrams: 10/22/19 05:21 10/21/19 05:45 Assess/Plan/Problems-Billing Assessment: Ms. Rebollar is an 89 yo F with PMH of HTN, CAD, hypothyroidism, osteoporosis, macular degeneration, spinal stensosis; recently discharged from [facility] for prosthetic joint infection, on IV antibiotics; presented to the ED with c/o dyspnea and fever, thought to have viral illness. - Patient Problems (1) Fever Code(s): R50.9 - FEVER, UNSPECIFIED Comment: - No further fevers, no change in antibiotic regimen - Likely viral illness, which would explain fatigue and dyspnea (2) Infection of total left knee replacement Code(s): T84.54XA - INFECT/INFLM REACTION DUE TO INTERNAL LEFT KNEE PROSTH, INIT Comment: - [facility] providers; Ortho: Dr. Babb; ID specialist: Dr. Jang - PICC line in place - Continue cefazolin, rifampin for 6 weeks (3) Anemia, macrocytic Code(s): D53.9 - NUTRITIONAL ANEMIA, UNSPECIFIED Comment: - B12 low - Continue vitamin B12 (4) Hypertension Code(s): I10 - ESSENTIAL (PRIMARY) HYPERTENSION Comment: - Normotensive - Continue lisinopril, metoprolol, furosemide (5) Chronic systolic CHF (congestive heart failure) Code(s): I50.22 - CHRONIC SYSTOLIC (CONGESTIVE) HEART FAILURE Comment: - EF 30-35% in 2017 - Not in acute exacerbation, but there is notable BLE edema - Will repeat echo prior to d/c as she has not had one since 2017 - Continue metoprolol, lisinopril, furosemide; will give an extra dose of furosemide this afternoon (6) CAD (coronary artery disease) Code(s): I25.10 - ATHSCL HEART DISEASE OF [place] CORONARY ARTERY W/O ANG PCTRS Comment: - Continue aspirin, atorvastatin, metoprolol (7) Hypothyroid Code(s): E03.9 - HYPOTHYROIDISM, UNSPECIFIED Comment: - Continue levothyroxine (8) Osteoporosis Code(s): M81.0 - AGE-RELATED OSTEOPOROSIS W/O CURRENT PATHOLOGICAL FRACTURE Comment: - Received Prolia 10/21/19, due again in 6 months (9) DVT prophylaxis Comment: - Heparin SQ (10) DNR (do not resuscitate) Comment: Status and Disposition: Inpatient. Awaiting [facility] bed. Attending: Krystal Nicole
--- NOTE | 2019-10-22 15:04 | ECHO ---
*[facility]* [place] [address] Fax #: [phone] Transthoracic Echocardiogram Patient: Yulisa Rebollar : 1930 Study Date: 10/22/2019 Age: 89 Gender: F HR: 68 bpm Height: 61 in /154.9 cm BSA: 1.7 m^2 Weight: 156.7 lb /71.2 kg BMI: 29.7 kg/m^2 *Adoption Specialist: * Tammy Mitchell *Referring Physician: * Diana English *Reading Physician: * Manuel Cortes MD Indications: Edema. History: Coronary artery disease. Risk factors: Hypertension. Conclusions Summary: - Impressions: - Left ventricle: Septal wall thickness is mildly increased, no evidence of left ventricular outflow tract obstruction. Systolic function is mildly to moderately reduced. The estimated ejection fraction is 40-45%. Mild diffuse hypokinesis. - Right ventricle: Systolic function is normal. - Mitral valve: There is mild regurgitation. - Aortic valve: There is no evidence of stenosis. There is no significant regurgitation. - Tricuspid valve: There is trace to mild regurgitation. - Pulmonary arteries: Systolic pressure is within the normal range, estimated to be 28 mm Hg. - Compared to study of 06/01/17, the left ventricle functin is improved from 30-35%. Valve function are the same. Study data: Transthoracic echocardiogram. Procedure: Transthoracic echocardiography was performed. Image quality was good. Complete 2D, spectral Doppler, and color flow Doppler. Location: Bedside. Patient status: Inpatient. Patient room number: 438. Rhythm: Normal sinus rhythm. Findings Left ventricle: Septal wall thickness is mildly increased, no evidence of left ventricular outflow tract obstruction. Systolic function is mildly to moderately reduced. The estimated ejection fraction is 40-45%. Mild diffuse hypokinesis. Regional wall motion abnormalities: Hypokinesis of the anteroseptal myocardium. Doppler parameters are consistent with abnormal left ventricular relaxation (grade 1 diastolic dysfunction). Right ventricle: The cavity size is at the upper limits of normal. Systolic function is normal. Ventricular septum: The ventricular septum is normal. Left atrium: The atrium is normal in size. Right atrium: The atrium is normal in size. Atrial septum: No defect or patent foramen ovale is identified. Mitral valve: The leaflets are mildly thickened. There is no evidence of stenosis. There is mild regurgitation. Aortic valve: The valve is trileaflet. The leaflets are mildly thickened and mildly calcified. There is no evidence of stenosis. There is no significant regurgitation. Tricuspid valve: The valve is structurally normal. There is no evidence of stenosis. There is trace to mild regurgitation. Pulmonic valve: The valve is structurally normal. There is no evidence of stenosis. There is trace regurgitation. Aorta: The aortic root appears normal. Pericardium: There is no significant pericardial effusion. Pulmonary arteries: Systolic pressure is within the normal range, estimated to be 28 mm Hg. Systemic veins: Inferior vena cava: The vessel is normal in size. There is (>= 50%) respiratory change in the IVC dimension. Pulmonary veins: Not well visualized. Measurements Left ventricle Value Ref Aortic valve continued Value Ref RACHEL, LAX 3.9 cm 3.8 - 5.2 Mean grad, S 5.0 mm Hg ----- ESD, LAX 3.2 cm 2.2 - 3.5 Peak grad, S 11.0 mm Hg ----- FS, LAX (L) 19 % 27 - 45 OLGA LIDIA, VTI 2.52 cm^2 ----- PW, ED, LAX (H) 1.2 cm 0.6 - 0.9 OLGA LIDIA, Vmax 2.24 cm^2 ----- E', lat mary[place], TDI (L) 5.6 cm/sec >=10.0 E/e', lat mary[place], 19 Mitral valve Value R ef TDI Peak E 1.07 m/sec ----- Peak A 1.43 m/sec ----- LVOT Value Ref Decel time 306 ms ----- Diam, S 2.00 cm Peak grad, D 4.6 mm Hg ----- Area 3.1 cm^2 Peak E/A ratio 0.7 ----- Peak anitha, S 1.17 m/sec Peak grad, S 5 mm Hg Pulmonic valve Value Ref Mean grad, S 3 mm Hg Peak v, S 0.76 m/sec ----- SV 89 ml Peak grad, S 2.0 mm Hg ----- Ventricular septum Value Ref Tricuspid valve Value Ref IVS, ED (H) 1.5 cm 0.6 - 0.9 TR peak v 2.38 m/sec <=2 .8 Peak RV-RA grad, S 23 mm Hg ----- Right ventricle Value Ref Max TR anitha 2.44 m/sec ----- RACHEL, LAX 2.1 cm RACHEL minor ax, (H) 4.7 cm 1.9 - 3.5 Aortic root Value Ref A4C mid Root diam 3.2 cm <3. 9 Left atrium Value Ref Ascending aorta Value Ref AP dim, ES 3.40 cm 2.70 - AAo AP diam, S 3.6 cm ----- 3.80 ML dim, A4C 4.5 cm Aortic arch Value Ref SI dim, A4C 5.4 cm Arch diam 3.0 cm ----- Vol/bsa, ES, 1-p 23 ml/m^2 11 - 40 A4C Decending aorta Value Ref Laura peak anitha 0.63 m/sec ----- Right atrium Value Ref SI dim, ES 4.2 cm 3.4 - 5.3 Inferior vena cava Value Ref ML dim, ES, A4C 3.5 cm 2.6 - 4.4 Diam 1.6 cm ----- SI dim, ES, A4C 4.3 cm 3.4 - 5.3 Aortic valve Value Ref Peak v, S 1.64 m/sec VTI, S 35.2 cm Legend: (L) and (H) eric values outside specified reference range. Prepared and electronically signed by Manuel Cortes MD 10/22/2019 15:04
[2019-10-22] MEDS: Cholecalciferol TAB* 1000 UNITS PO SCH (17:23)
[2019-10-23] MEDS: ceFAZolin 2 GM in NS PREMIX(*) 2 GM/100 ML BAG IVPB SCH ×2 (02:34→10:12)
[2019-10-23] MEDS: Levothyroxine TAB* 100 MCG TAB PO SCH (05:18)
[2019-10-23 08:00] VITALS: BP 121/44
[2019-10-23] MEDS: Cyanocobalamin TAB* 500 MCG PO SCH (10:11)
[2019-10-23] MEDS: Aspirin EC TAB* 81 MG TAB.EC PO SCH (10:11)
[2019-10-23] MEDS: Metoprolol Succinate XL TAB* 50 MG PO SCH (10:11)
[2019-10-23] MEDS: Atorvastatin* 40 MG TAB PO SCH (10:11)
[2019-10-23] MEDS: Furosemide TAB* 40 MG PO SCH (10:11)
[2019-10-23] MEDS: Lisinopril TAB* 10 MG PO SCH (10:12)
[2019-10-23] MEDS: RiFAMPin CAP* 300 MG CAP PO SCH (10:13)
[2019-10-23] MEDS: PROBIOTIC PO SCH (10:14)
[2019-10-23] MEDS: Heparin VIAL(*) 5000 UNITS/ML VIAL (FIVE THOUSAND) SUBCUT SCH (10:15)
--- NOTE | 2019-10-23 11:15 | DS ---
Amended report to enter cosigning physician on report. CC: Dr. Ken Saldana; Dr. Arpit Chappell* DISCHARGE SUMMARY: DATE OF ADMISSION: 10/19/19 DATE OF DISCHARGE: 10/23/19 PRIMARY CARE PROVIDER: Dr. Ken Saldana. ATTENDING PHYSICIAN: Dr. Krystal Donnelly.* PRIMARY DIAGNOSES: 1. Fever, suspected viral illness resolved. SECONDARY DIAGNOSES: 1. Left total knee infection. 2. B12 deficiency anemia. 3. Hypertension. 4. Chronic systolic congestive heart failure. 5. Coronary artery disease. 6. Hypothyroidism. 7. Osteoporosis. STUDIES WHILE IN THE HOSPITAL: 1. Chest x-ray on 10/18/19 reads as no radiographic evidence of acute cardiopulmonary disease. 2. EKG on 10/18/19 shows normal sinus rhythm with a rate of 78, left bundle- branch block. This is consistent with previous EKG. 3. Chest CTA on 10/18/19 reads as there is minimal bibasilar atelectatic change or scarring and there is mild biapical pleural and parenchymal scarring. The lungs and pleural spaces are otherwise clear. There is a moderate hiatal hernia. There may be mild ascites in the upper abdomen. No visible acute pulmonary embolism. 4. EKG on 10/19/19 shows normal sinus rhythm at a rate of 72, left bundle- branch block. 5. Transthoracic echocardiogram on 10/22/19 reads as the left ventricular septal wall thickness has mildly increased. No evidence of left ventricular outflow tract obstruction. Systolic function is mildly to moderately reduced. The estimated ejection fraction is 40% to 45%. Mild diffuse hypokinesis. Right ventricular systolic function is normal. There is mild MR. There is no evidence of . There is no significant AR. There is [id number] TR. Systolic pressure in the pulmonary artery is within the normal range, estimated to be 28 mmHg. Compared to the study of 06/01/17, the left ventricular function has improved from 30% to 35%. Valve function is the same. HISTORY OF PRESENT ILLNESS AND HOSPITAL COURSE: Ms. Rebollar is an 89-year-old female with past medical history of systolic congestive heart failure, hypertension, coronary artery disease, hypothyroidism, osteoporosis, macular degeneration, and spinal stenosis, who presented to the emergency room on with complaints of shortness of breath. [place] see the history and physical by Dr. Chacon for complete summary of the events leading up to this hospitalization. In short, the patient was recently hospitalized at [facility] for 3 weeks due to a left prosthetic knee infection. The patient did complete inpatient rehab there and was discharged with a PICC line to finish a 6-week course of cefazolin and rifampin. Once the patient got home, her family was concerned due to shortness of breath and so they brought her in to the emergency room where she was noted to have a fever up to 101. There was no leukocytosis or other signs of sepsis. So, because of her recent history, she was admitted by the hospitalist service. The patient was kept on her cefazolin and rifampin. Ultimately fevers resolved by the following day. There was no obvious source of infection. There was no urinary tract infection or pneumonia, and no evidence of cellulitis. At this point, it is suspected that this was secondary to a viral illness. The patient reports that her shortness of breath has resolved, and she offers no complaints except for feeling slightly fatigued. The patient has been evaluated by Physical Therapy and they have determined that she would benefit from subacute rehab. The patient and family are agreeable to this and have accepted a bed offer at [facility]. PHYSICAL EXAMINATION: On exam, the patient is alert and oriented x4 with no focal neurological deficits. Heart has a regular rate and rhythm without murmurs, rubs, or gallops. Lungs are clear to auscultation without rhonchi, wheezes, or rales. There is +1 pitting edema to bilateral lower extremities. Abdomen is soft, nontender to palpation. Physical exam is otherwise benign. Ms. Rebollar is stable for discharge. Most recent vitals are as follows: Temp 98.2, heart rate 70, respiratory rate 17, oxygen saturation 97% on room air, blood pressure 121/44. DISCHARGE MEDICATIONS: Changed medication: 1. Lasix 60 mg p.o. daily (previously 40 mg daily). Continued: 1. Aspirin 81 mg p.o. daily. 2. Atorvastatin 40 mg p.o. daily. 3. Cholecalciferol 2000 units p.o. at bedtime. 4. Levothyroxine 100 mcg p.o. daily. 5. Lisinopril 10 mg p.o. daily. 6. Metoprolol succinate 50 mg p.o. daily. 7. MiraLAX 17 g p.o. daily p.r.n. constipation. 8. Rifampin 300 mg p.o. b.i.d. 9. Probiotic 1 cap p.o. b.i.d. 10. Senna 2 tabs p.o. at bedtime p.r.n. diarrhea. 11. Tramadol 50 mg p.o. q.6 hours p.r.n. pain. 12. Calcium carbonate 1000 mg p.o. b.i.d. 13. Cefazolin 6 g IV continuous infusion. 14. Prolia 60 mg subcu every 6 months (last dose 10/21/19). 15. Heparin flush per protocol. DISCHARGE PLAN: Ms. Rebollar will be discharged to rehab. Activity will be as tolerated. Diet will be heart healthy. Medications are noted above. At this point, the patient does have some pitting edema in lower extremities. There is no evidence of acute exacerbation of heart failure, although I think it is landry to increase her Lasix for a few days, so I think 60 mg daily of Lasix for 3 to 4 more days would be beneficial. Edema will need to be reassessed at that point to determine if the patient can drop back down to her typical 40 mg daily dosing. She does have a PICC line in place to the right upper extremity, for which she is receiving continuous infusion of cefazolin, and she should continue this per instructions from her infectious disease specialist at [facility] Dr. Howard. Of note, her orthopedic surgeon at [facility] is Dr. Babb. They can be contacted for any questions or concerns regarding her antibiotics. The patient can resume her other usual medications. The patient's family did express some interest in following up with an infectious disease specialist here in [place]. I did speak with Dr. Chappell about this and he is willing to accept the patient. The family will need to make arrangements for that, so they can call his office and make an appointment. She can otherwise just follow up with a provider at the rehab facility upon her arrival and she can follow up with her primary care provider upon discharge. She should return to the emergency room or nearest hospital for any worsening of symptoms, shortness of breath, lightheadedness, dizziness, chest discomfort, high fevers, chills, night sweats, loss of consciousness, or any other worrisome signs or symptoms. DISCHARGE CONDITION: Stable. DISCHARGE DISPOSITION[facility]. This is a summarized report of a complex medical history and hospital stay. For further details, please see the entire medical record. TIME SPENT: Approximately 45 minutes was spent on this discharge. BUBBA CHICAS, MARQUISE [id number]/CPS #: [id number] STEVEN
== END 2019-10-23 13:25 | disposition swing bed (61) | DRG 866 ==
LOC: ED 19:16 → MEDTELE 10-19 06:04 → OBSVTOIN 10-19 17:28
PROVIDERS: ADMIT Student in an Organized Health Care Education/Training Program; ATTEND Internal Medicine
DX: B34.9 Viral infection, unspecified (principal); I50.22 Chronic systolic (congestive) heart failure; T84.54XA Infection and inflammatory reaction due to internal left knee prosthesis, initial encounter; Z66 Do not resuscitate; D51.9 Vitamin B12 deficiency anemia, unspecified; I11.0 Hypertensive heart disease with heart failure; I25.10 Atherosclerotic heart disease of native coronary artery without angina pectoris; E03.9 Hypothyroidism, unspecified; K57.90 Diverticulosis of intestine, part unspecified, without perforation or abscess without bleeding; M19.90 Unspecified osteoarthritis, unspecified site; H91.90 Unspecified hearing loss, unspecified ear; M81.0 Age-related osteoporosis without current pathological fracture; I44.7 Left bundle-branch block, unspecified; K44.9 Diaphragmatic hernia without obstruction or gangrene; I08.1 Rheumatic disorders of both mitral and tricuspid valves; M48.00 Spinal stenosis, site unspecified; I25.2 Old myocardial infarction; Z88.6 Allergy status to analgesic agent; Z88.1 Allergy status to other antibiotic agents; Z88.2 Allergy status to sulfonamides; Z88.8 Allergy status to other drugs, medicaments and biological substances; Z96.651 Presence of right artificial knee joint; Z79.82 Long term (current) use of aspirin; Z79.890 Hormone replacement therapy; Z86.19 Personal history of other infectious and parasitic diseases; Y79.2 Prosthetic and other implants, materials and accessory orthopedic devices associated with adverse incidents; Y92.9 Unspecified place or not applicable
CPT/HCPCS: 36415; 71046; 71275; 80048; 80053; 81003; 81015; 82330; 82607; 83605; 83880; 84484; 85025; 85045; 85610; 85652; 86140; 87040; 87086; 87641; 93005; 93306; 96361; 96374; 99285; A9270-GY; J0690; J1644; J2405; Q9967